=== PATIENT | female | born 1950 | race Caucasian/White ===

== ENCOUNTER 2020-06-25 08:59 | Outpatient (CLI) | payer MEDICARE, SELFPAY ==
--- NOTE | ~2020-06-25 | XR_ITS ---
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 COMPARISON: MRI, 11/17/2018 FINDINGS: There are 2 mm of stable retrolisthesis of C3 on C4. There are changes of interval anterior fusion procedure at C5-6. There is moderate loss of intervertebral disc space height at C3-4. The ve rtebral body heights are maintained. There is no fracture. No laxity is present with flexion or exten ronal. The prevertebral soft tissues are normal. There is severe facet osteoarthritis in the lower cer vical spine and severe uncovertebral joint osteoarthritis at C5-6. IMPRESSION: 1. Changes of interval anterior C5-C6 fusion procedure without acute findings. Severe spondylosis. Reviewed, dictated and finalized at location A.
== END 2020-06-25 09:00 | disposition home or self-care (01) ==
PROVIDERS: PCP Physician Assistant; Visit Provider Nurse Practitioner Gerontology
DX: M50.020 Cervical disc disorder with myelopathy, mid-cervical region, unspecified level (principal)
CPT/HCPCS: 72050

== ENCOUNTER 2022-08-29 08:29 | Inpatient (IN) | payer MEDICARE, SELFPAY ==
--- NOTE | ~2022-08-29 | CT_ITS ---
EXAMINATION: CT abdomen pelvis w con DATE: 08/29/2022 10:21 INDICATION: Pelvic mass. Abdominal pain. Constipation. TECHNIQUE: Computed tomography (CT) of the abdomen and pelvis was performed with 100 mL Omnipaque-350 intravenous contrast. Automated exposure control and iterative reconstruction technique were employe d. The dose-length product was 450.22 mGy-cm. COMPARISON: None FINDINGS: Mild atelectasis at the bilateral lung bases most prominent along the bilateral fat-containing Bochda lek hernias. Heart size is normal. Atherosclerotic coronary artery calcification. No pericardial or p leural effusion. Small sliding-type hiatal hernia. Small region of focal hepatic steatosis along the ligamentum teres. Gallbladder, spleen, pancreas and bilateral adrenal glands are normal. Bilateral arroyo bcentimeter low-attenuation renal cysts. Large amount of stool scattered throughout the colon. There is prominent edematous-appearing wall thickening at the sigmoid colon and rectum with prominent perir ectal inflammatory stranding and small amount of fluid in the presacral space consistent with colitis which could be infectious, inflammatory, stercoral or ischemic colitis. There is also mild scattered diverticulosis without focal adjacent inflammatory stranding to suggest diverticulitis. Small bowel and appendix are normal. Partially visualized right total hip arthroplasty which results in some stre ak artifact which partially obscures the deep pelvis including the otherwise normal-appearing bladder and uterus. No free intraperitoneal gas or fluid. No pathologically enlarged abdominal or pelvic lym phadenopathy. Severe lower lumbar facet osteoarthritis. Moderate osteoarthritis at the left hip. IMPRESSION: 1. Large amount of colonic stool with distal colitis at the sigmoid colon and rectum which represent infectious, inflammatory, stercoral or ischemic colitis. 2. Small sliding-type hiatal hernia. Reviewed, dictated and finalized at location A. IMPRESSION: 1. Large amount of colonic stool with distal colitis at the sigmoid colon and r ectum which represent infectious, inflammatory, stercoral or ischemic colitis. 2. Small sliding-type hiatal hernia.
--- NOTE | ~2022-08-29 | CT_ITS ---
EXAMINATION: CT abdomen pelvis w con DATE: 08/31/2022 10:40 INDICATION: Abdominal pain and bloating. Constipation. TECHNIQUE: Computed tomography (CT) of the abdomen and pelvis was performed with 100 mL Omnipaque 350 intravenous contrast. Automated exposure control and iterative reconstruction technique were employe d. The dose-length product was 650.70 mGy-cm. COMPARISON: CT abdomen and pelvis 08/29/2022 FINDINGS: The visualized portions of the lung bases demonstrate mild atelectasis. There is a diffuse smooth septal thickening, consistent with mild pulmonary edema. There is a small right pleural effusi on. There is a right posterior diaphragmatic hernia containing fat. The heart size is normal. There a re coronary artery calcifications. No pericardial effusion. There is a moderate-sized sliding hiatal hernia. The liver is normal. There is contrast in the gallbladder. The gallbladder is distended, like ly secondary to fasting. The spleen, pancreas, and adrenal glands are normal. There are cysts in the kidneys measuring up to 10 mm on the left. There is mild bilateral hydronephrosis. There is widesprea d wall thickening of small and large bowel. There is perforation of the sigmoid colon with extralumin al stool. There are scattered areas of free gas in the peritoneum. There is a moderate volume of asci rosi. There is widespread thickening and enhancement of the peritoneum, consistent with peritonitis. T here is mild aortocaval and left paracolic lymphadenopathy, likely reactive. There is a total right h ip arthroplasty. There is severe thoracic spondylosis and mild lumbar spondylosis. IMPRESSION: 1. Perforated sigmoid colon with extraluminal stool, moderate volume of ascites, and diffuse peritoni tis. 2. Moderate-sized sliding hiatal hernia. 3. Small right pleural effusion. 4. Mild pulmonary edema. 5. Mild bilateral hydronephrosis. 6. Mild retroperitoneal lymphadenopathy, likely reactive. Reviewed, dictated and finalized at location A. IMPRESSION: 1. Perforated sigmoid colon with extraluminal stool, moderate volume of ascites , and diffuse peritonitis. 2. Moderate-sized sliding hiatal hernia. 3. Small right pleural effusion. 4. Mild pulmonary edema. 5. Mild bilateral hydronephrosis. 6. Mild retroperitoneal lymphadenopathy, likely reactive.
[2022-08-29 08:30] VITALS: BP 124/76; PULSE 94; RESP 20; TEMP 36.6; O2SAT 98
--- NOTE | 2022-08-29 09:11 | ED.GENADULT ---
HPI - General Adult General Chief complaint: Abdominal Pain Stated complaint: bowel issue Time Seen by Provider: 08/29/22 09:08 Source: patient Mode of arrival: ambulatory Limitations: no limitations History of Present Illness HPI narrative: patient 72-year-old white female complains of constipation abdominal pain for the last 2 days. She has a feeling like she has to evacuate her bowels but very little stool brown stool comes out. Last had a normal bowel movement 2 days ago. She states she had a fever 2 days ago. Is voiding fine no history of cancer or intestinal problems. She has been eating and drinking fine. No cough or difficulty breathing or other pains. She has not had this problem before. Abdominal pains in her lower abdomen she took a Fleet's enema yesterday afternoon and has taken for laxatives yesterday and 2 this morning. Past medical history: Anxiety hyperlipidemia and arthritis past surgical history: right total hip neck surgery MD complaint: constipation abdominal pain Related Data Home Medications Medication Instructions Recorded Confirmed Adults Multivitamin 1 caplet PO DAILY 08/29/22 08/29/22 acetaminophen 650 mg 650 mg PO DAILY 08/29/22 08/29/22 tablet,extended release (Tylenol 8 Hour) aspirin 81 mg capsule 81 mg PO DAILY 08/29/22 08/29/22 calcium carb-magnesium carb 1 tablet PO DAILY 08/29/22 08/29/22 meloxicam 7.5 mg tablet 7.5 mg PO DAILY 08/29/22 08/29/22 sertraline 100 mg tablet 10 mg PO DAILY 08/29/22 08/29/22 simvastatin 20 mg tablet 20 mg PO DAILY 08/29/22 08/29/22 Allergies Allergy/AdvReac Type Severity Reaction Status Date / Time Penicillins Allergy Unknown Verified 08/29/22 09:29 Review of Systems Review of Systems: All systems reviewed & are unremarkable except as noted in HPI and below Constitutional: Constitutional: Denies anorexia, Denies fatigue, Reports fever(s), Denies headache(s), Denies night sweats, Denies poor appetite, Denies stops breathing during sleep, Denies weakness, Denies weight gain and Denies weight loss Eyes: Eyes: Reports no additional eye complaints ENT: Reports system reviewed and no additional complaints, except as documented Cardiovascular: Cardiovascular: Reports no additional cardiovascular complaints Respiratory: Respiratory: Reports no additional respiratory complaints Gastrointestinal: Gastrointestinal: Reports as per HPI, Reports abdominal pain, Reports belching ( Says she belches all the time), Denies melena, Reports bloating, Denies hematochezia, Reports change in bowel habits, Reports tenesmus, Reports change in stool character, Denies coffee ground emesis, Reports constipation, Reports GI cramping, Denies dysphagia, Reports excessive flatus, Denies dyspepsia, Denies heartburn, Denies fecal incontinence, Denies diarrhea and Denies nausea Genitourinary: Genitourinary: Reports no additional female genitourinary complaints Musculoskeletal: Musculoskeletal: Reports no additional musculoskeletal complaints Integumentary/Breasts: Skin/Breast: Reports system reviewed and no additional complaints, except as docu Neurologic: Reports system reviewed and no additional complaints, except as documented Psychiatric: Psychiatric: Reports no additional psychiatric complaints Endocrine: Endocrine: Reports no additional endocrine complaints Hematologic/Lymphatic: Hematologic/Lymphatic: Reports no additional hematologic/lymphatic complaints Exam Narrative: patient is elderly white female, in mild distress. Is normocephalic eyes conjunctiva pink sclera nonicteric oropharynx clear with moist mucous membranes neck is supple no lymphadenopathy lungs are clear to auscultation. Heart is regular rate and rhythm with 3/6 systolic murmur heard best at the left upper sternal border. Back is nontender abdomen positive bowel sounds soft mild tenderness to the lower abdomen without rebound no hepatosplenomegaly or masses no CVA tenderness. Rectal exam: Production Controller
[2022-08-29 09:34] LABS: Hematocrit 35.8 % (35.0-42.0); Hemoglobin 12.1 g/dL (11.7-13.8); Mean Corpuscular HGB Conc 33.8 g/dL (32.0-36.0); Mean Corpuscular Hemoglobin 31.3 pg (27.0-31.0); Mean Corpuscular Volume 92.7 fL (78.0-102.0); Mean Platelet Volume 9.7 fl (9.2-11.8); Platelet Count Result 390 K/mm3 (150-420); Red Blood Count 3.86 M/mm3 (4.20-5.40); Red Cell Distribution Width 12.8 % (11.6-14.4); White Blood Count 19.4 K/mm3 (4.8-10.8)
[2022-08-29 09:38] LABS: Occult Blood Negative (Negative)
[2022-08-29] MEDS: fentaNYL CITRATE INJ (*CRX) 100 MCG/2 ML VIAL (09:39)
[2022-08-29 09:48] LABS: Alanine Aminotransferase 7 U/L (14-59); Albumin Level 3.2 g/dL (3.4-5.0); Alkaline Phosphatase 68 U/L (46-116); Anion Gap 11 mmol/L (8-16); Aspartate Amino Transferase 13 U/L (15-37); Bilirubin,Total 0.5 mg/dL (0.00-1.00); Blood Urea Nitrogen 10 mg/dL (7-18); Calcium 8.1 mg/dL (8.5-10.1); Carbon Dioxide 25 mmol/L (21-32); Chloride 96 mmol/L (98-108); Estimated CRCL calculation 68 ml/min; Estimated Glomerular Filt Rate > 60; Glucose 133 mg/dL (70-99); Osmolality Calculated 275 mOsm/kg (285-295); Potassium 3.5 mmol/L (3.5-5.1); Sodium 132 mmol/L (136-145); Total Protein 7.3 g/dL (6.4-8.2)
--- NOTE | 2022-08-29 10:27 | PC.NURSE ---
pt continues with frequent trips to bathroom. unable to have bowel movement and has not urinated.
[2022-08-29 11:52] VITALS: BP 155/67; PULSE 74; RESP 18; TEMP 36.8; O2SAT 94
--- NOTE | 2022-08-29 12:20 | ADMGEN ---
This patient, Mariama Powers, was admitted to 2nd Floor Room 210-1. Patient/family oriented to hospital policies and general routines including ID bracelet, bed and alarms, visiting hours, pain management, procedures, bathroom and other care routines, personal items, smoking policy, room service/diet, and visiting hours. Information on how to activate the Rapid Response Team has been discussed. Patient/Family are encouraged to report perceived risks to care and to ask questions if they do not understand what they are told or what they should do.
[2022-08-29 12:32] VITALS: BP 166/70; PULSE 76; RESP 17; TEMP 36.2; O2SAT 95
[2022-08-29] MEDS: CIPROFLOXACIN 400 MG/D5W 200ML 200 ML 200 MG IVPB ×2 (12:41→21:09)
[2022-08-29] MEDS: metroNIDAZOLE 500 MG/ISO 100ML 500 MG/100 ML BAG 100 MG IVPB ×2 (12:41→18:02)
[2022-08-29] MEDS: HYDROcodone/acetaminophen (*CRX) 5-325 MG TABLET 1 TAB PO ×3 (12:41→21:07)
[2022-08-29] MEDS: SACCHAROMYCES BOULARDII 250 MG CAPSULE PO ×2 (12:42→17:03)
--- NOTE | 2022-08-29 14:06 | PC.NURSE ---
Phone call made to Pharmacist Yashira about Mag citrate order . Yashira states there is a recall on mag citrate. Tanmay RESAW TA[employer]ER notified. New orders received. Mag Citrate discontinued.
[2022-08-29 16:00] VITALS: BP 152/67; PULSE 82; RESP 17; TEMP 36.6; O2SAT 92
[2022-08-29] MEDS: LACTULOSE 20 GM/30 ML UDC PO (16:04)
[2022-08-29] MEDS: BISACODYL 10 MG SUPPOSITORY RECTAL (16:04)
--- NOTE | 2022-08-29 18:44 | PC.NURSE ---
Charting by Sissy Lizarraga, student nurse reviewed and agreed with by this nurse.
[2022-08-29 20:30] VITALS: BMI 25.7
[2022-08-29] MEDS: SENNA/DOCUSATE SODIUM TABLET 1 TAB PO (21:07)
--- NOTE | 2022-08-29 21:10 | PC.NURSE ---
Patient complaining of severe cramping to lower abdomen. Abdomen firm with hypoactive bowel sounds. Pain medicine given as ordered. Patient passed a minute amount of soft brown stool. Call light in reach.
[2022-08-29] MEDS: ONDANSETRON INJ 4 MG/2 ML VIAL IV PUSH (22:02)
--- NOTE | 2022-08-29 22:05 | PC.NURSE ---
Patient had emesis x2 unwitnessed. Zofran given. Patient continues to complain of abdominal pain but says it's getting better and now comes and goes. Patient still has had no further stool. Call light in reach.
[2022-08-29 22:07] LABS: Appearance Urine Clear (Clear); Bilirubin Urine 1+ (Negative); Blood Urine Negative (Negative); Glucose Urine UA Trace (Negative); Ketones Urine 2+ (Negative); Leukocyte Esterase Ur Negative (Negative); Protein Urine 2+ (Negative); Specific Grav Ur >= 1.030 (1.010-1.020)
[2022-08-29 22:13] LABS: Add Urine Microscopic? YES; Color Urine Dark Orange (Yellow); RBC Urine 0-2 /hpf (0-2); Squamous Epithelial Cell Urine Occasional /hpf (Few)
[2022-08-29 22:14] LABS: Bacteria Urine Trace /hpf; Mucus Urine Heavy /lpf
[2022-08-29 22:16] LABS: Nitrate Urine Positive (Negative)
--- NOTE | 2022-08-29 22:29 | PC.NURSE ---
Manuela Figueroa, Hospitalist, notified of UA results.
[2022-08-30] VITALS: BP 156/71; PULSE 80; RESP 18; TEMP 37; O2SAT 98
[2022-08-30] MEDS: metroNIDAZOLE 500 MG/ISO 100ML 500 MG/100 ML BAG 100 MG IVPB ×4 (00:27→17:53)
[2022-08-30] MEDS: HYDROcodone/acetaminophen (*CRX) 5-325 MG TABLET 1 TAB PO ×3 (01:07→21:39)
[2022-08-30 05:29] LABS: Hematocrit 34.3 % (35.0-42.0); Hemoglobin 11.5 g/dL (11.7-13.8); Mean Corpuscular HGB Conc 33.5 g/dL (32.0-36.0); Mean Corpuscular Hemoglobin 31.1 pg (27.0-31.0); Mean Corpuscular Volume 92.7 fL (78.0-102.0); Platelet Count Result 395 K/mm3 (150-420); Red Cell Distribution Width 12.7 % (11.6-14.4)
[2022-08-30 05:36] LABS: White Blood Count 26.9 K/mm3 (4.8-10.8)
--- NOTE | 2022-08-30 05:36 | PC.NURSE ---
Lab called to report a critical WBC of 26.9.
--- NOTE | 2022-08-30 06:02 | PC.NURSE ---
Manuela Figueroa NP, notified of critical WBC of 26.9; No new orders at this time.
[2022-08-30 06:05] LABS: Alanine Aminotransferase 18 U/L (14-59); Albumin Level 2.9 g/dL (3.4-5.0); Alkaline Phosphatase 72 U/L (46-116); Anion Gap 8 mmol/L (8-16); Aspartate Amino Transferase 17 U/L (15-37); Bilirubin,Total 0.6 mg/dL (0.00-1.00); Blood Urea Nitrogen 11 mg/dL (7-18); Carbon Dioxide 26 mmol/L (21-32); Chloride 93 mmol/L (98-108); Estimated CRCL calculation 59 ml/min; Estimated Glomerular Filt Rate > 60; Glucose 154 mg/dL (70-99); Osmolality Calculated 266 mOsm/kg (285-295); Potassium 3.8 mmol/L (3.5-5.1); Sodium 127 mmol/L (136-145); Total Protein 7.1 g/dL (6.4-8.2)
[2022-08-30 08:00] VITALS: BP 127/61; PULSE 74; RESP 16; TEMP 36.5; O2SAT 93
[2022-08-30] MEDS: ASPIRIN 81 MG ENTERIC TABLET PO (08:13)
[2022-08-30] MEDS: SACCHAROMYCES BOULARDII 250 MG CAPSULE PO ×3 (08:13→16:08)
[2022-08-30] MEDS: SIMVASTATIN 10 MG TABLET 20 MG PO (08:13)
[2022-08-30] MEDS: MAGNESIUM OXIDE 400 MG TABLET PO (08:13)
[2022-08-30] MEDS: DOCUSATE SODIUM 100 MG CAPSULE PO (08:14)
[2022-08-30] MEDS: SERTRALINE HCL 50 MG TABLET 100 MG PO (08:14)
[2022-08-30] MEDS: MELOXICAM 7.5 MG TABLET PO (08:16)
[2022-08-30] MEDS: PANTOPRAZOLE SODIUM IV 40 MG VIAL IV PUSH (08:18)
[2022-08-30] MEDS: ENOXAPARIN 40 MG/0.4 ML SYRINGE SUB-Q (08:18)
[2022-08-30] MEDS: CALCIUM CARBONATE (OSCAL) 250 MG TABLET PO (08:18)
[2022-08-30] MEDS: CIPROFLOXACIN 400 MG/D5W 200ML 200 ML 200 MG IVPB ×2 (08:19→20:35)
[2022-08-30] MEDS: ONDANSETRON INJ 4 MG/2 ML VIAL IV PUSH ×2 (08:31→16:08)
[2022-08-30] MEDS: NITROFURANTOIN MONOHYD MACROCR 100 MG CAP PO ×2 (12:22→20:35)
[2022-08-30] MEDS: LACTULOSE 20 GM/30 ML UDC PO ×3 (12:22→16:08)
[2022-08-30] MEDS: polyethylene glycoL 3350 17 GM POWD.PACK PO (12:22)
--- NOTE | 2022-08-30 13:17 | PM.IMHP ---
H&P: HPI History of Present Illness Date/Time: 08/30/22 13:17 Chief Complaint: Abdominal pain and constipation Narrative: This is a 72-year-old female that presents to the emergency department with complaints of abdominal pain. Patient has a past medical history of high cholesterol, anxiety and osteoarthritis. WBCs 19.4, hemoglobin 12.1, hematocrit 35.8, platelets 390, sodium 132, potassium 3.5, BUN 10, creatinine 0.59, glucose 133, calcium 8.1, magnesium 2.0, total bilirubin 0.5, AST 18, ALT 7, UA positive for glucose ketones nitrate bacteria occult blood negative CT of the abdomen indicate colitis. According to patient she cannot recall the last time she had a bowel movement. She did note approximately 2 days ago is when she started to feel abdominal pain. Patient will be admitted for colitis and treated for her constipation. She does complain of abdominal pain to the upper quadrants. The patient denies SOB, CP, palpitation, extremity numbness, lightheadedness, dizziness, , diarrhea, chills, or fever. Review of Systems Review of Systems: A 14 organ system Review of Systems was performed and pertinent positives included in the HPI, otherwise remaining ROS is negative. [facility] Past Medical History Medical History (Updated 08/30/22 @ 13:29 by MALIKA Mccartney) Anxiety HLD (hyperlipidemia) Osteoarthritis Social History Social History Smoking packs per day: 1 Smoking cigarettes per day: 20.0 Smoking status: Current every day smoker Alcohol intake: current Drinks per week: 2 Substance use: never Substance use type: does not use Spiritual care concerns: No Has the Lack of Transportation Kept You From Medical Appointments or From Getting Medications?: No Within the Past 12 Months, Were You Worried Whether Your Food Would Run Out Before You Got Money to Buy More?: Never True What is Your Housing Situation Today?: I Have Housing Are You Worried That in the Next 2 Months, You May Not Have Your Own Housing to Live In?: No Do You Have Trouble Paying Your Heating Or Electricity Bill?: No Do You Have Trouble Paying For Medicines?: No Are You Currently Unemployed and Looking for Work?: No Highest Level of Education Completed: Decline to Answer Do You Have Trouble With Childcare or the Care of a Family Member?: No Meds Home Medications and Allergies Home Medications Medication Instructions Recorded Confirmed Type Adults Multivitamin 1 caplet PO DAILY 08/29/22 08/29/22 History acetaminophen 650 mg 650 mg PO DAILY 08/29/22 08/29/22 History tablet,extended release (Tylenol 8 Hour) aspirin 81 mg capsule 81 mg PO DAILY 08/29/22 08/29/22 History calcium carb-magnesium carb 1 tablet PO DAILY 08/29/22 08/29/22 History meloxicam 7.5 mg tablet 7.5 mg PO DAILY 08/29/22 08/29/22 History sertraline 100 mg tablet 10 mg PO DAILY 08/29/22 08/29/22 History simvastatin 20 mg tablet 20 mg PO DAILY 08/29/22 08/29/22 History Allergies Allergy/AdvReac Type Severity Reaction Status Date / Time Penicillins Allergy Unknown Verified 08/29/22 09:29 Vital Signs Vital Signs - 24 hr 08/29/22 16:00 08/30/22 00:00 08/30/22 08:00 Temperature 98 F 98.6 F 97.7 F Pulse Rate 82 80 74 Respiratory Rate 17 18 16 Blood Pressure 152/67 H 156/71 H 127/61 Pulse Oximetry 92 98 93 Oxygen Delivery Room Air Room Air Room Air Exam Narrative: GENERAL: This is a well-nourished, well-developed patient, in no apparent distress. HEAD: normocephalic, atraumatic. EYES: PERRL. Sclera clear/white. Vision is grossly intact. EARS: External ears normal, auditory canals clear and without drainage, TMs normal without perforation. Hearing grossly intact. NOSE: External nose normal with no obvious nasal discharge, nares without redness, no rhinorrhea. THROAT: Mucous membranes moist, posterior pharynx clear. NECK: Neck supple, non-tender without lymphadenopathy, masses o
[2022-08-30] MEDS: BISACODYL 10 MG SUPPOSITORY RECTAL (14:36)
[2022-08-30] MEDS: SENNOSIDES 8.6 MG TABLET 17.2 MG PO (14:47)
[2022-08-30] MEDS: SODIUM CHLORIDE 0.9% IV 1,000 ML 100 ML IV CONT (14:47)
[2022-08-30 15:52] VITALS: BP 147/60; PULSE 81; RESP 20; TEMP 36.5; O2SAT 91
--- NOTE | 2022-08-30 17:16 | PC.NURSE ---
fresh dressing place on iv site, flushed, ns reconnected, pt refuses dinner at this time
[2022-08-30] MEDS: traZODone HCL 50 MG TABLET PO (19:46)
[2022-08-30] MEDS: MORPHINE SULFATE (*CRX) 2 MG/ML INJ IV PUSH (19:46)
--- NOTE | 2022-08-30 20:42 | PC.NURSE ---
Patient refuses senna S at this time, states it will make her bloating worse.
[2022-08-31] VITALS: BP 144/67; PULSE 75; RESP 16; TEMP 36.3; O2SAT 92
[2022-08-31] MEDS: metroNIDAZOLE 500 MG/ISO 100ML 500 MG/100 ML BAG 100 MG IVPB ×2 (00:30→05:22)
[2022-08-31] MEDS: SODIUM CHLORIDE 0.9% IV 1,000 ML 100 ML IV CONT (03:27)
[2022-08-31 05:40] LABS: Hematocrit 41.6 % (35.0-42.0); Hemoglobin 14.1 g/dL (11.7-13.8); Immature Platelet Fraction Pct 2.4 % (1.0-7.0); Mean Corpuscular HGB Conc 33.9 g/dL (32.0-36.0); Mean Corpuscular Hemoglobin 31.2 pg (27.0-31.0); Mean Platelet Volume 9.6 fl (9.2-11.8); Platelet Count Result 520 K/mm3 (150-420); Red Blood Count 4.52 M/mm3 (4.20-5.40); Red Cell Distribution Width 12.7 % (11.6-14.4); White Blood Count 4.5 K/mm3 (4.8-10.8)
[2022-08-31 05:48] LABS: Hemoglobin A1C 5.6 % (<5.7)
[2022-08-31 05:53] LABS: Alanine Aminotransferase 22 U/L (14-59); Albumin Level 2.5 g/dL (3.4-5.0); Alkaline Phosphatase 57 U/L (46-116); Anion Gap 10 mmol/L (8-16); Aspartate Amino Transferase 29 U/L (15-37); Bilirubin,Total 0.6 mg/dL (0.00-1.00); Blood Urea Nitrogen 19 mg/dL (7-18); Calcium 8.1 mg/dL (8.5-10.1); Carbon Dioxide 23 mmol/L (21-32); Chloride 91 mmol/L (98-108); Estimated CRCL calculation 45 ml/min; Estimated Glomerular Filt Rate 59; Glucose 154 mg/dL (70-99); Osmolality Calculated 263 mOsm/kg (285-295); Potassium 3.9 mmol/L (3.5-5.1); Sodium 124 mmol/L (136-145); Total Protein 6.5 g/dL (6.4-8.2)
[2022-08-31 08:00] VITALS: BP 130/64; PULSE 74; RESP 17; TEMP 36.6; O2SAT 93
[2022-08-31] MEDS: CIPROFLOXACIN 400 MG/D5W 200ML 200 ML 200 MG IVPB (08:59)
[2022-08-31] MEDS: ENOXAPARIN 40 MG/0.4 ML SYRINGE SUB-Q (09:00)
[2022-08-31] MEDS: PANTOPRAZOLE SODIUM IV 40 MG VIAL IV PUSH (09:01)
[2022-08-31] MEDS: SERTRALINE HCL 50 MG TABLET 100 MG PO (09:03)
[2022-08-31] MEDS: SACCHAROMYCES BOULARDII 250 MG CAPSULE PO (09:04)
[2022-08-31] MEDS: MAGNESIUM OXIDE 400 MG TABLET PO (09:04)
[2022-08-31] MEDS: DOCUSATE SODIUM 100 MG CAPSULE PO (09:04)
[2022-08-31] MEDS: NITROFURANTOIN MONOHYD MACROCR 100 MG CAP PO (09:04)
[2022-08-31] MEDS: SIMVASTATIN 10 MG TABLET 20 MG PO (09:04)
[2022-08-31 10:07] LABS: Hemoglobin 13.7 g/dL (11.7-13.8); Mean Corpuscular HGB Conc 34.3 g/dL (32.0-36.0); Mean Corpuscular Hemoglobin 31.4 pg (27.0-31.0); Mean Corpuscular Volume 91.7 fL (78.0-102.0); Mean Platelet Volume 9.7 fl (9.2-11.8); Platelet Count Result 506 K/mm3 (150-420); Red Blood Count 4.36 M/mm3 (4.20-5.40); Red Cell Distribution Width 12.7 % (11.6-14.4); White Blood Count 7.2 K/mm3 (4.8-10.8)
--- NOTE | 2022-08-31 11:22 | PM.TDS ---
Transfer Discharge Sum: Prov Provider Date of admission: 08/30/22 11:10 Primary care physician: Kell Everett, PA-C Admitting clinician: Jareth Gaffney MD Attending physician on admission: Giuliano Mtz Attending physician on discharge: Con Gaffney Discharging clinician: Tanmay Figueroa Anticipated date of transfer: 08/31/22 Receiving physician/facility: [facility]/ Dr mtz DS: Admitting Diagnosis Discharge Date 08/31/2022 Admitting Diagnosis colitis and constipation DS: Discharge Diagnosis Discharge Diagnosis (1) Acute colitis: Code(s): K52.9 - Noninfective gastroenteritis and colitis, unspecified Status: Acute (2) UTI (urinary tract infection): Code(s): N39.0 - Urinary tract infection, site not specified Status: Acute (3) Constipation: Code(s): K59.00 - Constipation, unspecified Status: Acute (4) HLD (hyperlipidemia): Code(s): E78.5 - Hyperlipidemia, unspecified Status: Acute (5) Anxiety: Code(s): F41.9 - Anxiety disorder, unspecified Status: Acute (6) Osteoarthritis: Code(s): M19.90 - Unspecified osteoarthritis, unspecified site Status: Acute (7) Electrolyte imbalance: Code(s): E87.8 - Other disorders of electrolyte and fluid balance, not elsewhere classified Status: Acute (8) Perforated sigmoid colon: Code(s): K63.1 - Perforation of intestine (nontraumatic) Status: Acute Plan perforated sigmoid colon Transfer Discharge Sum: Med Medications Active and Home Medications: Home Medications Adults Multivitamin 1 caplet PO DAILY 08/29/22 [History Confirmed 08/29/22] acetaminophen 650 mg tablet,extended release (Tylenol 8 Hour) 650 mg PO DAILY 08/29/22 [History Confirmed 08/29/22] aspirin 81 mg capsule 81 mg PO DAILY 08/29/22 [History Confirmed 08/29/22] calcium carb-magnesium carb 1 tablet PO DAILY 08/29/22 [History Confirmed 08/29/22] meloxicam 7.5 mg tablet 7.5 mg PO DAILY 08/29/22 [History Confirmed 08/29/22] sertraline 100 mg tablet 10 mg PO DAILY 08/29/22 [History Confirmed 08/29/22] simvastatin 20 mg tablet 20 mg PO DAILY 08/29/22 [History Confirmed 08/29/22] Active Medications Acetaminophen (Acetaminophen 325 Mg Tablet) 650 mg PO Q4H PRN PRN Reason: Mild Pain (1-3) or Fever Hydrocodone Bitart/Acetaminophen (Hydrocodone/Acetaminophen (*Crx) 5-325 Mg Tablet) 1 tab PO Q4H PRN PRN Reason: Moderate Pain (4-6) Last Admin: 08/30/22 21:39 Dose: 1 tab Aspirin (Aspirin 81 Mg Enteric Tablet) 81 mg PO QAM [facility] Last Admin: 08/31/22 09:12 Dose: Not Given Bisacodyl (Bisacodyl 10 Mg Suppository) 10 mg RECTAL DAILY PRN PRN Reason: Constipation Docusate Sodium (Docusate Sodium 100 Mg Capsule) 100 mg PO DAILY [facility] Last Admin: 08/31/22 09:04 Dose: 100 mg Enoxaparin Sodium (Enoxaparin 40 Mg/0.4 Ml Syringe) 40 mg SUB-Q DAILY [facility] Last Admin: 08/31/22 09:00 Dose: 40 mg Ciprofloxacin/Dextrose (Cipro 400 Mg/D5w 200 Ml) 200 mls @ 200 mls/hr IVPB Q12HR [facility] Last Admin: 08/31/22 08:59 Dose: 200 mls/hr Metronidazole (Flagyl 500 Mg/Iso Soln 100 Ml) 500 mg in 100 mls @ 100 mls/hr IVPB Q6HR [facility] Last Admin: 08/31/22 05:22 Dose: 100 mls/hr Sodium Chloride (Normal Saline Iv) 1,000 mls @ 100 mls/hr IV CONT .Q10H [facility] Last Admin: 08/31/22 03:27 Dose: 100 mls/hr Lorazepam (Lorazepam Inj (*Crx) 2 Mg/Ml Vial) 0.5 mg IV PUSH Q6H PRN PRN Reason: Anxiety Magnesium Oxide (Magnesium Oxide 400 Mg Tablet) 400 mg PO DAILY [facility] Last Admin: 08/31/22 09:04 Dose: 400 mg Meloxicam (Meloxicam 7.5 Mg Tablet) 7.5 mg PO DAILY [facility] Last Admin: 08/31/22 09:01 Dose: Not Given Morphine Sulfate (Morphine Sulfate (*Crx) 2 Mg/Ml Inj) 2 mg IV PUSH Q4H PRN PRN Reason: Pain Rated 7-10 Last Admin: 08/30/22 19:46 Dose: 2 mg Nitrofurantoin Macrocrystals (Nitrofurantoin Monohyd Macrocr 100 Mg Cap) 100 mg PO Q12HR [facility] Last Admin: 08/31/22 09:04 Dose: 100 mg Ondansetron HCl (Ond
--- NOTE | 2022-08-31 11:35 | PC.NURSE ---
Sudhakar [facility] service contacted for transfer to [place]
--- NOTE | 2022-08-31 11:47 | PC.NURSE ---
Called report to Dyana at [facility]. Also gave report to Courtney in pre-op at surgery center.
--- NOTE | 2022-08-31 12:05 | PC.NURSE ---
Report given to AAS. All questions answered. Pt transferred self to stretcher. Belongings sent with pt's .
== END 2022-08-31 12:05 | disposition short-term general hospital (02) | DRG 391 ==
LOC: CHSED 11:55 → CHS2ND 12:06
PROVIDERS: Nurse Practitioner; Admitting Provider Internal Medicine; Emergency Provider Emergency Medicine; PCP Physician Assistant; Visit Provider Internal Medicine
DX: K52.9 Noninfective gastroenteritis and colitis, unspecified (principal); K63.1 Perforation of intestine (nontraumatic); K65.9 Peritonitis, unspecified; N39.0 Urinary tract infection, site not specified; K59.00 Constipation, unspecified; E78.5 Hyperlipidemia, unspecified; E87.8 Other disorders of electrolyte and fluid balance, not elsewhere classified; M19.90 Unspecified osteoarthritis, unspecified site; F41.9 Anxiety disorder, unspecified; Z96.641 Presence of right artificial hip joint
CPT/HCPCS: 36415; 74177; 80053; 81001; 83036; 83735; 85027; 85055; 87086; 96365; 96366; 96372; 96374; 96375; 96376; 99285; A9270; C9113; G0378; J0153; J0282; J0744; J1650; J2270; J2405; J3010; J7030; J7120; Q9967

== ENCOUNTER 2022-08-31 12:13 | Inpatient (IN) | payer MEDICARE, SELFPAY ==
[2022-08-31] VITALS (19 sets, daily range): BP systolic 88–149; BP diastolic 50–78; PULSE 100–127; RESP 18–20; TEMP 35.8–36.8; O2SAT 93–100; BMI 27.3
--- NOTE | ~2022-08-31 | XR_ITS ---
EXAMINATION: XR abdomen/kub 1V DATE: 09/13/2022 06:01 INDICATION: Small bowel obstruction. TECHNIQUE: A supine view of the abdomen was obtained. COMPARISON: Abdomen radiographs 09/12/2022 FINDINGS: There are mildly dilated loops of small bowel. The colon is decompressed. Skin gallito are noted. There is a total right hip arthroplasty. IMPRESSION: 1. Mildly dilated small bowel, likely adynamic ileus. Reviewed, dictated and finalized at location A. LIFT OPERATOR
--- NOTE | ~2022-08-31 | XR_ITS ---
XR chest PICC line DATE: 08/31/2022 20:15 INDICATION: PICC line insertion TECHNIQUE: Portable AP chest on 08/31/2022 2010 hours COMPARISON: 08/31/2022 portable AP chest FINDINGS: Left upper extremity PIC catheter tip overlies superior vena cava. ET tube 4.7 cm above ana in satisfactory position. NG tube in stomach. Normal heart size. There is bilateral lower lung infiltrate and/or atelectasis, left greater than right. Small pleural e ffusions may be present. No pneumothorax. Osteopenia. IMPRESSION: Left upper extremity PIC catheter in superior vena cava ET and NG tubes in satisfactory position Bilateral predominantly lower lung infiltrate and/atelectasis, left greater the right Reviewed, dictated and finalized at Location A. Reviewed, dictated and finalized at location A.
--- NOTE | ~2022-08-31 | CT_ITS ---
EXAMINATION: CT abdomen pelvis wo con DATE: 09/02/2022 11:17 INDICATION: Abdominal distention post sigmoidectomy. TECHNIQUE: Computed tomography (CT) of the abdomen and pelvis was performed without intravenous contr ast. Automated exposure control and iterative reconstruction technique were employed. The dose-length product was 1314.80 mGy-cm. COMPARISON: 08/31/2022 FINDINGS: Again seen are bilateral fat-containing Bochdalek hernias. Small bilateral pleural effusions with ass ociated basilar compressive atelectasis. Heart size is normal. Atherosclerotic coronary artery calcif ications along with aortic valve and mitral annular calcific lesions. No pericardial effusion. [place]oga stric tube tip in the distal body of the stomach. Small amount of perihepatic ascites. Mild focal hep atic steatosis at the ligamentum teres. Vicariously excreted contrast within the gallbladder which is dilated to 5.7 x 5.0 cm. No gallbladder wall thickening or pericholecystic inflammatory changes sugg est acute cholecystitis. Spleen, pancreas and bilateral adrenal glands are normal. Again seen are veronika ateral subcentimeter low-attenuation renal cysts. No hydronephrosis. 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 Postoperative change of interval sigmoidectomy with left lower quadr ant and colostomy and Wen's pouch formation. Streak artifact from a right total hip arthroplasty partially obscures portions of the deep central pelvis. Not obscured portions of the partially decomp ressed bladder and uterus are unremarkable. Small amount of scattered ascites in the pelvis and along the mesentery in the abdomen which appears decreased since the prior study. No loculated abscess or free intraperitoneal gas. Atherosclerotic ossicle is scattered along the normal caliber abdominal aor ta. No pathologically enlarged abdominal or pelvic lymphadenopathy. Moderate left hip osteoarthritis. Severe spondylosis at T8-T9. IMPRESSION: 1. Postoperative change of recent sigmoidectomy with left lower quadrant and colostomy and Wen's pouch formation. 2. Decreased small amount of ascites scattered throughout the abdomen and pelvis. No abscess or free intraperitoneal gas. 3. Small bilateral pleural effusions with dependent atelectasis in the bilateral lower lobes. Reviewed, dictated and finalized at location A. IMPRESSION: 1. Postoperative change of recent sigmoidectomy with left lower quadrant and co lostomy and Wen's pouch formation. 2. Decreased small amount of ascites scattered throughout the abdomen and pelvi s. No abscess or free intraperitoneal gas. 3. Small bilateral pleural effusions with dependent atelectasis in the bilatera l lower lobes.
--- NOTE | ~2022-08-31 | XR_ITS ---
EXAMINATION: XR chest 1V portable DATE: 09/03/2022 05:56 INDICATION: Endotracheal tube TECHNIQUE: frontal view of the chest was obtained. COMPARISON: Chest radiograph dated 09/02/2022 FINDINGS: Endotracheal tube tip 3.5 cm above the ana. Nasogastric tube extends below the left hemidiaphragm with distal tip collimated off the study. Left upper extremity peripherally inserted central venous catheter (PICC) tip at the caudal superior vena cava. Persistent gradient of basilar predominant hazy airspace opacities in bilateral mid and lower lung zo adan with blunting at the left costophrenic angle consistent with posterior layering small bilateral p leural effusions and associated basilar atelectasis. No pneumothorax. The cardiomediastinal silhouett e is normal. IMPRESSION: 1. Small bilateral pleural effusions with associated bibasilar atelectasis and/or pneumonia. Reviewed, dictated and finalized at location A. IMPRESSION: 1. Small bilateral pleural effusions with associated bibasilar atelectasis and/ or pneumonia.
--- NOTE | ~2022-08-31 | XR_ITS ---
XR abdomen/kub 1V DATE: 09/12/2022 06:50 INDICATION: Small bowel obstruction TECHNIQUE: Portable supine AP views on 09/12/2022 at 0602 hours COMPARISON: 09/11/2022 KUB FINDINGS: The NG tube is been removed since 09/11/2022. There is prominent left lower lobe atelectasis/consolidation with air bronchograms and lesser infiltr ate or atelectasis in the right lower lung. There are gallito left of midline in the lower abdomen. There is nonspecific bowel gas pattern withou t apparent obstruction. Status post right total hip arthroplasty. IMPRESSION: Bilateral lower lobe infiltrate and/atelectasis, particularly prominent in the left lower lobe, with air bronchograms Nonspecific postoperative bowel gas pattern Reviewed, dictated and finalized at Location A. Reviewed, dictated and finalized at location A. CUTTER IMPRESSION: Bilateral lower lobe infiltrate and/atelectasis, particularly promi nent in the left lower lobe, with air bronchograms Nonspecific postoperative bowel gas pattern
--- NOTE | ~2022-08-31 | XR_ITS ---
XR chest 1V portable 09/05/2022 05:47 Indication: Respiratory distress. Procedure: AP portable chest Comparison: Comparison to multiple prior studies sequentially, with oldest reviewed study dated 08/08. Findings: Endotracheal tube tip 2.9 cm above the ana. PICC line tip in the SVC. NG tube in the sto mach. There is mild interstitial edema. Small pleural effusions. No pneumothorax. Impression: 1: Mild interstitial edema with small pleural effusions. Reviewed, dictated and finalized at location A. Impression: 1: Mild interstitial edema with small pleural effusions.
--- NOTE | ~2022-08-31 | XR_ITS ---
EXAMINATION: XR chest 1V portable DATE: 09/02/2022 05:35 INDICATION: Endotracheal tube TECHNIQUE: frontal view of the chest was obtained. COMPARISON: Chest radiograph dated 09/01/2022 FINDINGS: Endotracheal tube tip 4.2 cm above the ana. Nasogastric tube tip in proximal side port in the body of the stomach. Left upper extremity peripherally inserted central venous catheter (PICC) tip at th e caudal superior vena cava. Opacities in the bilateral lower lung zones with some subtle air bronchograms at the bilateral infrah ilar regions. Persistent small bilateral pleural effusions. No pneumothorax. The cardiomediastinal si lhouette is normal. IMPRESSION: 1. Small bilateral pleural effusions with associated bibasilar atelectasis and/or pneumonia. Reviewed, dictated and finalized at location A. IMPRESSION: 1. Small bilateral pleural effusions with associated bibasilar atelectasis and/ or pneumonia.
--- NOTE | ~2022-08-31 | XR_ITS ---
XR abdomen/kub 1V INDICATION: Evaluate NG tube position. TECHNIQUE: Limited KUB perform for evaluating NG tube . COMPARISON: 09/07/2022 FINDINGS: NG tube tip in the stomach. There has been decompression of small bowel since prior examina tion.Moderate gas throughout the colon. There is a laparotomy staple line. IMPRESSION: 1: NG tube tip in the stomach. Reviewed, dictated and finalized at location A.
--- NOTE | ~2022-08-31 | XR_ITS ---
EXAMINATION: XR abdomen NG/feed tube insert DATE: 08/31/2022 17:31 INDICATION: Nasogastric tube placement. TECHNIQUE: A supine view of the abdomen was obtained. COMPARISON: None. FINDINGS: The lower abdomen is excluded. The transverse colon is mildly distended. Skin gallito are n oted. The nasogastric tube tip is in the stomach. IMPRESSION: 1. Nasogastric tube tip in the stomach. 2. Mildly distended transverse colon, likely adynamic ileus. Reviewed, dictated and finalized at location A.
--- NOTE | ~2022-08-31 | CT_ITS ---
EXAMINATION: CT abdomen pelvis w con DATE: 09/07/2022 15:31 INDICATION: Leukocytosis. Postoperative abdominal pain and distention. TECHNIQUE: Computed tomography (CT) of the abdomen and pelvis was performed with 100 mL Omnipaque-350 intravenous contrast. Automated exposure control and iterative reconstruction technique were employe d. The dose-length product was 742.14 mGy-cm. COMPARISON: 09/02/2022 . FINDINGS: Small to moderate-sized bilateral pleural effusions with collapse of the visualized portions of the b ilateral lower lobes additional dependent atelectasis in the right middle lobe. Bilateral fat-contain ing Bochdalek hernias. Heart size is normal. Atherosclerotic coronary artery calcifications. No peric ardial effusion. Nasogastric tube in the stomach. Vicariously excreted contrast in the gallbladder. Common bile duct is dilated to 9 mm. No intrahepati c third ductal dilation. Liver, spleen, pancreas, bilateral adrenal glands are normal. Bilateral subc entimeter renal cysts. Postoperative change of recent sigmoidectomy with left lower quadrant and colo stomy and Ewn's pouch formation. There is gas and fluid throughout multiple loops of small bowel with short segment mildly dilated to 3.8 cm which transitions to normal caliber without a discrete tr ansition point and would favor an ileus over obstruction. Moderate amount stool in the proximal colon . Small amount of ascites scattered throughout the abdomen and pelvis. No organized-appearing abscess . Visualization of the deep pelvis is somewhat limited by metallic streak artifact from a right total h ip arthroplasty. Thickened fluid attenuation endometrial complex which measures up to 15 mm in thickn ess. Partially decompressed bladder is unremarkable. Extensive body wall edema. Midline surgical skin gallito. Moderate left hip osteoarthritis and severe lower lumbar facet osteoarthritis. IMPRESSION: 1. Status post sigmoidectomy with left lower quadrant and colostomy and Wen's pouch formation. 2. Multiple gas and fluid-filled loops of small bowel one of which is borderline dilated but without evident transition point to suggest obstruction and this most likely represents a postoperative ileus . 3. Small amount of nonorganized appearing ascites in the abdomen and pelvis. 3. Common bile duct mildly dilated to 9 mm which has remain stable since 08/29/2022 and is without ev ident intrahepatic biliary ductal dilation. Correlate with liver function tests. 4. Increasing small to moderate bilateral pleural effusions with collapse of the visualized basilar s egments of the bilateral lower lobes. Reviewed, dictated and finalized at location B. IMPRESSION: 1. Status post sigmoidectomy with left lower quadrant and colostomy and Wen 's pouch formation. 2. Multiple gas and fluid-filled loops of small bowel one of which is borderlin e dilated but without evident transition point to suggest obstruction and this most likely represents a postoperative ileus. 3. Small amount of nonorganized appearing ascites in the abdomen and pelvis. 3. Common bile duct mildly dilated to 9 mm which has remain stable since 2021 and is without evident intrahepatic biliary ductal dilation. Correlate wit h liver function tests. 4. Increasing small to moderate bilateral pleural effusions with collapse of th e visualized basilar segments of the bilateral lower lobes.
--- NOTE | ~2022-08-31 | XR_ITS ---
EXAMINATION: XR abdomen/kub 1V DATE: 09/07/2022 14:11 INDICATION: Abdominal distention. TECHNIQUE: A supine view of the abdomen on 2 radiographs was obtained. COMPARISON: CT dated 09/02/2022 FINDINGS: Nasogastric tube tip in proximal side port in the body of the stomach. There are multiple gas-filled but not frankly dilated loops of large and small bowel in the abdomen and pelvis and would favor a re sidual postoperative ileus over obstruction. Midline skin gallito. Partially visualized right total h ip arthroplasty. Moderate left hip osteoarthritis and severe lower lumbar facet osteoarthritis. IMPRESSION: 1. Multiple gas-filled but not frankly dilated loops of large and small bowel and would favor a posto perative ileus over obstruction. Reviewed, dictated and finalized at location B. IMPRESSION: 1. Multiple gas-filled but not frankly dilated loops of large and small bowel a nd would favor a postoperative ileus over obstruction.
--- NOTE | ~2022-08-31 | XR_ITS ---
XR abdomen/kub 1V DATE: 09/11/2022 06:04 INDICATION: Small bowel obstruction TECHNIQUE: Portable supine AP view on 09/11/2022 at 0548 hours COMPARISON: 09/2022 portable supine AP abdomen at 0536 hours FINDINGS: NG tube is noted in the lower body of the stomach. There are gallito overlying the lower abdomen and pelvis left of midline. Nonspecific bowel gas pattern without abnormal small or large bowel dilatation. Status post right total hip arthroplasty. Prominent left hip osteoarthritis. IMPRESSION: NG tube in lower body of stomach Nonspecific bowel gas pattern Reviewed, dictated and finalized at Location A. Reviewed, dictated and finalized at location A.
--- NOTE | ~2022-08-31 | XR_ITS ---
EXAMINATION: XR chest 1V portable DATE: 09/01/2022 05:07 INDICATION: Endotracheal tube TECHNIQUE: frontal view of the chest was obtained. COMPARISON: Chest radiograph dated 08/31/2022 FINDINGS: Endotracheal tube tip 4.2 cm above the ana. Nasogastric tube extends below the left hemidiaphragm with distal tip collimated off the study. Small lung volumes. Mild opacities at the bilateral lung bases including small bilateral pleural effu sions. No pneumothorax. The cardiomediastinal silhouette is normal. IMPRESSION: 1. Small bilateral pleural effusions with associated mild bibasilar atelectasis and/or pneumonia. Reviewed, dictated and finalized at location A.
--- NOTE | ~2022-08-31 | XR_ITS ---
XR chest 1V portable 09/04/2022 05:46 Indication: Respiratory distress. Endotracheal tube placement. Procedure: AP portable chest Comparison: Comparison to multiple prior studies sequentially, with oldest reviewed study dated 08/08. Findings: Endotracheal tube tip 3.7 cm above the ana. NG tube in the stomach. Diffuse bilateral ai rspace disease is unchanged. Small pleural effusions. No pneumothorax. Impression: 1: Stable diffuse bilateral airspace disease, most likely edema versus pneumonia. Reviewed, dictated and finalized at location A. Impression: 1: Stable diffuse bilateral airspace disease, most likely edema versus pneumoni a.
--- NOTE | ~2022-08-31 | XR_ITS ---
EXAMINATION: XR abdomen/kub 1V DATE: 09/10/2022 05:55 INDICATION: Adynamic ileus. TECHNIQUE: A supine view of the abdomen on 2 radiographs was obtained. COMPARISON: CT abdomen and pelvis 09/07/2022 FINDINGS: There are dilated loops of small bowel. The colon is normal in caliber. The nasogastric tub e tip is in the stomach. Skin gallito are noted. There is a total right hip arthroplasty. There are s mall pleural effusions. IMPRESSION: 1. Dilated small bowel, likely adynamic ileus. 2. Small pleural effusions. Reviewed, dictated and finalized at location A.
--- NOTE | ~2022-08-31 | XR_ITS ---
EXAMINATION: XR chest ET placement DATE: 08/31/2022 17:31 INDICATION: Intubation. TECHNIQUE: A single frontal view of the chest was obtained. COMPARISON: Chest 2 views 10/15/2013, CT abdomen and pelvis 08/31/2022 FINDINGS: There is a diffuse interstitial pattern in the lungs, consistent with mild pulmonary edema. There is mild atelectasis at the lung bases. No pleural effusion or pneumothorax. The heart size is normal. There are changes of anterior fusion procedure in cervical spine. The endotracheal tube tip i s 3.9 cm above the ana. The nasogastric tube tip is beyond the inferior margin of the radiograph, but at least to the stomach. IMPRESSION: 1. Mild pulmonary edema. Reviewed, dictated and finalized at location A. IMPRESSION: 1. Mild pulmonary edema.
--- NOTE | 2022-08-31 12:28 | ECG_ITS ---
Measurements Intervals [place] Rate: 125 P: -8 MA: 122 QRS: 60 QRSD: 122 T: 8 QT: 300 QTc: 433 Interpretive Statements SINUS TACHYCARDIA RIGHT BUNDLE BRANCH BLOCK [120+ ms QRS DURATION, UPRIGHT V1, 40+ ms S IN I/aVL/V4/V5/V6] NO PREVIOUS ECG AVAILABLE FOR COMPARISON Electronically Signed On 08-31-2022 16:22:33 CDT by Dylan Aguila M.D.
--- NOTE | 2022-08-31 12:41 | PM.IMHP ---
H&P: HPI History of Present Illness Date/Time: 08/31/22 12:41 Chief Complaint: abdominal pain Narrative: patient is a 72-year-old woman who presented to the emergency room in [place] with severe abdominal pain and constipation 2 days ago, 08/29/2022. Her last bowel movement had been 2 days ago. She had taken a fleets enema and some laxatives but no results. Her white blood cell count was 19,000. CT scan showed a tremendous amount of retained fecal content and evidence of colitis in the distal sigmoid area. She was admitted and started on antibiotics and multiple laxatives. Today,her abdomen became very distended and her pain was worse. Her CT scan was repeated. This showed evidence of sigmoid perforation, fecal peritonitis. She transferred here urgently from [facility] in [place]. Plans are to proceed to the operating room for fecal peritonitis from stercoral colonic perforation. Patient is a smoker and had a previous right total hip replacement. She is otherwise healthy. Review of Systems Review of Systems: All systems reviewed & are unremarkable except as noted in HPI and below ( HPI and those items noted below) Constitutional: Constitutional: Denies chills and Denies fever(s) Cardiovascular: Cardiovascular: Denies chest pain, Denies diaphoresis, Denies dyspnea and Denies paroxysmal nocturnal dyspnea Respiratory: Respiratory: Denies chest congestion, Denies cough and Denies dyspnea Integumentary/Breasts: Skin/Breast: Denies lesions and Denies rash PMFSH Past Medical History Medical History Anxiety HLD (hyperlipidemia) Osteoarthritis Social History Social History Smoking packs per day: 1 Smoking cigarettes per day: 20.0 Smoking status: Current every day smoker Alcohol intake: current Drinks per week: 2 Substance use: never Substance use type: does not use Spiritual care concerns: No Has the Lack of Transportation Kept You From Medical Appointments or From Getting Medications?: No Within the Past 12 Months, Were You Worried Whether Your Food Would Run Out Before You Got Money to Buy More?: Never True What is Your Housing Situation Today?: I Have Housing Are You Worried That in the Next 2 Months, You May Not Have Your Own Housing to Live In?: No Do You Have Trouble Paying Your Heating Or Electricity Bill?: No Do You Have Trouble Paying For Medicines?: No Are You Currently Unemployed and Looking for Work?: No Highest Level of Education Completed: Decline to Answer Do You Have Trouble With Childcare or the Care of a Family Member?: No Meds Home Medications and Allergies Home Medications Medication Instructions Recorded Confirmed Type Adults Multivitamin 1 caplet PO DAILY 08/29/22 08/29/22 History acetaminophen 650 mg 650 mg PO DAILY 08/29/22 08/29/22 History tablet,extended release (Tylenol 8 Hour) aspirin 81 mg capsule 81 mg PO DAILY 08/29/22 08/29/22 History calcium carb-magnesium carb 1 tablet PO DAILY 08/29/22 08/29/22 History meloxicam 7.5 mg tablet 7.5 mg PO DAILY 08/29/22 08/29/22 History sertraline 100 mg tablet 10 mg PO DAILY 08/29/22 08/29/22 History simvastatin 20 mg tablet 20 mg PO DAILY 08/29/22 08/29/22 History Allergies Allergy/AdvReac Type Severity Reaction Status Date / Time Penicillins Allergy Unknown Verified 08/29/22 09:29 Exam Const: General: cooperative, no acute distress, alert, awake, uncomfortable and thin Nutritional Appearance: thin Orientation/consciousness: patient oriented x3 and No confusion HENMT: Head: normocephalic and atraumatic Mouth: Yes Normal oral and palatal mucosa present Eyes: Conjunctivae: conjunctivae normal Pupils: Equal, round and reactive pupils present EOM: EOMs intact bilaterally Neck: Neck: normal visual inspection, no lymphadenopathy and nontender Resp: Effort & Inspection: nor
--- NOTE | 2022-08-31 12:53 | WPDHPUPDATE1 ---
History and Physical Update Update Date/Time: 08/31/22 12:53 History and Physical has been reviewed, including an updated exam of the patient. There are NO changes in the patient's condition. Risks, benefits, and alternatives have been discussed and questions answered. Patient agrees to proceed with procedure.
--- NOTE | 2022-08-31 13:08 | P.PNAN_ITS ---
Anes - Initial Pre Proc Eval Procedure: Operation Date: 08/31/22 16:00 Proposed Procedures p Exploratory Laparotomy - Giuliano Krueger MD Date/Time: 08/31/22 13:08 Surgeon: Giuliano Krueger MD Pre Op Diagnosis: Perforated Sigmoid Colon Patient Data Age: 72 Gender: F Height: Weight: Allergies Allergy/AdvReac Type Severity Reaction Status Date / Time Penicillins Allergy Unknown Verified 08/29/22 09:29 Home Medications Medication Instructions Recorded Confirmed Type Adults Multivitamin 1 caplet PO DAILY 08/29/22 08/29/22 History acetaminophen 650 mg 650 mg PO DAILY 08/29/22 08/29/22 History tablet,extended release (Tylenol 8 Hour) aspirin 81 mg capsule 81 mg PO DAILY 08/29/22 08/29/22 History calcium carb-magnesium carb 1 tablet PO DAILY 08/29/22 08/29/22 History meloxicam 7.5 mg tablet 7.5 mg PO DAILY 08/29/22 08/29/22 History sertraline 100 mg tablet 10 mg PO DAILY 08/29/22 08/29/22 History simvastatin 20 mg tablet 20 mg PO DAILY 08/29/22 08/29/22 History Patient hx anesthesia problems: none Family hx anesthesia problems: none Results Review: All pre-operative results and documents have been reviewed as part of the pre- operative evaluation. [facility] Past Medical History Medical History Anxiety HLD (hyperlipidemia) Osteoarthritis Social History Social History Smoking packs per day: 1 Smoking cigarettes per day: 20.0 Smoking status: Current every day smoker Alcohol intake: current Drinks per week: 2 Substance use: never Substance use type: does not use Spiritual care concerns: No Has the Lack of Transportation Kept You From Medical Appointments or From Getting Medications?: No Within the Past 12 Months, Were You Worried Whether Your Food Would Run Out Before You Got Money to Buy More?: Never True What is Your Housing Situation Today?: I Have Housing Are You Worried That in the Next 2 Months, You May Not Have Your Own Housing to Live In?: No Do You Have Trouble Paying Your Heating Or Electricity Bill?: No Do You Have Trouble Paying For Medicines?: No Are You Currently Unemployed and Looking for Work?: No Highest Level of Education Completed: Decline to Answer Do You Have Trouble With Childcare or the Care of a Family Member?: No Anes - Eval Final PreProcedure Day of Procedure 08/31/22 13:08 Patient weight: obese Heart: regular rate and rhythm Lungs: clear to auscultation and normal air movement Airway: Mallampati scale class II Neurological: alert and oriented Last oral intake: >/= 8 hours ASA classification: III Emergent: yes Anesthetic plan: proceed Anesthesia type and monitoring: general ETT Results Review: All pre-operative results and documents have been reviewed as part of the pre- operative evaluation. Informed Consent: The patient's anesthetic plan and its attendant risks and benefits were discussed with the patient/family/POA. Questions were solicited and answers provided to the satisfaction of the patient/family/POA.
[2022-08-31] MEDS: ceFAZolin 2 GM/D5W 50 ML 2 GM/50 ML BAG IVPB (13:47)
--- NOTE | 2022-08-31 13:52 | SUR.PREOP ---
[id number] DR WILLAMS STATES TO DO HAIR REMOVAL IN OR
[2022-08-31] MEDS: HYDROGEN PEROXIDE 3% SOLN(*SP) 473 ML BOTTLE 10 ML IRRIGATION (15:49)
--- NOTE | 2022-08-31 17:11 | W.PM.PROC2 ---
Procedure Note - Detailed Date of Procedure 08/31/22 Pre-op Diagnosis Stercoral perforation sigmoid colon, fecal peritonitis Post-op Diagnosis Other (Stercoral perforation sigmoid colon, fecal peritonitis, septic shock) Procedure Performed Sigmoidectomy with Rossi procedure Surgeon Giuliano Krueger MD Breast Surgeon Nia MARTINEZ, Dyana Cee [employer] Anesthesia General Indications Patient was admitted to [facility] 2 days ago with constipation and abdominal pain. CT scan showed large amount of retained fecal matter and evidence of stercoral colitis. Patient today developed distention and increased abdominal pain. CT scan showed perforation and fecal peritonitis. She was transferred here emergently and is taken to surgery emergently for bowel perforation and fecal peritonitis. Findings Patient's blood pressure was normal prior to surgery but during the operation she became hypotensive and required vasopressor of agents to maintain her blood pressure. She had extensive amounts of liquid stool throughout the abdomen. There was a hole in the sigmoid colon which was continuing to leak liquid fecal matter. The entire colon was quite dilated making the surgery more difficult. The sigmoid colon had areas of gangrenous change and was adherent in the lower abdomen making resection more difficult. End descending colostomy or Rossi's procedure was performed. Patient transferred directly to the intensive care unit from the operating room Description of Procedure Patient was taken to surgery and induced into general anesthesia. The entire abdomen was prepped and draped. A midline incision was made and as we entered the abdominal cavity liquid stool was encountered. This was suctioned away. The incision was gradually enlarged as it became more obvious that a very large midline incision would be required to expose the area of the perforation, clean the abdominal cavity adequately, and provide resection with colostomy. Once the incision was enlarged to an adequate extent, a Mehul retractor was placed. The small intestine was gently eviscerated. There was a lot of fibrinous stool stained exudate on the serosal surfaces of the small intestine and its mesentery. This was removed as best possible. Eventually we were able to eviscerate all the small bowel and its mesentery. We suctioned away collections of liquid stool as we found them. Any solid stool was also removed. Most of the serosal surfaces had been contaminated with liquid fecal material. At this point exploration revealed that the sigmoid colon had gangrenous patches and was likely the source of the perforation as suggested by the CT scan. All of the colon was very dilated. Particularly the cecum was dilated and just to access the sigmoid colon I had to mobilize the cecum and distal small bowel so that it would not occupy so much of the pelvis. From there I was then able to free the sigmoid colon from some inflammatory pelvic adhesions. At this point, trying to mobilize the sigmoid and resulted in additional stool being expressed into the abdominal cavity. I tried to cover this opening as best possible with laparotomy sponge and then continued to mobilize the sigmoid colon. Eventually it was mobilized. I divided some of the mesentery to the sigmoid colon and upper rectum with LigaSure. I then used the contour stapler and divided the sigmoid colon from the upper rectum. From there I mobilized and exposed the vasculature to the sigmoid colon. I used the LigaSure to divide this as well. Finally I mobilized and divided the mesentery to the distal descending colon and dissected around the distal descending colon. Using the TLC 75 stapler I divided the distal descending colon. This allowed us to remove the sigmoid colon and passed it off as a specimen. Now that the source of contamination had been removed, we set about irrigating the entire abdominal cavity with warm saline. After do
[2022-08-31] MEDS: FENTANYL 2,500MCG/NS250ML(*CRX 2,500 MCG/250 ML BAG IV CONT (17:40)
[2022-08-31] MEDS: MIDAZOLAM 100MG/NS 100ML(*CRX) 100 MG/100 ML BAG IV CONT (17:40)
[2022-08-31 17:45] LABS: Alveolar/Arterial O2 Gradient 355.2 mmHg; Fractional Inspired Oxygen 100 %; HCO3 ABG 18.7 mEq/l (22.0-26.0); Methemoglobin ABG 0.4 %THb (0-1.5); Oxygen Content ABG 20.3 %vol (16.0-22.0); Oxygen Saturation ABG 99.6 % (95.0-100.0); Oxyhemoglobin 98.6 % THb (90.0-100.0); PCO2 ABG 47.2 mmHg (35.0-45.0); PO2 ABG 310.6 mmHg (80.0-100.0); PO2 FiO2 Ratio Arterial Blood 3.11 %; Total Hemoglobin 14.1 g/dL (12.0-18.0)
[2022-08-31 17:47] LABS: Device VENTILATOR; Site Drawn ARTLINE; pH ABG 7.216 (7.350-7.450)
[2022-08-31 17:48] LABS: Arterial Blood Gas PEEP 5 cmH2O; Arterial Blood Gas Tidal Volume 350 ml; Arterial Blood Gas Vent Mode CMV; Arterial Blood Gas Ventilator rate 20 /MIN
[2022-08-31 18:09] LABS: Hematocrit 39.6 % (37.0-47.0); Hemoglobin 13.3 g/dL (12.0-15.0); Mean Corpuscular HGB Conc 33.6 g/dl (32-36); Mean Corpuscular Hemoglobin 30.9 pg (26-34); Mean Corpuscular Volume 92.1 fl (80-100); Mean Platelet Volume 9.7 fl (7.4-10.4); Platelet Count Result 532 k/mm3 (150-375); Red Cell Distribution Width 13.2 % (11.5-14.5); White Blood Count 7.1 K/mm3 (4.5-10.0)
[2022-08-31 18:14] LABS: Lactic Acid Reflex 2.2 mmol/L (0.7-2.0)
[2022-08-31 18:16] LABS: Alanine Aminotransferase 23 U/L (6-35); Albumin Level 2.2 g/dL (3.5-5.1); Alkaline Phosphatase 38 U/L (38-126); Anion Gap 11 mmol/L (8-16); Aspartate Amino Transferase 48 U/L (14-36); Bilirubin,Total 0.5 mg/dL (0.2-1.3); Blood Urea Nitrogen 20 mg/dL (7-17); Calcium 7.6 mg/dL (8.4-10.2); Carbon Dioxide 19 mmol/L (22-30); Chloride 99 mmol/L (98-107); Estimated CRCL calculation 42 ml/min; Estimated Glomerular Filt Rate 55; Glucose 126 mg/dL (65-110); Phosphorus 4.3 mg/dL (2.5-4.5); Sodium 129 mmol/L (137-145)
[2022-08-31] MEDS: KCL 20MEQ/0.9% SOD CHL 1,000 ML 125 ML IV CONT (18:19)
[2022-08-31] MEDS: MICAFUNGIN SODIUM 100 MG in SODIUM CHLORIDE 0.9% IV 100 ML IVPB (18:20)
[2022-08-31] MEDS: metroNIDAZOLE 500 MG/ISO 100ML 500 MG/100 ML BAG 100 MG IVPB (18:32)
[2022-08-31 19:18] LABS: Band Neutrophils Percent 15 % (0-6); Lymphocytes Absolute Manual 1.06 K/mm3 (1.1-4.5); Metamyelocytes Percent 3 %; Monocytes Absolute Manual 0.63 K/mm3 (0.1-0.90); Monocytes Percent Manual 9 % (3-9); Myelocytes Percent 2 %; Neutrophils Absolute Manual 5.04 K/mm3 (1.7-7.2); Neutrophils Percent Manual 56 % (46-73); Platelet Estimate Increased (Adequate); Total Cells Counted 100
[2022-08-31 19:19] LABS: Schistocytes None Seen (NORMAL)
--- NOTE | 2022-08-31 19:30 | WPDCN ---
Assessment and Plan Assessment and plan (1) Sepsis: Code(s): A41.9 - Sepsis, unspecified organism Status: Acute Assessment and Plan: Sepsis secondary to peritonitis related to perforated sigmoid colon from stercoral colitis. She presented with tachycardia, leukocytosis with bandemia, lactic acidosis, and hypotension which has thus far been responsive to IV fluid rehydration. Blood cultures were not drawn prior to starting antibiotics though we will draw those this evening. At this time she is maintaining her blood pressures though a PICC line has been placed as she may very well end up requiring vasopressors as she did periodically throughout her surgery. (2) Perforated sigmoid colon: Code(s): K63.1 - Perforation of intestine (nontraumatic) Status: Acute Assessment and Plan: Status post sigmoidectomy, Rossi procedure per Dr. Krueger. (3) Peritonitis: Code(s): K65.9 - Peritonitis, unspecified Status: Acute Assessment and Plan: Currently on broad-spectrum antibiotics and antifungals with levofloxacin, metronidazole, and micafungin. (4) Stercoral colitis: Code(s): K52.89 - Other specified noninfective gastroenteritis and colitis Status: Acute Assessment and Plan: Status post perforation as detailed above. (5) Electrolyte imbalance: Code(s): E87.8 - Other disorders of electrolyte and fluid balance, not elsewhere classified Status: Acute Assessment and Plan: Sodium and chloride were low on presentation to the outside facility but have improved with IV fluid rehydration. Monitor closely.. (6) Smoker: Code(s): F17.200 - Nicotine dependence, unspecified, uncomplicated Status: Chronic Assessment and Plan: Smoking cessation is encouraged. This may delay her healing time. Plan GI prophylaxis: Protonix. DVT prophylaxis: Enoxaparin. Diet: Start tube feeds when bowel function returns. Thank you for allowing us to participate in this patient's care. Please do not hesitate to contact us with any questions. Supervising physician for this medical consultation is Dr. Dick Engel. [facility] Data of Consult Date/Time: 08/31/22 17:30 Requesting Physician: Giuliano Krueger MD Consult Narrative Reason for consult: Sepsis, perforated sigmoid colon Narrative: This is a 72-year-old female smoker with hyperlipidemia and anxiety whom the hospitalist service has been consulted for help managing her medical conditions status post sigmoidectomy with Rossi procedure. She is sedated and intubated unable to provide any history and as such all of the following is obtained via a review of her electronic medical records as well as discussions with her Josue who is at bedside. Last Tuesday the patient began experiencing discomfort in her abdomen which she attributed to constipation as she had not had a good bowel movement for several days. Tuesday evening she developed increasing pain, discomfort, and bloating and took a an oral laxative and did a Fleet's enema with no success. She presented to the emergency department the [facility] [place] at which time a CT of the abdomen and pelvis showed a large amount of colonic stool with distal colitis at the sigmoid colon and rectum which represents infectious, inflammatory, stercoral, or ischemic colitis. She was admitted to their medical floor that afternoon and was started on antibiotics. The following afternoon she was seen by the hospitalist who started her on MiraLax lactulose, senna, and suppositories without success. Over the next 24 hours she had increasing pain and restlessness and a repeat CT of the abdomen showed a perforated sigmoid colon with extraluminal stool and diffuse peritonitis. She was transferred to [place] for further care. I am seeing the patient in the ICU where she is sedated and on mechanical ventilation. She is currently receivin
--- NOTE | 2022-08-31 19:45 | ADMGEN ---
This patient, Mariama Powers, was admitted to Intensive Care Unit-7 at 16:45 from the OR. Patient/family oriented to hospital policies and general routines including ID bracelet, bed and alarms, visiting hours, pain management, procedures, bathroom and other care routines, personal items, smoking policy, room service/diet, and visiting hours. Information on how to activate the Rapid Response Team has been discussed. Patient/Family are encouraged to report perceived risks to care and to ask questions if they do not understand what they are told or what they should do.
[2022-08-31] MEDS: NOREPINEPHRINE 8 MG/D5W 250 ML 8 MG/250 ML BAG 9.38 MG IV CONT (20:26)
[2022-08-31] MEDS: SODIUM BICARBONATE 8.4% 50 MEQ/50 ML SYRINGE IV PUSH (20:35)
[2022-08-31] MEDS: FAMOTIDINE 20 MG/2 ML VIAL IV PUSH (20:38)
[2022-08-31 20:53] LABS: Reflex Lactic Acid Yes or No Add Lactic
[2022-08-31] MEDS: LACTATED RINGERS 1,000 ML 125 ML IV CONT (20:57)
[2022-08-31] MEDS: MINERAL OIL/WHITE PETROLATUM OINTMENT 1 APPLIC EACH EYE (20:57)
[2022-08-31] MEDS: CENTRAL LINE FLUSH 10 ML IV PUSH (22:10)
[2022-08-31 22:58] LABS: Lactic Acid 2.1 mmol/L (0.7-2.0)
[2022-09-01] VITALS (58 sets, daily range): BP systolic 68–127; BP diastolic 49–70; PULSE 98–172; RESP 20–31; TEMP 36.6–37.7; O2SAT 94–96; BMI 29.2
--- NOTE | 2022-09-01 01:30 | PC.NURSE ---
Upon changing patient linens, patient able to wake up enough to follow simple commands such as squeezing hands
[2022-09-01] MEDS: metroNIDAZOLE 500 MG/ISO 100ML 500 MG/100 ML BAG 100 MG IVPB (02:10)
[2022-09-01 05:14] LABS: Alveolar/Arterial O2 Gradient 201.2 mmHg; Base Excess ABG -4.7 mEq/l (+/-2.0); Carboxyhemoglobin 0.3 % THb (0-2.0); Fractional Inspired Oxygen 45 %; HCO3 ABG 19.7 mEq/l (22.0-26.0); Methemoglobin ABG 0.4 %THb (0-1.5); Oxygen Content ABG 20.9 %vol (16.0-22.0); Oxygen Saturation ABG 95.6 % (95.0-100.0); PO2 ABG 79.8 mmHg (80.0-100.0); PO2 FiO2 Ratio Arterial Blood 1.77 %; Reduced Hemoglobin 4.3 %THb (0-5.0); Total Hemoglobin 15.6 g/dL (12.0-18.0); pH ABG 7.369 (7.350-7.450)
[2022-09-01 05:15] LABS: Device VENTILATOR; Site Drawn ARTLINE
[2022-09-01 05:16] LABS: Arterial Blood Gas PEEP 5 cmH2O; Arterial Blood Gas Tidal Volume 450 ml; Arterial Blood Gas Vent Mode CMV; Arterial Blood Gas Ventilator rate 20 /MIN
[2022-09-01 05:17] LABS: Hematocrit 38.5 % (37.0-47.0); Hemoglobin 13.3 g/dL (12.0-15.0); Mean Corpuscular HGB Conc 34.5 g/dl (32-36); Mean Corpuscular Hemoglobin 30.9 pg (26-34); Mean Corpuscular Volume 89.3 fl (80-100); Mean Platelet Volume 9.7 fl (7.4-10.4); Platelet Count Result 595 k/mm3 (150-375); Red Blood Count 4.31 M/mm3 (4.2-5.4); Red Cell Distribution Width 13.2 % (11.5-14.5); White Blood Count 12.9 K/mm3 (4.5-10.0)
[2022-09-01 05:26] LABS: Anion Gap 13 mmol/L (8-16); Blood Urea Nitrogen 26 mg/dL (7-17); Calcium 7.2 mg/dL (8.4-10.2); Carbon Dioxide 18 mmol/L (22-30); Chloride 97 mmol/L (98-107); Estimated CRCL calculation 42 ml/min; Estimated Glomerular Filt Rate 55; Glucose 120 mg/dL (65-110); Magnesium 2.1 mg/dL (1.6-2.3); Phosphorus 3.9 mg/dL (2.5-4.5); Potassium 4.6 mmol/L (3.4-5.0); Sodium 128 mmol/L (137-145)
[2022-09-01 05:54] LABS: Band Neutrophils Percent 16 % (0-6); Lymphocytes Absolute Manual 1.03 K/mm3 (1.1-4.5); Metamyelocytes Percent 1 %; Monocytes Percent Manual 14 % (3-9); Neutrophils Absolute Manual 9.67 K/mm3 (1.7-7.2); Neutrophils Percent Manual 59 % (46-73); Promyelocytes Percent 2 %; Total Cells Counted 100
[2022-09-01 05:55] LABS: Acanthocytes 3+ (NORMAL); Anisocytosis 1+ (NORMAL); Platelet Estimate Increased (Adequate)
[2022-09-01 05:58] LABS: Schistocytes None Seen (NORMAL)
[2022-09-01] MEDS: LACTATED RINGERS 1,000 ML 125 ML IV CONT (06:00)
[2022-09-01] MEDS: CENTRAL LINE FLUSH 10 ML IV PUSH ×3 (06:01→21:38)
--- NOTE | 2022-09-01 07:54 | WPDANESPN ---
Anes - Prog Note Post-Op Date/Time: 09/01/22 07:54 Cardiovascular status: other (patient on levophed intubated with ngt and sedated) Vital Signs: Last Vital Signs Temp 36.9 C 09/01/22 04:00 Pulse 120 H 09/01/22 06:09 Resp 20 09/01/22 06:09 BP 102/58 L 09/01/22 06:08 Pulse Ox 95 09/01/22 06:00 O2 Del Method Mechanical Ventilation 09/01/22 05:00 FiO2 45 09/01/22 05:00 Pain Score (VAS): 0 I/O: Intake & Output 08/31/22 08/31/22 09/01/22 15:59 23:59 07:59 Intake Total 50 250 1100 Output Total 550 Balance 50 250 550 Laboratory Tests 09/01/22 05:08 09/01/22 05:08 08/31/22 08/31/22 08/31/22 13:30 17:31 17:42 WBC 7.1 RBC 4.30 Hgb 13.3 Hct 39.6 MCV 92.1 MCH 30.9 MCHC 33.6 RDW 13.2 Plt Count 532 H MPV 9.7 Immature Gran % (Auto) Not Reportable Neut % (Auto) Not Reportable Lymph % (Auto) Not Reportable Osborne % (Auto) Not Reportable Eos % (Auto) Not Reportable Baso % (Auto) Not Reportable Lymph # (Auto) Not Reportable Osborne # (Auto) Not Reportable Eos # (Auto) Not Reportable Baso # (Auto) Not Reportable Abs Immat Gran (auto) Not Reportable Absolute Neuts (auto) Not Reportable Absolute Nucleated RBC Not Reportable Total Counted 100 Neutrophils % (Manual) 56 Band Neutrophils % 15 H Lymphocytes % (Manual) 15.0 L Monocytes % (Manual) 9 Metamyelocytes % 3 Myelocytes % 2 Promyelocytes % (Man) Nucleated RBC % Not Reportable Abs Neuts (Manual) 5.04 Abs Lymphs (Manual) 1.06 L Abs Monocytes (Manual) 0.63 Platelet Estimate Increased Anisocytosis Acanthocytes (Spur) Schistocytes None seen Puncture Site Artline ABG pH 7.216 L* ABG pCO2 47.2 H ABG pO2 310.6 H ABG PO2/FiO2 Ratio 3.11 ABG HCO3 18.7 L ABG O2 Saturation 99.6 ABG O2 Content 20.3 ABG Base Excess -9.0 A-a Gradient 355.2 Oxyhemoglobin 98.6 Carboxyhemoglobin 0.0 Methemoglobin 0.4 Reduced Hemoglobin 1.0 Total Hemoglobin 14.1 O2 Delivery Device Ventilator O2 Liters/Min Not Reportable Minute Volume Not Reportable Vent Rate 20 Vent Mode Cmv FiO2 100 Tidal Volume 350 PEEP 5 Peak Inspir Pressure Not Reportable Pressure Support Not Reportable Sodium Potassium Chloride Carbon Dioxide Anion Gap BUN Creatinine Estim Creat Clear Calc Estimated GFR Glucose Lactic Acid Calcium Phosphorus Magnesium Total Bilirubin AST ALT Alkaline Phosphatase Total Protein Albumin Blood Type A Positive Antibody Screen Negative 08/31/22 08/31/22 08/31/22 17:42 17:42 22:25 WBC RBC Hgb Hct MCV MCH MCHC RDW Plt Count MPV Immature Gran % (Auto) Neut % (Auto) Lymph % (Auto) Osborne % (Auto) Eos % (Auto) Baso % (Auto) Lymph # (Auto) Osborne # (Auto) Eos # (Auto) Baso # (Auto) Abs Immat Gran (auto) Absolute Neuts (auto) Absolute Nucleated RBC Total Counted Neutrophils % (Manual) Band Neutrophils % Lymphocytes % (Manual) Monocytes % (Manual) Metamyelocytes % Myelocytes % Promyelocytes % (Man) Nucleated RBC % Abs Neuts (Manual) Abs Lymphs (Manual) Abs Monocytes (Manual) Platelet Estimate Anisocytosis Acanthocytes (Spur) Schistocytes Puncture Site ABG pH ABG pCO2 ABG pO2 ABG PO2/FiO2 Ratio ABG HCO3 ABG O2 Saturation ABG O2 Content ABG Base Excess A-a Gradient Oxyhemoglobin Carboxyhemoglobin Methemoglobin Reduced Hemoglobin Total Hemoglobin O2 Delivery Device O2 Liters/Min Minute Volume Vent Rate Vent Mode FiO2 Tidal Volume PEEP Peak Inspir Pressure Pressure Support Sodium 129 L Potassium 4.0 Chloride 99 Carbon Dioxide 19 L Anion Gap 11 BUN 20 H
[2022-09-01] MEDS: FAMOTIDINE 20 MG/2 ML VIAL IV PUSH (08:22)
[2022-09-01] MEDS: MINERAL OIL/WHITE PETROLATUM OINTMENT 1 APPLIC EACH EYE ×2 (08:22→21:38)
[2022-09-01] MEDS: PANTOPRAZOLE SODIUM IV 40 MG VIAL IV PUSH (08:22)
[2022-09-01] MEDS: ENOXAPARIN 40 MG/0.4 ML SYRINGE SUB-Q (08:22)
[2022-09-01] MEDS: hetaSTARCH 6%/NACL 500 ML 250 ML IV CONT (08:23)
[2022-09-01] MEDS: CALCIUM GLUC 2,000 MG/NS 100ML 2,000 MG/100 ML BAG 100 MG IVPB ×2 (09:16→15:05)
--- NOTE | 2022-09-01 11:07 | PM.PNGS ---
Progress Note: A&P Assessment and Plan (1) Perforated sigmoid colon: Code(s): K63.1 - Perforation of intestine (nontraumatic) Status: Acute Assessment and Plan: She was found to have sigmoid perforation with fecal peritonitis with extensive amounts of liquid stool throughout the abdomen. S/p sigmoidectomy with Rossi procedure yesterday. Her abdomen is still very distended today. Continue NG tube decompression, bowel rest, and await return of bowel function. Wound care nurses consulted for ostomy care. Continue IV antibiotics and IV Micafungin. Discussed the case with the [employer], who will plan to keep her intubated at least another 1-2 days and is switching her sedation to Precedex. (2) Sepsis: Code(s): A41.9 - Sepsis, unspecified organism Status: Acute Assessment and Plan: Secondary to the colon perforation with fecal peritonitis. She was switched to IV Primaxin. Continue IV abx and Micafungin. Blood cx pending, which were drawn after starting abx. She is currently on one vasopressor, which is being weaned down this morning. Continue ICU management and monitoring labs. (3) Peritonitis: Code(s): K65.9 - Peritonitis, unspecified Status: Acute (4) Stercoral colitis: Code(s): K52.89 - Other specified noninfective gastroenteritis and colitis Status: Acute (5) Smoker: Code(s): F17.200 - Nicotine dependence, unspecified, uncomplicated Status: Chronic Plan I have discussed the patient's case and plan of care with Dr. Krueger. Subjective Subjective Date/Time Seen: 09/01/22 09:07 Post Op day: 1 (Sigmoidectomy with Rossi procedure) Patient reports: afebrile Interval history: Patient seen and examined in the ICU with her family and nursing at the bedside. She is intubated but currently has her sedation shut off for a weaning trial. She opens her eyes and tracks when speaking to her. Nursing has been titrating down on her Levophed drip this morning and she is now only on a small amount (2mcg/min). No ostomy output. Urine output was 500 cc overnight. Review of Systems Review of Systems: ROS unobtainable: Yes unobtainable due to endotracheal tube Exam Const: General: ill appearing Orientation/consciousness: Other orientation findings (intubated, SELAM assess) Other: Opens eyes to name Resp: Effort & Inspection: abnormal respiratory pattern (mechanical ventilator) Auscultation: clear to auscultation bilaterally Cardio: Rate: tachycardic Rhythm: regular rhythm GI: Inspection: distended, incision (dressing dry and intact) and other (ostomy with no output, stoma appears viable) GI Palp: Yes Firmness to palpation present (GI) Auscultation: absent bowel sounds Urinary Catheter: Urinary Catheter: patent and draining and urine dark Extrem: General: no edema Psych: Insight: Limited insight present (Psych) Judgement: Limited judgement present (Psych) Objective Data Vital Signs Vital Signs: Vital Signs - 24 hr 08/31/22 13:50 08/31/22 16:45 08/31/22 17:40 Temperature 96.4 F L Pulse Rate 127 H 100 112 H Respiratory Rate 18 20 Blood Pressure 111/72 Pulse Oximetry 93 100 Oxygen Delivery Room Air Mechanical Ventilation Fraction of Inspired Oxygen 100 08/31/22 17:40 08/31/22 17:15 08/31/22 16:45 Temperature 97.8 F Pulse Rate 110 H 100 Respiratory Rate 20 18 Blood Pressure 135/78 Pulse Oximetry 100 Oxygen Delivery Mechanical Ventilation Fraction of Inspired Oxygen 100 08/31/22 17:00 08/31/22 18:00 08/31/22 19:00 Temperature Pulse Rate 102 H 109 H 110 H Respiratory Rate 18 20 20 Blood Pressure 149/66 H 111/54 L 97/50 L Pulse Oximetry 100 100 99 Oxygen Delivery Fraction of Inspired Oxygen 08/31/22 20:26 08/31/22 21:23 08/31/22 21:52 Temperature Pulse Rate 110 H 113 H 113 H Respiratory Rate 20 Blood Pressure 88/54 L 130/65 Pulse Oximetry 97 Oxygen Delivery Mechanical Ventilation
--- NOTE | 2022-09-01 11:47 | PM.IMPN ---
Progress Note: A&P Assessment and Plan (1) Sepsis: Code(s): A41.9 - Sepsis, unspecified organism Status: Acute Assessment and Plan: Sepsis secondary to peritonitis related to perforated sigmoid colon from stercoral colitis Appreciate critical care management, continue imipenem, was on Flagyl and Levaquin yesterday, also started on micafungin Continue to wean off Levophed, needed overnight (2) Perforated sigmoid colon: Code(s): K63.1 - Perforation of intestine (nontraumatic) Status: Acute Assessment and Plan: Status post sigmoidectomy, Rossi procedure per Dr. Krueger 08/31/2022 (3) Peritonitis: Code(s): K65.9 - Peritonitis, unspecified Status: Acute Assessment and Plan: Currently on broad-spectrum antibiotics and antifungals with imipenem and micafungin. (4) Stercoral colitis: Code(s): K52.89 - Other specified noninfective gastroenteritis and colitis Status: Acute Assessment and Plan: Status post perforation as detailed above. (5) Electrolyte imbalance: Code(s): E87.8 - Other disorders of electrolyte and fluid balance, not elsewhere classified Status: Acute Assessment and Plan: Sodium and chloride were low on presentation to the outside facility but have improved with IV fluid rehydration. Monitor closely. (6) Smoker: Code(s): F17.200 - Nicotine dependence, unspecified, uncomplicated Status: Chronic Assessment and Plan: Smoking cessation is encouraged. This may delay her healing time. Plan DVT prophylaxis with Lovenox GI prophylaxis with PPI Code status full code resume tube feeds when able Subjective Date/time seen: 09/01/22 11:47 Interval history: intubated, sedated, required Levophed overnight Review of Systems Review of Systems: ROS unobtainable: Yes unobtainable due to endotracheal tube Exam Narrative: General: intubated, sedated HEENT: Atraumatic, normocephalic, mucous membranes moist CV: Regular rate and rhythm, S1, S2 Lungs: unlabored breathing noted Abdomen: distended, hypoactive bowel sounds Extremities: Normal to inspection Skin: No rashes noted, no lesions or wounds seen Objective Data Vital Signs Vital Signs: Vital Signs - 24 hr 08/31/22 13:50 08/31/22 16:45 08/31/22 17:40 Temperature 96.4 F L Pulse Rate 127 H 100 112 H Respiratory Rate 18 20 Blood Pressure 111/72 Pulse Oximetry 93 100 Oxygen Delivery Room Air Mechanical Ventilation Fraction of Inspired Oxygen 100 08/31/22 17:40 08/31/22 17:15 08/31/22 16:45 Temperature 97.8 F Pulse Rate 110 H 100 Respiratory Rate 20 18 Blood Pressure 135/78 Pulse Oximetry 100 Oxygen Delivery Mechanical Ventilation Fraction of Inspired Oxygen 100 08/31/22 17:00 08/31/22 18:00 08/31/22 19:00 Temperature Pulse Rate 102 H 109 H 110 H Respiratory Rate 18 20 20 Blood Pressure 149/66 H 111/54 L 97/50 L Pulse Oximetry 100 100 99 Oxygen Delivery Fraction of Inspired Oxygen 08/31/22 20:26 08/31/22 21:23 08/31/22 21:52 Temperature Pulse Rate 110 H 113 H 113 H Respiratory Rate 20 Blood Pressure 88/54 L 130/65 Pulse Oximetry 97 Oxygen Delivery Mechanical Ventilation Fraction of Inspired Oxygen 60 08/31/22 22:10 08/31/22 20:00 08/31/22 22:00 Temperature 98.3 F Pulse Rate 112 H 110 H 113 H Respiratory Rate 20 20 Blood Pressure 88/50 L 104/63 99/58 L Pulse Oximetry 96 97 Oxygen Delivery Fraction of Inspired Oxygen 08/31/22 21:00 08/31/22 20:00 08/31/22 22:00 Temperature Pulse Rate 108 H 110 H 112 H Respiratory Rate 20 Blood Pressure 122/62 Pulse Oximetry 97 Oxygen Delivery Fraction of Inspired Oxygen 08/31/22 23:32 08/31/22 23:00 08/31/22 23:35 Temperature Pulse Rate 114 H 114 H 114 H Respiratory Rate 20 20 20 Blood Pressure 101/59 L Pulse Oximetry 96 96 Oxygen Delivery Mechanical Ventilati
--- NOTE | 2022-09-01 11:56 | WPDCNINT ---
Assessment and Plan Assessment and plan (1) Septic shock: Code(s): A41.9 - Sepsis, unspecified organism; R65.21 - Severe sepsis with septic shock Status: Acute Assessment and Plan: Septic shock likely related to fecal peritonitis secondary to sigmoid perforation -patient was on Levophed overnight, give additional IV fluid bolus, Levophed is being weaned to off -lactic acid trending down -patient on metronidazole and Levaquin, will switch to imipenem (09/01) -patient was also started on micafungin on 08/31, will continue, secondary to fecal spill into the peritoneum -08/31 blood cultures, pending -additional IV fluids given this morning -will decrease maintenance IV fluids to 75 mL/hour (2) Acute respiratory failure: Code(s): J96.00 - Acute respiratory failure, unspecified whether with hypoxia or hypercapnia Status: Acute Assessment and Plan: Acute respiratory failure likely related to sedation from anesthesia, fecal peritonitis -chest x-ray and ABGs reviewed -sedated with fentanyl and propofol, -currently on sedation vacation, family states that it takes a long time for for her to, off the sedation medications -discussed with surgery who wants to continue mechanical ventilation for another day also has a abdomen is still distended -if she requires any sedation will start Precedex infusion (3) Peritonitis: Code(s): K65.9 - Peritonitis, unspecified Status: Acute Assessment and Plan: Secondary to sigmoid perforation -continue antibiotics and antifungal as above -surgery following the patient closely (4) Perforated sigmoid colon: Code(s): K63.1 - Perforation of intestine (nontraumatic) Status: Acute Assessment and Plan: Status post sigmoidectomy with Rossi procedure on 08/31/2022 -surgery to continue Plan DVT prophylaxis: Lovenox Stress ulcer prophylaxis: Famotidine Nutrition: NPO for now Code Status: Full code Critical Care Time Spent: 44 minutes Due to a high probability of clinically significant, life threatening deterioration, the patient required my highest level of preparedness to intervene emergently and I personally spent this critical care time directly and personally managing the patient. This critical care time included obtaining a history; examining the patient; pulse oximetry; ordering and review of studies; arranging urgent treatment with development of a management plan; evaluation of patient's response to treatment; frequent reassessment; and discussions with other providers. It was exclusive of separately billable procedures and treating other patients and teaching time. Please see Assessment and Plan section and the rest of the note for further information on patient assessment and treatment [employer] Consult Note Consult date: 09/01/22 Reason for consult: Peritonitis with sigmoid perforation status post sigmoidectomy with Rossi procedure on 08/31/2022. Acute respiratory failure post surgery/anesthesia HPI: Mariama Powers is a 72 year old female with past medical history of anxiety, hyperlipidemia osteoarthritis presented the ED at [facility] on 08/29/2022 with severe abdominal pain and constipation for 2 days. She had taken Fleet anemia and some laxative but no results. WBC count was 19,000, initial CT scan at the outside hospital showed tremendous amount of retained fecal content and evidence of colitis in the distal sigmoid area. Patient was started on antibiotics and multiple laxatives. On 08/31 her abdomen became distended and the abdominal pain had worsened, repeat CT scan showed evidence of sigmoid perforation with fecal peritonitis. He was transferred to the [facility] and taken to the OR and and underwent a sigmoidectomy with Rossi procedure on 08/31. Patient remain intubated so was transferred to the ICU for further management. Patient was started on micafungin, Levaquin and metronidazole. Patient did receiv
[2022-09-01] MEDS: dexmedeTOMIDine 400 MCG/100 ML 400 MCG/100 ML BAG IV CONT (12:38)
[2022-09-01] MEDS: ADENOSINE IV SOLN 6 MG/2 ML VIAL IV PUSH (13:15)
[2022-09-01] MEDS: ADENOSINE IV SOLN 6 MG/2 ML VIAL 12 MG IV PUSH (13:20)
--- NOTE | 2022-09-01 13:20 | ECG_ITS ---
Measurements Intervals [place] Rate: 111 P: 13 SC: 109 QRS: 55 QRSD: 132 T: -7 QT: 306 QTc: 417 Interpretive Statements SINUS TACHYCARDIA WITH SHORT SC INTERVAL RIGHT BUNDLE BRANCH BLOCK [120+ ms QRS DURATION, UPRIGHT V1, 40+ ms S IN I/aVL/V4/V5/V6] COMPARED TO ECG 08/31/2022 12:58:41 NO SIGNIFICANT CHANGES Electronically Signed On 09-02-2022 15:59:42 CDT by Dylan Aguila M.D.
[2022-09-01 13:30] LABS: Basophils Percent Auto 0.1 % (0.2-1.2); Hematocrit 31.3 % (37.0-47.0); Hemoglobin 10.5 g/dL (12.0-15.0); Immature Granulocyte Absolute 0.33 K/mm3 (0.00-0.031); Immature Granulocyte Percent A 2.7 % (0-0.5); Lymphocytes Absolute Auto 0.57 K/mm3 (0.9-3.2); Lymphocytes Percent Auto 4.6 % (18.3-44.2); Mean Corpuscular HGB Conc 33.5 g/dl (32-36); Mean Corpuscular Hemoglobin 31.3 pg (26-34); Mean Corpuscular Volume 93.2 fl (80-100); Mean Platelet Volume 9.7 fl (7.4-10.4); Monocytes Absolute Auto 0.9 K/mm3 (0.1-0.6); Monocytes Percent Auto 6.8 % (2.6-8.5); Neutrophils Absolute Auto 10.7 K/mm3 (1.3-6.7); Neutrophils Percent Auto 85.8 % (45.5-73.1); Nucleated Red Blood Cells Perc 0.2 % (0.0-0.2); Platelet Count Result 444 k/mm3 (150-375); Red Blood Count 3.36 M/mm3 (4.2-5.4); Red Cell Distribution Width 13.4 % (11.5-14.5); White Blood Count 12.5 K/mm3 (4.5-10.0)
[2022-09-01] MEDS: MIDAZOLAM HCL (*CRX) 2 MG/2 ML VIAL 3 MG IV PUSH (13:30)
--- NOTE | 2022-09-01 13:30 | PC.NURSE ---
Patient noted to be in SVT at 1312. Dr. Bolton, Lasting Floorworker, and nursing staff at bedside with crash cart. After adenosine failed to control the HR, an amiodarone bolus was administered. The patient remained in SVT until cardioverted with 200 joules. The cardioversion resulted in sinus tachycardia with a rate of 115-120. An amiodarone drip was then initiated at 1 mg/min.
[2022-09-01 13:41] LABS: Anion Gap 10 mmol/L (8-16); Blood Urea Nitrogen 27 mg/dL (7-17); Carbon Dioxide 19 mmol/L (22-30); Chloride 99 mmol/L (98-107); Estimated CRCL calculation 54 ml/min; Estimated Glomerular Filt Rate > 60; Glucose 103 mg/dL (65-110); Lactic Acid Reflex 1.8 mmol/L (0.7-2.0); Potassium 4.9 mmol/L (3.4-5.0); Sodium 128 mmol/L (137-145)
[2022-09-01 13:46] LABS: Alveolar/Arterial O2 Gradient 202.8 mmHg; Base Excess ABG -2.4 mEq/l (+/-2.0); Fractional Inspired Oxygen 45 %; HCO3 ABG 20.9 mEq/l (22.0-26.0); Oxygen Content ABG 15.7 %vol (16.0-22.0); Oxygen Saturation ABG 96.6 % (95.0-100.0); Oxyhemoglobin 95.6 % THb (90.0-100.0); PCO2 ABG 31.2 mmHg (35.0-45.0); PO2 ABG 82.6 mmHg (80.0-100.0); PO2 FiO2 Ratio Arterial Blood 1.84 %; Total Hemoglobin 11.6 g/dL (12.0-18.0); pH ABG 7.443 (7.350-7.450)
[2022-09-01 13:48] LABS: Site Drawn ARTLINE
[2022-09-01 13:49] LABS: Arterial Blood Gas Vent Mode CMV; Arterial Blood Gas Ventilator rate 20 /MIN; Device VENTILATOR
[2022-09-01 13:50] LABS: Arterial Blood Gas PEEP 5 cmH2O; Arterial Blood Gas Tidal Volume 450 ml
[2022-09-01 14:02] LABS: Platelet Estimate Adequate (Adequate)
[2022-09-01 14:04] LABS: Anisocytosis 1+ (NORMAL); Crenated RBC 1+ (NORMAL); Ovalocytes 1+ (NORMAL)
[2022-09-01 14:07] LABS: Schistocytes None Seen (NORMAL)
[2022-09-01] MEDS: AMIODARONE 360 MG/D5W 200 ML 360 MG/200 ML BAG 33.33 MG IV CONT ×2 (14:38→19:48)
[2022-09-01] MEDS: LACTATED RINGERS 1,000 ML 75 ML IV CONT (15:07)
[2022-09-01] MEDS: MICAFUNGIN SODIUM 100 MG in SODIUM CHLORIDE 0.9% IV 100 ML IVPB (17:47)
[2022-09-01] MEDS: AMIODARONE 360 MG/D5W 200 ML 360 MG/200 ML BAG 16.67 MG IV CONT (19:15)
[2022-09-01] MEDS: AMIODARONE 150 MG/D5W 100 ML 150 MG/100 ML BAG 600 MG IV CONT (19:37)
--- NOTE | 2022-09-01 19:57 | ECG_ITS ---
Measurements Intervals [place] Rate: 148 P: CA: 0 QRS: 49 QRSD: 141 T: -27 QT: 313 QTc: 492 Interpretive Statements ATRIAL FIBRILLATION WITH RAPID VENTRICULAR RESPONSE RIGHT BUNDLE BRANCH BLOCK [120+ ms QRS DURATION, UPRIGHT V1, 40+ ms S IN I/aVL/V4/V5/V6] COMPARED TO ECG 08/31/2022 12:58:41 ATRIAL FIBRILLATION WITH RVR NOW PRESENT Electronically Signed On 09-02-2022 14:00:29 CDT by Dylan Aguila M.D.
[2022-09-01] MEDS: NOREPINEPHRINE 8 MG/D5W 250 ML 8 MG/250 ML BAG 5.63 MG IV CONT (23:36)
[2022-09-02] VITALS (43 sets, daily range): BP systolic 77–136; BP diastolic 46–67; PULSE 68–144; RESP 16–20; TEMP 36.6–37.8; O2SAT 94–99; BMI 29.3
--- NOTE | 2022-09-02 | ECHO_ITS ---
Patient Info Name: Mariama Powers Age: 72 years : 1950 Gender: Female Ht: 66 in Wt: 181 lbs BSA: 1.98 m2 HR: 70 bpm BP: 101 / 59 mmHg Heart Rhythm: Sinus Rhythm Technical Quality: Good Exam Date: 09/02/2022 1:24 PM Exam Location: [facility] Pulmonary Patient Status: Inpatient Admit Date: 08/31/2022 Staff Ordering Physician: Dylan Aguila MD ([email or web address]) [employer] Cutter: Patrica Lisa RDCS Attending Provider: Giuliano Krueger MD Referring Physician: Mingo LANDRUM; Exam Type: CA echo doppler color flow Study Info Indications I48.1 - Persistent atrial fibrillation Complete two-dimensional, color flow and Doppler transthoracic echocardiogram is performed. Summary 1. Complete two-dimensional, color flow and Doppler transthoracic echocardiogram is performed. 2. Left ventricular systolic function is normal, estimated at 55-60%. 3. There is mildly increased left ventricular wall thickness. 4. The left ventricular diastolic function is grade I diastolic dysfunction. 5. Right ventricular systolic function is normal. 6. There is mild tricuspid valve regurgitation. Left Ventricle Left ventricular chamber dimension is normal. Left ventricular systolic function is normal, estimated at 55-60%. There is mildly increased left ventricular wall thickness. The left ventricular diastolic function is grade I diastolic dysfunction. Right Ventricle Right ventricular chamber dimension is normal. Right ventricular systolic function is normal. Left Atria Left atrial chamber dimension is normal. Right Atria Right atrial chamber dimension is normal. Atrial Septum Intact interatrial septum visualized by color flow imaging. Aortic Valve The aortic valve is probable trileaflet. There is no aortic valve stenosis. There is no aortic valve regurgitation. There is mild aortic valve calcification. Pulmonic Valve The pulmonic valve is not well visualized. Mitral Valve The mitral valve has normal leaflets. There is no mitral valve stenosis. There is no mitral valve regurgitation. The mitral valve annulus is mildly calcified. Tricuspid Valve The tricuspid valve leaflets are normal. There is no significant tricuspid valve stenosis. There is mild tricuspid valve regurgitation. Pericardium/Pleural There is no pericardial effusion. Inferior Vena Cava Normal inferior vena cava with <50% collapse upon inspiration consistent with elevated right atrial pressure, 8 mmHg. Aorta The aortic root size at the sinus of Valsalva is normal. Left Ventricular Outflow Tract Name Value Normal LVOT 2D LVOT Diameter 1.9 cm LVOT Doppler LVOT Peak Gradient 6 mmHg LVOT Mean Gradient 3 mmHg LVOT VTI 23 cm LVOT VTI/AV VTI Ratio 0.7 LVOT Stroke Volume 66 ml LVOT CO 4.5 l/min LVOT CI 2.3 l/min/m2 Pulmonic Valve Name
[2022-09-02] MEDS: AMIODARONE 360 MG/D5W 200 ML 360 MG/200 ML BAG 33.33 MG IV CONT ×2 (00:37→06:09)
[2022-09-02] MEDS: LACTATED RINGERS 1,000 ML 75 ML IV CONT ×2 (03:41→17:40)
[2022-09-02] MEDS: MIDAZOLAM 100MG/NS 100ML(*CRX) 100 MG/100 ML BAG IV CONT (03:41)
[2022-09-02 04:33] LABS: Hematocrit 27.8 % (37.0-47.0); Hemoglobin 9.5 g/dL (12.0-15.0); Mean Corpuscular HGB Conc 34.2 g/dl (32-36); Mean Corpuscular Hemoglobin 30.5 pg (26-34); Mean Corpuscular Volume 89.4 fl (80-100); Mean Platelet Volume 9.3 fl (7.4-10.4); Platelet Count Result 424 k/mm3 (150-375); Red Blood Count 3.11 M/mm3 (4.2-5.4); Red Cell Distribution Width 13.7 % (11.5-14.5); White Blood Count 15.5 K/mm3 (4.5-10.0)
[2022-09-02 04:45] LABS: Anion Gap 5 mmol/L (8-16); Blood Urea Nitrogen 22 mg/dL (7-17); Calcium 7.2 mg/dL (8.4-10.2); Carbon Dioxide 23 mmol/L (22-30); Chloride 101 mmol/L (98-107); Estimated CRCL calculation 60 ml/min; Estimated Glomerular Filt Rate > 60; Glucose 121 mg/dL (65-110); Magnesium 2.2 mg/dL (1.6-2.3); Phosphorus 2.2 mg/dL (2.5-4.5); Potassium 3.9 mmol/L (3.4-5.0); Sodium 129 mmol/L (137-145)
[2022-09-02 04:46] LABS: Alveolar/Arterial O2 Gradient 182.8 mmHg; Base Excess ABG 1.1 mEq/l (+/-2.0); Carboxyhemoglobin 0.2 % THb (0-2.0); Device VENTILATOR; Fractional Inspired Oxygen 45 %; HCO3 ABG 24.6 mEq/l (22.0-26.0); Methemoglobin ABG 0.3 %THb (0-1.5); Oxygen Content ABG 13.3 %vol (16.0-22.0); Oxygen Saturation ABG 97.9 % (95.0-100.0); Oxyhemoglobin 96.4 % THb (90.0-100.0); PCO2 ABG 34.6 mmHg (35.0-45.0); PO2 ABG 98.7 mmHg (80.0-100.0); PO2 FiO2 Ratio Arterial Blood 2.19 %; Reduced Hemoglobin 3.1 %THb (0-5.0); Site Drawn ARTLINE; Total Hemoglobin 9.7 g/dL (12.0-18.0)
[2022-09-02 04:47] LABS: Arterial Blood Gas PEEP 5 cmH2O; Arterial Blood Gas Tidal Volume 450 ml; Arterial Blood Gas Vent Mode CMV; Arterial Blood Gas Ventilator rate 20 /MIN
[2022-09-02] MEDS: FENTANYL 2,500MCG/NS250ML(*CRX 2,500 MCG/250 ML BAG 7.5 MCG IV CONT (06:06)
[2022-09-02] MEDS: CENTRAL LINE FLUSH 10 ML IV PUSH ×2 (06:09→20:40)
[2022-09-02] MEDS: PROPOFOL IV EMULSION 100 ML 2.47 MG IV CONT (08:49)
[2022-09-02] MEDS: ALBUMIN HUMAN 25% 25 GM/100 ML 100 ML IVPB ×3 (08:53→20:39)
[2022-09-02] MEDS: CALCIUM GLUC 2,000 MG/NS 100ML 2,000 MG/100 ML BAG 100 MG IVPB (08:55)
[2022-09-02] MEDS: METOPROLOL TARTRATE INJ 5 MG/5 ML VIAL IV PUSH (09:07)
[2022-09-02] MEDS: ENOXAPARIN 40 MG/0.4 ML SYRINGE SUB-Q (09:11)
[2022-09-02] MEDS: MINERAL OIL/WHITE PETROLATUM OINTMENT 1 APPLIC EACH EYE ×2 (09:11→20:40)
[2022-09-02] MEDS: PANTOPRAZOLE SODIUM IV 40 MG VIAL IV PUSH (09:11)
--- NOTE | 2022-09-02 10:06 | PM.IMPN ---
Progress Note: A&P Assessment and Plan (1) Sepsis: Code(s): A41.9 - Sepsis, unspecified organism Status: Acute Assessment and Plan: Sepsis secondary to peritonitis related to perforated sigmoid colon from stercoral colitis s/p sigmoidectomy 08/31 [facility] critical care and general surgery management Imipenem started 09/01-today 09/02 Flagyl 08/31 Levaquin 08/31 Micafungin 08/31-today 09/02 Continue to wean off Levophed, still needed overnight (2) Perforated sigmoid colon: Code(s): K63.1 - Perforation of intestine (nontraumatic) Status: Acute Assessment and Plan: Status post sigmoidectomy, Rossi procedure per Dr. Krueger 08/31/2022 (3) Peritonitis: Code(s): K65.9 - Peritonitis, unspecified Status: Acute Assessment and Plan: Currently on broad-spectrum antibiotics and antifungals with imipenem and micafungin (4) Stercoral colitis: Code(s): K52.89 - Other specified noninfective gastroenteritis and colitis Status: Acute Assessment and Plan: Status post perforation as detailed above (5) Electrolyte imbalance: Code(s): E87.8 - Other disorders of electrolyte and fluid balance, not elsewhere classified Status: Acute Assessment and Plan: Resolving, cont to monitor (6) Smoker: Code(s): F17.200 - Nicotine dependence, unspecified, uncomplicated Status: Chronic Assessment and Plan: Smoking cessation is encouraged. This may delay her healing time. Plan DVT prophylaxis with Lovenox GI prophylaxis with PPI Code status full code resume tube feeds when able Subjective Date/time seen: 09/02/22 10:06 Interval history: int/sed, no overnight events, still requiring levophed intermittently Review of Systems Review of Systems: ROS unobtainable: Yes unobtainable due to endotracheal tube Exam Narrative: General: intubated, sedated HEENT: Atraumatic, normocephalic, mucous membranes moist CV: Regular rate and rhythm, S1, S2 Lungs: unlabored breathing noted Abdomen: distended, hypoactive bowel sounds Extremities: Normal to inspection Skin: No rashes noted, no lesions or wounds seen Objective Data Vital Signs Vital Signs: Vital Signs - 24 hr 09/01/22 10:58 09/01/22 12:00 09/01/22 12:00 Temperature 99.6 F Pulse Rate 115 H 118 H 118 H Respiratory Rate 21 H Blood Pressure 104/55 L Pulse Oximetry 95 94 Oxygen Delivery Mechanical Ventilation Fraction of Inspired Oxygen 45 09/01/22 12:38 09/01/22 12:39 09/01/22 13:09 Temperature 99.8 F H 98.9 F Pulse Rate 124 H Respiratory Rate 23 H Blood Pressure Pulse Oximetry Oxygen Delivery Fraction of Inspired Oxygen 09/01/22 14:38 09/01/22 14:30 09/01/22 13:35 Temperature Pulse Rate 119 H 114 H 120 H Respiratory Rate 24 H Blood Pressure 121/55 L Pulse Oximetry 95 Oxygen Delivery Mechanical Ventilation Fraction of Inspired Oxygen 45 09/01/22 13:38 09/01/22 13:12 09/01/22 16:30 Temperature Pulse Rate 120 H 172 H 108 H Respiratory Rate 23 H Blood Pressure 68/49 L 114/54 L Pulse Oximetry Oxygen Delivery Fraction of Inspired Oxygen 09/01/22 16:31 09/01/22 12:00 09/01/22 16:00 Temperature Pulse Rate 110 H Respiratory Rate Blood Pressure Pulse Oximetry 95 Oxygen Delivery Mechanical Ventilation Fraction of Inspired Oxygen 45 45 45 09/01/22 14:00 09/01/22 14:00 09/01/22 16:00 Temperature Pulse Rate 117 H 117 H 100 Respiratory Rate 22 H Blood Pressure 105/52 L Pulse Oximetry 94 Oxygen Delivery Fraction of Inspired Oxygen 09/01/22 16:00 09/01/22 12:00 09/01/22 16:00 Temperature 98 F Pulse Rate 100 118 H 100 Respiratory Rate 21 H 21 H 21 H Blood Pressure 118/53 L Pulse Oximetry 95 94 95 Oxygen Delivery Mechanical Ventilation Mechanical Ventilation Fraction of Inspired Oxygen 45 45 09/01/22 17:47
[2022-09-02] MEDS: SODIUM PHOSPHATE 20 MM in DEXTROSE 5% IN WATER 250 ML 50 MM IVPB (10:53)
--- NOTE | 2022-09-02 11:14 | PM.PNGS ---
Progress Note: A&P Assessment and Plan (1) Fecal peritonitis: Code(s): K65.8 - Other peritonitis Status: Acute Assessment and Plan: Remains critically ill although slightly improving with weaning of pressors. Discussed with Dr. Bolton. He wishes to get a repeat CT abd/pelvis today as patient remains very distended. This was her condition at surgery and with no ostomy output, do not feel it has changed appreciably. Agree with repeat CT though as may find some other source or collection. Fecal peritonitis and colonic ileus could readily explain present condition if CT negative. (2) Septic shock: Code(s): A41.9 - Sepsis, unspecified organism; R65.21 - Severe sepsis with septic shock Status: Acute Assessment and Plan: Remains on lower dose levophed, slowly being reduced. Cont broad spectrum antibiotics. (3) Acute respiratory failure: Code(s): J96.00 - Acute respiratory failure, unspecified whether with hypoxia or hypercapnia Status: Acute Assessment and Plan: I am reluctant to extubate at this point as abdominal distension likely to make ventilation difficult, high risk for re-intubation as yet. (4) Perforated sigmoid colon: Code(s): K63.1 - Perforation of intestine (nontraumatic) Status: Acute Assessment and Plan: Stercoral perforation, s/p sigmoidectomy (5) Atrial fibrillation with rapid ventricular response: Code(s): I48.91 - Unspecified atrial fibrillation Status: Acute Assessment and Plan: Recurred with reducing sedation. On Amiodarone and cardiology consulted. Subjective Subjective Date/Time Seen: 09/02/22 11:14 Post Op day: 2 Patient reports: other (intubated, sedated) Interval history: Developed rapid Afib yesterday and this a.m. when sedation reduced. Treated with Amiodarone and Cardiology consulted. Continues to have distended abdomen. Vasopressors have continued to be weaned but are not off. Review of Systems Review of Systems: ROS unobtainable: Yes unobtainable due to endotracheal tube Exam Narrative: sedated on vent, NG tube, ICU GI: Inspection: distended and incision (dressing dry and intact) GI Palp: Yes Firmness to palpation present (GI), No Palpable mass present and Yes Other GI palpation findings present (colostomy dusky but viable) Auscultation: absent bowel sounds Objective Data Vital Signs Vital Signs: Vital Signs - 24 hr 09/01/22 12:00 09/01/22 12:00 09/01/22 12:38 Temperature 37.6 C Pulse Rate 118 H 118 H 124 H Respiratory Rate 21 H 23 H Blood Pressure 104/55 L Pulse Oximetry 94 Oxygen Delivery Fraction of Inspired Oxygen 09/01/22 12:39 09/01/22 13:09 09/01/22 14:38 Temperature 37.7 C H 37.2 C Pulse Rate 119 H Respiratory Rate Blood Pressure 121/55 L Pulse Oximetry Oxygen Delivery Fraction of Inspired Oxygen 09/01/22 14:30 09/01/22 13:35 09/01/22 13:38 Temperature Pulse Rate 114 H 120 H 120 H Respiratory Rate 24 H 23 H Blood Pressure Pulse Oximetry 95 Oxygen Delivery Mechanical Ventilation Fraction of Inspired Oxygen 45 09/01/22 13:12 09/01/22 16:30 09/01/22 16:31 Temperature Pulse Rate 172 H 108 H 110 H Respiratory Rate Blood Pressure 68/49 L 114/54 L Pulse Oximetry 95 Oxygen Delivery Mechanical Ventilation Fraction of Inspired Oxygen 45 09/01/22 12:00 09/01/22 16:00 09/01/22 14:00 Temperature Pulse Rate 117 H Respiratory Rate Blood Pressure Pulse Oximetry Oxygen Delivery Fraction of Inspired Oxygen 45 45 09/01/22 14:00 09/01/22 16:00 09/01/22 16:00 Temperature 36.6 C Pulse Rate 117 H 100 100 Respiratory Rate 22 H 21 H Blood Pressure 105/52 L 118/53 L Pulse Oximetry 94 95 Oxygen Delivery Fraction of Inspired Oxygen 09/01/22 12:00 09/01/22 16:00 09/01/22 17:47 Temperature Pulse Rate 118 H 100 108 H Respiratory Rate 21 H 21 H Blood Pressure 115/53 L
--- NOTE | 2022-09-02 11:53 | PM.CNCAR ---
Assessment and Plan Assessment and plan (1) Atrial fibrillation with rapid ventricular response: Code(s): I48.91 - Unspecified atrial fibrillation Status: Acute Assessment and Plan: Currently in sinus rhythm on Amiodarone drip at 1. Once the bag finishes, recommend decreasing dose to 0.5mg. Given pressor requirement, would continue with Amiodarone for now. Given her recent surgery, would avoid therapeutic anticoagulation for now given high bleeding risk. Anticoagulation can be considered once stable from a surgical standpoint and has acceptable bleeding risks. Will obtain transthoracic echocardiogram. (2) Fecal peritonitis: Code(s): K65.8 - Other peritonitis Status: Acute Assessment and Plan: As per surgery / ICU (3) Septic shock: Code(s): A41.9 - Sepsis, unspecified organism; R65.21 - Severe sepsis with septic shock Status: Acute Assessment and Plan: On pressors. As per ICU team. (4) Acute respiratory failure: Code(s): J96.00 - Acute respiratory failure, unspecified whether with hypoxia or hypercapnia Status: Acute Assessment and Plan: On mechanical ventilation. As per ICU team. History of Present Illness History of Present Illness Consult date/time: 09/02/22 11:53 Requesting physician: Shana Bolton MD Consult reason: atrial fibrillation Reason For Visit: Bowel Perforation Narrative: We are being consulted for atrial fibrillation with RVR. Patient is a 72-year-old female with a history of anxiety, hyperlipidemia who presented to the ED at [facility] on 08/29/2022 with severe abdominal pain and constipation for [address] scan showing large amount of retained fecal content and distal sigmoid colitis. Patient worsened and repeat CT scan showing sigmoid perforation with fecal peritonitis. Patient was then transferred to [facility] and underwent sigmoidectomy with Rossi procedure on 08/31. Patient intubated, on pressors for septic shock. Yesterday afternoon, patient noted to be in SVT. Was given Adenosine with no improvement. Patient then became hypotensive, and underwent cardioversion with 1 shock with lutheran of sinus rhythm. Since then, patient has had intermittent episodes of atrial fibrillation with RVR. Has been on Amiodarone drip. Review of Systems Review of Systems: ROS unobtainable: Yes unobtainable due to endotracheal tube PMFSH Past Medical History Medical History Anxiety Hyperlipidemia Osteoarthritis Surgical History Surgical History History of cervical spinal surgery History of partial thyroidectomy History of total right hip arthroplasty Status post Rossi procedure (08/31/22) Family History Family History Other Family history unknown Social History Social History Social History: Surrogate medical decision maker: Andrew Powers, spouse. Code status: Full code. Smoking packs per day: 1 Smoking cigarettes per day: 20.0 Smoking status: Current some day smoker Alcohol intake: never Drinks per week: 2 Substance use: never Substance use type: does not use Has the Lack of Transportation Kept You From Medical Appointments or From Getting Medications?: No Within the Past 12 Months, Were You Worried Whether Your Food Would Run Out Before You Got Money to Buy More?: Never True What is Your Housing Situation Today?: I Have Housing Are You Worried That in the Next 2 Months, You May Not Have Your Own Housing to Live In?: No Do You Have Trouble Paying Your Heating Or Electricity Bill?: No Do You Have Trouble Paying For Medicines?: No Are You Currently Unemployed and Looking for Work?: No Highest Level of Education Completed: Decline to Answer Do You Have Troub
[2022-09-02] MEDS: AMIODARONE 360 MG/D5W 200 ML 360 MG/200 ML BAG 16.67 MG IV CONT (12:25)
--- NOTE | 2022-09-02 13:21 | WPDINTPN ---
Progress Note: A&P Assessment and Plan (1) Septic shock: Code(s): A41.9 - Sepsis, unspecified organism; R65.21 - Severe sepsis with septic shock Status: Acute Assessment and Plan: Septic shock likely related to fecal peritonitis secondary to sigmoid perforation -patient was on Levophed overnight, give additional IV fluid bolus, Levophed is being weaned to off -lactic acid trending down -patient was initially on metronidazole and Levaquin, these were switched to imipenem on (09/01) -patient was also started on micafungin on 08/31, will continue, secondary to fecal spill into the peritoneum -08/31 blood cultures, preliminary report negative x2 -continue maintenance IV fluids to 75 mL/hour (2) Acute respiratory failure: Code(s): J96.00 - Acute respiratory failure, unspecified whether with hypoxia or hypercapnia Status: Acute Assessment and Plan: Acute respiratory failure likely related to sedation from anesthesia, fecal peritonitis -chest x-ray and ABGs reviewed -sedated with fentanyl and propofol, -currently on CMV mode of ventilation, peep of 5, 45% FiO2 with adequate O2 sats -abdomen remains distended, will continue mechanical ventilation for now -patient did not tolerate sedation vacation and went into AFib RVR, had to be restarted on fentanyl, Versed -according the family patient does not tolerate sedation well, as she takes time to come off the sedation medication -will discontinue Versed, and started on propofol (3) Peritonitis: Code(s): K65.9 - Peritonitis, unspecified Status: Acute Assessment and Plan: Secondary to sigmoid perforation -continue antibiotics and antifungal as above -surgery following the patient closely (4) Perforated sigmoid colon: Code(s): K63.1 - Perforation of intestine (nontraumatic) Status: Acute Assessment and Plan: Status post sigmoidectomy with Rossi procedure on 08/31/2022 -surgery to continue -abdominal remains distended, colostomy stoma dusky but looks viable -09/02: CT abdomen pelvis without contrast did not show any abscess or free intraperitoneal gas, postoperative changes were seen, decrease small amount of ascites scattered throughout the abdomen and pelvis Plan DVT prophylaxis: Lovenox Stress ulcer prophylaxis: Famotidine Nutrition: NPO for now Discussed with , daughter and son had them with patient's condition and plan of explained to them that the patient is on sedation since she is on mechanical ventilation, will switch his sedation to propofol and so Versed as she does not tolerate sedation very well. Patient is also on vasopressors, they are aware that the patient will be getting a CT scan of the abdomen and pelvis. I answered all questions Code Status: Full code Critical Care Time Spent: 34 minutes Due to a high probability of clinically significant, life threatening deterioration, the patient required my highest level of preparedness to intervene emergently and I personally spent this critical care time directly and personally managing the patient. This critical care time included obtaining a history; examining the patient; pulse oximetry; ordering and review of studies; arranging urgent treatment with development of a management plan; evaluation of patient's response to treatment; frequent reassessment; and discussions with other providers. It was exclusive of separately billable procedures and treating other patients and teaching time. Please see Assessment and Plan section and the rest of the note for further information on patient assessment and treatment Subjective Date/time seen: 09/02/22 13:21 Interval history: Reason for consult: Peritonitis with sigmoid perforation status post sigmoidectomy with Rossi procedure on 08/31/2022.? Acute respiratory failure post surgery/anesthesia 09/02/2022: Patient seen and examined the ICU, remains intubated on CMV mode of ventilation, peep of 5, FiO2 45
[2022-09-02] MEDS: MICAFUNGIN SODIUM 100 MG in SODIUM CHLORIDE 0.9% IV 100 ML IVPB (17:40)
[2022-09-03] VITALS (30 sets, daily range): BP systolic 108–139; BP diastolic 57–67; PULSE 72–117; RESP 16–24; TEMP 36.8–37.4; O2SAT 91–97
[2022-09-03] MEDS: AMIODARONE 360 MG/D5W 200 ML 360 MG/200 ML BAG 16.67 MG IV CONT ×2 (00:21→13:02)
[2022-09-03] MEDS: ALBUMIN HUMAN 25% 25 GM/100 ML 100 ML IVPB (02:49)
[2022-09-03 04:35] LABS: Hematocrit 22.9 % (37.0-47.0); Hemoglobin 7.8 g/dL (12.0-15.0); Mean Corpuscular HGB Conc 34.1 g/dl (32-36); Mean Corpuscular Hemoglobin 31.2 pg (26-34); Mean Corpuscular Volume 91.6 fl (80-100); Mean Platelet Volume 9.4 fl (7.4-10.4); Platelet Count Result 338 k/mm3 (150-375); Red Cell Distribution Width 14.4 % (11.5-14.5); White Blood Count 16.3 K/mm3 (4.5-10.0)
[2022-09-03 05:04] LABS: Base Excess ABG 1.6 mEq/l (+/-2.0); Carboxyhemoglobin 0.2 % THb (0-2.0); Fractional Inspired Oxygen 30 %; HCO3 ABG 23.9 mEq/l (22.0-26.0); Methemoglobin ABG 0.2 %THb (0-1.5); Oxygen Content ABG 12.8 %vol (16.0-22.0); Oxygen Saturation ABG 95.4 % (95.0-100.0); Oxyhemoglobin 93.4 % THb (90.0-100.0); PCO2 ABG 29.5 mmHg (35.0-45.0); PO2 ABG 67.2 mmHg (80.0-100.0); PO2 FiO2 Ratio Arterial Blood 2.24 %; Reduced Hemoglobin 6.2 %THb (0-5.0); Total Hemoglobin 9.7 g/dL (12.0-18.0)
[2022-09-03 05:05] LABS: Device VENTILATOR; Modified Allen's Test Unable to perform; Site Drawn ARTLINE; pH ABG 7.527 (7.350-7.450)
[2022-09-03 05:06] LABS: Anion Gap 8 mmol/L (8-16); Blood Urea Nitrogen 17 mg/dL (7-17); Calcium 7.7 mg/dL (8.4-10.2); Carbon Dioxide 23 mmol/L (22-30); Chloride 99 mmol/L (98-107); Estimated CRCL calculation 93 ml/min; Estimated Glomerular Filt Rate > 60; Glucose 89 mg/dL (65-110); Lactic Acid Reflex 0.9 mmol/L (0.7-2.0); Magnesium 1.9 mg/dL (1.6-2.3); Phosphorus 2.7 mg/dL (2.5-4.5); Potassium 3.3 mmol/L (3.4-5.0); Sodium 130 mmol/L (137-145)
[2022-09-03 05:06] LABS: Arterial Blood Gas PEEP 5 cmH2O; Arterial Blood Gas Tidal Volume 450 ml; Arterial Blood Gas Vent Mode CMV; Arterial Blood Gas Ventilator rate 18 /MIN
[2022-09-03] MEDS: CENTRAL LINE FLUSH 10 ML IV PUSH ×3 (05:26→22:00)
[2022-09-03] MEDS: PROPOFOL IV EMULSION 100 ML 4.94 MG IV CONT (05:27)
[2022-09-03] MEDS: KCL 40 MEQ/WATER 100 ML 100 ML 25 ML IVPB (08:43)
[2022-09-03] MEDS: ENOXAPARIN 40 MG/0.4 ML SYRINGE SUB-Q (08:46)
[2022-09-03] MEDS: PANTOPRAZOLE SODIUM IV 40 MG VIAL IV PUSH (08:47)
[2022-09-03] MEDS: MINERAL OIL/WHITE PETROLATUM OINTMENT 1 APPLIC EACH EYE ×2 (08:47→19:52)
--- NOTE | 2022-09-03 09:21 | PCRCNOTE ---
pt placed on 03/11 SBT at 9:20 AM
[2022-09-03] MEDS: POTASSIUM CHLORIDE INJ 20 MEQ in LACTATED RINGERS 1,000 ML 75 MEQ IV CONT (10:17)
[2022-09-03 10:37] LABS: HCO3 ABG 25.5 mEq/l (22.0-26.0); PCO2 ABG 38.3 mmHg (35.0-45.0); PO2 ABG 63.1 mmHg (80.0-100.0); pH ABG 7.441 (7.350-7.450)
[2022-09-03 10:38] LABS: Base Excess ABG 1.3 mEq/l (+/-2.0); Total Hemoglobin 9.3 g/dL (12.0-18.0)
[2022-09-03 10:39] LABS: Device VENTILATOR; Fractional Inspired Oxygen 30 %; Modified Allen's Test Pass; Oxyhemoglobin 91.6 % THb (90.0-100.0); Site Drawn RIGHT RADIAL
[2022-09-03 10:40] LABS: Arterial Blood Gas PEEP 5 cmH2O; Arterial Blood Gas Pressure Support 5 cmH2O; Arterial Blood Gas Vent Mode SPONTANEOUS
--- NOTE | 2022-09-03 11:00 | WPDINTPN ---
Progress Note: A&P Assessment and Plan (1) Septic shock: Code(s): A41.9 - Sepsis, unspecified organism; R65.21 - Severe sepsis with septic shock Status: Acute Assessment and Plan: Septic shock likely related to fecal peritonitis secondary to sigmoid perforation -patient was on Levophed earlier but now off -patient was initially on metronidazole and Levaquin, these were switched to imipenem on (09/01) -patient was also started on micafungin on 08/31, will continue, secondary to fecal spill into the peritoneum -08/31 blood cultures, preliminary report negative x2 -continue maintenance IV fluids (2) Acute respiratory failure: Code(s): J96.00 - Acute respiratory failure, unspecified whether with hypoxia or hypercapnia Status: Acute Assessment and Plan: Acute respiratory failure likely related to sedation from anesthesia, fecal peritonitis -chest x-ray and ABGs reviewed -sedated with fentanyl and propofol, -I placed patient on PSV of 5/5. Her RSBI is borderline, ABG adequate but patient is not awake enough to be extubated at this time. Will continue as tolerated. She is currently on sedation holiday which will be continued as tolerated (3) Peritonitis: Code(s): K65.9 - Peritonitis, unspecified Status: Acute Assessment and Plan: Secondary to sigmoid perforation -continue antibiotics and antifungal as above -surgery following the patient closely (4) Perforated sigmoid colon: Code(s): K63.1 - Perforation of intestine (nontraumatic) Status: Acute Assessment and Plan: Status post sigmoidectomy with Rossi procedure on 08/31/2022 -surgery following -abdominal remains distended, colostomy stoma dusky but looks viable -discussed with Dr. Krueger from General surgery. He is satisfied with stoma. He feels the distention is secondary to air in the colon. -patient does appear to have postoperative ileus. Will start trickle tube feeds and monitor -may need TPN -09/02: CT abdomen pelvis without contrast did not show any abscess or free intraperitoneal gas, postoperative changes were seen, decrease small amount of ascites scattered throughout the abdomen and pelvis Plan DVT prophylaxis: Lovenox Stress ulcer prophylaxis: Famotidine Nutrition: NPO for now start trickle tube feeds today Discussed with and daughter at bedside. I updated them with patient's condition and treatment plan. I answered all questions Code Status: Full code Critical Care Time Spent: 35 minutes Due to a high probability of clinically significant, life threatening deterioration, the patient required my highest level of preparedness to intervene emergently and I personally spent this critical care time directly and personally managing the patient. This critical care time included obtaining a history; examining the patient; pulse oximetry; ordering and review of studies; arranging urgent treatment with development of a management plan; evaluation of patient's response to treatment; frequent reassessment; and discussions with other providers. It was exclusive of separately billable procedures and treating other patients and teaching time. Please see Assessment and Plan section and the rest of the note for further information on patient assessment and treatment Subjective Date/time seen: 09/03/22 11:00 Overnight events reviewed. Afebrile Continues to be on mechanical ventilation 30% FiO2 and 5 of PEEP Off vasopressors Continues to be sedated with propofol and fentanyl Vitals acceptable Urine output marginal Minimal output from ostomy Continues to be on IV fluids and amiodarone infusion Had 1 episode of AFib with RVR which spontaneously converted to sinus rhythm. Currently in sinus rhythm Abdomen remains distended Interval history: Reason for consult: Peritonitis with sigmoid perforation status post sigmoidectomy with Rossi procedure on 08/31/2022.? Acute respiratory failure post surger
--- NOTE | 2022-09-03 11:36 | PCNFU ---
Nutrition Follow-Up Complete: Altered GI function as related to sigmoidectomy as evidenced by NPO. Goal: Meet estimated nutritional needs Patient is progressing towards goal. We will continue current goal. Pt current nutrition is Vital AF 1.2 at 20 ml/hr. Last recorded weight is 84.6 kg, up from 82.1 kg on admit. Bowel Motility:colostomy Labs Reviewed: Cr 0.5,Na 130, K 3.3,Hgb 7.8, Hct 22.9 Meds Noted:Lovenox, Versed, Fentanyl, Protonix, LR at 75 ml/hr Skin: WNL Additional Notes: Patient remains on mechanical vent .Tube feedings of Vital AF 1.2 with trickle feedings started today at 20 ml/hr. Recommend goal rate at 60 ml/hr, which will provide 1584 kcals/99 gms protein/1071 ml water. Free water flush 30 ml q 4 hours. Breathing Trial today. Agree with diet orders. Will monitor in ICU rounds and reassessing every Tuesday and Tuesday.
--- NOTE | 2022-09-03 11:38 | PM.PNGS ---
Progress Note: A&P Assessment and Plan (1) Septic shock: Code(s): A41.9 - Sepsis, unspecified organism; R65.21 - Severe sepsis with septic shock Status: Acute Assessment and Plan: Off pressors but still critically ill. Continue broad-spectrum antibiotics and critical care management (2) Fecal peritonitis: Code(s): K65.8 - Other peritonitis Status: Acute Assessment and Plan: Abdomen remains very distended. CT scan yesterday negative for any acute intra-abdominal process since surgery. Talked with Dr. Powell, assistant credit manager. Okay to start trickle feeds. If not tolerated, recommend TPN. (3) Atrial fibrillation with rapid ventricular response: Code(s): I48.91 - Unspecified atrial fibrillation Status: Acute Assessment and Plan: Heart rate better today, (4) Acute respiratory failure: Code(s): J96.00 - Acute respiratory failure, unspecified whether with hypoxia or hypercapnia Status: Acute Assessment and Plan: Remains on vent, off sedation but minimal responsiveness (5) Perforated sigmoid colon: Code(s): K63.1 - Perforation of intestine (nontraumatic) Status: Acute Assessment and Plan: Due to retained stool and subsequent perforation fecal peritonitis. Patient now 3 days status post sigmoidectomy with Rossi procedure. Still very distended and no colostomy output. Requiring continued critical care management. Okay for trickle feeds. Subjective Subjective Date/Time Seen: 09/03/22 11:38 Post Op day: 3 Patient reports: no flatus, no bowel movement, fever (Low-grade fever yesterday, none so far today) and other (Off sedation but still intubated, eyes open but minimal responsiveness) Review of Systems Review of Systems: ROS unobtainable: Yes unobtainable due to endotracheal tube Exam Const: General: other (Eyes open but minimal response) Nutritional Appearance: average body habitus GI: Inspection: Abdominal wall edema, distended and incision (Incision dry and healing) GI Palp: Yes Firmness to palpation present (GI), No Palpable mass present, No Ascites present and Yes Other GI palpation findings present (Stoma dusky but clearly viable. No output) Auscultation: absent bowel sounds Objective Data Vital Signs Vital Signs: Vital Signs - 24 hr 09/02/22 11:45 09/02/22 12:00 09/02/22 14:15 Temperature 37.2 C Pulse Rate 72 69 Respiratory Rate 18 Blood Pressure 90/48 L 99/57 L Pulse Oximetry 97 97 Oxygen Delivery Mechanical Ventilation Fraction of Inspired Oxygen 40 09/02/22 14:00 09/02/22 12:45 09/02/22 14:52 Temperature 36.6 C Pulse Rate 70 Respiratory Rate 18 Blood Pressure 101/59 L 114/61 101/54 L Pulse Oximetry 97 Oxygen Delivery Fraction of Inspired Oxygen 09/02/22 12:00 09/02/22 14:00 09/02/22 16:00 Temperature Pulse Rate 72 70 68 Respiratory Rate Blood Pressure Pulse Oximetry Oxygen Delivery Fraction of Inspired Oxygen 09/02/22 16:00 09/02/22 17:46 09/02/22 17:54 Temperature 36.7 C Pulse Rate 70 68 70 Respiratory Rate 18 16 Blood Pressure 101/60 Pulse Oximetry 99 99 Oxygen Delivery Mechanical Ventilation Fraction of Inspired Oxygen 40 09/02/22 18:00 09/02/22 18:00 09/02/22 12:00 Temperature Pulse Rate 70 70 Respiratory Rate 18 Blood Pressure 111/63 Pulse Oximetry 99 Oxygen Delivery Mechanical Ventilation Fraction of Inspired Oxygen 40 09/02/22 12:00 09/02/22 16:00 09/02/22 16:00 Temperature Pulse Rate Respiratory Rate Blood Pressure Pulse Oximetry Oxygen Delivery Mechanical Ventilation Fraction of Inspired Oxygen 40 40 40 09/02/22 20:55 09/02/22 20:00 09/02/22 20:00 Temperature 37.3 C Pulse Rate 77 75 76 Respiratory Rate 18 Blood Pressure 121/60 Pulse Oximetry 98 99 Oxygen Delivery Mechanical Ventilation Fraction of Inspired Oxygen 40 09/02/22 20:00 09/02/22 20:
--- NOTE | 2022-09-03 12:47 | PM.PNCARD ---
Progress Note: A&P Assessment and Plan (1) Atrial fibrillation with rapid ventricular response: Code(s): I48.91 - Unspecified atrial fibrillation Status: Acute Assessment and Plan: New onset, postoperative atrial fibrillation Had a recurrence of AF with RVR last night, back in sinus rhythm now. Continue IV amiodarone at 0.5 mg/min Given her recent surgery, would avoid therapeutic anticoagulation for now given high bleeding risk. Anticoagulation can be considered once stable from a surgical standpoint and has acceptable bleeding risks. TTE showed normal LVSF, Grade I diastolic dysfunction, mild TR. (2) Fecal peritonitis: Code(s): K65.8 - Other peritonitis Status: Acute Assessment and Plan: As per surgery / ICU (3) Septic shock: Code(s): A41.9 - Sepsis, unspecified organism; R65.21 - Severe sepsis with septic shock Status: Acute Assessment and Plan: Per critical care team (4) Acute respiratory failure: Code(s): J96.00 - Acute respiratory failure, unspecified whether with hypoxia or hypercapnia Status: Acute Assessment and Plan: On mechanical ventilation. As per ICU team. Subjective Date/time seen: 09/03/22 12:47 Cardiology follow up for atrial fibrillation Interval history: Had recurrence of AF RVR overnight. Back in NSR now. Off pressor support. Remains intubated and sedated. Review of Systems Review of Systems: ROS unobtainable: Yes unobtainable due to endotracheal tube Exam Const: General: no acute distress and ill appearing acutely HENMT: Other: OETT in place Neck: Neck: supple and no JVD Resp: Auscultation: clear to auscultation bilaterally Other: On mechanical ventilation Cardio: Rate: regular rate Rhythm: regular rhythm Heart sounds: no murmurs GI: GI Palp: Yes Firmness to palpation present (GI) Other: Distended Urinary Catheter: Urinary Catheter: patent and draining and urine dark Skin: General skin exam: normal color Neuro: Other: Patient is sedated Extrem: General: no edema Psych: Other: Unable to assess due to sedation Objective Data Vital Signs Vital Signs: Vital Signs - 24 hr 09/02/22 14:15 09/02/22 14:00 09/02/22 14:52 Temperature 36.6 C Pulse Rate 69 70 Respiratory Rate 18 Blood Pressure 101/59 L 101/54 L Pulse Oximetry 97 97 Oxygen Delivery Mechanical Ventilation Fraction of Inspired Oxygen 40 09/02/22 14:00 09/02/22 16:00 09/02/22 16:00 Temperature 36.7 C Pulse Rate 70 68 70 Respiratory Rate 18 Blood Pressure 101/60 Pulse Oximetry 99 Oxygen Delivery Fraction of Inspired Oxygen 09/02/22 17:46 09/02/22 17:54 09/02/22 18:00 Temperature Pulse Rate 68 70 70 Respiratory Rate 16 Blood Pressure Pulse Oximetry 99 Oxygen Delivery Mechanical Ventilation Fraction of Inspired Oxygen 40 09/02/22 18:00 09/02/22 16:00 09/02/22 16:00 Temperature Pulse Rate 70 Respiratory Rate 18 Blood Pressure 111/63 Pulse Oximetry 99 Oxygen Delivery Mechanical Ventilation Fraction of Inspired Oxygen 40 40 09/02/22 20:55 09/02/22 20:00 09/02/22 20:00 Temperature 37.3 C Pulse Rate 77 75 76 Respiratory Rate 18 Blood Pressure 121/60 Pulse Oximetry 98 99 Oxygen Delivery Mechanical Ventilation Fraction of Inspired Oxygen 40 09/02/22 20:00 09/02/22 20:00 09/02/22 21:44 Temperature Pulse Rate 76 Respiratory Rate 18 Blood Pressure Pulse Oximetry 99 Oxygen Delivery Mechanical Ventilation Fraction of Inspired Oxygen 40 40 09/02/22 21:44 09/02/22 22:00 09/02/22 22:00 Temperature Pulse Rate 76 77 77 Respiratory Rate 18 18 Blood Pressure 136/64 Pulse Oximetry 97 Oxygen Delivery Fraction of Inspired Oxygen 09/03/22 00:21 09/03/22 00:00 09/03/22 00:00 Temperature 37.4 C Pulse Rate 75 75 75 Respiratory Rate 18 Blood Pressure 139/65 Pulse Oximetry 97 Oxyge
[2022-09-03 13:17] LABS: Hematocrit 24.4 % (37.0-47.0); Hemoglobin 8.1 g/dL (12.0-15.0); Mean Corpuscular HGB Conc 33.2 g/dl (32-36); Mean Corpuscular Hemoglobin 30.7 pg (26-34); Mean Corpuscular Volume 92.4 fl (80-100); Mean Platelet Volume 9.3 fl (7.4-10.4); Platelet Count Result 342 k/mm3 (150-375); Red Blood Count 2.64 M/mm3 (4.2-5.4); Red Cell Distribution Width 14.6 % (11.5-14.5); White Blood Count 19.1 K/mm3 (4.5-10.0)
[2022-09-03] MEDS: MICAFUNGIN SODIUM 100 MG in SODIUM CHLORIDE 0.9% IV 100 ML IVPB (17:19)
[2022-09-03] MEDS: FENTANYL 2,500MCG/NS250ML(*CRX 2,500 MCG/250 ML BAG IV CONT (18:44)
[2022-09-04] VITALS (33 sets, daily range): BP systolic 88–130; BP diastolic 50–66; PULSE 57–97; RESP 12–28; TEMP 36.9–37.3; O2SAT 93–100
[2022-09-04] MEDS: POTASSIUM CHLORIDE INJ 20 MEQ in LACTATED RINGERS 1,000 ML 75 MEQ IV CONT (00:52)
[2022-09-04] MEDS: AMIODARONE 360 MG/D5W 200 ML 360 MG/200 ML BAG 16.67 MG IV CONT ×2 (00:58→14:42)
[2022-09-04] MEDS: CENTRAL LINE FLUSH 10 ML IV PUSH ×3 (05:19→22:05)
[2022-09-04 05:40] LABS: Alveolar/Arterial O2 Gradient 109.2 mmHg; Base Excess ABG 1.5 mEq/l (+/-2.0); Carboxyhemoglobin 0.2 % THb (0-2.0); Fractional Inspired Oxygen 30 %; HCO3 ABG 24.9 mEq/l (22.0-26.0); Methemoglobin ABG 0.1 %THb (0-1.5); Oxygen Content ABG 12.4 %vol (16.0-22.0); Oxyhemoglobin 92.2 % THb (90.0-100.0); PCO2 ABG 34.5 mmHg (35.0-45.0); PO2 ABG 64.2 mmHg (80.0-100.0); PO2 FiO2 Ratio Arterial Blood 2.14 %; Reduced Hemoglobin 7.5 %THb (0-5.0); Total Hemoglobin 9.5 g/dL (12.0-18.0); pH ABG 7.477 (7.350-7.450)
[2022-09-04 05:41] LABS: Device VENTILATOR; Modified Allen's Test Pass; Site Drawn RIGHT RADIAL
[2022-09-04 05:42] LABS: Arterial Blood Gas PEEP 5 cmH2O; Arterial Blood Gas Tidal Volume 400 ml; Arterial Blood Gas Vent Mode CMV; Arterial Blood Gas Ventilator rate 16 /MIN
[2022-09-04] MEDS: FUROSEMIDE INJ 40 MG/4 ML VIAL IV PUSH (08:03)
[2022-09-04] MEDS: PANTOPRAZOLE SODIUM IV 40 MG VIAL IV PUSH (08:05)
[2022-09-04] MEDS: ENOXAPARIN 40 MG/0.4 ML SYRINGE SUB-Q (08:09)
[2022-09-04] MEDS: MINERAL OIL/WHITE PETROLATUM OINTMENT 1 APPLIC EACH EYE ×2 (08:10→22:05)
[2022-09-04 08:15] LABS: Hematocrit 25.2 % (37.0-47.0); Hemoglobin 8.2 g/dL (12.0-15.0); Mean Corpuscular HGB Conc 32.5 g/dl (32-36); Mean Corpuscular Hemoglobin 30.5 pg (26-34); Mean Corpuscular Volume 93.7 fl (80-100); Mean Platelet Volume 9.4 fl (7.4-10.4); Platelet Count Result 352 k/mm3 (150-375); Red Blood Count 2.69 M/mm3 (4.2-5.4); White Blood Count 19.2 K/mm3 (4.5-10.0)
[2022-09-04 08:22] LABS: Alanine Aminotransferase 17 U/L (6-35); Albumin Level 2.6 g/dL (3.5-5.1); Alkaline Phosphatase 71 U/L (38-126); Anion Gap 7 mmol/L (8-16); Aspartate Amino Transferase 34 U/L (14-36); Bilirubin,Total 0.5 mg/dL (0.2-1.3); Blood Urea Nitrogen 14 mg/dL (7-17); Calcium 7.3 mg/dL (8.4-10.2); Carbon Dioxide 24 mmol/L (22-30); Chloride 102 mmol/L (98-107); Estimated CRCL calculation 115 ml/min; Estimated Glomerular Filt Rate > 60; Glucose 112 mg/dL (65-110); Magnesium 1.8 mg/dL (1.6-2.3); Phosphorus 2.6 mg/dL (2.5-4.5); Potassium 3.6 mmol/L (3.4-5.0); Sodium 133 mmol/L (137-145)
--- NOTE | 2022-09-04 08:41 | WPDINTPN ---
Progress Note: A&P Assessment and Plan (1) Septic shock: Code(s): A41.9 - Sepsis, unspecified organism; R65.21 - Severe sepsis with septic shock Status: Acute Assessment and Plan: Septic shock likely related to fecal peritonitis secondary to sigmoid perforation -patient was on Levophed earlier but now off -patient was initially on metronidazole and Levaquin, these were switched to imipenem on (09/01) -patient was also started on micafungin on 08/31, will continue, secondary to fecal spill into the peritoneum -08/31 blood cultures, preliminary report negative x2 -continue maintenance IV fluids (2) Acute respiratory failure: Code(s): J96.00 - Acute respiratory failure, unspecified whether with hypoxia or hypercapnia Status: Acute Assessment and Plan: Acute respiratory failure likely related to sedation from anesthesia, fecal peritonitis -chest x-ray and and shows pulmonary congestion. Lasix IV x1 today - ABG reviewed. Decrease tidal volume 380 and rate to 14 -sedated with fentanyl and propofol, -I placed patient on PSV of 5/5. Her RSBI were was high with respiratory rate in high 30s. Patient currently placed on pressure support of 20/ 5. Will continue as tolerated Will start Precedex infusion to rule out anxiety as reason for failure. Will also give Lasix IV today for pulmonary congestion (3) Peritonitis: Code(s): K65.9 - Peritonitis, unspecified Status: Acute Assessment and Plan: Secondary to sigmoid perforation -continue antibiotics and antifungal as above -surgery following the patient closely (4) Perforated sigmoid colon: Code(s): K63.1 - Perforation of intestine (nontraumatic) Status: Acute Assessment and Plan: Status post sigmoidectomy with Rossi procedure on 08/31/2022 -surgery following -abdominal remains distended, colostomy stoma dusky but looks viable -discussed with Dr. Krueger from General surgery. He is satisfied with stoma. He feels the distention is secondary to air in the colon. -patient does appear to have postoperative ileus. 09/03 patient was started on trickle tube feeds at 20 mL/hour -tolerating tube feeds and bowel sounds are present although decreased today. Advance tube feeds to 30 mL/hour -ostomy output remains low. Will discuss with General surgery -09/02: CT abdomen pelvis without contrast did not show any abscess or free intraperitoneal gas, postoperative changes were seen, decrease small amount of ascites scattered throughout the abdomen and pelvis (5) Atrial fibrillation with rapid ventricular response: Code(s): I48.91 - Unspecified atrial fibrillation Status: Acute Assessment and Plan: Currently on amiodarone infusion and in sinus rhythm Not on anticoagulation due to recent major surgery Cardiology following (6) Electrolyte abnormality: Code(s): E87.8 - Other disorders of electrolyte and fluid balance, not elsewhere classified Status: Acute Assessment and Plan: Replace low potassium Plan DVT prophylaxis: Lovenox Stress ulcer prophylaxis: Famotidine Nutrition: Tube feeds Discussed with and daughter at bedside. I updated them with patient's condition including failure on weaning trial and treatment plan. I answered all questions Code Status: Full code Critical Care Time Spent: 32 minutes Due to a high probability of clinically significant, life threatening deterioration, the patient required my highest level of preparedness to intervene emergently and I personally spent this critical care time directly and personally managing the patient. This critical care time included obtaining a history; examining the patient; pulse oximetry; ordering and review of studies; arranging urgent treatment with development of a management plan; evaluation of patient's response to treatment; frequent reassessment; and discussions with other providers. It was exclusive of separately billable p
[2022-09-04] MEDS: dexmedeTOMIDine 400 MCG/100 ML 400 MCG/100 ML BAG IV CONT (09:06)
[2022-09-04] MEDS: POTASSIUM CHLORIDE 20 MEQ PACKET (FOR LIQUID) 40 MEQ FEED TUBE (09:06)
[2022-09-04 09:37] LABS: Alveolar/Arterial O2 Gradient 178.9 mmHg; Arterial Blood Gas Vent Mode SPONTANEOUS; Base Excess ABG 1.9 mEq/l (+/-2.0); Device VENTILATOR; Fractional Inspired Oxygen 40 %; HCO3 ABG 25.2 mEq/l (22.0-26.0); Modified Allen's Test Pass; Oxygen Content ABG 12.9 %vol (16.0-22.0); Oxygen Saturation ABG 94.6 % (95.0-100.0); Oxyhemoglobin 92.9 % THb (90.0-100.0); PCO2 ABG 34.5 mmHg (35.0-45.0); PO2 ABG 66.6 mmHg (80.0-100.0); PO2 FiO2 Ratio Arterial Blood 1.66 %; Site Drawn LEFT RADIAL; Total Hemoglobin 9.8 g/dL (12.0-18.0); pH ABG 7.482 (7.350-7.450)
[2022-09-04 09:38] LABS: Arterial Blood Gas PEEP 5 cmH2O; Arterial Blood Gas Pressure Support 5 cmH2O
--- NOTE | 2022-09-04 17:04 | PM.PNGS ---
Progress Note: A&P Assessment and Plan (1) Septic shock: Code(s): A41.9 - Sepsis, unspecified organism; R65.21 - Severe sepsis with septic shock Status: Acute Assessment and Plan: Continue broad-spectrum antibiotics and critical care management (2) Fecal peritonitis: Code(s): K65.8 - Other peritonitis Status: Acute Assessment and Plan: Abdomen still distended, starting to see some gas in ostomy bag. Continue advancing tube feeds as tolerated. (3) Atrial fibrillation with rapid ventricular response: Code(s): I48.91 - Unspecified atrial fibrillation Status: Acute Assessment and Plan: Heart rate better today, (4) Acute respiratory failure: Code(s): J96.00 - Acute respiratory failure, unspecified whether with hypoxia or hypercapnia Status: Acute Assessment and Plan: Remains on vent, off sedation but minimal responsiveness (5) Perforated sigmoid colon: Code(s): K63.1 - Perforation of intestine (nontraumatic) Status: Acute Assessment and Plan: Due to retained stool and subsequent perforation fecal peritonitis. Subjective Subjective Date/Time Seen: 09/04/22 17:04 Interval history: No significant events overnight. Patient awake on ventilator. Pain controlled. Having some gas in ostomy bag, but no significant output yet. Exam GI: Inspection: distended Other: Ostomy has some blood tinge at the surface, but appears healthy and viable. Gas within ostomy bag, but no significant stool output yet. Objective Data Vital Signs Vital Signs: Vital Signs - 24 hr 09/03/22 17:22 09/03/22 17:17 09/03/22 18:44 Temperature Pulse Rate 77 80 80 Respiratory Rate 16 16 Blood Pressure Pulse Oximetry 92 Oxygen Delivery Mechanical Ventilation Fraction of Inspired Oxygen 30 09/03/22 18:44 09/03/22 18:00 09/03/22 18:00 Temperature 36.8 C Pulse Rate 80 75 75 Respiratory Rate 16 19 Blood Pressure 115/57 L Pulse Oximetry 94 Oxygen Delivery Fraction of Inspired Oxygen 09/03/22 20:00 09/03/22 20:00 09/03/22 20:00 Temperature 37.2 C Pulse Rate 75 Respiratory Rate 19 Blood Pressure 113/58 L Pulse Oximetry 94 94 Oxygen Delivery Mechanical Ventilation Fraction of Inspired Oxygen 30 30 09/03/22 20:34 09/03/22 20:00 09/03/22 22:00 Temperature Pulse Rate 76 74 76 Respiratory Rate Blood Pressure Pulse Oximetry 94 Oxygen Delivery Mechanical Ventilation Fraction of Inspired Oxygen 30 09/03/22 22:00 09/04/22 00:00 09/04/22 00:00 Temperature Pulse Rate 76 Respiratory Rate 21 H Blood Pressure 120/63 Pulse Oximetry 95 94 Oxygen Delivery Mechanical Ventilation Fraction of Inspired Oxygen 30 30 09/04/22 00:00 09/04/22 02:00 09/04/22 00:00 Temperature Pulse Rate 76 77 77 Respiratory Rate 23 H Blood Pressure 127/59 L Pulse Oximetry 94 Oxygen Delivery Fraction of Inspired Oxygen 09/04/22 02:00 09/03/22 23:37 09/04/22 02:52 Temperature Pulse Rate 77 77 78 Respiratory Rate 21 H Blood Pressure 127/65 Pulse Oximetry 94 94 93 Oxygen Delivery Mechanical Ventilation Mechanical Ventilation Fraction of Inspired Oxygen 30 30 09/04/22 04:00 09/04/22 04:00 09/04/22 04:00 Temperature 36.9 C Pulse Rate 74 Respiratory Rate 19 Blood Pressure 126/60 Pulse Oximetry 94 94 Oxygen Delivery Mechanical Ventilation Fraction of Inspired Oxygen 30 30 09/04/22 04:00 09/04/22 05:55 09/04/22 05:59 Temperature Pulse Rate 74 75 76 Respiratory Rate Blood Pressure Pulse Oximetry 93 Oxygen Delivery Mechanical Ventilation Fraction of Inspired Oxygen 30 09/04/22 06:00 09/04/22 07:53 09/04/22 08:23 Temperature Pulse Rate 75 78 79 Respiratory Rate 26 H 16 Blood Pressure 130/62 Pulse Oximetry 93 96 Oxygen Delivery Mechanical Ventilation Fraction of Inspired Oxygen 40
[2022-09-04] MEDS: MICAFUNGIN SODIUM 100 MG in SODIUM CHLORIDE 0.9% IV 100 ML IVPB (18:42)
[2022-09-04] MEDS: SODIUM CHLORIDE 0.9% IV 500 ML 999 ML IV CONT (19:02)
[2022-09-04] MEDS: dexmedeTOMIDine 400 MCG/100 ML 400 MCG/100 ML BAG 8.78 MCG IV CONT (21:37)
[2022-09-05] VITALS (28 sets, daily range): BP systolic 91–161; BP diastolic 52–87; PULSE 56–97; RESP 2–30; TEMP 36.6–37.2; O2SAT 92–100
[2022-09-05 05:30] LABS: Alveolar/Arterial O2 Gradient 110.2 mmHg; Base Excess ABG 3.7 mEq/l (+/-2.0); Carboxyhemoglobin 0.3 % THb (0-2.0); Fractional Inspired Oxygen 30 %; HCO3 ABG 27.3 mEq/l (22.0-26.0); Methemoglobin ABG 0.1 %THb (0-1.5); Oxygen Content ABG 12.9 %vol (16.0-22.0); Oxygen Saturation ABG 92.9 % (95.0-100.0); Oxyhemoglobin 91.3 % THb (90.0-100.0); PCO2 ABG 37.1 mmHg (35.0-45.0); PO2 ABG 60.1 mmHg (80.0-100.0); Reduced Hemoglobin 8.3 %THb (0-5.0); pH ABG 7.484 (7.350-7.450)
[2022-09-05 05:32] LABS: Arterial Blood Gas PEEP 5 cmH2O; Arterial Blood Gas Vent Mode CMV; Arterial Blood Gas Ventilator rate 14 /MIN; Device VENTILATOR; Modified Allen's Test Pass; Site Drawn RIGHT RADIAL
[2022-09-05 05:33] LABS: Arterial Blood Gas Tidal Volume 380 ml
[2022-09-05] MEDS: CENTRAL LINE FLUSH 10 ML IV PUSH ×3 (05:34→19:29)
[2022-09-05 05:54] LABS: Hematocrit 25.3 % (37.0-47.0); Hemoglobin 8.4 g/dL (12.0-15.0); Mean Corpuscular HGB Conc 33.2 g/dl (32-36); Mean Corpuscular Hemoglobin 30.8 pg (26-34); Mean Corpuscular Volume 92.7 fl (80-100); Mean Platelet Volume 9.6 fl (7.4-10.4); Platelet Count Result 370 k/mm3 (150-375); Red Blood Count 2.73 M/mm3 (4.2-5.4); Red Cell Distribution Width 14.9 % (11.5-14.5); White Blood Count 19.9 K/mm3 (4.5-10.0)
[2022-09-05 06:09] LABS: Alanine Aminotransferase 17 U/L (6-35); Albumin Level 2.5 g/dL (3.5-5.1); Alkaline Phosphatase 76 U/L (38-126); Anion Gap 10 mmol/L (8-16); Aspartate Amino Transferase 31 U/L (14-36); Bilirubin,Total 0.4 mg/dL (0.2-1.3); Blood Urea Nitrogen 16 mg/dL (7-17); Calcium 7.3 mg/dL (8.4-10.2); Carbon Dioxide 26 mmol/L (22-30); Chloride 100 mmol/L (98-107); Estimated CRCL calculation 147 ml/min; Estimated Glomerular Filt Rate > 60; Glucose 125 mg/dL (65-110); Magnesium 1.8 mg/dL (1.6-2.3); Phosphorus 3.1 mg/dL (2.5-4.5); Potassium 3.5 mmol/L (3.4-5.0); Sodium 136 mmol/L (137-145)
[2022-09-05] MEDS: dexmedeTOMIDine 400 MCG/100 ML 400 MCG/100 ML BAG 8.78 MCG IV CONT (07:47)
[2022-09-05] MEDS: MINERAL OIL/WHITE PETROLATUM OINTMENT 1 APPLIC EACH EYE (08:00)
[2022-09-05] MEDS: ENOXAPARIN 40 MG/0.4 ML SYRINGE SUB-Q (08:00)
[2022-09-05] MEDS: PANTOPRAZOLE SODIUM IV 40 MG VIAL IV PUSH (08:00)
--- NOTE | 2022-09-05 08:07 | WPDINTPN ---
Progress Note: A&P Assessment and Plan (1) Septic shock: Code(s): A41.9 - Sepsis, unspecified organism; R65.21 - Severe sepsis with septic shock Status: Acute Assessment and Plan: Septic shock likely related to fecal peritonitis secondary to sigmoid perforation -patient was on Levophed earlier but now off -patient was initially on metronidazole and Levaquin,?these were switched to imipenem on (09/01) -patient was also started on micafungin on 08/31, will continue, secondary to fecal spill into the peritoneum -08/31 blood cultures, preliminary report negative x2 -continue? maintenance IV fluids (2) Acute respiratory failure: Code(s): J96.00 - Acute respiratory failure, unspecified whether with hypoxia or hypercapnia Status: Acute Assessment and Plan: Acute respiratory failure likely related to sedation from anesthesia, fecal peritonitis -chest x-ray reviewed - ABG reviewed.? Decrease tidal volume to 350 Fentanyl discontinued patient placed on 03/11 PSV trial. If successful try to extubate patient Continue Precedex infusion for anxiolysis (3) Perforated sigmoid colon: Code(s): K63.1 - Perforation of intestine (nontraumatic) Status: Acute Assessment and Plan: Status post sigmoidectomy with Rossi procedure on 08/31/2022 -surgery following -abdominal remains distended although improved, colostomy stoma dusky but? looks viable -patient developed postoperative ileus -output minimum over patient now passing gas. Bowel sounds present. Tolerating tube feeds -09/02: CT abdomen pelvis without contrast did not show any abscess or free intraperitoneal gas, postoperative changes were seen, decrease small amount of ascites scattered throughout the abdomen and pelvis (4) Peritonitis: Code(s): K65.9 - Peritonitis, unspecified Status: Acute Assessment and Plan: See above (5) Atrial fibrillation with rapid ventricular response: Code(s): I48.91 - Unspecified atrial fibrillation Status: Acute Assessment and Plan: Now in sinus Leodan Off amiodarone infusion On p.o. amiodarone Not on therapeutic dose anticoagulation due to recent major surgery Cardiology following (6) Electrolyte abnormality: Code(s): E87.8 - Other disorders of electrolyte and fluid balance, not elsewhere classified Status: Acute Assessment and Plan: Replace low potassium Plan DVT prophylaxis:? Lovenox Stress ulcer prophylaxis:? Famotidine Nutrition:? Tube feeds Code Status:? Full code Critical Care Time Spent: 30 minutes ?Due to a high probability of clinically significant, life threatening deterioration, the patient required my highest level of preparedness to intervene emergently and I personally spent this critical care time directly and personally managing the patient. This critical care time included obtaining a history; examining the patient; pulse oximetry; ordering and review of studies; arranging urgent treatment with development of a management plan; evaluation of patient's response to treatment; frequent reassessment; and discussions with other providers. It was exclusive of separately billable procedures and treating other patients and teaching time. Please see Assessment and Plan section and the rest of the note for further information on patient assessment and treatment Subjective Date/time seen: 09/05/22 Overnight events reviewed. Afebrile Continues to be on mechanical ventilation on minimal settings She is much more awake today and following commands with all 4 extremities. Nodes affirmative to abdominal pain. Ostomy output remains minimal although she is passing gas Tolerating tube feeds at 30 mL/hour Continues to be sedated with low-dose Precedex at 0.4 and fentanyl 25 mics Vitals acceptable Urine output is good Amiodarone has been discontinued Interval history: Review of Systems Review of Systems: ROS unobtainable: Yes unobtainabl
[2022-09-05 08:39] LABS: Alveolar/Arterial O2 Gradient 107.8 mmHg; Base Excess ABG 3.8 mEq/l (+/-2.0); Fractional Inspired Oxygen 30 %; HCO3 ABG 27.3 mEq/l (22.0-26.0); Oxygen Content ABG 12.5 %vol (16.0-22.0); Oxygen Saturation ABG 93.6 % (95.0-100.0); Oxyhemoglobin 91.4 % THb (90.0-100.0); PCO2 ABG 37.1 mmHg (35.0-45.0); PO2 ABG 62.5 mmHg (80.0-100.0); PO2 FiO2 Ratio Arterial Blood 2.08 %; Total Hemoglobin 9.7 g/dL (12.0-18.0); pH ABG 7.485 (7.350-7.450)
[2022-09-05 08:41] LABS: Device VENTILATOR; Modified Allen's Test Pass; Site Drawn RIGHT RADIAL
[2022-09-05 08:42] LABS: Arterial Blood Gas PEEP 5 cmH2O; Arterial Blood Gas Pressure Support 5 cmH2O; Arterial Blood Gas Vent Mode SPONTANEOUS
--- NOTE | 2022-09-05 09:04 | P.PNCROSS_ITS ---
Event Note Event Note Event Note: 5/5 PSV SBT done for more than 0.5 hour. ABG and Vitals acceptable. RSBI is elisha rderline. Pt is awake and following commands. I have discussed with patient's and daughter at bedside about findings and results of for a weaning trial. Since patient has been improving, is awake alert and following commands and has strong cough I will Will extubate and monitor. I have explained the family that patient may fail extubation and may need BiPAP or re-intubation. NPO for now. May need BiPAP
--- NOTE | 2022-09-05 10:37 | PM.PNCARD ---
Progress Note: A&P Assessment and Plan (1) Atrial fibrillation with rapid ventricular response: Code(s): I48.91 - Unspecified atrial fibrillation Status: Acute Assessment and Plan: New onset, postoperative atrial fibrillation Has remained in sinus now. Off Amio drip and transitioned to oral Amio 200mg BID yesterday. Would keep 200mg BID x 1 week followed by 200mg QD x 1 week, and then stop medication. Would like to avoid long-term use of Amio if possible. Given her recent surgery, would avoid therapeutic anticoagulation for now given high bleeding risk. May consider anticoagulation once patient recovers from surgery. TTE showed normal LVSF, Grade I diastolic dysfunction, mild TR. Patient will need outpatient Cardiology Clinic follow-up. Cardiology will sign off today, please call us back if anything needed. (2) Fecal peritonitis: Code(s): K65.8 - Other peritonitis Status: Acute Assessment and Plan: As per surgery / ICU (3) Septic shock: Code(s): A41.9 - Sepsis, unspecified organism; R65.21 - Severe sepsis with septic shock Status: Acute Assessment and Plan: Per critical care team (4) Acute respiratory failure: Code(s): J96.00 - Acute respiratory failure, unspecified whether with hypoxia or hypercapnia Status: Acute Assessment and Plan: Now extubated. Time Spent With Patient Time with patient: 15 - 25 minutes Subjective Date/time seen: 09/05/22 10:37 Interval history: Reason for visit: Atrial fibrillation with RVR Patient has remained in sinus. Patient extubate this AM. Has been switched over from Amio drip to PO Amiodarone. Review of Systems Review of Systems: ROS unobtainable: Yes unobtainable due to medical condition Exam Const: General: no acute distress HENMT: Other: On nasal cannula Eyes: General: appearance normal, both eyes and all related structures Neck: Neck: supple and no JVD Resp: Auscultation: clear to auscultation bilaterally Other: On mechanical ventilation Cardio: Rate: regular rate Rhythm: regular rhythm Heart sounds: no murmurs GI: GI Palp: Yes Firmness to palpation present (GI) Other: Distended Skin: General skin exam: normal color Neuro: Other: Patient is sedated Extrem: General: no edema Objective Data Vital Signs Vital Signs: Vital Signs - 24 hr 09/04/22 11:45 10/29/22 12:00 09/04/22 12:00 Temperature 37.2 C Pulse Rate 76 73 Respiratory Rate 12 Blood Pressure 109/58 L Pulse Oximetry 96 95 95 Oxygen Delivery Mechanical Ventilation Mechanical Ventilation Fraction of Inspired Oxygen 40 40 09/04/22 12:00 09/04/22 11:00 09/04/22 12:00 Temperature Pulse Rate 73 70 66 Respiratory Rate 22 H 24 H Blood Pressure Pulse Oximetry Oxygen Delivery Fraction of Inspired Oxygen 09/04/22 13:00 09/04/22 11:00 09/04/22 12:00 Temperature Pulse Rate 70 70 66 Respiratory Rate 22 H 22 H 24 H Blood Pressure Pulse Oximetry Oxygen Delivery Fraction of Inspired Oxygen 09/04/22 13:00 09/04/22 14:19 09/04/22 12:58 Temperature Pulse Rate 70 73 77 Respiratory Rate 22 H Blood Pressure 119/58 L Pulse Oximetry 94 Oxygen Delivery Mechanical Ventilation Fraction of Inspired Oxygen 30 09/04/22 14:42 09/04/22 14:00 09/04/22 14:00 Temperature Pulse Rate 77 72 72 Respiratory Rate 18 Blood Pressure 119/58 L 111/60 Pulse Oximetry 96 Oxygen Delivery Fraction of Inspired Oxygen 09/04/22 16:00 09/04/22 16:00 09/04/22 16:50 Temperature Pulse Rate 66 Respiratory Rate Blood Pressure Pulse Oximetry 95 96 Oxygen Delivery Mechanical Ventilation Mechanical Ventilation Fraction of Inspired Oxygen 40 30 30 09/04/22 16:00 09/04/22 16:00 09/04/22 14:00 Temperature 37.1 C Pulse Rate 71 71 74 Respiratory Rate 14 22 H Blood Pressure 106/57 L Pulse Oximetry 95 Oxygen Delivery Fraction of
[2022-09-05] MEDS: POTASSIUM CHLORIDE 20 MEQ PACKET (FOR LIQUID) 40 MEQ FEED TUBE (10:47)
[2022-09-05] MEDS: AMIODARONE HCL 200 MG TABLET PO ×2 (10:47→17:33)
[2022-09-05] MEDS: MORPHINE SULFATE (*CRX) 2 MG/ML INJ IV PUSH (11:22)
[2022-09-05] MEDS: MORPHINE SULFATE (*CRX) 4 MG/ML INJ IV PUSH ×3 (14:41→19:28)
--- NOTE | 2022-09-05 14:44 | PM.PNGS ---
Progress Note: A&P Assessment and Plan (1) Septic shock: Code(s): A41.9 - Sepsis, unspecified organism; R65.21 - Severe sepsis with septic shock Status: Acute Assessment and Plan: Continue broad-spectrum antibiotics and critical care management (2) Fecal peritonitis: Code(s): K65.8 - Other peritonitis Status: Acute Assessment and Plan: ostomy beginning to function. Agree with holding tube feeds today while she was recently extubated. Swallow study to be done tomorrow. Could consider resuming tube feeds or removing NG tube if patient passes swallow study. (3) Atrial fibrillation with rapid ventricular response: Code(s): I48.91 - Unspecified atrial fibrillation Status: Acute (4) Acute respiratory failure: Code(s): J96.00 - Acute respiratory failure, unspecified whether with hypoxia or hypercapnia Status: Acute Assessment and Plan: Extubated today. Continue to monitor respiratory status. (5) Perforated sigmoid colon: Code(s): K63.1 - Perforation of intestine (nontraumatic) Status: Acute Assessment and Plan: Due to retained stool and subsequent perforation fecal peritonitis. Subjective Subjective Date/Time Seen: 09/05/22 14:44 Interval history: Patient extubated today. He states that she is sore all over and uncomfortable. No nausea or vomiting. Tube feedings have been held since she was extubated just in case she has airway issues. Exam GI: Inspection: distended and incision ( Scant serous drainage from incision) Other: Ostomy has some blood tinge at the surface, but appears healthy and viable. Gas within ostomy bag, And small amount of stool. Objective Data Vital Signs Vital Signs: Vital Signs - 24 hr 09/04/22 16:00 09/04/22 16:00 09/04/22 16:50 Temperature Pulse Rate 66 Respiratory Rate Blood Pressure Pulse Oximetry 95 96 Oxygen Delivery Mechanical Ventilation Mechanical Ventilation Oxygen Flow Rate Fraction of Inspired Oxygen 40 30 30 09/04/22 16:00 09/04/22 16:00 09/04/22 15:00 Temperature 37.1 C Pulse Rate 71 71 68 Respiratory Rate 14 14 Blood Pressure 106/57 L Pulse Oximetry 95 Oxygen Delivery Oxygen Flow Rate Fraction of Inspired Oxygen 09/04/22 16:00 09/04/22 17:00 09/04/22 15:00 Temperature Pulse Rate 63 70 68 Respiratory Rate 14 14 14 Blood Pressure Pulse Oximetry Oxygen Delivery Oxygen Flow Rate Fraction of Inspired Oxygen 09/04/22 16:00 09/04/22 17:00 09/04/22 18:00 Temperature Pulse Rate 63 70 58 L Respiratory Rate 14 14 24 H Blood Pressure 88/50 L Pulse Oximetry 98 Oxygen Delivery Oxygen Flow Rate Fraction of Inspired Oxygen 09/04/22 18:21 09/04/22 18:00 09/04/22 18:00 Temperature Pulse Rate 60 58 L 65 Respiratory Rate 24 H 16 Blood Pressure 95/61 L Pulse Oximetry 96 Oxygen Delivery Oxygen Flow Rate Fraction of Inspired Oxygen 09/04/22 18:00 09/04/22 21:37 09/04/22 21:37 Temperature Pulse Rate 57 L 66 66 Respiratory Rate 16 22 H 22 H Blood Pressure Pulse Oximetry Oxygen Delivery Oxygen Flow Rate Fraction of Inspired Oxygen 09/04/22 20:00 09/04/22 20:00 09/04/22 20:00 Temperature Pulse Rate 63 Respiratory Rate Blood Pressure Pulse Oximetry 93 Oxygen Delivery Mechanical Ventilation Oxygen Flow Rate Fraction of Inspired Oxygen 30 30 09/04/22 22:00 09/04/22 20:00 09/04/22 22:00 Temperature 37.0 C Pulse Rate 67 65 65 Respiratory Rate 18 21 H Blood Pressure 96/53 L 105/66 Pulse Oximetry 97 94 Oxygen Delivery Oxygen Flow Rate Fraction of Inspired Oxygen 09/05/22 00:00 09/05/22 00:00 09/05/22 00:00 Temperature Pulse Rate 58 L Respiratory Rate Blood Pressure Pulse Oximetry 93 Oxygen Delivery Mechanical Ventilation Oxygen Flow Rate Fraction of Inspired Oxygen 30 30
[2022-09-05] MEDS: dexmedeTOMIDine 400 MCG/100 ML 400 MCG/100 ML BAG 13.17 MCG IV CONT (15:55)
[2022-09-05] MEDS: MICAFUNGIN SODIUM 100 MG in SODIUM CHLORIDE 0.9% IV 100 ML IVPB (17:27)
[2022-09-05] MEDS: dexmedeTOMIDine 400 MCG/100 ML 400 MCG/100 ML BAG 19.76 MCG IV CONT (22:34)
[2022-09-05] MEDS: LORazepam INJ (*CRX) 2 MG/ML VIAL 0.5 MG IV PUSH (22:36)
[2022-09-06] VITALS (26 sets, daily range): BP systolic 96–167; BP diastolic 51–65; PULSE 50–92; RESP 19–39; TEMP 36.1–37.6; O2SAT 91–98
[2022-09-06] MEDS: dexmedeTOMIDine 400 MCG/100 ML 400 MCG/100 ML BAG 19.76 MCG IV CONT (03:49)
[2022-09-06 05:23] LABS: Alveolar/Arterial O2 Gradient 107.8 mmHg; Base Excess ABG 2.9 mEq/l (+/-2.0); Carboxyhemoglobin 0.3 % THb (0-2.0); Device NASAL CANNULA; Fractional Inspired Oxygen 36 %; HCO3 ABG 29.5 mEq/l (22.0-26.0); Methemoglobin ABG 0.2 %THb (0-1.5); Modified Allen's Test Pass; Oxygen Content ABG 13.7 %vol (16.0-22.0); Oxygen Saturation ABG 95.6 % (95.0-100.0); Oxyhemoglobin 94.5 % THb (90.0-100.0); PCO2 ABG 55.7 mmHg (35.0-45.0); PO2 ABG 84.3 mmHg (80.0-100.0); PO2 FiO2 Ratio Arterial Blood 2.34 %; Site Drawn LEFT RADIAL; Total Hemoglobin 10.2 g/dL (12.0-18.0); pH ABG 7.342 (7.350-7.450)
[2022-09-06] MEDS: CENTRAL LINE FLUSH 10 ML IV PUSH ×3 (05:36→22:05)
[2022-09-06 05:57] LABS: Hematocrit 27.6 % (37.0-47.0); Hemoglobin 8.9 g/dL (12.0-15.0); Mean Corpuscular HGB Conc 32.2 g/dl (32-36); Mean Corpuscular Hemoglobin 30.9 pg (26-34); Mean Corpuscular Volume 95.8 fl (80-100); Mean Platelet Volume 9.7 fl (7.4-10.4); Platelet Count Result 413 k/mm3 (150-375); Red Blood Count 2.88 M/mm3 (4.2-5.4); Red Cell Distribution Width 15.2 % (11.5-14.5); White Blood Count 23.2 K/mm3 (4.5-10.0)
[2022-09-06 06:12] LABS: Alanine Aminotransferase 17 U/L (6-35); Albumin Level 2.5 g/dL (3.5-5.1); Alkaline Phosphatase 67 U/L (38-126); Anion Gap 9 mmol/L (8-16); Aspartate Amino Transferase 29 U/L (14-36); Bilirubin,Total 0.3 mg/dL (0.2-1.3); Blood Urea Nitrogen 15 mg/dL (7-17); Calcium 7.4 mg/dL (8.4-10.2); Carbon Dioxide 28 mmol/L (22-30); Chloride 100 mmol/L (98-107); Estimated CRCL calculation 146 ml/min; Estimated Glomerular Filt Rate > 60; Glucose 105 mg/dL (65-110); Magnesium 1.9 mg/dL (1.6-2.3); Phosphorus 4.7 mg/dL (2.5-4.5); Potassium 4.2 mmol/L (3.4-5.0); Sodium 137 mmol/L (137-145)
[2022-09-06] MEDS: AMIODARONE HCL 200 MG TABLET PO ×2 (07:59→16:30)
[2022-09-06] MEDS: PANTOPRAZOLE SODIUM IV 40 MG VIAL IV PUSH (08:00)
[2022-09-06] MEDS: ENOXAPARIN 40 MG/0.4 ML SYRINGE SUB-Q (08:00)
[2022-09-06] MEDS: FUROSEMIDE INJ 40 MG/4 ML VIAL 20 MG IV PUSH (08:03)
[2022-09-06] MEDS: methylPREDNISolone SOD SUCC 125 MG VIAL 60 MG IV PUSH (08:07)
--- NOTE | 2022-09-06 09:13 | WPDINTPN ---
Progress Note: A&P Assessment and Plan (1) Septic shock: Code(s): A41.9 - Sepsis, unspecified organism; R65.21 - Severe sepsis with septic shock Status: Acute Assessment and Plan: Septic shock likely related to fecal peritonitis secondary to sigmoid perforation -patient was on Levophed earlier but now off -patient was initially on metronidazole and Levaquin,?these were switched to imipenem on (09/01) -patient was also started on micafungin on 08/31, will continue, secondary to fecal spill into the peritoneum -08/31 blood cultures, preliminary report negative x2 -off IV fluids (2) Acute respiratory failure: Code(s): J96.00 - Acute respiratory failure, unspecified whether with hypoxia or hypercapnia Status: Acute Assessment and Plan: Acute respiratory failure likely related to sedation from anesthesia, fecal peritonitis 09/05 patient was extubated after weaning trial. Her RSBI was borderline but other markers acceptable She has wheezing on exam today and has had heavy history of smoking. I suspect patient has undiagnosed COPD She is on nasal cannula but her ABG morning shows hypercarbia and respiratory acidosis. Patient was also on Precedex would be contributing Wean off Precedex. Repeat ABG later today. If still hypercarbic, will use BiPAP Incentive spirometry I will start her on a 5 day course of Solu-Medrol DuoNebs Lasix IV x1 today (3) Perforated sigmoid colon: Code(s): K63.1 - Perforation of intestine (nontraumatic) Status: Acute Assessment and Plan: Status post sigmoidectomy with Rossi procedure on 08/31/2022 -surgery following -abdominal remains distended although improved, colostomy stoma dusky but? looks viable -patient developed postoperative ileus but now has bowel sounds -output minimum over patient now passing gas. Bowel sounds present. Resume tube feeds -09/02: CT abdomen pelvis without contrast did not show any abscess or free intraperitoneal gas, postoperative changes were seen, decrease small amount of ascites scattered throughout the abdomen and pelvis (4) Peritonitis: Code(s): K65.9 - Peritonitis, unspecified Status: Acute Assessment and Plan: See above (5) Atrial fibrillation with rapid ventricular response: Code(s): I48.91 - Unspecified atrial fibrillation Status: Acute Assessment and Plan: Now in sinus Leodan Off amiodarone infusion On p.o. amiodarone Not on therapeutic dose anticoagulation due to recent major surgery. Since patient's AFib was precipitated by surgery and was brief cardiology does not recommend anticoagulation unless AFib recurs. I will add aspirin Cardiology following (6) Electrolyte abnormality: Code(s): E87.8 - Other disorders of electrolyte and fluid balance, not elsewhere classified Status: Acute Assessment and Plan: Replace low potassium (7) Dysphagia: Code(s): R13.10 - Dysphagia, unspecified Status: Acute Assessment and Plan: Patient had abnormal swallow testing this morning and modified barium swallow testing was recommended by speech therapy. She had a major surgery, also on pressor, was extubated yesterday and still weak I will start tube feeds at a low rate today, wean off Precedex and requested speech therapy to reassess her in 24 hours Leave the NG in for now (8) Delirium: Code(s): R41.0 - Disorientation, unspecified Status: Acute Assessment and Plan: Wean off Precedex Start Seroquel Plan DVT prophylaxis:? Lovenox Stress ulcer prophylaxis:? Famotidine Nutrition:? Tube feeds Incentive spirometry Code Status:? Full code Critical Care Time Spent: 32 minutes ?Due to a high probability of clinically significant, life threatening deterioration, the patient required my highest level of preparedness to intervene emergently and I personally spent this critical care time directly and personally managing the patient. This cri
--- NOTE | 2022-09-06 09:25 | PCSTNOTE ---
Please refer to the Bedside Swallow Evaluation in the EMR. Please note, silent aspiration cannot be ruled out at bedside.
[2022-09-06] MEDS: IPRATROPIUM BR 0.02% INH SOLN 0.5 MG/2.5 ML VIAL INHALATION ×3 (09:43→20:32)
[2022-09-06] MEDS: ALBUTEROL SULFATE NEB 2.5 MG/3 ML INH INHALATION ×3 (09:44→20:32)
--- NOTE | 2022-09-06 12:13 | PCFNICU ---
ICU Rounding Note: Pt current nutrition is Vital 1.2 @ 20 ml/h. Nutrition recommendation: Advance to PO intake as medically able. Agree with current diet order Last recorded weight is 86.2 kg. Bowel Motility: Having small amount of output per colostomy Labs Reviewed:Hgb 8.9, Hct 27.6, Alb 2.5, Creat 0.3, PO4 4.7 Meds Noted: Solumedrol, protonix. No precedex today Skin: Mepilex to coccyx Additional Notes: Extubated 09/05/22. Failed bedside swallow due to weakness this morning so Tf restarted at low rate. Further swallow eval tomorrow. Following daily in ICU rounds. Will monitor in ICU rounds and reassesing every 3 days. .
[2022-09-06 12:14] LABS: Alveolar/Arterial O2 Gradient 173.1 mmHg; Base Excess ABG 2.3 mEq/l (+/-2.0); Fractional Inspired Oxygen 40 %; HCO3 ABG 26.6 mEq/l (22.0-26.0); Oxygen Content ABG 14.4 %vol (16.0-22.0); Oxygen Saturation ABG 93.8 % (95.0-100.0); Oxyhemoglobin 92.6 % THb (90.0-100.0); PCO2 ABG 39.9 mmHg (35.0-45.0); PO2 ABG 66.2 mmHg (80.0-100.0); PO2 FiO2 Ratio Arterial Blood 1.65 %; pH ABG 7.441 (7.350-7.450)
[2022-09-06 12:15] LABS: Device BIPAP; Expiratory Pressure 6 cmH2O; Inspiratory Pressure 12 cmH2O; Modified Allen's Test Pass; Site Drawn RIGHT RADIAL
[2022-09-06] MEDS: MORPHINE SULFATE (*CRX) 4 MG/ML INJ IV PUSH ×2 (12:57→19:54)
--- NOTE | 2022-09-06 16:07 | PM.PNGS ---
Progress Note: A&P Assessment and Plan (1) Septic shock: Code(s): A41.9 - Sepsis, unspecified organism; R65.21 - Severe sepsis with septic shock Status: Acute Assessment and Plan: Continue broad-spectrum antibiotics and medical management. She was downgraded to IMU status today. (2) Fecal peritonitis: Code(s): K65.8 - Other peritonitis Status: Acute Assessment and Plan: Ostomy beginning to function. Restart trickle tube feedings today, she failed her swallow study. WBC noted up to 23k today, afebrile, repeat labs tomorrow, continue to monitor Continue IV antibiotics (3) Atrial fibrillation with rapid ventricular response: Code(s): I48.91 - Unspecified atrial fibrillation Status: Acute (4) Acute respiratory failure: Code(s): J96.00 - Acute respiratory failure, unspecified whether with hypoxia or hypercapnia Status: Acute Assessment and Plan: Extubated on 09/05, currently on Bipap. Continue to monitor respiratory status. (5) Perforated sigmoid colon: Code(s): K63.1 - Perforation of intestine (nontraumatic) Status: Acute Assessment and Plan: Due to retained stool and subsequent perforation fecal peritonitis. Plan I have discussed the patient's case and plan of care with Dr. Hartley. Subjective Subjective Date/Time Seen: 09/06/22 16:07 Post Op day: 6 (Sigmoidectomy with Rossi procedure) Interval history: Patient seen in the ICU. She was extubated yesterday. She is now on BiPAP. She is no longer on the Precedex drip. She is alert and oriented and able to answer questions. She is complaining of abdominal pain, which she has received pain medication for. Her pain is primarily near the incision. She has some gas in the ostomy bag, but very minimal output with 20 cc overnight. Her nurse just recently restarted the tube feeding at 20 cc an hour. She failed her swallow test today. Review of Systems Review of Systems: All systems reviewed & are unremarkable except as noted in HPI and below Exam Const: General: alert and ill appearing Orientation/consciousness: patient oriented x3 GI: Inspection: Abdominal wall edema, distended and incision ( Serous drainage from incision, no erythema, gallito intact) GI Palp: Yes Soft to palpation, Yes Tenderness to palpation present (GI) (incisional) and No Guarding due to palpation present (GI) Auscultation: Hypoactive bowel sounds present Other: Ostomy has some blood tinge at the surface, but appears healthy and viable. Gas within ostomy bag, and scant amount of stool. Urinary Catheter: Urinary Catheter: patent and draining and urine clear Neuro: General: patient oriented x3 and no focal motor deficits Extrem: General: edema bilateral (upper and lower extremities) Psych: Insight: Fair insight present (Psych) Judgement: Fair judgement present (Psych) Objective Data Vital Signs Vital Signs: Vital Signs - 24 hr 09/05/22 17:33 09/05/22 18:00 09/05/22 17:00 Temperature Pulse Rate 80 60 Respiratory Rate 28 H Blood Pressure 92/55 L 108/65 Pulse Oximetry 96 Oxygen Delivery Oxygen Flow Rate Fraction of Inspired Oxygen 09/05/22 18:00 09/05/22 18:13 09/05/22 20:00 Temperature Pulse Rate 60 63 68 Respiratory Rate 28 H Blood Pressure Pulse Oximetry Oxygen Delivery Oxygen Flow Rate Fraction of Inspired Oxygen 09/05/22 20:00 09/05/22 20:00 09/05/22 20:00 Temperature 98.1 F Pulse Rate 68 68 68 Respiratory Rate 28 H 28 H 2 L Blood Pressure 102/58 L Pulse Oximetry 96 96 Oxygen Delivery Nasal Cannula Oxygen Flow Rate 3 Fraction of Inspired Oxygen 30 09/05/22 22:34 09/05/22 22:34 09/05/22 22:00 Temperature Pulse Rate 60 60 60 Respiratory Rate 26 H 26 H Blood Pressure Pulse Oximetry Oxygen Delivery Oxygen Flow Rate Fraction of Inspired Oxygen 09/05/22 22:00 09/05/22 23:51 09/05/22
[2022-09-06] MEDS: ALPRAZolam (*CRX) 0.5 MG TABLET PO (16:29)
[2022-09-06] MEDS: MICAFUNGIN SODIUM 100 MG in SODIUM CHLORIDE 0.9% IV 100 ML IVPB (18:10)
--- NOTE | 2022-09-06 20:31 | PC.NURSE ---
Patient transferred to room 203. All patient belongings and medications brought with patient. Steff BERGER receiving nurse.
[2022-09-06] MEDS: QUEtiapine FUMARATE 25 MG TABLET PO (22:05)
[2022-09-07] VITALS (23 sets, daily range): BP systolic 144–161; BP diastolic 49–64; PULSE 75–94; RESP 12–42; TEMP 36.2–36.8; O2SAT 92–98
[2022-09-07] MEDS: IPRATROPIUM BR 0.02% INH SOLN 0.5 MG/2.5 ML VIAL INHALATION ×4 (03:05→20:36)
[2022-09-07] MEDS: ALBUTEROL SULFATE NEB 2.5 MG/3 ML INH INHALATION ×4 (03:05→20:36)
[2022-09-07] MEDS: MORPHINE SULFATE (*CRX) 4 MG/ML INJ IV PUSH ×3 (05:40→21:13)
[2022-09-07] MEDS: CENTRAL LINE FLUSH 10 ML IV PUSH ×3 (05:40→21:13)
[2022-09-07 06:10] LABS: Hematocrit 27.7 % (37.0-47.0); Hemoglobin 9.1 g/dL (12.0-15.0); Mean Corpuscular HGB Conc 32.9 g/dl (32-36); Mean Corpuscular Hemoglobin 30.2 pg (26-34); Mean Platelet Volume 9.5 fl (7.4-10.4); Platelet Count Result 598 k/mm3 (150-375); Red Blood Count 3.01 M/mm3 (4.2-5.4); Red Cell Distribution Width 14.9 % (11.5-14.5); White Blood Count 28.8 K/mm3 (4.5-10.0)
[2022-09-07 06:31] LABS: Alanine Aminotransferase 17 U/L (6-35); Albumin Level 2.7 g/dL (3.5-5.1); Alkaline Phosphatase 69 U/L (38-126); Anion Gap 10 mmol/L (8-16); Aspartate Amino Transferase 28 U/L (14-36); Bilirubin,Total 0.3 mg/dL (0.2-1.3); Blood Urea Nitrogen 14 mg/dL (7-17); Calcium 7.5 mg/dL (8.4-10.2); Carbon Dioxide 28 mmol/L (22-30); Chloride 102 mmol/L (98-107); Estimated CRCL calculation 114 ml/min; Estimated Glomerular Filt Rate > 60; Glucose 121 mg/dL (65-110); Magnesium 1.9 mg/dL (1.6-2.3); Phosphorus 3.6 mg/dL (2.5-4.5); Potassium 3.5 mmol/L (3.4-5.0); Sodium 140 mmol/L (137-145)
[2022-09-07] MEDS: PANTOPRAZOLE SODIUM IV 40 MG VIAL IV PUSH (08:43)
[2022-09-07] MEDS: ENOXAPARIN 40 MG/0.4 ML SYRINGE SUB-Q (08:43)
[2022-09-07] MEDS: ASPIRIN 325 MG TABLET PO (08:44)
[2022-09-07] MEDS: methylPREDNISolone SOD SUCC 125 MG VIAL 60 MG IV PUSH (08:47)
[2022-09-07] MEDS: MORPHINE SULFATE (*CRX) 2 MG/ML INJ IV PUSH ×3 (09:30→16:56)
[2022-09-07] MEDS: AMIODARONE HCL 200 MG TABLET PO ×2 (09:30→16:53)
--- NOTE | 2022-09-07 13:23 | PCNFU ---
Nutrition Follow-Up Complete: Altered GI function as related to sigmoidectomy as evidenced by NPO. Meet estimated nutritional needs Goal: Vital 1.2 goal rate: 60ml/hr, provides 1584kcal, 99g protein, 1070ml fluid (555ml free water). start 20ml/hr Pt current nutrition is tube feeding Vital 1.2. Nutrition recommendation: 60ml/hr goal rate. Keep pt to 20ml/hr due to increase gastric residual per MD Last recorded weight is 86.2 kg. Bowel Motility: ostomy output-09/06: 50ml, 09/07:10ml Labs Reviewed: Hgb: 9.1, Hct: 27.7, Alb: 2.7, Cr: 0.4, Glu: 121 Meds Noted:pacerone, aspirin, lovenox, primaxin, atrovent, solu medrol, micafungin sodium, morphine, protonix, seroquel Skin: no pressure wounds, mepilex to coccyx Additional Notes: Per MD pt feeding rate to keep to 20ml/hr per facility policy of increase gastric residual Will monitor in ICU rounds and reassesing every 3 days.
--- NOTE | 2022-09-07 13:40 | PCSTNOTE ---
Physician requested patient have ST to continue to address strengthening exercises until patient is able to tolerate MBS; patient currently is NPO. ST will continue 3-5x weekly to address swallowing strengthening exercises.
--- NOTE | 2022-09-07 13:59 | PM.PNGS ---
Progress Note: A&P Assessment and Plan (1) Fecal peritonitis: Code(s): K65.8 - Other peritonitis Status: Acute Assessment and Plan: Ostomy still not having much output. WBC continues to trend up over the past few days and is 28k today. She is afebrile. There is some purulent drainage coming from the bottom of the incision, I removed a few gallito to help facilitate the drainage. This could contribute to her leukocytosis. Continue antibiotics and monitor. Will get a KUB now. Depending on the KUB results, could consider starting some Miralax to stimulate her bowels. May also consider repeating a CT scan depending on the KUB and repeat labs. Continue IV antibiotics and Micafungin (2) Septic shock: Code(s): A41.9 - Sepsis, unspecified organism; R65.21 - Severe sepsis with septic shock Status: Acute Assessment and Plan: Continue broad-spectrum antibiotics and monitoring. Blood cx negative. Moved out of ICU and now IMU status. (3) Atrial fibrillation with rapid ventricular response: Code(s): I48.91 - Unspecified atrial fibrillation Status: Acute Assessment and Plan: Sinus rhythm on the monitor. (4) Acute respiratory failure: Code(s): J96.00 - Acute respiratory failure, unspecified whether with hypoxia or hypercapnia Status: Acute Assessment and Plan: Extubated on 09/05, now off BiPAP and on 3L NC. Continue to monitor respiratory status. (5) Perforated sigmoid colon: Code(s): K63.1 - Perforation of intestine (nontraumatic) Status: Acute Assessment and Plan: Due to retained stool and subsequent perforation fecal peritonitis. Plan I have discussed the patient's case and plan of care with Dr. Hartley. Subjective Subjective Date/Time Seen: 09/07/22 11:59 Patient reports: no new complaints, still having pain and afebrile Interval history: Patient seen and examined. She overall feels miserable and her main complaint is the abdominal bloating. She is still having abdominal pain and points to her midline incision but feels that most of her discomfort is from the bloating. Only 10 cc out from the ostomy overnight. Not much out today either. Denies any nausea. Per nursing, her tube feeding residual was 120 CC this morning and her tube feeding is still running at 20 cc/hr. She feels her edema in her hands, arms, and legs has improved. Review of Systems Review of Systems: All systems reviewed & are unremarkable except as noted in HPI and below Exam Const: General: no acute distress, awake and ill appearing Orientation/consciousness: patient oriented x3 GI: Inspection: Abdominal wall edema and distended GI Palp: Yes Soft to palpation, Yes Tenderness to palpation present (GI) (incisional), No Guarding due to palpation present (GI) and No Rebound tenderness present Auscultation: Hypoactive bowel sounds present (better today, more bowel sounds) Other: Ostomy with scant amount of stool, but mostly gas and small amount of bloody/brown liquid. Stoma viable. Urinary Catheter: Urinary Catheter: patent and draining and urine clear Neuro: General: moves all extremities and no focal motor deficits Extrem: General: no calf tenderness bilaterally and edema bilateral (upper extemities, improved) Psych: Thought process: Normal thought process present Insight: Good insight present (Psych) Objective Data Vital Signs Vital Signs: Vital Signs - 24 hr 09/06/22 15:04 09/06/22 16:30 09/06/22 16:00 Temperature 97.7 F Pulse Rate 80 89 91 Respiratory Rate 39 H Blood Pressure 155/58 H Pulse Oximetry 93 92 Oxygen Delivery Nasal Cannula Oxygen Flow Rate 3 Fraction of Inspired Oxygen 40 09/06/22 14:00 09/06/22 16:00 09/06/22 16:00 Temperature 97.6 F Pulse Rate 67 91 91 Respiratory Rate 39 H Blood Pressure 152/55 H Pulse Oximetry 92 Oxygen Delivery Oxygen Flow Rate Fraction of Inspired Oxygen 09/06
--- NOTE | 2022-09-07 14:14 | PCNSR ---
On 09/07/22, the student, Bharathi Gutierrez, provided care and completed [facility] documentation on this patient. I have reviewed the student's documentation and agree with the findings.
[2022-09-07] MEDS: polyethylene glycoL 3350 17 GM POWD.PACK PO (14:58)
--- NOTE | 2022-09-07 15:39 | PM.IMPN ---
Progress Note: A&P Assessment and Plan (1) Septic shock: Code(s): A41.9 - Sepsis, unspecified organism; R65.21 - Severe sepsis with septic shock Status: Acute Assessment and Plan: Septic shock likely related to fecal peritonitis secondary to sigmoid perforation - pt was in icu now on medical floor -patient was initially on metronidazole and Levaquin,?now on imipenem on (09/01) -patient was also started on micafungin on 08/31 -08/31 blood cultures, preliminary report negative x2 (2) Acute respiratory failure: Code(s): J96.00 - Acute respiratory failure, unspecified whether with hypoxia or hypercapnia Status: Acute Assessment and Plan: Acute respiratory failure likely related to sedation from anesthesia Pt is recovering now on the medical floor much better off oxygen (3) Perforated sigmoid colon: Code(s): K63.1 - Perforation of intestine (nontraumatic) Status: Acute Assessment and Plan: Status post sigmoidectomy with Rossi procedure on 08/31/2022 -surgery following pt to have rpt CT abdomen today -Resume tube feeds -09/02: CT abdomen pelvis without contrast did not show any abscess or free intraperitoneal gas, postoperative changes were seen, decrease small amount of ascites scattered throughout the abdomen and pelvis pt is on IV primaxin and iv solumedrol (4) Peritonitis: Code(s): K65.9 - Peritonitis, unspecified Status: Acute Assessment and Plan: See above (5) Atrial fibrillation with rapid ventricular response: Code(s): I48.91 - Unspecified atrial fibrillation Status: Acute Assessment and Plan: Now in sinus Leodan Was on amiodarone drip On p.o. amiodarone on ASA Cardiology following (6) Electrolyte abnormality: Code(s): E87.8 - Other disorders of electrolyte and fluid balance, not elsewhere classified Status: Acute Assessment and Plan: Potassium is better today (7) Dysphagia: Code(s): R13.10 - Dysphagia, unspecified Status: Acute Assessment and Plan: Pt is on tube feeds presently (8) Delirium: Code(s): R41.0 - Disorientation, unspecified Status: Acute Assessment and Plan: Much better alert awake holding conversation Subjective Date/time seen: 09/07/22 15:39 Interval history 72-year-old woman who presented to the emergency room in [place] with severe abdominal pain and constipation 2 days ago, 08/29/2022.? Her last bowel movement had been 2 days ago.? She had taken a fleets enema and some laxatives but no results.? Her white blood cell count was 19,000. CT scan showed a tremendous amount of retained fecal content and evidence of colitis in the distal sigmoid area.? She was admitted and started on antibiotics and multiple laxatives.? Today,her abdomen became very distended and her pain was worse. Her CT scan was repeated. This showed evidence of sigmoid perforation, fecal peritonitis.? She transferred here urgently from [facility] in [place]. Plans are to proceed to the operating room for fecal peritonitis from stercoral colonic perforation.?? Pt is sp Sigmoidectomy with Rossi procedure on 08/31 pt is out of icu on medical floor now Slowly recovering Pt going for repeat ct scan Pt to have horvath removed today Surgery rounding Continue to monitor on the medical floor now. Objective Data Vital Signs Vital Signs: Vital Signs - 24 hr 09/06/22 16:30 09/06/22 16:00 09/06/22 16:00 Temperature Pulse Rate 89 91 91 Respiratory Rate 39 H Blood Pressure Pulse Oximetry 92 Oxygen Delivery Nasal Cannula Oxygen Flow Rate 3 Fraction of Inspired Oxygen 40 09/06/22 16:00 09/06/22 18:00 09/06/22 18:00 Temperature 36.4 C Pulse Rate 91 88 88 Respiratory Rate 39 H 33 H Blood Pressure 152/55 H 144/61 H Pulse Oximetry 92 96 Oxygen Delivery Oxygen Flow Rate Fraction of Inspired Oxygen 09/06/22 20:32
[2022-09-07] MEDS: BUMETANIDE INJ 1 MG/4 ML VIAL 2 MG IV PUSH (16:52)
[2022-09-07] MEDS: MICAFUNGIN SODIUM 100 MG in SODIUM CHLORIDE 0.9% IV 100 ML IVPB (17:12)
[2022-09-07 20:25] LABS: Glucose Point of Care 154 mg/dl (65-105)
[2022-09-07] MEDS: QUEtiapine FUMARATE 25 MG TABLET PO (21:13)
[2022-09-08] VITALS (23 sets, daily range): BP systolic 144–180; BP diastolic 58–68; PULSE 66–83; RESP 16–28; TEMP 36.3–36.8; O2SAT 92–100
[2022-09-08] MEDS: IPRATROPIUM BR 0.02% INH SOLN 0.5 MG/2.5 ML VIAL INHALATION ×4 (01:30→21:58)
[2022-09-08] MEDS: ALBUTEROL SULFATE NEB 2.5 MG/3 ML INH INHALATION ×4 (01:30→21:58)
[2022-09-08] MEDS: MORPHINE SULFATE (*CRX) 2 MG/ML INJ IV PUSH ×5 (02:17→18:56)
[2022-09-08] MEDS: CENTRAL LINE FLUSH 10 ML IV PUSH ×3 (05:10→21:56)
[2022-09-08 05:22] LABS: Hematocrit 27.2 % (37.0-47.0); Mean Corpuscular HGB Conc 33.1 g/dl (32-36); Mean Corpuscular Hemoglobin 31.4 pg (26-34); Mean Corpuscular Volume 94.8 fl (80-100); Mean Platelet Volume 9.3 fl (7.4-10.4); Platelet Count Result 648 k/mm3 (150-375); Red Blood Count 2.87 M/mm3 (4.2-5.4); Red Cell Distribution Width 15.1 % (11.5-14.5); White Blood Count 20.9 K/mm3 (4.5-10.0)
[2022-09-08 05:28] LABS: Alanine Aminotransferase 18 U/L (6-35); Albumin Level 2.8 g/dL (3.5-5.1); Alkaline Phosphatase 67 U/L (38-126); Anion Gap 9 mmol/L (8-16); Aspartate Amino Transferase 26 U/L (14-36); Bilirubin,Total 0.2 mg/dL (0.2-1.3); Blood Urea Nitrogen 17 mg/dL (7-17); Calcium 7.8 mg/dL (8.4-10.2); Carbon Dioxide 34 mmol/L (22-30); Chloride 98 mmol/L (98-107); Estimated CRCL calculation 94 ml/min; Estimated Glomerular Filt Rate > 60; Glucose 115 mg/dL (65-110); Potassium 3.5 mmol/L (3.4-5.0); Sodium 141 mmol/L (137-145)
[2022-09-08] MEDS: methylPREDNISolone SOD SUCC 125 MG VIAL 60 MG IV PUSH (08:25)
[2022-09-08] MEDS: ENOXAPARIN 40 MG/0.4 ML SYRINGE SUB-Q (08:25)
[2022-09-08] MEDS: PANTOPRAZOLE SODIUM IV 40 MG VIAL IV PUSH (08:25)
[2022-09-08] MEDS: AMIODARONE HCL 200 MG TABLET PO ×2 (08:25→17:44)
[2022-09-08] MEDS: ASPIRIN 325 MG TABLET PO (08:25)
--- NOTE | 2022-09-08 10:22 | PM.PNGS ---
Progress Note: A&P Assessment and Plan (1) Perforated sigmoid colon: Code(s): K63.1 - Perforation of intestine (nontraumatic) Status: Acute Assessment and Plan: Greatly improved overall, looks to have ileus or relative obstruction of colon due to retained fecal matter and relatively small colostomy aperture. This is main cause of ileus and abdominal distension. As patient has ileus and relative colonic obstruction as noted above, will stop tube feeds and use NG tube for suction. I will evaluate her colostomy more thoroughly with the wound nurses and consider colostomy irrigation later today. She will be NPO except for ice chips. She also appears to have a wound infection which is not surprising considering she had extensive liquid fecal matter throughout her abdomen, will explore her wound more thoroughly and may need to remove few more gallito. Overall, she has improved very well however. (2) Fecal peritonitis: Code(s): K65.8 - Other peritonitis Status: Acute Assessment and Plan: Continue antibiotics. Will check with ID pharmacist regarding length of antibiotics and possibly tapering of the spectrum covered. (3) Protein-calorie malnutrition, severe: Code(s): E43 - Unspecified severe protein-calorie malnutrition Status: Acute Assessment and Plan: Although on some tube feedings, I doubt these were being very helpful considering the abdominal distension as noted above. Will make her NPO with NG tube and start on full TPN. Subjective Subjective Date/Time Seen: 09/08/22 10:22 Post Op day: #8 Patient reports: feels better (best night she has had so far), pain is less, no flatus, no bowel movement and afebrile Review of Systems Review of Systems: All systems reviewed & are unremarkable except as noted in HPI and below (HPI and those items noted below) Constitutional: Constitutional: Denies chills and Denies fever(s) Cardiovascular: Cardiovascular: Denies chest pain, Denies diaphoresis, Denies dyspnea and Denies paroxysmal nocturnal dyspnea Respiratory: Respiratory: Denies chest congestion, Denies cough and Denies dyspnea Integumentary/Breasts: Skin/Breast: Denies lesions and Denies rash Exam Const: General: comfortable and no acute distress; No confusion Nutritional Appearance: average body habitus Orientation/consciousness: patient oriented x3 and No confusion GI: Inspection: distended, incision (purulent drainage and redness lower aspect) and other (stoma has black areas, nearly nothing out) GI Palp: Yes Soft to palpation, Yes Tenderness to palpation present (GI), No Guarding due to palpation present (GI), No Hernia present, No Palpable mass present, No Ascites present and No Rebound tenderness present Auscultation: normal bowel sounds Skin: General skin exam: normal color Lesions: no lesions Rashes: no rashes Neuro: General: patient oriented x3, no focal motor deficits and No confusion Extrem: General: no calf tenderness and no edema Psych: Affect: normal affect Insight: Good insight present (Psych) Judgement: Good judgement present (Psych) Objective Data Vital Signs Vital Signs: Vital Signs - 24 hr 09/07/22 12:00 09/07/22 12:00 09/07/22 12:00 Temperature 36.2 C L Pulse Rate 80 78 Respiratory Rate 16 Blood Pressure 161/64 H Pulse Oximetry 98 97 Oxygen Delivery Nasal Cannula Oxygen Flow Rate 3 09/07/22 14:18 09/07/22 14:27 09/07/22 14:00 Temperature Pulse Rate 79 82 84 Respiratory Rate 22 H 26 H Blood Pressure Pulse Oximetry Oxygen Delivery Oxygen Flow Rate 09/07/22 16:53 09/07/22 16:00 09/07/22 16:00 Temperature 36.3 C L Pulse Rate 82 80 82 Respiratory Rate 12 Blood Pressure 155/61 H Pulse Oximetry 96 Oxygen Delivery Oxygen Flow Rate 09/07/22 18:00 09/07/22 16:00 09/07/22 20:00 Temperature Pulse Rate 79 81 Respiratory Rate Blood Pressure Pulse Oximetry 93 Oxygen De
--- NOTE | 2022-09-08 11:36 | PCNFU ---
Nutrition Follow-Up Complete: Altered GI function as related to sigmoidectomy as evidenced by NPO. Goal:Meet estimated nutritional needs - Meet goal through TPN Pt current nutrition is Clinmix /15E @ goal rate 60 ml/h. Nutrition recommendation: Start TPN at 40 ml/h and advance to goal of 60 ml/h as tolerated. Last recorded weight is 86.2 kg. Bowel Motility: Colostomy: 09/06/22: 50 ml. 09/07/22: 17 ml Labs Reviewed: Hgb 9.0, Hct 27.2, Alb 2.8, Creat 0.5 Meds Noted: Lovenox, insulin, solu-medrol, protonix Skin: Ostomy Additional Notes: Vital 1.2 was stopped. MD felt the tube feeding was causing abdominal distension and ileus. NG will be used to suction. TPN with lipids is ordered. Goal rate is 60 ml/h which provides 1522 kcals, 72 g protein, 1960 ml total volume. Adequate for needs. Agree with TPN order. Monitor labs, weights, tolerance, plan of care. Following up Tuesdays and Fridays per policy.
[2022-09-08 12:33] LABS: Basophils Absolute Auto 0.1 K/mm3 (0.0-0.1); Basophils Percent Auto 0.5 % (0.2-1.2); Hematocrit 30.6 % (37.0-47.0); Immature Granulocyte Absolute 1.01 K/mm3 (0.00-0.031); Immature Granulocyte Percent A 4.6 % (0-0.5); Immature Platelet Fraction Pct 4.7 % (0.9-11.2); Lymphocytes Absolute Auto 0.81 K/mm3 (0.9-3.2); Lymphocytes Percent Auto 3.7 % (18.3-44.2); Mean Corpuscular HGB Conc 32.7 g/dl (32-36); Mean Corpuscular Hemoglobin 31.2 pg (26-34); Mean Corpuscular Volume 95.3 fl (80-100); Mean Platelet Volume 9.9 fl (7.4-10.4); Monocytes Absolute Auto 0.6 K/mm3 (0.1-0.6); Monocytes Percent Auto 2.5 % (2.6-8.5); Neutrophils Absolute Auto 19.6 K/mm3 (1.3-6.7); Neutrophils Percent Auto 88.7 % (45.5-73.1); Platelet Count Result 773 k/mm3 (150-375); Red Blood Count 3.21 M/mm3 (4.2-5.4); White Blood Count 22.2 K/mm3 (4.5-10.0)
[2022-09-08 12:42] LABS: Alanine Aminotransferase 18 U/L (6-35); Albumin Level 2.8 g/dL (3.5-5.1); Alkaline Phosphatase 69 U/L (38-126); Anion Gap 5 mmol/L (8-16); Aspartate Amino Transferase 29 U/L (14-36); Bilirubin,Total 0.5 mg/dL (0.2-1.3); Blood Urea Nitrogen 21 mg/dL (7-17); Calcium 7.9 mg/dL (8.4-10.2); Carbon Dioxide 33 mmol/L (22-30); Chloride 100 mmol/L (98-107); Estimated CRCL calculation 114 ml/min; Estimated Glomerular Filt Rate > 60; Glucose 139 mg/dL (65-110); Sodium 138 mmol/L (137-145)
[2022-09-08 12:43] LABS: Partial Thromboplastin Time 24.8 SECONDS (22.3-36.8)
[2022-09-08 12:49] LABS: Transferrin 153 mg/dL (206-381)
[2022-09-08] MEDS: FAT EMULSIONS IV 20% 250 ML 20.83 ML IVPB (14:57)
[2022-09-08] MEDS: AMINO ACIDS 5%/D15W/E-LYTES/CA 2,000 ML with MULTIVITAMINS-12 INJ VIAL 1 2.5 ML, MULTIV... 60 ML IV CONT (14:57)
[2022-09-08] MEDS: HYDROGEN PEROXIDE 3% SOLN(*SP) 473 ML BOTTLE 480 ML IRRIGATION (15:16)
--- NOTE | 2022-09-08 15:25 | PM.IMPN ---
Progress Note: A&P Assessment and Plan (1) Septic shock: Code(s): A41.9 - Sepsis, unspecified organism; R65.21 - Severe sepsis with septic shock Status: Acute Assessment and Plan: Septic shock likely related to fecal peritonitis secondary to sigmoid perforation -patient was initially on metronidazole and Levaquin,?now on imipenem on (09/01) -patient was also started on micafungin on 08/31 -08/31 blood cultures, preliminary report negative x2 (2) Acute respiratory failure: Code(s): J96.00 - Acute respiratory failure, unspecified whether with hypoxia or hypercapnia Status: Acute Assessment and Plan: Acute respiratory failure likely related to sedation from anesthesia Now extubated off oxygen (3) Perforated sigmoid colon: Code(s): K63.1 - Perforation of intestine (nontraumatic) Status: Acute Assessment and Plan: Status post sigmoidectomy with Rossi procedure on 08/31/2022 -surgery following CT abdomen 09/07 with multiple gas and fluid-filled loops of small bowel without evident transition point to suggest obstruction and most likely represents postoperative ileus. On tube feeds pt is on IV primaxin and iv solumedrol (4) Peritonitis: Code(s): K65.9 - Peritonitis, unspecified Status: Acute Assessment and Plan: See above (5) Atrial fibrillation with rapid ventricular response: Code(s): I48.91 - Unspecified atrial fibrillation Status: Acute Assessment and Plan: Now in sinus Leodan Was on amiodarone drip On p.o. amiodarone on ASA Cardiology following (6) Electrolyte abnormality: Code(s): E87.8 - Other disorders of electrolyte and fluid balance, not elsewhere classified Status: Acute Assessment and Plan: Potassium is better. Repeat and monitor replace as needed (7) Dysphagia: Code(s): R13.10 - Dysphagia, unspecified Status: Acute Assessment and Plan: Pt is on tube feeds presently (8) Delirium: Code(s): R41.0 - Disorientation, unspecified Status: Acute Assessment and Plan: Much better alert awake holding conversation Plan Postoperative adynamic ileus started on TPN DVT prophylaxis on Lovenox Leukocytosis also on steroid which likely is the reason Hypercapnic respiratory acidosis: Was given 5 day course of Solu-Medrol with DuoNeb post extubation Solu Medrol concludes tomorrow Code status full code Subjective Date/time seen: 09/08/22 15:25 Interval history: Chart reviewed. In IMU. Discussed with the wound care nurse. Abdomen distention is improved. Vitals are stable remains on 3-4 L oxygen via nasal cannula. Abdomen is sore. No nausea vomiting. NG tube still in place Review of Systems Review of Systems: All systems reviewed & are unremarkable except as noted in HPI and below (HPI) Exam Narrative: General:? Patient is in no acute distress HEENT:? Pupils are equal and reactive, sclera is clear, Neck:? Supple, no lymphadenopathy Respiratory:? Coarse breath sounds bilaterally not in acute respiratory distress Cardiac:? S1-S2 was normal, sinus on tele Abdomen:? Soft, distended,? bowel sounds present, ostomy on the left side abdomen incision site covered with dressing which is clean and dry Extremities:? No edema, palpable pedal pulses Neuro:? she is awake and and alert, follows commands with all 4 extremities Skin:? No skin lesions noted except for the abdominal incision Psych:? Normal mood Objective Data Vital Signs Vital Signs: Vital Signs - 24 hr 09/07/22 16:53 09/07/22 16:00 09/07/22 16:00 Temperature 97.4 F L Pulse Rate 82 80 82 Respiratory Rate 12 Blood Pressure 155/61 H Pulse Oximetry 96 Oxygen Delivery Oxygen Flow Rate 09/07/22 18:00 09/07/22 16:00 09/07/22 20:00 Temperature Pulse Rate 79 81 Respiratory Rate Blood Pressure Pulse Oximetry 93 Oxygen Delivery Nasal Cannula Oxygen Flow Rate 3 1
[2022-09-08 18:22] LABS: Glucose Point of Care 183 mg/dl (65-105)
[2022-09-08] MEDS: MICAFUNGIN SODIUM 100 MG in SODIUM CHLORIDE 0.9% IV 100 ML IVPB (18:56)
[2022-09-08] MEDS: QUEtiapine FUMARATE 25 MG TABLET PO (21:56)
[2022-09-08] MEDS: MORPHINE SULFATE (*CRX) 4 MG/ML INJ IV PUSH (23:12)
[2022-09-08 23:32] LABS: Glucose Point of Care 142 mg/dl (65-105)
[2022-09-09] VITALS (18 sets, daily range): BP systolic 155–196; BP diastolic 60–64; PULSE 66–81; RESP 16–20; TEMP 36.4–36.7; O2SAT 9–99
[2022-09-09] MEDS: IPRATROPIUM BR 0.02% INH SOLN 0.5 MG/2.5 ML VIAL INHALATION ×4 (02:20→20:12)
[2022-09-09] MEDS: ALBUTEROL SULFATE NEB 2.5 MG/3 ML INH INHALATION ×4 (02:20→20:12)
[2022-09-09] MEDS: MORPHINE SULFATE (*CRX) 2 MG/ML INJ IV PUSH ×6 (03:01→21:09)
[2022-09-09] MEDS: FAT EMULSIONS IV 20% 250 ML 20.83 ML IVPB ×2 (03:03→14:53)
[2022-09-09] MEDS: CENTRAL LINE FLUSH 10 ML IV PUSH ×3 (05:27→21:11)
[2022-09-09 06:08] LABS: Basophils Absolute Auto 0.1 K/mm3 (0.0-0.1); Basophils Percent Auto 0.3 % (0.2-1.2); Eosinophils Absolute Auto 0.1 K/mm3 (0-0.3); Eosinophils Percent Auto 0.5 % (0-4.4); Lymphocytes Absolute Auto 1.85 K/mm3 (0.9-3.2); Lymphocytes Percent Auto 9.1 % (18.3-44.2); Mean Corpuscular HGB Conc 32.1 g/dl (32-36); Mean Corpuscular Hemoglobin 30.9 pg (26-34); Mean Corpuscular Volume 96.2 fl (80-100); Mean Platelet Volume 9.4 fl (7.4-10.4); Monocytes Absolute Auto 1.3 K/mm3 (0.1-0.6); Monocytes Percent Auto 6.2 % (2.6-8.5); Neutrophils Absolute Auto 16.2 K/mm3 (1.3-6.7); Neutrophils Percent Auto 79.9 % (45.5-73.1); Platelet Count Result 685 k/mm3 (150-375); Red Blood Count 2.91 M/mm3 (4.2-5.4); White Blood Count 20.2 K/mm3 (4.5-10.0)
[2022-09-09 06:12] LABS: Triglycerides 180 mg/dL (<150)
[2022-09-09 06:14] LABS: Alanine Aminotransferase 18 U/L (6-35); Albumin Level 2.8 g/dL (3.5-5.1); Alkaline Phosphatase 56 U/L (38-126); Anion Gap 8 mmol/L (8-16); Aspartate Amino Transferase 32 U/L (14-36); Bilirubin,Total 0.2 mg/dL (0.2-1.3); Blood Urea Nitrogen 19 mg/dL (7-17); Calcium 7.6 mg/dL (8.4-10.2); Carbon Dioxide 32 mmol/L (22-30); Chloride 98 mmol/L (98-107); Estimated CRCL calculation 97 ml/min; Estimated Glomerular Filt Rate > 60; Glucose 123 mg/dL (65-110); Magnesium 2.1 mg/dL (1.6-2.3); Phosphorus 3.8 mg/dL (2.5-4.5); Potassium 3.4 mmol/L (3.4-5.0); Sodium 138 mmol/L (137-145)
[2022-09-09] MEDS: ENOXAPARIN 40 MG/0.4 ML SYRINGE SUB-Q (08:10)
[2022-09-09] MEDS: ASPIRIN 325 MG TABLET PO (08:10)
[2022-09-09] MEDS: AMIODARONE HCL 200 MG TABLET PO ×2 (08:10→17:41)
[2022-09-09] MEDS: methylPREDNISolone SOD SUCC 125 MG VIAL 60 MG IV PUSH (08:10)
[2022-09-09] MEDS: PANTOPRAZOLE SODIUM IV 40 MG VIAL IV PUSH (08:11)
--- NOTE | 2022-09-09 11:04 | PM.PNGS ---
Progress Note: A&P Assessment and Plan (1) Perforated sigmoid colon: Code(s): K63.1 - Perforation of intestine (nontraumatic) Status: Acute Assessment and Plan: Continues to slowly improve. Ostomy having more gas in the bag today but still no stool. Will have the wound care nurses irrigate the ostomy again today. Continue IV antibiotics and Micafungin. Continue NG tube decompression and TPN for nutrition. Failed bedside swallow study on 09/06, speech therapy following to improve strength. Will start applying silver gel to the open area of the incision and pack with gauze for daily dressing changes. Will also downgrade patient to med/surg and move her out of IMU. (2) Fecal peritonitis: Code(s): K65.8 - Other peritonitis Status: Acute Assessment and Plan: Continue antibiotics. (3) Protein-calorie malnutrition, severe: Code(s): E43 - Unspecified severe protein-calorie malnutrition Status: Acute Assessment and Plan: Continue TPN for nutrition. She is at goal rate. (4) Rash and nonspecific skin eruption: Code(s): R21 - Rash and other nonspecific skin eruption Status: Acute Assessment and Plan: Found to have a diffuse red maculopapular rash diffusely spread but primarily of the anterior and posterior trunk. Unclear etiology. She is already on IV methylprednisolone. Will give a dose of IV diphenhydramine now for her itching and add PRN IV diphenhydramine. Reviewed her med list and there are no new medications in the past 48 hours that you would expect to cause a drug reaction. Discussed with Hospitalist who will also review her chart. Continue to monitor. Plan I have discussed the patient's case and plan of care with Dr. Krueger. Subjective Subjective Date/Time Seen: 09/09/22 10:04 Post Op day: 9 (Sigmoidectomy with Rossi procedure) Patient reports: no new complaints, voiding w/o difficulty, flatus (she reports hearing flatus from the ostomy multiple times overnight) and afebrile Interval history: Patient seen and examined. She reports sleeping well last night and overall feeling well this morning. She is belching a lot. When examining the patient, I did notice she had a new rash along her anterior and posterior trunk. With questioning her about this, she reports that the tech last night did tell her that her back was really red and she noticed really bad itching in her back last night, which was new. No other complaints at this time. Review of Systems Review of Systems: All systems reviewed & are unremarkable except as noted in HPI and below Cardiovascular: Cardiovascular: Reports no additional cardiovascular complaints and Denies chest pain Respiratory: Respiratory: Reports no additional respiratory complaints and Denies dyspnea Exam Const: General: comfortable, no acute distress and awake; No confusion Orientation/consciousness: patient oriented x3 GI: Inspection: distended and other (red/pink maculopapular rash diffusely across anterior and posterior trunk) GI Palp: Yes Soft to palpation, Yes Tenderness to palpation present (GI) (incisional) and No Guarding due to palpation present (GI) Auscultation: normal bowel sounds Other: Midline incision with few gallito still in place and some more were removed yesterday, now a larger open wound at the bottom of the incision with serosanguineous drainage on the dressing today which will be packed by nursing, two other smaller open areas of the skin at the middle and top of incision with purulent drainage noted from the middle opening. Back/Spine/Pelvis: Back: other (red maculopapular rash diffusely spread across her back) Skin: Rashes: rashes noted diffuse abdomen Neuro: General: moves all extremities and no focal motor deficits Extrem: General: no calf tenderness and no edema Psych: Mental Status: mental status grossly normal Insight: Good insight present (Psych) Judgement: Good judgement pr
[2022-09-09 12:12] LABS: Glucose Point of Care 167 mg/dl (65-105)
[2022-09-09] MEDS: SILVERGEL (ELTA) 45 ML 1 APPLIC TOPICAL (12:21)
[2022-09-09] MEDS: diphenhydrAMINE HCl INJ 50 MG/ML VIAL 25 MG IV PUSH (12:33)
--- NOTE | 2022-09-09 13:37 | PM.IMPN ---
Progress Note: A&P Assessment and Plan (1) Septic shock: Code(s): A41.9 - Sepsis, unspecified organism; R65.21 - Severe sepsis with septic shock Status: Acute Assessment and Plan: Septic shock likely related to fecal peritonitis secondary to sigmoid perforation -patient was initially on metronidazole and Levaquin,?now on imipenem on (09/01) -patient was also started on micafungin on 08/31 -08/31 blood cultures, preliminary report negative x2 (2) Acute respiratory failure: Code(s): J96.00 - Acute respiratory failure, unspecified whether with hypoxia or hypercapnia Status: Acute Assessment and Plan: Acute respiratory failure likely related to sedation from anesthesia Now extubated off oxygen (3) Perforated sigmoid colon: Code(s): K63.1 - Perforation of intestine (nontraumatic) Status: Acute Assessment and Plan: Status post sigmoidectomy with Rossi procedure on 08/31/2022 -surgery following CT abdomen 09/07 with multiple gas and fluid-filled loops of small bowel without evident transition point to suggest obstruction and most likely represents postoperative ileus. On tube feeds pt is on IV primaxin and iv solumedrol Will taper of Solu Medrol today (4) Peritonitis: Code(s): K65.9 - Peritonitis, unspecified Status: Acute Assessment and Plan: See above (5) Atrial fibrillation with rapid ventricular response: Code(s): I48.91 - Unspecified atrial fibrillation Status: Acute Assessment and Plan: Now in sinus Leodan Was on amiodarone drip On p.o. amiodarone on ASA Cardiology following\ Needs to consider anticoagulation once okay from surgical standpoint. (6) Electrolyte abnormality: Code(s): E87.8 - Other disorders of electrolyte and fluid balance, not elsewhere classified Status: Acute Assessment and Plan: Potassium is better. Repeat and monitor replace as needed (7) Dysphagia: Code(s): R13.10 - Dysphagia, unspecified Status: Acute Assessment and Plan: Pt is on tube feeds presently (8) Delirium: Code(s): R41.0 - Disorientation, unspecified Status: Acute Assessment and Plan: Much better alert awake holding conversation Plan Postoperative adynamic ileus started on TPN DVT prophylaxis on Lovenox Leukocytosis also on steroid which likely is the reason Hypercapnic respiratory acidosis: Was given 5 day course of Solu-Medrol with DuoNeb post extubation Solu Medrol concludes tomorrow Rash sounds allergic already dissipating by the time I evaluated. Will continue to monitor Graham p.r.n. for Code status full code Subjective Date/time seen: 09/09/22 13:37 Interval history: Chart reviewed. In IMU. Discussed with the wound care nurse. Abdomen distention is improved. Vitals are stable remains on 3-4 L oxygen via nasal cannula. Abdomen is sore. No nausea vomiting. NG tube still in place 09/09/2022: Patient denies any new complaints. Abdomen is less bloated. She passed some gas from her colostomy today. Denies any nausea vomiting. No fever chills. Review of Systems Review of Systems: All systems reviewed & are unremarkable except as noted in HPI and below (HPI) Exam Narrative: General:? Patient is in no acute distress HEENT:? Pupils are equal and reactive, sclera is clear, Neck:? Supple, no lymphadenopathy Respiratory:? Coarse breath sounds bilaterally not in acute respiratory distress Cardiac:? S1-S2 was normal, sinus on tele Abdomen:? Soft, distended,? bowel sounds present, ostomy on the left side abdomen incision site covered with dressing which is clean and dry Extremities:? No edema, palpable pedal pulses Neuro:? she is awake and and alert, follows commands with all 4 extremities Skin:? No skin lesions noted except for the abdominal incision Psych:? Normal mood Objective Data Vital Signs Vital Signs: Vital Signs - 24 hr 09/08/22 15:03 09/08
[2022-09-09] MEDS: AMINO ACIDS 5%/D15W/E-LYTES/CA 2,000 ML with MULTIVITAMINS-12 INJ VIAL 1 2.5 ML, MULTIV... 60 ML IV CONT (14:53)
[2022-09-09 17:58] LABS: Glucose Point of Care 173 mg/dl (65-105)
[2022-09-09] MEDS: MICAFUNGIN SODIUM 100 MG in SODIUM CHLORIDE 0.9% IV 100 ML IVPB (18:14)
--- NOTE | 2022-09-09 20:53 | PC.NURSE ---
2044 Report was called to CELINE Pardo on .
[2022-09-09] MEDS: QUEtiapine FUMARATE 25 MG TABLET PO (21:09)
--- NOTE | 2022-09-09 22:37 | PC.NURSE ---
2200 Patient was transferred by bed to room 242. Made sure to remind CELINE Pardo on patient's need for suction to her NG tube for decompression.
[2022-09-10] VITALS (16 sets, daily range): BP systolic 141–162; BP diastolic 54–65; PULSE 65–81; RESP 16–21; TEMP 36.4–36.7; O2SAT 92–100
[2022-09-10 00:52] LABS: Glucose Point of Care 131 mg/dl (65-105)
[2022-09-10] MEDS: MORPHINE SULFATE (*CRX) 2 MG/ML INJ IV PUSH ×3 (02:50→08:54)
[2022-09-10] MEDS: CENTRAL LINE FLUSH 10 ML IV PUSH ×3 (05:42→21:14)
[2022-09-10 05:49] LABS: Hematocrit 32.1 % (37.0-47.0); Hemoglobin 9.8 g/dL (12.0-15.0); Mean Corpuscular HGB Conc 30.5 g/dl (32-36); Mean Corpuscular Hemoglobin 30.4 pg (26-34); Mean Corpuscular Volume 99.7 fl (80-100); Mean Platelet Volume 10.1 fl (7.4-10.4); Platelet Count Result 591 k/mm3 (150-375); Red Blood Count 3.22 M/mm3 (4.2-5.4); Red Cell Distribution Width 15.2 % (11.5-14.5); White Blood Count 21.1 K/mm3 (4.5-10.0)
[2022-09-10 06:00] LABS: Anion Gap 10 mmol/L (8-16); Blood Urea Nitrogen 17 mg/dL (7-17); Calcium 7.4 mg/dL (8.4-10.2); Carbon Dioxide 28 mmol/L (22-30); Chloride 102 mmol/L (98-107); Estimated CRCL calculation 123 ml/min; Estimated Glomerular Filt Rate > 60; Glucose 109 mg/dL (65-110); Phosphorus 3.7 mg/dL (2.5-4.5); Potassium 3.5 mmol/L (3.4-5.0); Sodium 140 mmol/L (137-145)
[2022-09-10 06:41] LABS: Glucose Point of Care 111 mg/dl (65-105)
[2022-09-10] MEDS: AMIODARONE HCL 200 MG TABLET PO ×2 (08:39→17:42)
[2022-09-10] MEDS: methylPREDNISolone SOD SUCC 125 MG VIAL 60 MG IV PUSH (08:40)
[2022-09-10] MEDS: PANTOPRAZOLE SODIUM IV 40 MG VIAL IV PUSH (08:40)
[2022-09-10] MEDS: ENOXAPARIN 40 MG/0.4 ML SYRINGE SUB-Q (08:40)
[2022-09-10] MEDS: ASPIRIN 325 MG TABLET PO (08:40)
[2022-09-10] MEDS: ALBUTEROL SULFATE NEB 2.5 MG/3 ML INH INHALATION ×3 (09:31→20:28)
[2022-09-10] MEDS: IPRATROPIUM BR 0.02% INH SOLN 0.5 MG/2.5 ML VIAL INHALATION ×3 (09:31→20:28)
--- NOTE | 2022-09-10 10:25 | PM.IMPN ---
Progress Note: A&P Assessment and Plan (1) Septic shock: Code(s): A41.9 - Sepsis, unspecified organism; R65.21 - Severe sepsis with septic shock Status: Acute Assessment and Plan: Septic shock likely related to fecal peritonitis secondary to sigmoid perforation -patient was initially on metronidazole and Levaquin,?now on imipenem on (09/01) -patient was also started on micafungin on 08/31 -08/31 blood cultures, preliminary report negative x2 Will plan 2 weeks of IV antibiotics course continue to follow leukocytosis (2) Acute respiratory failure: Code(s): J96.00 - Acute respiratory failure, unspecified whether with hypoxia or hypercapnia Status: Acute Assessment and Plan: Acute respiratory failure likely related to sedation from anesthesia Now extubated remains on 2-3 L oxygen (3) Perforated sigmoid colon: Code(s): K63.1 - Perforation of intestine (nontraumatic) Status: Acute Assessment and Plan: Status post sigmoidectomy with Rossi procedure on 08/31/2022 -surgery following CT abdomen 09/07 with multiple gas and fluid-filled loops of small bowel without evident transition point to suggest obstruction and most likely represents postoperative ileus. On tube feeds pt is on IV primaxin and iv solumedrol . Solu Medrol today (4) Peritonitis: Code(s): K65.9 - Peritonitis, unspecified Status: Acute Assessment and Plan: See above (5) Atrial fibrillation with rapid ventricular response: Code(s): I48.91 - Unspecified atrial fibrillation Status: Acute Assessment and Plan: Now in sinus Leodan Was on amiodarone drip On p.o. amiodarone on ASA Cardiology following\ Needs to consider anticoagulation once okay from surgical standpoint. Currently on Lovenox DVT prophylaxis (6) Electrolyte abnormality: Code(s): E87.8 - Other disorders of electrolyte and fluid balance, not elsewhere classified Status: Acute Assessment and Plan: Potassium is better. Repeat and monitor replace as needed (7) Dysphagia: Code(s): R13.10 - Dysphagia, unspecified Status: Acute Assessment and Plan: Pt is on tube feeds presently (8) Delirium: Code(s): R41.0 - Disorientation, unspecified Status: Acute Assessment and Plan: Much better alert awake holding conversation Plan Postoperative adynamic ileus started on TPN DVT prophylaxis on Lovenox Leukocytosis also on steroid which likely is the reason Hypercapnic respiratory acidosis: Was given 5 day course of Solu-Medrol with DuoNeb post extubation Solu Medrol concludes today Rash sounds allergic already dissipating by the time I evaluated. Will continue to monitor Benadryl p.r.n. for now. Erythematous rash noted on groin area could be Molly. Will start local antifungal Code status full code Subjective Date/time seen: 09/10/22 10:25 Interval history: Chart reviewed. In IMU. Discussed with the wound care nurse. Abdomen distention is improved. Vitals are stable remains on 3-4 L oxygen via nasal cannula. Abdomen is sore. No nausea vomiting. NG tube still in place 09/09/2022: Patient denies any new complaints. Abdomen is less bloated. She passed some gas from her colostomy today. Denies any nausea vomiting. No fever chills. 09/10/2022: No overnight events. NG output 3 overnight. Had small amount of stool coming out of the colostomy today. Denies any abdominal pain but reports it sore. Up to the chair this a.m. and 7 during the day yesterday. Shortness of breath on exertion but has been stable Review of Systems Review of Systems: All systems reviewed & are unremarkable except as noted in HPI and below (HPI) Exam Narrative: General:? Patient is in no acute distress HEENT:? Pupils are equal and reactive, sclera is clear, Neck:? Supple, no lymphadenopathy Respiratory:? Coarse breath sounds bilaterally not in acute respiratory distr
--- NOTE | 2022-09-10 11:46 | PCNFU ---
Nutrition Follow-Up Complete: Altered GI function as related to sigmoidectomy as evidenced by NPO. goal: Meet estimated nutritional needs Patient is progressing towards goal. We will continue current goal Pt current nutrition is Clinimix 5/15 E at 60 ml/hr. Last recorded weight is 76.2 kg, down from 82.1 kg on admit. Bowel Motility: Colostomy with stool output today. Labs Reviewed:Cr 0.3,Hct 32.1,Hgb 9.8 Meds Noted:Lovenox, insulin, Solu-Medrol, Protonix, Pacerone,Clinimix E 5/15 at 60 ml/hr with 250 ml of 20% Lipid Emulsion. Skin: WNL Additional Notes: Patient has NGT to suction. TPN is currently providing patient with 1522 kcals and 72 gms protein, meeting 94% kcal needs and 72 protein protein needs. Agree with diet orders at this time. Monitoring: will reassessing every Tuesday and Tuesday.
[2022-09-10 12:17] LABS: Glucose Point of Care 162 mg/dl (65-105)
[2022-09-10] MEDS: MORPHINE SULFATE (*CRX) 4 MG/ML INJ IV PUSH ×2 (12:18→20:48)
[2022-09-10] MEDS: SILVERGEL (ELTA) 45 ML 1 APPLIC TOPICAL (12:55)
--- NOTE | 2022-09-10 13:08 | PM.PNGS ---
Progress Note: A&P Assessment and Plan (1) Perforated sigmoid colon: Code(s): K63.1 - Perforation of intestine (nontraumatic) Status: Acute Assessment and Plan: Status post sigmoidectomy 10 days ago. Still waiting for more output from colostomy. I spoke with the enterostomal therapy nurses today. She has had colostomy irrigation yesterday and the day before. More stool is coming out and a lot more gas. Will observe this over the weekend. If still not putting out a lot, will restart some irrigations again next week. Colostomy looks good and I do not feel it will need to be revised. Problem is patient has a lot of very hard stool still in the entire colon causing a relative obstruction and abdominal distension. Taking a long time for this to resolve. (2) Fecal peritonitis: Code(s): K65.8 - Other peritonitis Status: Acute Assessment and Plan: Continues on antifungal and antibacterial medication. (3) Protein-calorie malnutrition, severe: Code(s): E43 - Unspecified severe protein-calorie malnutrition Status: Acute Assessment and Plan: Continue TPN (4) Rash and nonspecific skin eruption: Code(s): R21 - Rash and other nonspecific skin eruption Status: Acute Assessment and Plan: Improving, no complaints today Subjective Subjective Date/Time Seen: 09/10/22 13:08 Post Op day: #10 Patient reports: feels better, pain is less, flatus (A lot of gas coming through into stoma bag), bowel movement (Small amounts of solid stool per stoma now) and afebrile Exam Const: General: comfortable and no acute distress; No confusion Orientation/consciousness: patient oriented x3 and No confusion GI: Inspection: distended, incision (Continues to have drainage but no new areas of infection or drainage) and no visible herniation GI Palp: Yes Firmness to palpation present (GI) (Slightly less firm and distended), Yes Tenderness to palpation present (GI), No Guarding due to palpation present (GI), No Hernia present and No Rebound tenderness present Auscultation: Hypoactive bowel sounds present Neuro: General: patient oriented x3, no focal motor deficits and No confusion Extrem: General: no calf tenderness and no edema Psych: Affect: normal affect Insight: Good insight present (Psych) Judgement: Good judgement present (Psych) Objective Data Vital Signs Vital Signs: Vital Signs - 24 hr 09/09/22 14:34 09/09/22 14:47 09/09/22 16:56 Temperature 36.4 C L Pulse Rate 73 75 71 Respiratory Rate 18 18 20 Blood Pressure 163/64 H Pulse Oximetry 95 Oxygen Delivery Oxygen Flow Rate 09/09/22 17:41 09/09/22 20:00 09/09/22 20:16 Temperature Pulse Rate 74 74 Respiratory Rate 18 Blood Pressure Pulse Oximetry 9 L 95 Oxygen Delivery Nasal Cannula Nasal Cannula Oxygen Flow Rate 3 3 09/09/22 20:16 09/09/22 20:00 09/10/22 00:35 Temperature 36.5 C 36.6 C Pulse Rate 74 81 81 Respiratory Rate 18 20 16 Blood Pressure 196/62 H 141/54 H Pulse Oximetry 99 94 Oxygen Delivery Oxygen Flow Rate 09/10/22 05:17 09/10/22 08:39 09/10/22 10:42 Temperature 36.7 C 36.4 C Pulse Rate 73 72 65 Respiratory Rate 16 18 Blood Pressure 153/60 H 144/64 H Pulse Oximetry 96 94 Oxygen Delivery Oxygen Flow Rate 09/10/22 10:00 Temperature Pulse Rate Respiratory Rate Blood Pressure Pulse Oximetry 95 Oxygen Delivery Nasal Cannula Oxygen Flow Rate 2 Intake/Output Intake/Output: Intake & Output 09/07/22 09/08/22 09/09/22 09/10/22 23:59 23:59 23:59 23:59 Intake Total 1487 226 1721 550 Output Total 3467 1600 3450 1000 Balance -2201 -616 -545 -450 1000 cc out NG tube yesterday Meds/Results Medications: Active Medications Generic Name Dose Route Start Last Admin Trade Name aMuro PRN Reason Stop Dose Admin Albuterol 2.5 mg 09/06/22 08:00 09/10/22 09:31 Albuterol Sulfate Neb 2.5 Mg/3 Ml Inh INHALATION 2.5 mg Q
--- NOTE | 2022-09-10 14:09 | PC.NURSE ---
On 09/10/22, the student, [Noemi Ortiz], provided care and completed [facility] documentation on this patient. I have reviewed the student's documentation and agree with the findings.
[2022-09-10 18:20] LABS: Glucose Point of Care 131 mg/dl (65-105)
[2022-09-10] MEDS: MICAFUNGIN SODIUM 100 MG in SODIUM CHLORIDE 0.9% IV 100 ML IVPB (19:23)
[2022-09-10] MEDS: QUEtiapine FUMARATE 25 MG TABLET PO (20:06)
[2022-09-10] MEDS: TOLNAFTATE 1% POWDER 45 GM BTL 1 APPLIC TOPICAL (20:06)
[2022-09-10 22:17] LABS: Glucose Point of Care 120 mg/dl (65-105)
[2022-09-11] VITALS (11 sets, daily range): BP systolic 142–154; BP diastolic 56–73; PULSE 70–100; RESP 18–20; TEMP 36.2–36.8; O2SAT 93–98
[2022-09-11] MEDS: FAT EMULSIONS IV 20% 250 ML 20.83 ML IVPB (02:06)
--- NOTE | 2022-09-11 02:40 | PC.NURSE ---
called respiratory therapy r/t pt c/o sob. 96% sitting up on side of bed.
[2022-09-11] MEDS: MORPHINE SULFATE (*CRX) 4 MG/ML INJ IV PUSH ×4 (02:44→18:44)
[2022-09-11] MEDS: IPRATROPIUM BR 0.02% INH SOLN 0.5 MG/2.5 ML VIAL INHALATION ×4 (03:05→22:05)
[2022-09-11] MEDS: ALBUTEROL SULFATE NEB 2.5 MG/3 ML INH INHALATION ×4 (03:05→22:05)
[2022-09-11] MEDS: CENTRAL LINE FLUSH 10 ML IV PUSH ×3 (05:00→20:25)
--- NOTE | 2022-09-11 05:14 | PC.NURSE ---
dairy farm worker to draw, both lumens sluggish with little blood return, ordered cathflo per MD Friedman.
--- NOTE | 2022-09-11 05:27 | PC.NURSE ---
cathflo started with recheck at 725am
--- NOTE | 2022-09-11 05:32 | PC.NURSE ---
500 ml out NG this shift continued on med continuos suction.
[2022-09-11 05:33] LABS: Hematocrit 29.7 % (37.0-47.0); Hemoglobin 9.5 g/dL (12.0-15.0); Mean Corpuscular Hemoglobin 31.1 pg (26-34); Mean Corpuscular Volume 97.4 fl (80-100); Mean Platelet Volume 9.6 fl (7.4-10.4); Platelet Count Result 750 k/mm3 (150-375); Red Blood Count 3.05 M/mm3 (4.2-5.4); White Blood Count 17.9 K/mm3 (4.5-10.0)
[2022-09-11 05:55] LABS: Triglycerides 250 mg/dL (<150)
[2022-09-11 05:59] LABS: Glucose Point of Care 110 mg/dl (65-105)
[2022-09-11 06:08] LABS: Anion Gap 8 mmol/L (8-16); Blood Urea Nitrogen 19 mg/dL (7-17); Calcium 7.7 mg/dL (8.4-10.2); Carbon Dioxide 30 mmol/L (22-30); Chloride 102 mmol/L (98-107); Estimated CRCL calculation 97 ml/min; Estimated Glomerular Filt Rate > 60; Glucose 99 mg/dL (65-110); Phosphorus 3.7 mg/dL (2.5-4.5); Potassium 3.8 mmol/L (3.4-5.0); Sodium 140 mmol/L (137-145)
[2022-09-11] MEDS: AMIODARONE HCL 200 MG TABLET PO ×2 (09:17→17:30)
[2022-09-11] MEDS: ASPIRIN 325 MG TABLET PO (09:17)
[2022-09-11] MEDS: PANTOPRAZOLE SODIUM IV 40 MG VIAL IV PUSH (09:17)
[2022-09-11] MEDS: TOLNAFTATE 1% POWDER 45 GM BTL 1 APPLIC TOPICAL (09:18)
[2022-09-11] MEDS: SILVERGEL (ELTA) 45 ML 1 APPLIC TOPICAL (09:18)
[2022-09-11] MEDS: ENOXAPARIN 40 MG/0.4 ML SYRINGE SUB-Q (09:19)
--- NOTE | 2022-09-11 11:00 | PM.IMPN ---
Progress Note: A&P Assessment and Plan (1) Septic shock: Code(s): A41.9 - Sepsis, unspecified organism; R65.21 - Severe sepsis with septic shock Status: Acute Assessment and Plan: Septic shock likely related to fecal peritonitis secondary to sigmoid perforation -patient was initially on metronidazole and Levaquin,?now on imipenem on (09/01) -patient was also started on micafungin on 08/31 -08/31 blood cultures, preliminary report negative x2 Will plan 2 weeks of IV antibiotics course continue to follow leukocytosis. Leukocytosis improved (2) Acute respiratory failure: Code(s): J96.00 - Acute respiratory failure, unspecified whether with hypoxia or hypercapnia Status: Acute Assessment and Plan: Acute respiratory failure likely related to sedation from anesthesia Now extubated remains on 2-3 L oxygen (3) Perforated sigmoid colon: Code(s): K63.1 - Perforation of intestine (nontraumatic) Status: Acute Assessment and Plan: Status post sigmoidectomy with Rossi procedure on 08/31/2022 -surgery following CT abdomen 09/07 with multiple gas and fluid-filled loops of small bowel without evident transition point to suggest obstruction and most likely represents postoperative ileus. On tube feeds pt is on IV primaxin and iv solumedrol. Solu Medrol stopped 09/10/2022 (4) Peritonitis: Code(s): K65.9 - Peritonitis, unspecified Status: Acute Assessment and Plan: See above (5) Atrial fibrillation with rapid ventricular response: Code(s): I48.91 - Unspecified atrial fibrillation Status: Acute Assessment and Plan: Now in sinus Leodan Was on amiodarone drip On p.o. amiodarone on ASA Cardiology following\ Needs to consider anticoagulation once okay from surgical standpoint. Currently on Lovenox DVT prophylaxis (6) Electrolyte abnormality: Code(s): E87.8 - Other disorders of electrolyte and fluid balance, not elsewhere classified Status: Acute Assessment and Plan: Potassium is better. Repeat and monitor replace as needed (7) Dysphagia: Code(s): R13.10 - Dysphagia, unspecified Status: Acute Assessment and Plan: Pt is on tube feeds presently (8) Delirium: Code(s): R41.0 - Disorientation, unspecified Status: Acute Assessment and Plan: Much better alert awake holding conversation Plan Postoperative adynamic ileus started on TPN DVT prophylaxis on Lovenox Leukocytosis also on steroid which likely is the reason continues to improve as she is off steroid now Hypercapnic respiratory acidosis: Was given 5 day course of Solu-Medrol with DuoNeb post extubation Solu Medrol concludes today Rash sounds allergic already dissipating by the time I evaluated. Will continue to monitor Benadryl p.r.n. for now. Erythematous rash noted on groin area could be Molly. Will start local antifungal Code status full code Subjective Date/time seen: 09/11/22 11:00 Interval history: Chart reviewed. In IMU. Discussed with the wound care nurse. Abdomen distention is improved. Vitals are stable remains on 3-4 L oxygen via nasal cannula. Abdomen is sore. No nausea vomiting. NG tube still in place 09/09/2022: Patient denies any new complaints. Abdomen is less bloated. She passed some gas from her colostomy today. Denies any nausea vomiting. No fever chills. 09/10/2022: No overnight events. NG output 3 overnight. Had small amount of stool coming out of the colostomy today. Denies any abdominal pain but reports it sore. Up to the chair this a.m. and 7 during the day yesterday. Shortness of breath on exertion but has been stable 09/11/2022: No overnight events. Stool in her bag. Getting lot of cramping in her abdomen. Have increased her activity. Rashes stable. No itching reported. No nausea Review of Systems Review of Systems: All systems reviewed & are unremarkable except as noted in
[2022-09-11 12:26] LABS: Glucose Point of Care 127 mg/dl (65-105)
--- NOTE | 2022-09-11 12:26 | PM.PNGS ---
Progress Note: A&P Assessment and Plan (1) Perforated sigmoid colon: Code(s): K63.1 - Perforation of intestine (nontraumatic) Status: Acute Assessment and Plan: Making good progress. Now moving air in stool per colostomy fairly well. Continue antibiotics. Up today. Okay to shampoo hair. Continue dressing changes to abdominal wound. Clamp NG and start clear liquids. (2) Fecal peritonitis: Code(s): K65.8 - Other peritonitis Status: Acute Assessment and Plan: Improving. Continue antibiotics (3) Protein-calorie malnutrition, severe: Code(s): E43 - Unspecified severe protein-calorie malnutrition Status: Acute Assessment and Plan: Continue present TPN. Subjective Subjective Date/Time Seen: 09/11/22 12:26 Post Op day: #11 Patient reports: feels better, pain is less, flatus, bowel movement and afebrile Interval history: Feels much better. Wants to take a shower or leash improve her hair today. Very hungry. Review of Systems Review of Systems: All systems reviewed & are unremarkable except as noted in HPI and below (HPI and those below) Constitutional: Constitutional: Denies chills and Denies fever(s) Cardiovascular: Cardiovascular: Denies chest pain, Denies diaphoresis, Denies dyspnea and Denies paroxysmal nocturnal dyspnea Respiratory: Respiratory: Denies chest congestion, Denies cough and Denies dyspnea Integumentary/Breasts: Skin/Breast: Denies lesions and Denies rash Exam Const: General: comfortable and no acute distress; No confusion Orientation/consciousness: patient oriented x3 and No confusion GI: Inspection: distended, incision (Looks good, no new areas suspicious for infection) and other (Colostomy looks healthy, stool in the bag and flatus) GI Palp: Yes Soft to palpation, Yes Tenderness to palpation present (GI) (Mild tenderness), No Guarding due to palpation present (GI), No Hernia present, No Ascites present and No Rebound tenderness present Auscultation: normal bowel sounds Neuro: General: patient oriented x3, no focal motor deficits and No confusion Extrem: General: no calf tenderness and no edema Psych: Affect: normal affect Insight: Good insight present (Psych) Judgement: Good judgement present (Psych) Objective Data Vital Signs Vital Signs: Vital Signs - 24 hr 09/10/22 14:35 09/10/22 14:25 09/10/22 14:36 Temperature Pulse Rate 77 77 76 Respiratory Rate 18 18 18 Blood Pressure Pulse Oximetry 96 Oxygen Delivery Nasal Cannula Oxygen Flow Rate 2 09/10/22 14:26 09/10/22 17:42 09/10/22 18:24 Temperature 36.6 C 36.6 C Pulse Rate 70 70 73 Respiratory Rate 18 18 Blood Pressure 155/65 H 162/64 H Pulse Oximetry 93 95 Oxygen Delivery Oxygen Flow Rate 09/10/22 20:24 09/10/22 20:25 09/10/22 22:54 Temperature 36.6 C Pulse Rate 69 68 Respiratory Rate 18 21 H Blood Pressure 160/59 H Pulse Oximetry 92 100 Oxygen Delivery Nasal Cannula Oxygen Flow Rate 2 09/11/22 03:07 09/10/22 20:38 09/11/22 06:00 Temperature 36.2 C L Pulse Rate 73 71 71 Respiratory Rate 18 18 20 Blood Pressure 147/56 H Pulse Oximetry 98 Oxygen Delivery Oxygen Flow Rate 09/11/22 07:52 09/11/22 07:52 09/11/22 08:00 Temperature Pulse Rate 79 79 70 Respiratory Rate 18 18 Blood Pressure Pulse Oximetry 94 Oxygen Delivery Nasal Cannula Oxygen Flow Rate 2 09/11/22 09:17 Temperature Pulse Rate 70 Respiratory Rate Blood Pressure Pulse Oximetry Oxygen Delivery Oxygen Flow Rate Intake/Output Intake/Output: Intake & Output 09/08/22 09/09/22 09/10/22 09/11/22 23:59 23:59 23:59 23:59 Intake Total 984 2905 770 2205 Output Total 1600 3450 3050 1150 [facility] -545 -2280 1055 Meds/Results Medications: Active Medications Generic Name Dose Route Start Last Admin Trade Name Freq PRN Reason Stop Dose Admin Albuterol 2.5 mg 09/06/22 08:00 09/11/22 07:56 A
[2022-09-11] MEDS: AMINO ACIDS 5%/D15W/E-LYTES/CA 2,000 ML with MULTIVITAMINS-12 INJ VIAL 1 2.5 ML, MULTIV... 60 ML IV CONT (17:29)
[2022-09-11 18:04] LABS: Glucose Point of Care 104 mg/dl (65-105)
[2022-09-11] MEDS: MICAFUNGIN SODIUM 100 MG in SODIUM CHLORIDE 0.9% IV 100 ML IVPB (19:10)
[2022-09-11] MEDS: QUEtiapine FUMARATE 25 MG TABLET PO (20:23)
[2022-09-11] MEDS: MORPHINE SULFATE (*CRX) 2 MG/ML INJ IV PUSH (20:28)
[2022-09-11 22:06] LABS: Glucose Point of Care 111 mg/dl (65-105)
[2022-09-12] VITALS (14 sets, daily range): BP systolic 140–146; BP diastolic 55–85; PULSE 77–88; RESP 18–21; TEMP 36.3–36.9; O2SAT 94–100
[2022-09-12] MEDS: TOLNAFTATE 1% POWDER 45 GM BTL 1 APPLIC TOPICAL ×3 (01:10→20:21)
[2022-09-12 01:53] LABS: Glucose Point of Care 120 mg/dl (65-105)
[2022-09-12] MEDS: ALBUTEROL SULFATE NEB 2.5 MG/3 ML INH INHALATION ×4 (02:35→20:46)
[2022-09-12] MEDS: IPRATROPIUM BR 0.02% INH SOLN 0.5 MG/2.5 ML VIAL INHALATION ×4 (02:35→20:46)
[2022-09-12] MEDS: MORPHINE SULFATE (*CRX) 2 MG/ML INJ IV PUSH (02:44)
[2022-09-12] MEDS: FAT EMULSIONS IV 20% 250 ML 20.83 ML IVPB (02:48)
[2022-09-12] MEDS: CENTRAL LINE FLUSH 10 ML IV PUSH ×3 (05:27→20:21)
[2022-09-12] MEDS: MORPHINE SULFATE (*CRX) 4 MG/ML INJ IV PUSH ×2 (05:44→08:15)
[2022-09-12 06:36] LABS: Hematocrit 30.4 % (37.0-47.0); Hemoglobin 9.5 g/dL (12.0-15.0); Mean Corpuscular HGB Conc 31.3 g/dl (32-36); Mean Corpuscular Hemoglobin 29.8 pg (26-34); Mean Corpuscular Volume 95.3 fl (80-100); Mean Platelet Volume 9.8 fl (7.4-10.4); Platelet Count Result 809 k/mm3 (150-375); Red Blood Count 3.19 M/mm3 (4.2-5.4); Red Cell Distribution Width 14.9 % (11.5-14.5); White Blood Count 17.2 K/mm3 (4.5-10.0)
[2022-09-12 06:38] LABS: Glucose Point of Care 129 mg/dl (65-105)
[2022-09-12 06:46] LABS: Anion Gap 9 mmol/L (8-16); Blood Urea Nitrogen 17 mg/dL (7-17); Calcium 7.2 mg/dL (8.4-10.2); Carbon Dioxide 29 mmol/L (22-30); Chloride 101 mmol/L (98-107); Estimated CRCL calculation 79 ml/min; Estimated Glomerular Filt Rate > 60; Glucose 111 mg/dL (65-110); Phosphorus 3.6 mg/dL (2.5-4.5); Potassium 3.2 mmol/L (3.4-5.0); Sodium 139 mmol/L (137-145)
[2022-09-12] MEDS: ASPIRIN 325 MG TABLET PO (08:19)
[2022-09-12] MEDS: POTASSIUM CHLORIDE INJ 40 MEQ in SODIUM CHLORIDE 0.9% IV 500 ML 130 MEQ IVPB (08:19)
[2022-09-12] MEDS: AMIODARONE HCL 200 MG TABLET PO ×2 (08:19→17:24)
[2022-09-12] MEDS: PANTOPRAZOLE SODIUM IV 40 MG VIAL IV PUSH (08:20)
[2022-09-12] MEDS: ENOXAPARIN 40 MG/0.4 ML SYRINGE SUB-Q (08:20)
[2022-09-12] MEDS: SILVERGEL (ELTA) 45 ML 1 APPLIC TOPICAL (08:20)
--- NOTE | 2022-09-12 10:37 | PM.IMPN ---
Progress Note: A&P Assessment and Plan (1) Septic shock: Code(s): A41.9 - Sepsis, unspecified organism; R65.21 - Severe sepsis with septic shock Status: Acute Assessment and Plan: Septic shock likely related to fecal peritonitis secondary to sigmoid perforation -patient was initially on metronidazole and Levaquin,?now on imipenem on (09/01) -patient was also started on micafungin on 08/31 -08/31 blood cultures, preliminary report negative x2 Will plan 2 weeks of IV antibiotics course continue to follow leukocytosis. Leukocytosis improved (2) Acute respiratory failure: Code(s): J96.00 - Acute respiratory failure, unspecified whether with hypoxia or hypercapnia Status: Acute Assessment and Plan: Acute respiratory failure likely related to sedation from anesthesia Now extubated remains on 2-3 L oxygen (3) Perforated sigmoid colon: Code(s): K63.1 - Perforation of intestine (nontraumatic) Status: Acute Assessment and Plan: Status post sigmoidectomy with Rossi procedure on 08/31/2022 -surgery following CT abdomen 09/07 with multiple gas and fluid-filled loops of small bowel without evident transition point to suggest obstruction and most likely represents postoperative ileus. On tube feeds pt is on IV primaxin and iv solumedrol. Solu Medrol stopped 09/10/2022 (4) Peritonitis: Code(s): K65.9 - Peritonitis, unspecified Status: Acute Assessment and Plan: See above (5) Atrial fibrillation with rapid ventricular response: Code(s): I48.91 - Unspecified atrial fibrillation Status: Acute Assessment and Plan: Now in sinus Leodan Was on amiodarone drip On p.o. amiodarone on ASA Cardiology following\ Needs to consider anticoagulation once okay from surgical standpoint. Currently on Lovenox DVT prophylaxis (6) Electrolyte abnormality: Code(s): E87.8 - Other disorders of electrolyte and fluid balance, not elsewhere classified Status: Acute Assessment and Plan: Potassium is better. Repeat and monitor replace as needed (7) Dysphagia: Code(s): R13.10 - Dysphagia, unspecified Status: Acute Assessment and Plan: Pt is on tube feeds presently (8) Delirium: Code(s): R41.0 - Disorientation, unspecified Status: Acute Assessment and Plan: Much better alert awake holding conversation Plan Postoperative adynamic ileus started on TPN improving NG has been removed. And started on oral diet DVT prophylaxis on Lovenox Leukocytosis also on steroid which likely is the reason continues to improve as she is off steroid now Hypercapnic respiratory acidosis: Was given 5 day course of Solu-Medrol with DuoNeb post extubation Solu Medrol Completed course Rash sounds allergic already dissipating by the time I evaluated. Will continue to monitor Benadryl p.r.n. for now. Erythematous rash noted on groin area could be Molly. started on local antifungal Code status full code Subjective Date/time seen: 09/12/22 10:37 Interval history: Chart reviewed. In IMU. Discussed with the wound care nurse. Abdomen distention is improved. Vitals are stable remains on 3-4 L oxygen via nasal cannula. Abdomen is sore. No nausea vomiting. NG tube still in place 09/09/2022: Patient denies any new complaints. Abdomen is less bloated. She passed some gas from her colostomy today. Denies any nausea vomiting. No fever chills. 09/10/2022: No overnight events. NG output 3 overnight. Had small amount of stool coming out of the colostomy today. Denies any abdominal pain but reports it sore. Up to the chair this a.m. and 7 during the day yesterday. Shortness of breath on exertion but has been stable 09/11/2022: No overnight events. Stool in her bag. Getting lot of cramping in her abdomen. Have increased her activity. Rashes stable. No itching reported. No nausea 09/12/2022: Having stool. Working wi
--- NOTE | 2022-09-12 11:39 | PM.PNGS ---
Progress Note: A&P Assessment and Plan (1) Perforated sigmoid colon: Code(s): K63.1 - Perforation of intestine (nontraumatic) Status: Acute Assessment and Plan: continues to improve. Good colostomy output today, large amount. Abdomen is still somewhat distended but seems to be passing stool quite well. Tolerated liquids well yesterday. Will advance to low-fiber diet. Increase ambulation. Continue TPN 1 more day but discontinue tomorrow. Wound is improving and no new signs of infection. Overall making very good progress. (2) Fecal peritonitis: Code(s): K65.8 - Other peritonitis Status: Acute Assessment and Plan: Continue antifungal and antibiotic medications (3) Protein-calorie malnutrition, severe: Code(s): E43 - Unspecified severe protein-calorie malnutrition Status: Acute Assessment and Plan: continue TPN today but plan to discontinue tomorrow if continues to take oral intake well. (4) Hypokalemia due to excessive gastrointestinal loss of potassium: Code(s): E87.6 - Hypokalemia Status: Acute Assessment and Plan: Will supplement. Subjective Subjective Date/Time Seen: 09/12/22 11:39 Post Op day: #12 Patient reports: feels better, tolerating liquids well, bowel movement and afebrile Review of Systems Review of Systems: All systems reviewed & are unremarkable except as noted in HPI and below ( HPI and those items noted below) Constitutional: Constitutional: Denies chills and Denies fever(s) Cardiovascular: Cardiovascular: Denies chest pain, Denies diaphoresis, Denies dyspnea and Denies paroxysmal nocturnal dyspnea Respiratory: Respiratory: Denies chest congestion, Denies cough and Denies dyspnea Integumentary/Breasts: Skin/Breast: Denies lesions and Denies rash Exam Const: General: comfortable and no acute distress; No confusion Orientation/consciousness: patient oriented x3 and No confusion GI: Inspection: distended, incision ( no new areas suspicious for infection. Healing well.) and no visible herniation GI Palp: Yes Soft to palpation, Yes Tenderness to palpation present (GI) ( Mild tenderness, no guarding), No Guarding due to palpation present (GI) and No Rebound tenderness present Auscultation: normal bowel sounds and normoactive bowel sounds Neuro: General: patient oriented x3, no focal motor deficits and No confusion Extrem: General: no calf tenderness and no edema Psych: Affect: normal affect Insight: Good insight present (Psych) Judgement: Good judgement present (Psych) Objective Data Vital Signs Vital Signs: Vital Signs - 24 hr 09/11/22 14:00 09/11/22 14:05 09/11/22 17:30 Temperature 36.8 C Pulse Rate 100 72 94 Respiratory Rate 18 18 Blood Pressure 142/67 H Pulse Oximetry 93 Oxygen Delivery Oxygen Flow Rate 09/11/22 22:06 09/11/22 22:06 09/11/22 22:00 Temperature 36.7 C Pulse Rate 82 82 75 Respiratory Rate 20 20 18 Blood Pressure 154/73 H Pulse Oximetry 93 96 Oxygen Delivery Nasal Cannula Oxygen Flow Rate 2 09/12/22 02:35 09/11/22 22:17 09/12/22 02:46 Temperature Pulse Rate 87 83 85 Respiratory Rate 18 18 20 Blood Pressure Pulse Oximetry Oxygen Delivery Oxygen Flow Rate 09/12/22 06:00 09/12/22 08:19 09/12/22 08:00 Temperature 36.6 C Pulse Rate 77 77 82 Respiratory Rate 21 H 18 Blood Pressure 144/55 H Pulse Oximetry 100 Oxygen Delivery Oxygen Flow Rate 09/12/22 08:10 Temperature Pulse Rate 85 Respiratory Rate 20 Blood Pressure Pulse Oximetry Oxygen Delivery Oxygen Flow Rate Intake/Output Intake/Output: Intake & Output 09/09/22 09/10/22 09/11/22 09/12/22 23:59 23:59 23:59 22:59 Intake Total 2905 770 3845 400 Output Total 3450 3050 2275 1200 [facility] -203 -9540 1570 -800 Meds/Results Medications: Active Medications Generic Name Dose Route Start Last Admin Trade Name Freq PRN Reason Stop
[2022-09-12 11:58] LABS: Glucose Point of Care 147 mg/dl (65-105)
[2022-09-12] MEDS: MORPHINE SULFATE (*CRX) 4 MG/ML INJ 2 MG IV PUSH ×2 (13:02→17:42)
[2022-09-12] MEDS: POTASSIUM CHLORIDE 20 MEQ TABLET 40 MEQ PO (13:05)
[2022-09-12] MEDS: AMINO ACIDS 5%/D15W/E-LYTES/CA 2,000 ML with MULTIVITAMINS-12 INJ VIAL 1 2.5 ML, MULTIV... 60 ML IV CONT (17:20)
[2022-09-12] MEDS: MICAFUNGIN SODIUM 100 MG in SODIUM CHLORIDE 0.9% IV 100 ML IVPB (17:22)
[2022-09-12] MEDS: POTASSIUM CHLORIDE 20 MEQ TABLET.ER 40 MEQ PO (17:24)
[2022-09-12] MEDS: ALPRAZolam (*CRX) 0.25 MG TABLET PO (17:42)
[2022-09-12 18:21] LABS: Glucose Point of Care 153 mg/dl (65-105)
[2022-09-12] MEDS: QUEtiapine FUMARATE 25 MG TABLET PO (20:19)
[2022-09-12] MEDS: MORPHINE SULFATE (*CRX) 2 MG/ML INJ 1 MG IV PUSH (20:20)
[2022-09-13] VITALS (16 sets, daily range): BP systolic 130–141; BP diastolic 52–65; PULSE 74–84; RESP 18–20; TEMP 36.3–36.6; O2SAT 84–97
[2022-09-13 00:48] LABS: Glucose Point of Care 123 mg/dl (65-105)
[2022-09-13] MEDS: IPRATROPIUM BR 0.02% INH SOLN 0.5 MG/2.5 ML VIAL INHALATION ×4 (01:41→20:05)
[2022-09-13] MEDS: ALBUTEROL SULFATE NEB 2.5 MG/3 ML INH INHALATION ×4 (01:41→20:05)
[2022-09-13] MEDS: MORPHINE SULFATE (*CRX) 4 MG/ML INJ 2 MG IV PUSH ×5 (01:59→19:59)
[2022-09-13] MEDS: FAT EMULSIONS IV 20% 250 ML 20.83 ML IVPB (03:09)
[2022-09-13] MEDS: CENTRAL LINE FLUSH 10 ML IV PUSH ×3 (04:42→20:04)
[2022-09-13 05:30] LABS: Basophils Absolute Auto 0.1 K/mm3 (0.0-0.1); Basophils Percent Auto 0.3 % (0.2-1.2); Eosinophils Absolute Auto 0.3 K/mm3 (0-0.3); Eosinophils Percent Auto 2.2 % (0-4.4); Hematocrit 30.1 % (37.0-47.0); Hemoglobin 9.4 g/dL (12.0-15.0); Immature Granulocyte Absolute 0.14 K/mm3 (0.00-0.031); Lymphocytes Absolute Auto 1.67 K/mm3 (0.9-3.2); Lymphocytes Percent Auto 11.5 % (18.3-44.2); Mean Corpuscular HGB Conc 31.2 g/dl (32-36); Mean Corpuscular Hemoglobin 30.3 pg (26-34); Mean Corpuscular Volume 97.1 fl (80-100); Mean Platelet Volume 9.9 fl (7.4-10.4); Monocytes Absolute Auto 1.2 K/mm3 (0.1-0.6); Monocytes Percent Auto 8.4 % (2.6-8.5); Neutrophils Absolute Auto 11.1 K/mm3 (1.3-6.7); Neutrophils Percent Auto 76.6 % (45.5-73.1); Platelet Count Result 792 k/mm3 (150-375); White Blood Count 14.5 K/mm3 (4.5-10.0)
[2022-09-13 05:34] LABS: INR 1.2; Prothrombin Time 14.4 Seconds (11.1-14.7)
[2022-09-13 05:35] LABS: Partial Thromboplastin Time 28.1 SECONDS (22.3-36.8)
[2022-09-13 05:43] LABS: Alanine Aminotransferase 19 U/L (6-35); Alkaline Phosphatase 73 U/L (38-126); Anion Gap 6 mmol/L (8-16); Aspartate Amino Transferase 29 U/L (14-36); Bilirubin,Total 0.6 mg/dL (0.2-1.3); Blood Urea Nitrogen 16 mg/dL (7-17); Calcium 7.6 mg/dL (8.4-10.2); Carbon Dioxide 28 mmol/L (22-30); Chloride 103 mmol/L (98-107); Estimated CRCL calculation 97 ml/min; Estimated Glomerular Filt Rate > 60; Glucose 109 mg/dL (65-110); Magnesium 2.2 mg/dL (1.6-2.3); Phosphorus 3.4 mg/dL (2.5-4.5); Potassium 4.5 mmol/L (3.4-5.0); Sodium 137 mmol/L (137-145); Transferrin 180 mg/dL (206-381); Triglycerides 184 mg/dL (<150)
[2022-09-13] MEDS: MELOXICAM 7.5 MG TABLET PO (08:20)
[2022-09-13] MEDS: PANTOPRAZOLE 40 MG TABLET PO (08:20)
[2022-09-13] MEDS: ASPIRIN 325 MG TABLET PO (08:20)
[2022-09-13] MEDS: ASPIRIN 81 MG CHEWABLE TABLET PO (08:20)
[2022-09-13] MEDS: AMIODARONE HCL 200 MG TABLET PO ×2 (08:20→17:15)
[2022-09-13] MEDS: POTASSIUM CHLORIDE 20 MEQ TABLET.ER 40 MEQ PO (08:21)
[2022-09-13] MEDS: ENOXAPARIN 40 MG/0.4 ML SYRINGE SUB-Q (08:21)
--- NOTE | 2022-09-13 09:30 | PM.IMPN ---
Progress Note: A&P Assessment and Plan (1) Septic shock: Code(s): A41.9 - Sepsis, unspecified organism; R65.21 - Severe sepsis with septic shock Status: Acute Assessment and Plan: Septic shock likely related to fecal peritonitis secondary to sigmoid perforation -patient was initially on metronidazole and Levaquin,?now on imipenem on (09/01) -patient was also started on micafungin on 08/31 -08/31 blood cultures, preliminary report negative x2 Will plan 2 weeks of IV antibiotics course continue to follow leukocytosis. Leukocytosis improved. today's day planned. Subsequent to that will change to oral Levaquin/Flagyl as she has penicillin allergy Micafungin day 10/20 as well I do not think she will need antifungal coverage beyond 2 weeks (2) Acute respiratory failure: Code(s): J96.00 - Acute respiratory failure, unspecified whether with hypoxia or hypercapnia Status: Acute Assessment and Plan: Acute respiratory failure likely related to sedation from anesthesia Now extubated remains on 2-3 L oxygen (3) Perforated sigmoid colon: Code(s): K63.1 - Perforation of intestine (nontraumatic) Status: Acute Assessment and Plan: Status post sigmoidectomy with Rossi procedure on 08/31/2022 -surgery following CT abdomen 09/07 with multiple gas and fluid-filled loops of small bowel without evident transition point to suggest obstruction and most likely represents postoperative ileus. On tube feeds pt is on IV primaxin and iv solumedrol. Solu Medrol stopped 09/10/2022 (4) Peritonitis: Code(s): K65.9 - Peritonitis, unspecified Status: Acute Assessment and Plan: See above (5) Atrial fibrillation with rapid ventricular response: Code(s): I48.91 - Unspecified atrial fibrillation Status: Acute Assessment and Plan: Now in sinus Leodan Was on amiodarone drip On p.o. amiodarone on ASA Cardiology following\ Needs to consider anticoagulation once okay from surgical standpoint. Currently on Lovenox DVT prophylaxis (6) Electrolyte abnormality: Code(s): E87.8 - Other disorders of electrolyte and fluid balance, not elsewhere classified Status: Acute Assessment and Plan: Potassium is better. Repeat and monitor replace as needed (7) Dysphagia: Code(s): R13.10 - Dysphagia, unspecified Status: Acute Assessment and Plan: Pt is on tube feeds presently (8) Delirium: Code(s): R41.0 - Disorientation, unspecified Status: Acute Assessment and Plan: Much better alert awake holding conversation Plan Postoperative adynamic ileus started on TPN improving NG has been removed. And started on oral diet DVT prophylaxis on Lovenox Leukocytosis also on steroid which likely is the reason continues to improve as she is off steroid now Hypercapnic respiratory acidosis: Was given 5 day course of Solu-Medrol with DuoNeb post extubation Solu Medrol Completed course Rash sounds allergic; Resolved now. Will continue to monitor Benadryl p.r.n. for now. Erythematous rash noted on groin area could be Molly. started on local antifungal Code status full code Subjective Date/time seen: 09/13/22 09:30 Interval history: Chart reviewed. In IMU. Discussed with the wound care nurse. Abdomen distention is improved. Vitals are stable remains on 3-4 L oxygen via nasal cannula. Abdomen is sore. No nausea vomiting. NG tube still in place 09/09/2022: Patient denies any new complaints. Abdomen is less bloated. She passed some gas from her colostomy today. Denies any nausea vomiting. No fever chills. 09/10/2022: No overnight events. NG output 3 overnight. Had small amount of stool coming out of the colostomy today. Denies any abdominal pain but reports it sore. Up to the chair this a.m. and 7 during the day yesterday. Shortness of breath on exertion but has been stable 09/11/2022: No overnight e
[2022-09-13] MEDS: SERTRALINE HCL 50 MG TABLET 100 MG PO (09:48)
[2022-09-13] MEDS: SILVERGEL (ELTA) 45 ML 1 APPLIC TOPICAL (11:56)
[2022-09-13] MEDS: TOLNAFTATE 1% POWDER 45 GM BTL 1 APPLIC TOPICAL (11:56)
[2022-09-13 12:17] LABS: Glucose Point of Care 89 mg/dl (65-105)
--- NOTE | 2022-09-13 12:25 | PM.PNGS ---
Progress Note: A&P Assessment and Plan (1) Perforated sigmoid colon: Code(s): K63.1 - Perforation of intestine (nontraumatic) Status: Acute Assessment and Plan: Gradually improving. Colostomy began functioning more over the weekend, still having good output. Advance to a regular diet. Stop TPN today. Incision is healing well, continue silver gel with packing dressing changes. Continue increasing activity as tolerated, PT/OT following. Plan is for patient to go to [facility] eventually after discharge. Hopefully, if the patient keeps improving, she may be stable for discharge by Tuesday or . (2) Fecal peritonitis: Code(s): K65.8 - Other peritonitis Status: Acute Assessment and Plan: Continue antifungal and antibiotic medications. May stop tomorrow, discussed with Hospitalist who has also spoke with ID pharmacist. (3) Protein-calorie malnutrition, severe: Code(s): E43 - Unspecified severe protein-calorie malnutrition Status: Acute Assessment and Plan: Intake improving and she is now tolerating a solid diet. Stop TPN today. (4) Hypokalemia due to excessive gastrointestinal loss of potassium: Code(s): E87.6 - Hypokalemia Status: Acute Assessment and Plan: Potassium 4.5 today, continue to monitor and replace as needed Plan I have discussed the patient's case and plan of care with Dr. Krueger. Subjective Subjective Date/Time Seen: 09/13/22 12:26 Patient reports: no new complaints, tolerating a regular diet, voiding w/o difficulty and afebrile Interval history: Patient seen and examined. Chart reviewed since last seen. She continues to improve daily. She reports her bloating and abdominal pain has improved over the weekend as her ostomy has started functioning more. Tolerating her diet without any nausea or vomiting. There is no output documented from the ostomy overnight, but the patient reports them emptying her bag at least twice. Review of Systems Review of Systems: All systems reviewed & are unremarkable except as noted in HPI and below Cardiovascular: Cardiovascular: Reports no additional cardiovascular complaints and Denies chest pain Respiratory: Respiratory: Reports no additional respiratory complaints and Denies dyspnea Exam Const: General: comfortable, no acute distress and awake Orientation/consciousness: patient oriented x3 GI: Inspection: distended GI Palp: Yes Soft to palpation, Yes Tenderness to palpation present (GI) (incisional) and No Guarding due to palpation present (GI) Auscultation: normal bowel sounds Other: Incision healing well with open wound at the bottom healing in with granulation tissue, no purulent drainage or erythema Ostomy functioning well with stool and gas in bag, stoma appears viable with some swenson slough noted at the edges and areas of pink Neuro: General: moves all extremities and no focal motor deficits Extrem: General: no calf tenderness and no edema Psych: Mental Status: mental status grossly normal Insight: Good insight present (Psych) Objective Data Vital Signs Vital Signs: Vital Signs - 24 hr 09/12/22 14:00 09/12/22 17:24 09/12/22 19:29 Temperature 97.4 F L 98.4 F Pulse Rate 80 80 88 Respiratory Rate 18 18 Blood Pressure 140/59 L 146/85 H Pulse Oximetry 95 97 Oxygen Delivery Oxygen Flow Rate Fraction of Inspired Oxygen 09/12/22 20:47 09/12/22 20:48 09/12/22 20:57 Temperature Pulse Rate 84 88 Respiratory Rate 20 20 Blood Pressure Pulse Oximetry 94 Oxygen Delivery Nasal Cannula Oxygen Flow Rate 2 Fraction of Inspired Oxygen 09/12/22 20:00 09/13/22 01:41 09/13/22 01:49 Temperature Pulse Rate 88 84 78 Respiratory Rate 20 20 20 Blood Pressure Pulse Oximetry 94 Oxygen Delivery Nasal Cannula Oxygen Flow Rate 2 Fraction of Inspired Oxygen 40 09/13/22 04:36 09/13/22 08:20 09/13/22 09:55 Temperature 98 F Pulse
--- NOTE | 2022-09-13 12:43 | PM.PNGS ---
Progress Note: A&P Assessment and Plan (1) Perforated sigmoid colon: Code(s): K63.1 - Perforation of intestine (nontraumatic) Status: Acute Assessment and Plan: continues to slowly improve. White blood cell count down to 14,500. Tolerated low-fiber diet well. Good urine output. Colostomy functioning normally. Will advance to regular diet. Continue dressing changes. Tomorrow will be 14 days status post surgery, discussed with hospitalist regarding discontinuing antibiotics tomorrow. [facility] [place] on Tuesday or . (2) Fecal peritonitis: Code(s): K65.8 - Other peritonitis Status: Acute Assessment and Plan: Possibly discontinue antimicrobials tomorrow (3) Protein-calorie malnutrition, severe: Code(s): E43 - Unspecified severe protein-calorie malnutrition Status: Acute Assessment and Plan: eating well now. Will discontinue TPN and TPN labs (4) Hypokalemia due to excessive gastrointestinal loss of potassium: Code(s): E87.6 - Hypokalemia Status: Acute Assessment and Plan: potassium up to 4.5 today. Will decrease supplement and continue to monitor. Subjective Subjective Date/Time Seen: 09/13/22 12:43 Post Op day: #13 Patient reports: no new complaints, feels better, tolerating a regular diet (Low-fiber diet), bowel movement, shortness of breath ( still wearing oxygen) and afebrile Review of Systems Review of Systems: All systems reviewed & are unremarkable except as noted in HPI and below ( HPI and those items noted below) Constitutional: Constitutional: Denies chills and Denies fever(s) Cardiovascular: Cardiovascular: Denies chest pain, Denies diaphoresis, Denies dyspnea and Denies paroxysmal nocturnal dyspnea Respiratory: Respiratory: Denies chest congestion, Denies cough and Denies dyspnea Integumentary/Breasts: Skin/Breast: Denies lesions and Denies rash Exam Const: General: comfortable and no acute distress; No confusion Orientation/consciousness: patient oriented x3 and No confusion GI: Inspection: distended, incision ( open areas healing, no new signs of infection) and other ( continues to have good colostomy function) GI Palp: Yes Soft to palpation, Yes Tenderness to palpation present (GI) ( mild tenderness), No Guarding due to palpation present (GI) and No Rebound tenderness present Auscultation: normal bowel sounds Neuro: General: patient oriented x3, no focal motor deficits and No confusion Extrem: General: no calf tenderness and no edema Psych: Affect: normal affect Insight: Good insight present (Psych) Judgement: Good judgement present (Psych) Objective Data Vital Signs Vital Signs: Vital Signs - 24 hr 09/12/22 14:00 09/12/22 17:24 09/12/22 19:29 Temperature 36.3 C L 36.9 C Pulse Rate 80 80 88 Respiratory Rate 18 18 Blood Pressure 140/59 L 146/85 H Pulse Oximetry 95 97 Oxygen Delivery Oxygen Flow Rate Fraction of Inspired Oxygen 09/12/22 20:47 09/12/22 20:48 09/12/22 20:57 Temperature Pulse Rate 84 88 Respiratory Rate 20 20 Blood Pressure Pulse Oximetry 94 Oxygen Delivery Nasal Cannula Oxygen Flow Rate 2 Fraction of Inspired Oxygen 09/12/22 20:00 09/13/22 01:41 09/13/22 01:49 Temperature Pulse Rate 88 84 78 Respiratory Rate 20 20 20 Blood Pressure Pulse Oximetry 94 Oxygen Delivery Nasal Cannula Oxygen Flow Rate 2 Fraction of Inspired Oxygen 40 09/13/22 04:36 09/13/22 08:20 09/13/22 09:55 Temperature 36.6 C Pulse Rate 76 76 84 Respiratory Rate 18 20 Blood Pressure 138/52 L Pulse Oximetry 97 Oxygen Delivery Oxygen Flow Rate Fraction of Inspired Oxygen 09/13/22 09:55 09/13/22 09:55 09/13/22 10:11 Temperature Pulse Rate 76 Respiratory Rate 20 Blood Pressure Pulse Oximetry 84 L 90 Oxygen Delivery Room Air Nasal Cannula Oxygen Flow Rate 2 Fraction of Inspired Oxyg
--- NOTE | 2022-09-13 12:53 | PCNFU ---
Nutrition Follow-Up Complete: Altered GI function as related to sigmoidectomy as evidenced by NPO. goal: Meet estimated nutritional needs Patient is progressing towards goal. We will continue current goal. Pt current nutrition is Low Fiber. Last recorded weight is 72 kg, down from 82 kg on admit. Bowel Motility:colostomy Labs Reviewed:TG 184, Cr 0.4, Alb 3.0,Hct 30.1,Hgb 9.4 Meds Noted:Zoloft, Protonix, Lovenox,Imipenem. Skin: Mepilex to coccyx Additional Notes:Nutrition follow up. Spoke with patient and family today. Patient tolerated lunch meal today. TPN has been discontinued. New orders for nutritional ice cream BID, providing an additional 300 kcals and 9 gms protein. Agree with diet orders. Will monitor in ICU rounds and reassessing every 5 days.
[2022-09-13] MEDS: CALCIUM CARBONATE (TUMS) 500 MG (200 MG ELEMENTAL) 400 MG PO (15:18)
[2022-09-13] MEDS: POTASSIUM CHLORIDE 20 MEQ TABLET.ER PO (17:19)
[2022-09-13] MEDS: MICAFUNGIN SODIUM 100 MG in SODIUM CHLORIDE 0.9% IV 100 ML IVPB (17:43)
[2022-09-13 18:08] LABS: Glucose Point of Care 129 mg/dl (65-105)
[2022-09-13] MEDS: MINERAL OIL 30 ML UDC 15 ML PO (18:36)
[2022-09-13] MEDS: QUEtiapine FUMARATE 25 MG TABLET PO (19:59)
[2022-09-14] VITALS (7 sets, daily range): BP systolic 123–162; BP diastolic 50–68; PULSE 68–74; RESP 18–20; TEMP 36.3–36.7; O2SAT 92–96
[2022-09-14] MEDS: MORPHINE SULFATE (*CRX) 4 MG/ML INJ 2 MG IV PUSH (02:18)
[2022-09-14] MEDS: CALCIUM CARBONATE (TUMS) 500 MG (200 MG ELEMENTAL) 400 MG PO (02:39)
[2022-09-14] MEDS: CENTRAL LINE FLUSH 10 ML IV PUSH ×3 (04:59→20:19)
[2022-09-14 05:26] LABS: Basophils Absolute Auto 0.1 K/mm3 (0.0-0.1); Basophils Percent Auto 0.4 % (0.2-1.2); Eosinophils Absolute Auto 0.3 K/mm3 (0-0.3); Eosinophils Percent Auto 2.3 % (0-4.4); Hematocrit 28.1 % (37.0-47.0); Hemoglobin 8.8 g/dL (12.0-15.0); Immature Granulocyte Absolute 0.13 K/mm3 (0.00-0.031); Immature Granulocyte Percent A 1.2 % (0-0.5); Lymphocytes Absolute Auto 1.48 K/mm3 (0.9-3.2); Lymphocytes Percent Auto 13.2 % (18.3-44.2); Mean Corpuscular HGB Conc 31.3 g/dl (32-36); Mean Corpuscular Volume 98.9 fl (80-100); Mean Platelet Volume 9.9 fl (7.4-10.4); Monocytes Absolute Auto 1.1 K/mm3 (0.1-0.6); Neutrophils Absolute Auto 8.2 K/mm3 (1.3-6.7); Neutrophils Percent Auto 72.9 % (45.5-73.1); Platelet Count Result 704 k/mm3 (150-375); Red Blood Count 2.84 M/mm3 (4.2-5.4); Red Cell Distribution Width 14.8 % (11.5-14.5); White Blood Count 11.3 K/mm3 (4.5-10.0)
[2022-09-14 07:03] LABS: Alanine Aminotransferase 19 U/L (6-35); Albumin Level 2.8 g/dL (3.5-5.1); Alkaline Phosphatase 86 U/L (38-126); Anion Gap 10 mmol/L (8-16); Aspartate Amino Transferase 29 U/L (14-36); Bilirubin,Total 0.4 mg/dL (0.2-1.3); Blood Urea Nitrogen 12 mg/dL (7-17); Calcium 7.8 mg/dL (8.4-10.2); Carbon Dioxide 30 mmol/L (22-30); Chloride 98 mmol/L (98-107); Estimated CRCL calculation 97 ml/min; Estimated Glomerular Filt Rate > 60; Glucose 97 mg/dL (65-110); Potassium 4.2 mmol/L (3.4-5.0); Sodium 138 mmol/L (137-145)
[2022-09-14] MEDS: ASPIRIN 325 MG TABLET PO (08:08)
[2022-09-14] MEDS: SERTRALINE HCL 50 MG TABLET 100 MG PO (08:09)
[2022-09-14] MEDS: AMIODARONE HCL 200 MG TABLET PO ×2 (08:09→16:28)
[2022-09-14] MEDS: PANTOPRAZOLE 40 MG TABLET PO (08:09)
[2022-09-14] MEDS: MELOXICAM 7.5 MG TABLET PO (08:09)
[2022-09-14] MEDS: ENOXAPARIN 40 MG/0.4 ML SYRINGE SUB-Q (08:10)
[2022-09-14] MEDS: PSYLLIUM POWDER PACKET 1 PACKET PO ×2 (08:56→20:19)
[2022-09-14] MEDS: POTASSIUM CHLORIDE 20 MEQ TABLET.ER PO ×2 (08:56→16:28)
[2022-09-14] MEDS: MINERAL OIL 30 ML UDC 15 ML PO ×2 (09:09→17:47)
--- NOTE | 2022-09-14 09:34 | PCSTNOTE ---
Patient has returned to low fiber and then regular diet so is being discharged with goals achieved.
--- NOTE | 2022-09-14 09:35 | PCPTNOTE ---
Attempted to see patient for PT at this time, however patient declined. Patient reported she is too tired at this time. Patient would like PT to check back later.
[2022-09-14] MEDS: BUMETANIDE INJ 2.5 MG/10 ML VIAL 2 MG IV PUSH (09:45)
[2022-09-14] MEDS: oxyCODONE/ACETAMINOPHEN (*CRX) 5-325 MG TABLET 2 TABLET PO ×2 (10:54→20:19)
--- NOTE | 2022-09-14 11:40 | PCPTNOTE ---
Attempted to see patient for PT, however patient was sound asleep with family in room. Patient's family reported patient has had a rough morning. Patient not seen for this reason.
--- NOTE | 2022-09-14 13:11 | PM.IMPN ---
Progress Note: A&P Assessment and Plan (1) Septic shock: Code(s): A41.9 - Sepsis, unspecified organism; R65.21 - Severe sepsis with septic shock Status: Acute Assessment and Plan: Septic shock likely related to fecal peritonitis secondary to sigmoid perforation -patient was initially on metronidazole and Levaquin,?now on imipenem on (09/01) -patient was also started on micafungin on 08/31 -08/31 blood cultures, preliminary report negative x2 Will plan 2 weeks of IV antibiotics course continue to follow leukocytosis. Leukocytosis improved. today's day planned. imipenem stopped. Subsequent to that will change to oral Levaquin/Flagyl as she has penicillin allergy if required per gen surg Micafungin day as well I do not think she will need antifungal coverage beyond 2 weeks: micafungin stopped (2) Acute respiratory failure: Code(s): J96.00 - Acute respiratory failure, unspecified whether with hypoxia or hypercapnia Status: Acute Assessment and Plan: Acute respiratory failure likely related to sedation from anesthesia Now extubated remains on 2-3 L oxygen now off oxygen. (3) Perforated sigmoid colon: Code(s): K63.1 - Perforation of intestine (nontraumatic) Status: Acute Assessment and Plan: Status post sigmoidectomy with Rossi procedure on 08/31/2022 -surgery following CT abdomen 09/07 with multiple gas and fluid-filled loops of small bowel without evident transition point to suggest obstruction and most likely represents postoperative ileus. On tube feeds pt is on IV primaxin and iv solumedrol. Solu Medrol stopped 09/10/2022 (4) Peritonitis: Code(s): K65.9 - Peritonitis, unspecified Status: Acute Assessment and Plan: See above (5) Atrial fibrillation with rapid ventricular response: Code(s): I48.91 - Unspecified atrial fibrillation Status: Acute Assessment and Plan: Now in sinus Leodan Was on amiodarone drip On p.o. amiodarone on ASA Cardiology following\ Needs to consider anticoagulation once okay from surgical standpoint. however no furhter recurrence of afib. will not recommend anticoagulation. currently on aspirin 325 mg daily. Currently on Lovenox DVT prophylaxis (6) Electrolyte abnormality: Code(s): E87.8 - Other disorders of electrolyte and fluid balance, not elsewhere classified Status: Acute Assessment and Plan: Potassium is better. Repeat and monitor replace as needed (7) Dysphagia: Code(s): R13.10 - Dysphagia, unspecified Status: Acute Assessment and Plan: Pt is on tube feeds presently (8) Delirium: Code(s): R41.0 - Disorientation, unspecified Status: Acute Assessment and Plan: Much better alert awake holding conversation Plan Postoperative adynamic ileus started on TPN improving NG has been removed. And started on oral diet DVT prophylaxis on Lovenox Leukocytosis also on steroid which likely is the reason continues to improve as she is off steroid now Hypercapnic respiratory acidosis: Was given 5 day course of Solu-Medrol with DuoNeb post extubation Solu Medrol Completed course Rash sounds allergic; Resolved now. Will continue to monitor Benadryl p.r.n. for now. Erythematous rash noted on groin area could be Molly. started on local antifungal Code status full code discussed [facility] care coordination. dc planned to [facility] in am if stable. Subjective Date/time seen: 09/14/22 13:11 Interval history: Chart reviewed. In IMU. Discussed with the wound care nurse. Abdomen distention is improved. Vitals are stable remains on 3-4 L oxygen via nasal cannula. Abdomen is sore. No nausea vomiting. NG tube still in place 09/09/2022: Patient denies any new complaints. Abdomen is less bloated. She passed some gas from her colostomy today. Denies any nausea vomiting. No fever chills. 09/10/2022: No overnight events.
--- NOTE | 2022-09-14 13:13 | PM.PNGS ---
Progress Note: A&P Assessment and Plan (1) Perforated sigmoid colon: Code(s): K63.1 - Perforation of intestine (nontraumatic) Status: Acute Assessment and Plan: Continues to improve, WBC still trending down to 11,300 today. Tolerating low fiber diet without any issues. Ostomy is functioning well. Will stop her antimicrobials today. Will also give one dose of IV Bumex. Continue dressing changes. Hopefully she can transfer to [facility] in the next 1-2 days. (2) Fecal peritonitis: Code(s): K65.8 - Other peritonitis Status: Acute Assessment and Plan: Stop all antimicrobials today. (3) Protein-calorie malnutrition, severe: Code(s): E43 - Unspecified severe protein-calorie malnutrition Status: Acute Assessment and Plan: TPN stopped yesterday. Tolerating a low fiber diet. (4) Hypokalemia due to excessive gastrointestinal loss of potassium: Code(s): E87.6 - Hypokalemia Status: Acute Assessment and Plan: Potassium 4.2 today. Continue to monitor. Plan I have discussed the patient's case and plan of care with Dr. Krueger. Subjective Subjective Date/Time Seen: 09/14/22 11:13 Post Op day: 14 (Sigmoidectomy with Rossi procedure) Patient reports: no new complaints, voiding w/o difficulty and afebrile Interval history: Patient seen and examined. She is still feeling bloated. No significant amount of abdominal pain, mostly just the discomfort of the bloating. She denies any nausea or vomiting. Tolerating her diet. Tolerating activity. Currently has her O2 off and states the nurse checked her oxygen and it was stable after having oxygen off. No other complaints at this time. Review of Systems Review of Systems: All systems reviewed & are unremarkable except as noted in HPI and below Constitutional: Constitutional: Reports no additional constitutional complaints, Denies fever(s), Denies headache(s) and Denies poor appetite Cardiovascular: Cardiovascular: Reports no additional cardiovascular complaints and Denies chest pain Respiratory: Respiratory: Reports no additional respiratory complaints, Denies cough and Denies dyspnea Gastrointestinal: Gastrointestinal: Reports as per HPI and Reports no additional gastrointestinal complaints Exam Const: General: comfortable, no acute distress and awake Orientation/consciousness: patient oriented x3 GI: Inspection: distended, incision ( open areas healing, no new signs of infection) and other ( continues to have good colostomy function) GI Palp: Yes Soft to palpation, Yes Tenderness to palpation present (GI) (incisional) and No Guarding due to palpation present (GI) Auscultation: normal bowel sounds Extrem: General: no calf tenderness and edema bilateral (bilateral lower extremities 1+ pitting) Psych: Mental Status: mental status grossly normal Insight: Good insight present (Psych) Objective Data Vital Signs Vital Signs: Vital Signs - 24 hr 09/13/22 14:01 09/13/22 14:26 09/13/22 14:37 Temperature Pulse Rate 81 81 79 Respiratory Rate 20 20 Blood Pressure 130/65 Pulse Oximetry 95 Oxygen Delivery Oxygen Flow Rate 09/13/22 17:15 09/13/22 20:08 09/13/22 20:09 Temperature Pulse Rate 74 78 Respiratory Rate 20 Blood Pressure Pulse Oximetry 92 Oxygen Delivery Nasal Cannula Oxygen Flow Rate 1 09/13/22 20:17 09/13/22 20:32 09/13/22 20:00 Temperature 97.3 F L Pulse Rate 79 74 Respiratory Rate 20 18 Blood Pressure 141/56 H Pulse Oximetry 97 97 Oxygen Delivery Nasal Cannula Oxygen Flow Rate 1 09/14/22 03:23 09/14/22 08:09 09/14/22 08:18 Temperature 97.7 F Pulse Rate 71 74 Respiratory Rate 18 Blood Pressure 123/51 L Pulse Oximetry 96 94 Oxygen Delivery Nasal Cannula Oxygen Flow Rate 1 Intake/Output Intake/Output: Intake & Output 09/12/22 09/12/22 09/13/22 09/14/22 00:59 23:59 23:59 23:59 Intake Total 2839 730 Outpu
[2022-09-14] MEDS: SILVERGEL (ELTA) 45 ML 1 APPLIC TOPICAL (14:27)
[2022-09-14] MEDS: QUEtiapine FUMARATE 25 MG TABLET PO (20:19)
[2022-09-15 04:41] LABS: Hematocrit 27.9 % (37.0-47.0); Hemoglobin 8.8 g/dL (12.0-15.0); Mean Corpuscular HGB Conc 31.5 g/dl (32-36); Mean Corpuscular Hemoglobin 30.6 pg (26-34); Mean Corpuscular Volume 96.9 fl (80-100); Mean Platelet Volume 9.8 fl (7.4-10.4); Platelet Count Result 665 k/mm3 (150-375); Red Blood Count 2.88 M/mm3 (4.2-5.4); Red Cell Distribution Width 14.6 % (11.5-14.5); White Blood Count 8.8 K/mm3 (4.5-10.0)
[2022-09-15 04:47] VITALS: BP 128/51; PULSE 68; RESP 20; TEMP 36; O2SAT 95
[2022-09-15 04:59] LABS: Anion Gap 6 mmol/L (8-16); Blood Urea Nitrogen 14 mg/dL (7-17); Calcium 7.6 mg/dL (8.4-10.2); Carbon Dioxide 30 mmol/L (22-30); Chloride 97 mmol/L (98-107); Estimated CRCL calculation 97 ml/min; Estimated Glomerular Filt Rate > 60; Glucose 98 mg/dL (65-110); Potassium 4.1 mmol/L (3.4-5.0); Sodium 133 mmol/L (137-145)
[2022-09-15] MEDS: CENTRAL LINE FLUSH 10 ML IV PUSH (05:09)
[2022-09-15] MEDS: MINERAL OIL 30 ML UDC 15 ML PO ×2 (05:11→17:50)
[2022-09-15] MEDS: oxyCODONE/ACETAMINOPHEN (*CRX) 5-325 MG TABLET 1 TABLET PO ×3 (05:13→17:04)
--- NOTE | 2022-09-15 08:36 | PM.PNGS ---
Progress Note: A&P Assessment and Plan (1) Perforated sigmoid colon: Code(s): K63.1 - Perforation of intestine (nontraumatic) Status: Acute Assessment and Plan: Continues to have bloating and some abdominal distension. Having good colostomy output. Did take the Metamucil and mineral oil yesterday although particularly the mineral oil is distaste full. Still not eating as well as she likes and frequently uncomfortable. Will hold off on transfer to [facility] bed and possibly go tomorrow. (2) Fecal peritonitis: Code(s): K65.8 - Other peritonitis Status: Acute Assessment and Plan: Antibiotics stopped yesterday. (3) Atrial fibrillation with rapid ventricular response: Code(s): I48.91 - Unspecified atrial fibrillation Status: Acute Assessment and Plan: Sinus rhythm on amiodarone. (4) Protein-calorie malnutrition, severe: Code(s): E43 - Unspecified severe protein-calorie malnutrition Status: Acute Assessment and Plan: TPN has been stopped. Now on regular diet. (5) Hypokalemia due to excessive gastrointestinal loss of potassium: Code(s): E87.6 - Hypokalemia Status: Acute Assessment and Plan: Potassium 4.1. Continue to monitor. Subjective Subjective Date/Time Seen: 09/15/22 08:36 Post Op day: #15 Patient reports: pain is less, voiding w/o difficulty (Multiple voids yesterday, at least 3 unmeasured. Got Bumex), bowel movement, nausea (More bloating and nausea), afebrile and other (No longer requiring oxygen) Review of Systems Review of Systems: All systems reviewed & are unremarkable except as noted in HPI and below (HPI and those items noted below) Constitutional: Constitutional: Denies chills and Denies fever(s) Cardiovascular: Cardiovascular: Denies chest pain, Denies diaphoresis, Denies dyspnea and Denies paroxysmal nocturnal dyspnea Respiratory: Respiratory: Denies chest congestion, Denies cough and Denies dyspnea Gastrointestinal: Gastrointestinal: Reports bloating (Impairs her appetite) Integumentary/Breasts: Skin/Breast: Denies lesions and Denies rash Objective Data Vital Signs Vital Signs: Vital Signs - 24 hr 09/14/22 15:19 09/14/22 16:28 09/14/22 09:00 Temperature 36.7 C Pulse Rate 68 68 Respiratory Rate 20 Blood Pressure 132/50 L Pulse Oximetry 94 92 Oxygen Delivery Room Air 09/14/22 19:49 09/14/22 20:00 09/15/22 04:47 Temperature 36.3 C L 36.0 C L Pulse Rate 71 68 Respiratory Rate 18 20 Blood Pressure 162/68 H 128/51 L Pulse Oximetry 92 95 Oxygen Delivery Room Air Intake/Output Intake/Output: Intake & Output 09/12/22 09/13/22 09/14/22 09/15/22 23:59 23:59 23:59 23:59 Intake Total 2839 1320 290 Output Total 1610 1950 600 Balance 3807 -315 -257 Meds/Results Medications: Active Medications Generic Name Dose Route Start Last Admin Trade Name Freq PRN Reason Stop Dose Admin Alprazolam 0.25 mg 09/12/22 11:35 09/12/22 17:42 Alprazolam (*Crx) 0.25 Mg Tablet PO 0.25 mg BID PRN Administration Anxiety Alteplase, Recombinant 2 mg 09/11/22 05:00 Alteplase 2 Mg Vial (Cathflo) IV PUSH ONCE PRN Line Occlusion Amiodarone HCl 200 mg 09/05/22 09:00 09/14/22 16:28 Amiodarone Hcl 200 Mg Tablet PO 200 mg BID ELIZABETH Administration Aspirin 325 mg 09/07/22 08:00 09/14/22 08:08 Aspirin 325 Mg Tablet PO 325 mg DAILY@0800 ELIZABETH Administration Enoxaparin Sodium 40 mg 09/01/22 09:00 09/14/22 08:10 Enoxaparin 40 Mg/0.4 Ml Syringe SUB-Q 40 mg DAILY ELIZABETH Administration Dextrose 1,000 mls @ 50 mls/hr 09/08/22 15:00 Dextrose 10% IV CONT .Q20H PRN if PN is interrupted Meloxicam 7.5 mg 09/13/22 09:00 09/14/22 08:09 Meloxicam 7.5 Mg Tablet PO 7.5 mg DAILY ELIZABETH Administration Mineral Oil 15 ml 09/13/22 18:00 09/15/22 05:11 Mineral Oil 30 Ml Udc PO 15 ml Q12H ELIZABETH Administration
[2022-09-15] MEDS: ASPIRIN 325 MG TABLET PO (09:40)
[2022-09-15] MEDS: MELOXICAM 7.5 MG TABLET PO (09:40)
[2022-09-15] MEDS: PANTOPRAZOLE 40 MG TABLET PO (09:40)
[2022-09-15] MEDS: SERTRALINE HCL 50 MG TABLET 100 MG PO (09:40)
[2022-09-15 09:41] VITALS: PULSE 70
[2022-09-15] MEDS: AMIODARONE HCL 200 MG TABLET PO ×2 (09:41→17:50)
[2022-09-15] MEDS: POTASSIUM CHLORIDE 20 MEQ TABLET.ER PO (09:41)
[2022-09-15] MEDS: ENOXAPARIN 40 MG/0.4 ML SYRINGE SUB-Q (09:42)
[2022-09-15] MEDS: PSYLLIUM POWDER PACKET 1 PACKET PO (09:43)
[2022-09-15] MEDS: SILVERGEL (ELTA) 45 ML 1 APPLIC TOPICAL (09:52)
--- NOTE | 2022-09-15 11:00 | PCPTNOTE ---
Attempted to see patient for PT at this time, however patient declined due to anticipated discharge.
[2022-09-15 14:05] VITALS: BP 143/52; PULSE 73; RESP 20; TEMP 36.3; O2SAT 92
--- NOTE | 2022-09-15 14:11 | PCWOUND ---
WOCN NOTE Enrolled patient in secure start services with [facility] for ostomy ordering after discharge.
--- NOTE | 2022-09-15 14:44 | PC.NURSE ---
On 09/15/22, the student, [Otis Logan], provided care and completed [facility] documentation on this patient. I have reviewed the student's documentation and agree with the findings.
--- NOTE | 2022-09-15 14:57 | PM.IMPN ---
Progress Note: A&P Assessment and Plan (1) Septic shock: Code(s): A41.9 - Sepsis, unspecified organism; R65.21 - Severe sepsis with septic shock Status: Acute Assessment and Plan: Septic shock likely related to fecal peritonitis secondary to sigmoid perforation -patient was initially on metronidazole and Levaquin,?now on imipenem on (09/01) -patient was also started on micafungin on 08/31 -08/31 blood cultures, preliminary report negative x2 Will plan 2 weeks of IV antibiotics course continue to follow leukocytosis. Leukocytosis improved. today's day 13 planned. imipenem And Micafungin stopped completed the course of treat Leukocytosis has resolved (2) Acute respiratory failure: Code(s): J96.00 - Acute respiratory failure, unspecified whether with hypoxia or hypercapnia Status: Acute Assessment and Plan: Acute respiratory failure likely related to sedation from anesthesia Now extubated remains on 2-3 L oxygen now off oxygen. (3) Perforated sigmoid colon: Code(s): K63.1 - Perforation of intestine (nontraumatic) Status: Acute Assessment and Plan: Status post sigmoidectomy with Rossi procedure on 08/31/2022 -surgery following CT abdomen 09/07 with multiple gas and fluid-filled loops of small bowel without evident transition point to suggest obstruction and most likely represents postoperative ileus. On tube feeds pt is on IV primaxin and iv solumedrol. Solu Medrol stopped 09/10/2022 (4) Peritonitis: Code(s): K65.9 - Peritonitis, unspecified Status: Acute Assessment and Plan: See above (5) Atrial fibrillation with rapid ventricular response: Code(s): I48.91 - Unspecified atrial fibrillation Status: Acute Assessment and Plan: Now in sinus Leodan Was on amiodarone drip On p.o. amiodarone on ASA Cardiology following\ Needs to consider anticoagulation once okay from surgical standpoint. however no furhter recurrence of afib. will not recommend anticoagulation has she has remained sinus rhythm since then. currently on aspirin 325 mg daily. Currently on Lovenox DVT prophylaxis (6) Electrolyte abnormality: Code(s): E87.8 - Other disorders of electrolyte and fluid balance, not elsewhere classified Status: Acute Assessment and Plan: Potassium is better. Repeat and monitor replace as needed (7) Dysphagia: Code(s): R13.10 - Dysphagia, unspecified Status: Acute Assessment and Plan: Pt is on tube feeds presently (8) Delirium: Code(s): R41.0 - Disorientation, unspecified Status: Acute Assessment and Plan: Much better alert awake holding conversation Plan Postoperative adynamic ileus started on TPN improving NG has been removed. And started on oral diet DVT prophylaxis on Lovenox Leukocytosis also on steroid which likely is the reason continues to improve as she is off steroid now Hypercapnic respiratory acidosis: Was given 5 day course of Solu-Medrol with DuoNeb post extubation Solu Medrol Completed course Rash sounds allergic; Resolved now. Will continue to monitor Benadryl p.r.n. for now. Erythematous rash noted on groin area could be Molly. started on local antifungal which is now stopped with resolution Code status full code discussed [facility] care coordination. dc planned to [facility] bed planned. Stable from medical standpoint for discharge Subjective Date/time seen: 09/15/22 14:57 Interval history: Chart reviewed. In IMU. Discussed with the wound care nurse. Abdomen distention is improved. Vitals are stable remains on 3-4 L oxygen via nasal cannula. Abdomen is sore. No nausea vomiting. NG tube still in place 09/09/2022: Patient denies any new complaints. Abdomen is less bloated. She passed some gas from her colostomy today. Denies any nausea vomiting. No fever chills. 09/10/2022: No overnight events. NG output 3 overnight. Had sma
[2022-09-15 17:50] VITALS: PULSE 75
[2022-09-15] MEDS: NEOMYCIN/POLYMYXIN/BACITRACIN OINTMENT PACKET 1 PACKET (17:50)
[2022-09-15] MEDS: QUEtiapine FUMARATE 25 MG TABLET PO (19:55)
[2022-09-15 21:38] VITALS: BP 141/56; PULSE 74; RESP 20; TEMP 36.4; O2SAT 93
[2022-09-15 23:17] VITALS: O2SAT 94
[2022-09-16] MEDS: oxyCODONE/ACETAMINOPHEN (*CRX) 5-325 MG TABLET 1 TABLET PO ×2 (02:55→09:35)
[2022-09-16] MEDS: MINERAL OIL 30 ML UDC 15 ML PO (04:33)
[2022-09-16 06:00] VITALS: BP 140/58; PULSE 72; RESP 18; TEMP 36.4; O2SAT 99
--- NOTE | 2022-09-16 07:42 | PM.DS ---
DS: Admitting Diagnosis Discharge Date 09/16/2022 Admitting Diagnosis sigmoid colon perforation Fecal peritonitis stercoral colitis with perforation smoker DS: Discharge Diagnosis Discharge Diagnosis (1) Perforated sigmoid colon: Code(s): K63.1 - Perforation of intestine (nontraumatic) Status: Acute Assessment and Plan: sigmoidectomy with Rossi procedure performed 08/31/[address] Krueger (2) Stercoral colitis: Code(s): K52.89 - Other specified noninfective gastroenteritis and colitis Status: Acute Assessment and Plan: fecal impaction with stercoral colitis and stercoral perforation as the source. (3) Fecal peritonitis: Code(s): K65.8 - Other peritonitis Status: Acute Assessment and Plan: Liquid stool contamination of nearly the entire abdomen (4) Septic shock: Code(s): A41.9 - Sepsis, unspecified organism; R65.21 - Severe sepsis with septic shock Status: Acute Assessment and Plan: patient on pressors mechanical ventilator requiring intensive care unit treatment for nearly a week after surgery. (5) Acute respiratory failure: Code(s): J96.00 - Acute respiratory failure, unspecified whether with hypoxia or hypercapnia Status: Acute Assessment and Plan: Eventually extubated and no longer on oxygen. (6) Atrial fibrillation with rapid ventricular response: Code(s): I48.91 - Unspecified atrial fibrillation Status: Acute Assessment and Plan: Resulted postoperatively while in the intensive care unit. Patient now in normal sinus rhythm but taking amiodarone will need cardiology follow-up and possibly anticoagulation. (7) Protein-calorie malnutrition, severe: Code(s): E43 - Unspecified severe protein-calorie malnutrition Status: Acute Assessment and Plan: Due to septic shock fecal peritonitis as above. Patient was on TPN for over a week but now is eating well and nutritional status much improved. DS: Summary Hospital Course Hospital Course: Patient presented to the emergency room at [facility] in [place] with abdominal pain and evidence on CT scan of constipation with stercoral colitis. She was being treated with antibiotics and laxatives. On 08/31/2022 she became quite distended and her pain worsened. Repeat CT scan showed sigmoid colon perforation with evidence of fecal peritonitis. She was transferred to [facility] and admitted by Dr. Krueger. She was taken to surgery urgently and a sigmoidectomy with Rossi procedure was performed. She had extensive fecal peritonitis with liquid stool contaminating most of the abdominal cavity. Patient was treated with antifungal and anti biotic therapy postoperatively. She was extremely ill with septic shock due to fecal peritonitis. She was in the intensive care unit for approximately a week. Eventually she was able to be extubated but still had problems with return of bowel function due to the severe constipation and relative obstruction at the colostomy site due to hard stool. She was on TPN and Nasogastric suction. her colostomy was irrigated on 2 successive days by the enterostomal therapy nurses. This was successful in softening some of the colonic stool and initiating some bowel function from the colostomy. This was not performed however until she had been here for 9 days. She continued to improve. Her anti fungal an antibiotic therapy was discontinued after 2 weeks of therapy. Her TPN was discontinued about 4 days ago. She is now eating regular food and participating in therapy. Her colostomy is functioning well. She did have some wound infection at the very bottom of the incision which is responding well to daily dressing changes of silver gel and gauze. She is discharged to [facility] bed for continued therapy and care today. Time spent discussing smoking cessation with patient: 3 to 10 minutes Status at Discharge Gali
[2022-09-16 08:46] LABS: EDCOVIDSCREEN Negative (Negative)
[2022-09-16 08:51] VITALS: PULSE 72
[2022-09-16] MEDS: ASPIRIN 325 MG TABLET PO (08:51)
[2022-09-16] MEDS: AMIODARONE HCL 200 MG TABLET PO (08:51)
[2022-09-16] MEDS: POTASSIUM CHLORIDE 20 MEQ TABLET.ER PO (08:51)
[2022-09-16] MEDS: ENOXAPARIN 40 MG/0.4 ML SYRINGE SUB-Q (08:51)
[2022-09-16] MEDS: PANTOPRAZOLE 40 MG TABLET PO (08:52)
[2022-09-16] MEDS: SILVERGEL (ELTA) 45 ML 1 APPLIC TOPICAL (08:52)
[2022-09-16] MEDS: PSYLLIUM POWDER PACKET 1 PACKET PO (08:52)
[2022-09-16] MEDS: MELOXICAM 7.5 MG TABLET PO (08:52)
[2022-09-16] MEDS: SERTRALINE HCL 50 MG TABLET 100 MG PO (08:52)
== END 2022-09-16 10:15 | disposition swing bed (61) | DRG 853 ==
LOC: ANH2MED 12:42 → ANHICU 16:54 → ANHIMU 09-06 20:21 → ANH2MED 09-09 22:52
PROVIDERS: Internal Medicine; Nurse Practitioner Family; Admitting Provider Surgery; PCP Physician Assistant; Visit Provider Surgery
PROC: 0DTN0ZZ Resection of Sigmoid Colon, Open Approach (ICD-10-PCS; CPT 49000; principal; 2022-08-31 16:00)
DX: A41.9 Sepsis, unspecified organism (principal); E43 Unspecified severe protein-calorie malnutrition; K63.1 Perforation of intestine (nontraumatic); K55.049 Acute infarction of large intestine, extent unspecified; K65.9 Peritonitis, unspecified; R65.21 Severe sepsis with septic shock; J95.821 Acute postprocedural respiratory failure; I97.191 Other postprocedural cardiac functional disturbances following other surgery; K56.0 Paralytic ileus; K52.89 Other specified noninfective gastroenteritis and colitis; F17.210 Nicotine dependence, cigarettes, uncomplicated; F41.9 Anxiety disorder, unspecified; E78.5 Hyperlipidemia, unspecified; M19.90 Unspecified osteoarthritis, unspecified site; E87.8 Other disorders of electrolyte and fluid balance, not elsewhere classified; I48.91 Unspecified atrial fibrillation; R13.10 Dysphagia, unspecified; R41.0 Disorientation, unspecified; Z68.24 Body mass index [BMI] 24.0-24.9, adult; R21 Rash and other nonspecific skin eruption; E87.6 Hypokalemia; Z23 Encounter for immunization; Z88.0 Allergy status to penicillin; Z79.82 Long term (current) use of aspirin; Z79.899 Other long term (current) drug therapy; Z20.822 Contact with and (suspected) exposure to COVID-19; T41.0X5A Adverse effect of inhaled anesthetics, initial encounter; Y92.230 Patient room in hospital as the place of occurrence of the external cause
CPT/HCPCS: 36415; 36569; 36600; 71045; 74018; 74176; 74177; 80048; 80053; 82375; 82805; 82948; 83050; 83605; 83735; 84100; 84466; 84478; 85025; 85027; 85055; 85610; 85730; 86850; 86900; 86901; 87040; 87426; 88307; 90471; 90694; 92526; 92610; 93005; 93306; 94002; 94003; 94640; 97110; 97116; 97162; 97166; 97530; 97535; A9270; C1751; C9113; C9803; G0008; J0131; J0153; J0282; J0330; J0610; J0690; J0743; J1100; J1170; J1200; J1650; J1940; J1956; J2060; J2248; J2250; J2270; J2370; J2405; J2704; J2930; J3010; J3480; J7040; J7060; J7120; P9047; Q9967

== ENCOUNTER 2022-09-16 10:45 | Inpatient (IN) | payer MEDICARE, SELFPAY ==
--- NOTE | ~2022-09-16 | CT_ITS ---
EXAMINATION: CT abdomen pelvis wo con DATE: 09/23/2022 13:16 INDICATION: Abdominal pain. Bloating. TECHNIQUE: Computed tomography (CT) of the abdomen and pelvis was performed without intravenous contr ast. Automated exposure control and iterative reconstruction technique were employed. The dose-length product was 443.82 mGy-cm. COMPARISON: CT abdomen and pelvis 09/07/2022 FINDINGS: There are small pleural effusions. There is dependent atelectasis bilaterally. The heart si ze is normal. There are coronary artery calcifications. No pericardial effusion. The liver is normal. There is contrast in the gallbladder, which is normal in size. The spleen, pancreas, adrenal glands, and left kidney are normal. There is a 1 mm stone in right kidney. There is an end colostomy in left abdomen. A Rossi pouch is noted. The appendix is not visualized. There is dilated small bowel wit hout focal transition point. There are no pathologically enlarged lymph nodes. There is no free intra peritoneal fluid. Anterior skin gallito are noted. There is a total right hip arthroplasty. There is mild lumbar spondylosis and severe thoracic spondylosis. IMPRESSION: 1. Dilated small bowel without focal transition point, likely adynamic ileus. 2. Small pleural effusions. Reviewed, dictated and finalized at location A. [facility]
[2022-09-16 10:45] VITALS: BP 129/56; PULSE 77; RESP 17; TEMP 36.8; O2SAT 92; BMI 25.2
--- NOTE | 2022-09-16 11:10 | PM.IMHP ---
H&P: HPI History of Present Illness Date/Time: 09/16/22 11:10 Chief Complaint: Weakness, Colostomy postoperative, Perforated sigmoid colon Narrative: This is a 72 year old female that is here for therapy who is originally from this hospital who had to be transferred to a perforated sigmoid colon and had emergency surgery and she now how a colostomy bag with abdominal staple. Mrs Powers was in ICU and on TPN and has come to our services so she is able to learn how to care for herself and get stronger so she can go home. Patient has a past medical history of hyperlipidemia, anxiety, osteoarthritis. Patient is still having some pain and majority of the pain is in her back and not her stomach according to patient due to the mattress. Patient is able to ambulate with walker and is able to eat and drink without difficulties at this time. We will continue to train patient to self care and she will continue with physical therapy. Review of Systems Review of Systems: Pain , weakness, Colostomy , abdominal wound All systems reviewed & are unremarkable except as noted in HPI and below PMFSH Past Medical History Medical History Anxiety Hyperlipidemia Osteoarthritis Surgical History Surgical History History of cervical spinal surgery History of partial thyroidectomy History of total right hip arthroplasty Status post Rossi procedure (08/31/22) Family History Family History Other Family history unknown Social History Social History Social History: Surrogate medical decision maker: Andrew Powers, spouse. Code status: Full code. Smoking packs per day: 1 Smoking cigarettes per day: 20.0 Smoking status: Current every day smoker Tobacco type: cigarettes Alcohol intake: current Drinks per week: 2 Substance use: never Substance use type: does not use Lack of Transportation: No Lack of Food: Never True Current Housing: I Do Not Have Housing Concerned About Future Housing: No Difficulty Paying Gas/Electric Bills: No Difficulty Paying for Meds: No Currently Unemployed: No Education: Decline to Answer Difficulty w/ Childcare or Family Care: No Additional living arrangements comments: The patient lives with her in [place]. 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 Spiritual care concerns: No Comments At time as signature, I have reviewed and agree with nursing past medical, social, surgical and family history. Please see nursing chart for further information. There is no relevant family history pertinent to the presenting complaint. Meds Home Medications and Allergies Home Medications Medication Instructions Recorded Confirmed Type Adults Multivitamin 1 caplet PO DAILY 08/29/22 09/16/22 History calcium carb-magnesium carb 1 tablet PO DAILY 08/29/22 09/16/22 History meloxicam 7.5 mg tablet 7.5 mg PO DAILY 08/29/22 09/16/22 History sertraline 100 mg tablet 100 mg PO DAILY 08/29/22 09/16/22 History simvastatin 20 mg tablet 20 mg PO DAILY 08/29/22 09/16/22 History alprazolam 0.25 mg tablet (Xanax) 0.25 mg PO BID PRN Anxiety 08/31/22 09/16/22 History diphenhydramine HCl 25 mg capsule 25 mg PO TID PRN ALLERGIES 08/31/22 09/16/22 History (Benadryl) magnesium 200 mg tablet 400 mg PO DAILY 08/31/22 09/16/22 History acetaminophen 500 mg capsule 500 mg PO Q6H PRN pain #60 caps 09/16/22 09/16/22 Rx amiodarone 200 mg tablet (Pacerone) 200 mg PO BID #60 tabs 09/16/22 09/16/22 Rx aspirin 81 mg capsule 81 mg PO DAILY #500 caps 09/16/22 09/16/22 Rx enoxaparin 40 mg/0.4 mL 40 mg (0.4 mL) subcut DAILY #30 mL 09/16/22 09/16/22 Rx subcutaneous syringe (Lovenox) mineral oil (Mineral Oil Light 15 ml PO Q12H #1,000 mL 09/16/2209/07
--- NOTE | 2022-09-16 11:18 | ADMGEN ---
This patient, Mariama Powers, was admitted to 2nd Floor Room 205-2. Patient/family oriented to hospital policies and general routines including ID bracelet, bed and alarms, visiting hours, pain management, procedures, bathroom and other care routines, personal items, smoking policy, room service/diet, and visiting hours. Information on how to activate the Rapid Response Team has been discussed. Patient/Family are encouraged to report perceived risks to care and to ask questions if they do not understand what they are told or what they should do.
[2022-09-16] MEDS: oxyCODONE/ACETAMINOPHEN (*CRX) 5-325 MG TABLET 1 TABLET PO ×2 (12:02→18:05)
[2022-09-16 16:00] VITALS: BP 125/58; PULSE 72; RESP 18; TEMP 36.9; O2SAT 92
[2022-09-16 16:44] VITALS: PULSE 72
[2022-09-16] MEDS: AMIODARONE HCL 200 MG TABLET PO (16:44)
[2022-09-16] MEDS: SILVERGEL (ELTA) 45 ML 1 APPLIC TOPICAL (16:44)
[2022-09-16] MEDS: traMADol HCL (*CRX) 50 MG TABLET PO (16:47)
[2022-09-16] MEDS: QUEtiapine FUMARATE 25 MG TABLET PO (20:15)
[2022-09-16] MEDS: PSYLLIUM POWDER PACKET 1 PACKET PO (20:15)
[2022-09-16] MEDS: ALPRAZolam (*CRX) 0.25 MG TABLET PO (20:15)
[2022-09-17] VITALS: BP 143/66; PULSE 71; RESP 16; TEMP 36.7; O2SAT 92
[2022-09-17] MEDS: traMADol HCL (*CRX) 50 MG TABLET PO ×2 (02:25→20:54)
[2022-09-17] MEDS: oxyCODONE/ACETAMINOPHEN (*CRX) 5-325 MG TABLET 1 TABLET PO ×3 (03:14→15:47)
--- NOTE | 2022-09-17 05:10 | PC.NURSE ---
Patient complains of right shoulder pain, feeling like a cramping prerna horse , pt requesting shoulder massage, given x 5min with some relief, patient requesting ice pack for pain in shoulder, given with some relief.
[2022-09-17 08:00] VITALS: BP 114/56; PULSE 76; RESP 17; TEMP 36.7; O2SAT 93
[2022-09-17] MEDS: ENOXAPARIN 40 MG/0.4 ML SYRINGE SUB-Q (09:23)
[2022-09-17] MEDS: MULTIVITAMINS THERAPEUTIC TAB (*BKC) 1 TABLET PO (09:23)
[2022-09-17] MEDS: SILVERGEL (ELTA) 45 ML 1 APPLIC TOPICAL (09:23)
[2022-09-17] MEDS: SERTRALINE HCL 50 MG TABLET 100 MG PO (09:23)
[2022-09-17] MEDS: SIMVASTATIN 10 MG TABLET 20 MG PO (09:23)
[2022-09-17 09:24] VITALS: PULSE 76
[2022-09-17] MEDS: MAGNESIUM OXIDE 400 MG TABLET PO (09:24)
[2022-09-17] MEDS: ASPIRIN 81 MG ENTERIC TABLET PO (09:24)
[2022-09-17] MEDS: POTASSIUM CHLORIDE 20 MEQ TABLET PO (09:24)
[2022-09-17] MEDS: AMIODARONE HCL 200 MG TABLET PO ×2 (09:24→17:25)
[2022-09-17] MEDS: MELOXICAM 7.5 MG TABLET PO (09:27)
[2022-09-17 16:00] VITALS: BP 147/64; PULSE 74; RESP 18; TEMP 36.3; O2SAT 93
[2022-09-17 17:25] VITALS: PULSE 74
[2022-09-17] MEDS: QUEtiapine FUMARATE 25 MG TABLET PO (20:11)
[2022-09-18] VITALS: BP 147/59; PULSE 71; RESP 16; TEMP 36.4; O2SAT 97
[2022-09-18] MEDS: oxyCODONE/ACETAMINOPHEN (*CRX) 5-325 MG TABLET 1 TABLET PO ×3 (01:45→20:08)
[2022-09-18 08:00] VITALS: BP 161/77; PULSE 72; RESP 14; TEMP 36.4; O2SAT 97
[2022-09-18] MEDS: MELOXICAM 7.5 MG TABLET PO (08:30)
[2022-09-18] MEDS: POTASSIUM CHLORIDE 20 MEQ TABLET PO (08:30)
[2022-09-18] MEDS: SIMVASTATIN 10 MG TABLET 20 MG PO (08:30)
[2022-09-18] MEDS: ASPIRIN 81 MG ENTERIC TABLET PO (08:31)
[2022-09-18] MEDS: SERTRALINE HCL 50 MG TABLET 100 MG PO (08:37)
[2022-09-18] MEDS: MULTIVITAMINS THERAPEUTIC TAB (*BKC) 1 TABLET PO (08:38)
[2022-09-18 08:39] VITALS: PULSE 72
[2022-09-18] MEDS: AMIODARONE HCL 200 MG TABLET PO ×2 (08:39→16:29)
[2022-09-18] MEDS: ENOXAPARIN 40 MG/0.4 ML SYRINGE SUB-Q (08:40)
[2022-09-18] MEDS: SILVERGEL (ELTA) 45 ML 1 APPLIC TOPICAL (08:40)
[2022-09-18] MEDS: MAGNESIUM OXIDE 400 MG TABLET PO (08:40)
[2022-09-18] MEDS: traMADol HCL (*CRX) 50 MG TABLET PO ×2 (08:45→23:59)
[2022-09-18 16:00] VITALS: BP 138/71; PULSE 71; RESP 16; TEMP 36.6; O2SAT 92
[2022-09-18 16:29] VITALS: PULSE 72
[2022-09-18 19:34] VITALS: PULSE 72; RESP 16; O2SAT 92
[2022-09-18] MEDS: QUEtiapine FUMARATE 25 MG TABLET PO (20:08)
[2022-09-18] MEDS: ALPRAZolam (*CRX) 0.25 MG TABLET PO (20:08)
[2022-09-19] VITALS (7 sets, daily range): BP systolic 131–140; BP diastolic 57–76; PULSE 67–73; RESP 14–16; TEMP 36.4–37.3; O2SAT 92–95
[2022-09-19] MEDS: oxyCODONE/ACETAMINOPHEN (*CRX) 5-325 MG TABLET 1 TABLET PO ×2 (04:56→20:55)
[2022-09-19] MEDS: ALPRAZolam (*CRX) 0.25 MG TABLET PO ×2 (08:21→20:54)
[2022-09-19] MEDS: POTASSIUM CHLORIDE 20 MEQ TABLET PO (08:21)
[2022-09-19] MEDS: ASPIRIN 81 MG ENTERIC TABLET PO (08:21)
[2022-09-19] MEDS: MULTIVITAMINS THERAPEUTIC TAB (*BKC) 1 TABLET PO (08:22)
[2022-09-19] MEDS: SIMVASTATIN 10 MG TABLET 20 MG PO (08:22)
[2022-09-19] MEDS: SERTRALINE HCL 50 MG TABLET 100 MG PO (08:22)
[2022-09-19] MEDS: traMADol HCL (*CRX) 50 MG TABLET PO ×2 (08:23→19:16)
[2022-09-19] MEDS: MAGNESIUM OXIDE 400 MG TABLET PO (08:23)
[2022-09-19] MEDS: ENOXAPARIN 40 MG/0.4 ML SYRINGE SUB-Q (08:24)
[2022-09-19] MEDS: SILVERGEL (ELTA) 45 ML 1 APPLIC TOPICAL (08:24)
[2022-09-19] MEDS: AMIODARONE HCL 200 MG TABLET PO ×2 (08:24→16:59)
[2022-09-19] MEDS: MELOXICAM 7.5 MG TABLET PO (08:24)
--- NOTE | 2022-09-19 11:02 | PC.NURSE ---
CORRECTIONAL SERGEANT spoke with patient's daughter about need for patient to participate more in ostomy care. Daughter changed patient's ostomy bag today.
[2022-09-19] MEDS: QUEtiapine FUMARATE 25 MG TABLET PO (20:54)
[2022-09-20 05:37] LABS: Hematocrit 29.3 % (35.0-42.0); Hemoglobin 9.1 g/dL (11.7-13.8); Immature Platelet Fraction Pct 1.3 % (1.0-7.0); Mean Corpuscular HGB Conc 31.1 g/dL (32.0-36.0); Mean Corpuscular Hemoglobin 30.4 pg (27.0-31.0); Mean Platelet Volume 9.2 fl (9.2-11.8); Platelet Count Result 649 K/mm3 (150-420); Red Blood Count 2.99 M/mm3 (4.20-5.40); White Blood Count 7.4 K/mm3 (4.8-10.8)
[2022-09-20 05:48] LABS: Anion Gap 4 mmol/L (8-16); Blood Urea Nitrogen 9 mg/dL (7-18); Carbon Dioxide 33 mmol/L (21-32); Chloride 102 mmol/L (98-108); Estimated CRCL calculation 70 ml/min; Estimated Glomerular Filt Rate > 60; Glucose 87 mg/dL (70-99); Osmolality Calculated 285 mOsm/kg (285-295); Potassium 4.3 mmol/L (3.5-5.1); Sodium 139 mmol/L (136-145)
--- NOTE | 2022-09-20 06:56 | PC.NURSE ---
Teaching given on colostomy, patient able to open bag to burp d/t gas accumulation.
[2022-09-20 08:00] VITALS: BP 123/53; PULSE 79; RESP 16; TEMP 36.7; O2SAT 95
[2022-09-20 08:08] VITALS: PULSE 79
[2022-09-20] MEDS: AMIODARONE HCL 200 MG TABLET PO ×2 (08:08→15:55)
[2022-09-20] MEDS: traMADol HCL (*CRX) 50 MG TABLET PO ×2 (08:09→15:08)
[2022-09-20] MEDS: MELOXICAM 7.5 MG TABLET PO (08:09)
[2022-09-20] MEDS: ALPRAZolam (*CRX) 0.25 MG TABLET PO ×2 (08:10→20:31)
[2022-09-20] MEDS: MAGNESIUM OXIDE 400 MG TABLET PO (08:11)
[2022-09-20] MEDS: SERTRALINE HCL 50 MG TABLET 100 MG PO (08:11)
[2022-09-20] MEDS: SIMVASTATIN 10 MG TABLET 20 MG PO (08:11)
[2022-09-20] MEDS: POTASSIUM CHLORIDE 20 MEQ TABLET PO (08:12)
[2022-09-20] MEDS: ASPIRIN 81 MG ENTERIC TABLET PO (08:12)
[2022-09-20] MEDS: MULTIVITAMINS THERAPEUTIC TAB (*BKC) 1 TABLET PO (08:12)
[2022-09-20] MEDS: ENOXAPARIN 40 MG/0.4 ML SYRINGE SUB-Q (08:13)
[2022-09-20] MEDS: SILVERGEL (ELTA) 45 ML 1 APPLIC TOPICAL (08:14)
--- NOTE | 2022-09-20 10:13 | P.PNCROSS_ITS ---
Event Note Event Note Event Note: reviewed patient labs with nothing at this time that needs changed informed radha gonzalez of her lab work.
[2022-09-20 15:55] VITALS: PULSE 77
[2022-09-20 16:00] VITALS: BP 125/52; PULSE 77; RESP 16; TEMP 36.7; O2SAT 95
[2022-09-20 19:42] VITALS: PULSE 77; RESP 16; O2SAT 95
[2022-09-20] MEDS: oxyCODONE/ACETAMINOPHEN (*CRX) 5-325 MG TABLET 1 TABLET PO (20:31)
[2022-09-20] MEDS: polyethylene glycoL 3350 17 GM POWD.PACK PO (20:31)
[2022-09-20] MEDS: QUEtiapine FUMARATE 25 MG TABLET PO (20:32)
[2022-09-21] VITALS: BP 124/56; PULSE 74; RESP 16; TEMP 37; O2SAT 92
--- NOTE | 2022-09-21 00:37 | PC.NURSE ---
Patient resting quietly. Call light and belongings within reach. Able to verbalize needs.
--- NOTE | 2022-09-21 01:22 | PC.NURSE ---
Patient resting quietly. Call light and belongings within reach. No signs of distress observed.
[2022-09-21] MEDS: oxyCODONE/ACETAMINOPHEN (*CRX) 5-325 MG TABLET 1 TABLET PO ×2 (06:51→15:49)
[2022-09-21 08:00] VITALS: BP 124/55; PULSE 73; RESP 14; TEMP 36.8; O2SAT 93
[2022-09-21] MEDS: MULTIVITAMINS THERAPEUTIC TAB (*BKC) 1 TABLET PO (09:55)
[2022-09-21] MEDS: ENOXAPARIN 40 MG/0.4 ML SYRINGE SUB-Q (09:55)
[2022-09-21] MEDS: traMADol HCL (*CRX) 50 MG TABLET PO ×2 (09:55→20:04)
[2022-09-21] MEDS: POTASSIUM CHLORIDE 20 MEQ TABLET PO (09:55)
[2022-09-21 09:56] VITALS: PULSE 73
[2022-09-21] MEDS: SIMVASTATIN 10 MG TABLET 20 MG PO (09:56)
[2022-09-21] MEDS: SERTRALINE HCL 50 MG TABLET 100 MG PO (09:56)
[2022-09-21] MEDS: MELOXICAM 7.5 MG TABLET PO (09:56)
[2022-09-21] MEDS: AMIODARONE HCL 200 MG TABLET PO ×2 (09:56→17:13)
[2022-09-21] MEDS: ASPIRIN 81 MG ENTERIC TABLET PO (09:57)
[2022-09-21] MEDS: MAGNESIUM OXIDE 400 MG TABLET PO (09:57)
[2022-09-21] MEDS: SILVERGEL (ELTA) 45 ML 1 APPLIC TOPICAL (09:58)
--- NOTE | 2022-09-21 10:00 | PC.NURSE ---
Pt states her colostomy needs to have air released and her daughter will be doing it for her. When asked about doing herself, states she is too tired. Discussion had outside of pt's room with daughter about the importance of pt participation in care of ostomy. Discussed signs of depression that could be associated with a new ostomy. Pt's daughter denies any issues with her mother and stated she just can't see to help and has been very tired. Will continue to encourage pt participation in care of ostomy.
[2022-09-21] MEDS: ALPRAZolam (*CRX) 0.25 MG TABLET PO ×2 (10:03→20:01)
[2022-09-21] MEDS: DOCUSATE SODIUM 100 MG CAPSULE PO (10:03)
[2022-09-21 16:00] VITALS: BP 147/62; PULSE 73; RESP 17; TEMP 36.6; O2SAT 91
[2022-09-21 17:13] VITALS: PULSE 73
[2022-09-21] MEDS: QUEtiapine FUMARATE 25 MG TABLET PO (20:01)
[2022-09-22] VITALS: BP 117/57; PULSE 76; RESP 17; TEMP 36.8; O2SAT 94
[2022-09-22] MEDS: traMADol HCL (*CRX) 50 MG TABLET PO ×3 (04:11→20:23)
[2022-09-22 08:00] VITALS: BP 133/67; PULSE 71; RESP 18; TEMP 37.2; O2SAT 93
[2022-09-22] MEDS: SILVERGEL (ELTA) 45 ML 1 APPLIC TOPICAL (09:30)
[2022-09-22] MEDS: MELOXICAM 7.5 MG TABLET PO (09:30)
[2022-09-22] MEDS: SIMVASTATIN 10 MG TABLET 20 MG PO (09:30)
[2022-09-22 09:31] VITALS: PULSE 80
[2022-09-22] MEDS: MULTIVITAMINS THERAPEUTIC TAB (*BKC) 1 TABLET PO (09:31)
[2022-09-22] MEDS: AMIODARONE HCL 200 MG TABLET PO ×2 (09:31→16:52)
[2022-09-22] MEDS: ENOXAPARIN 40 MG/0.4 ML SYRINGE SUB-Q (09:31)
[2022-09-22] MEDS: ASPIRIN 81 MG ENTERIC TABLET PO (09:31)
[2022-09-22] MEDS: MAGNESIUM OXIDE 400 MG TABLET PO (09:31)
[2022-09-22] MEDS: SERTRALINE HCL 50 MG TABLET 100 MG PO (09:31)
[2022-09-22] MEDS: POTASSIUM CHLORIDE 20 MEQ TABLET PO (09:31)
[2022-09-22] MEDS: ALPRAZolam (*CRX) 0.25 MG TABLET PO (11:37)
[2022-09-22] MEDS: ACETAMINOPHEN 500 MG TABLET PO (11:44)
[2022-09-22 16:00] VITALS: BP 130/58; PULSE 67; RESP 18; TEMP 36.4; O2SAT 92
[2022-09-22 16:52] VITALS: PULSE 67
[2022-09-22] MEDS: QUEtiapine FUMARATE 25 MG TABLET PO (20:23)
[2022-09-23] VITALS: BP 138/63; PULSE 71; RESP 16; TEMP 36.5; O2SAT 94
[2022-09-23] MEDS: ACETAMINOPHEN 500 MG TABLET PO ×3 (03:39→20:58)
[2022-09-23 08:00] VITALS: BP 139/63; PULSE 64; RESP 16; TEMP 36.7; O2SAT 93
[2022-09-23] MEDS: SERTRALINE HCL 50 MG TABLET 100 MG PO (08:22)
[2022-09-23] MEDS: MULTIVITAMINS THERAPEUTIC TAB (*BKC) 1 TABLET PO (08:22)
[2022-09-23 08:24] VITALS: PULSE 64
[2022-09-23] MEDS: POTASSIUM CHLORIDE 20 MEQ TABLET PO (08:24)
[2022-09-23] MEDS: AMIODARONE HCL 200 MG TABLET PO ×2 (08:24→16:21)
[2022-09-23] MEDS: ASPIRIN 81 MG ENTERIC TABLET PO (08:24)
[2022-09-23] MEDS: ALPRAZolam (*CRX) 0.25 MG TABLET PO ×2 (08:24→20:57)
[2022-09-23] MEDS: SIMVASTATIN 10 MG TABLET 20 MG PO (08:25)
[2022-09-23] MEDS: MAGNESIUM OXIDE 400 MG TABLET PO (08:25)
[2022-09-23] MEDS: ENOXAPARIN 40 MG/0.4 ML SYRINGE SUB-Q (08:26)
[2022-09-23] MEDS: MELOXICAM 7.5 MG TABLET PO (08:27)
[2022-09-23] MEDS: SILVERGEL (ELTA) 45 ML 1 APPLIC TOPICAL (08:31)
[2022-09-23] MEDS: traMADol HCL (*CRX) 50 MG TABLET PO ×2 (09:29→16:22)
[2022-09-23 16:00] VITALS: BP 136/63; PULSE 69; RESP 16; TEMP 36.8; O2SAT 96
[2022-09-23 16:21] VITALS: PULSE 69
[2022-09-23 20:00] VITALS: PULSE 69; RESP 16; O2SAT 96
[2022-09-23] MEDS: QUEtiapine FUMARATE 25 MG TABLET PO (20:58)
[2022-09-24] VITALS: BP 140/65; PULSE 69; RESP 18; TEMP 37.1; O2SAT 95
[2022-09-24] MEDS: traMADol HCL (*CRX) 50 MG TABLET PO ×2 (01:20→08:27)
[2022-09-24 02:20] VITALS: TEMP 37.1
[2022-09-24] MEDS: ACETAMINOPHEN 500 MG TABLET PO ×2 (03:45→09:52)
[2022-09-24 04:43] VITALS: TEMP 37.1
[2022-09-24 07:46] VITALS: BP 145/69; PULSE 75; RESP 16; TEMP 36.3; O2SAT 93
[2022-09-24] MEDS: ENOXAPARIN 40 MG/0.4 ML SYRINGE SUB-Q (08:25)
[2022-09-24] MEDS: DOCUSATE SODIUM 100 MG CAPSULE PO (08:27)
[2022-09-24] MEDS: SERTRALINE HCL 50 MG TABLET 100 MG PO (08:27)
[2022-09-24] MEDS: MELOXICAM 7.5 MG TABLET PO (08:27)
[2022-09-24 08:28] VITALS: PULSE 67
[2022-09-24] MEDS: AMIODARONE HCL 200 MG TABLET PO (08:28)
[2022-09-24] MEDS: SIMVASTATIN 10 MG TABLET 20 MG PO (08:28)
[2022-09-24] MEDS: MAGNESIUM OXIDE 400 MG TABLET PO (08:28)
[2022-09-24] MEDS: ASPIRIN 81 MG ENTERIC TABLET PO (08:29)
[2022-09-24] MEDS: POTASSIUM CHLORIDE 20 MEQ TABLET PO (08:29)
[2022-09-24] MEDS: MULTIVITAMINS THERAPEUTIC TAB (*BKC) 1 TABLET PO (08:29)
--- NOTE | 2022-09-24 08:30 | PM.DS ---
DS: Admitting Diagnosis Discharge Date 09/24/2022 Admitting Diagnosis rehab DS: Discharge Diagnosis Discharge Diagnosis (1) Hypokalemia due to excessive gastrointestinal loss of potassium: Code(s): E87.6 - Hypokalemia Status: Acute Assessment and Plan: stable monitor and replenish accordingly monitor for s/s of electrolyte imbalance appointment with Krystle Stein (cardiology) on 09/29 at 3pm (2) Protein-calorie malnutrition, severe: Code(s): E43 - Unspecified severe protein-calorie malnutrition Status: Acute Assessment and Plan: Monitor patient intake and what she is eating High caloric intake to help promote healing (3) Hyperlipidemia: Code(s): E78.5 - Hyperlipidemia, unspecified Status: Acute Assessment and Plan: continue with home medication appointment with Krystle Stein (cardiology) on 09/29 at 3pm (4) Anxiety: Code(s): F41.9 - Anxiety disorder, unspecified Status: Acute Assessment and Plan: Prn medication and give accordingly (5) Constipation: Code(s): K59.00 - Constipation, unspecified Status: Acute Assessment and Plan: prn medication if needed stool noted in colostomy resolved (6) Weakness: Code(s): R53.1 - Weakness Status: Acute Assessment and Plan: PT/OT evaluate and treat encourage intake for patient to be able to maintain caloric energy (7) Colostomy care: Code(s): Z43.3 - Encounter for attention to colostomy Status: Acute Assessment and Plan: Patient should be emptying her colostomy and being taught how to do it changing as needed (8) Wound drainage: Code(s): L24.A9 - Irritant contact dermatitis due friction or contact with other specified body fluids Status: Acute Assessment and Plan: Dressing dry and intact with daily dressing changes Apply hydrogel daily Wound clinic appointment with Dr. Krueger on SEP 27 Pt has appointment with Dr. Krueger at [facility] on 09/27 at 1300 with arrival by 1230. DS: Summary Hospital Course Reason for hospitalization: rehab, weakness Hospital Course: This is a 72 year old female that is here for therapy who is originally from this hospital who had to be transferred to a perforated sigmoid colon and had emergency surgery and she now how a colostomy bag with abdominal staple. Mrs Powers was in ICU and on TPN and has come to our services so she is able to learn how to care for herself and get stronger so she can go home. Patient has a past medical history of hyperlipidemia, anxiety, osteoarthritis. patient condition has improved since her admission to our swing bed. patient is able to ambulate 225 ft x 2 with 4 wheel walker and standby assist. The patient denies SOB, CP, palpitation, extremity numbness, lightheadedness, dizziness, constipation, diarrhea, chills, or fever. Discharge instructions reviewed with patient, as well as provided in writing per nursing staff. The instructions also include specific and strict return/GO TO THE ER as well as f/u information. All questions have been answered, and the patient and/or family deny any further questions with discharge and discharge plan. Time Spent with Patient Time attestation: Total time spent providing and/or coordinating discharge services: Exam Narrative: GENERAL:Well-appearing, well-nourished, and in no acute distress. HEAD:Normocephalic, EYES: PERRLA ENT: Nares clear, no rhinorrhea or epistaxis. Mucous membranes moist. CHEST: Clear to auscultation. No respiratory distress. HEART: Regular rate and rhythm.. Normal peripheral pulses. ABDOMEN: Soft, nontender,normal active bowel sounds. incision midline colostomy on left dressing on the right stable are attached and well approximated with a few staple that are gaping and draining in the lower abdomen area, stool noted in colostomy bag EXTREMITIES: Normal range of motion. No edema. SKIN:
[2022-09-24] MEDS: ALPRAZolam (*CRX) 0.25 MG TABLET PO (08:31)
[2022-09-24] MEDS: SILVERGEL (ELTA) 45 ML 1 APPLIC TOPICAL (09:53)
--- NOTE | 2022-09-24 10:02 | PC.NURSE ---
Discharge education given to patient and her daughter and . All voiced understanding. Dressing changed and CDI to surgical incision wound. No s/s infection noted. Patient preparing for discharge at this time.
--- NOTE | 2022-09-24 10:15 | PC.NURSE ---
Patient discharged from unit in w/c accompanied by investment underwriter and patient's family. Personal belongings sent home with patient. Discharge instructions reinforced and availability made for family to ask questions. Patient and family voiced understanding. Patient left hospital grounds in private vehicle.
--- NOTE | 2022-09-28 11:40 | PC.NURSE ---
Pt states she received and understood the discharge instructions. Patient also states they were all excellent .
== END 2022-09-24 10:15 | disposition home health service (06) | DRG 947 ==
PROVIDERS: Nurse Practitioner Family; Admitting Provider Internal Medicine; PCP Physician Assistant; Visit Provider Internal Medicine
DX: R53.1 Weakness (principal); E43 Unspecified severe protein-calorie malnutrition; E87.6 Hypokalemia; Z93.3 Colostomy status; L24.A9 Irritant contact dermatitis due friction or contact with other specified body fluids; E78.5 Hyperlipidemia, unspecified; M19.90 Unspecified osteoarthritis, unspecified site; F41.9 Anxiety disorder, unspecified; F17.210 Nicotine dependence, cigarettes, uncomplicated; Z96.641 Presence of right artificial hip joint
CPT/HCPCS: 36415; 74176; 80048; 85027; 85055; 97110; 97161; 97165; 97530; 97535; A9270; J1650

== ENCOUNTER 2022-10-11 07:41 | Outpatient (RCR) | payer MEDICARE, SELFPAY ==
[2022-09-27 14:07] VITALS: BMI 24.2
== END 2022-12-10 15:54 | disposition home or self-care (01) ==
LOC: ANHWOC 07:41
PROVIDERS: PCP Physician Assistant; Visit Provider Surgery
DX: T81.31XD Disruption of external operation (surgical) wound, not elsewhere classified, subsequent encounter (principal); Z43.3 Encounter for attention to colostomy
CPT/HCPCS: 99213; 99214; A9270; G0463

== ENCOUNTER 2023-03-03 11:51 | Outpatient (CLI) | payer MEDICARE, SELFPAY ==
--- NOTE | ~2023-03-03 | XR_ITS ---
Clinical Indication: Postoperative PA and lateral views of the chest: Comparison: 09/05/2022 Findings: The lungs are clear, without evidence of focal consolidation or pleural effusion. Cardiome diastinal silhouette is within normal limits. Cervical spine fixation hardware noted. Impression: Clear lungs. Reviewed, dictated and finalized at [facility]. Impression: Clear lungs.
--- NOTE | 2023-03-03 12:39 | ECG_ITS ---
Measurements Intervals [place] Rate: 60 P: -4 WY: 147 QRS: 32 QRSD: 134 T: 34 QT: 406 QTc: 408 Interpretive Statements SINUS RHYTHM INTRAVENTRICULAR CONDUCTION DELAY [130+ ms QRS DURATION] ABNORMAL ECG COMPARED TO ECG 09/01/2022 20:04:29 SINUS RHYTHM NOW PRESENT INTRAVENTRICULAR CONDUCTION DELAY NOW PRESENT Electronically Signed On 03-03-2023 14:26:11 CDT by Jose Juan Johnston M.D.
[2023-03-03 15:26] LABS: Basophils Absolute Auto 0.1 K/mm3 (0.0-0.1); Basophils Percent Auto 0.6 % (0.2-1.2); Eosinophils Absolute Auto 0.1 K/mm3 (0-0.3); Eosinophils Percent Auto 0.7 % (0-4.4); Hematocrit 40.9 % (37.0-47.0); Hemoglobin 13.1 g/dL (12.0-15.0); Immature Granulocyte Absolute 0.03 K/mm3 (0.00-0.031); Immature Granulocyte Percent A 0.3 % (0-0.5); Lymphocytes Absolute Auto 2.59 K/mm3 (0.9-3.2); Lymphocytes Percent Auto 28.7 % (18.3-44.2); Mean Corpuscular Hemoglobin 30.3 pg (26-34); Mean Corpuscular Volume 94.7 fl (80-100); Mean Platelet Volume 9.5 fl (7.4-10.4); Monocytes Absolute Auto 0.9 K/mm3 (0.1-0.6); Monocytes Percent Auto 10.4 % (2.6-8.5); Neutrophils Absolute Auto 5.3 K/mm3 (1.3-6.7); Neutrophils Percent Auto 59.3 % (45.5-73.1); Platelet Count Result 429 k/mm3 (150-375); Red Blood Count 4.32 M/mm3 (4.2-5.4); Red Cell Distribution Width 14.2 % (11.5-14.5)
[2023-03-03 15:42] LABS: Anion Gap 5 mmol/L (8-16); Blood Urea Nitrogen 16 mg/dL (7-17); Calcium 9.5 mg/dL (8.4-10.2); Carbon Dioxide 32 mmol/L (22-30); Chloride 102 mmol/L (98-107); Estimated Glomerular Filt Rate > 60; Glucose 80 mg/dL (65-110); Potassium 4.5 mmol/L (3.4-5.0); Sodium 139 mmol/L (137-145)
== END 2023-03-03 11:52 | disposition home or self-care (01) ==
LOC: ANHSURGERY 11:53
PROVIDERS: PCP Physician Assistant; Visit Provider Surgery
DX: Z93.3 Colostomy status (principal); Z48.89 Encounter for other specified surgical aftercare; Z98.890 Other specified postprocedural states; Z90.49 Acquired absence of other specified parts of digestive tract; R94.31 Abnormal electrocardiogram [ECG] [EKG]
CPT/HCPCS: 36415; 71046; 80048; 85025; 86850; 86900; 86901; 86920; 93005

== ENCOUNTER 2023-03-09 15:41 | Inpatient (IN) | payer MEDICARE, SELFPAY ==
--- NOTE | 2023-03-03 11:24 | PC.NURSE ---
PRE-OP INSTRUCTIONS, PLEASE READ CAREFULLY Report to the Outpatient Waiting Room, entrance under the green pavilion located off [facility], at time _0600_ on date _03/09/23_. Planned Procedure Time: _0730_. PACK A SMALL OVERNIGHT BAG AND LEAVE IN THE CAR Time changes happen often and if your time is changed the preop area will call you the afternoon before. - You and your visitor will be asked to self-screen and do not enter if you have any COVID symptoms. - A mask is optional within the hospital at this time. -VISITING HOURS 8AM-8PM Patients may have clear liquids (water, carbonated beverages, clear teas, apple juice) until 3 hours prior to surgery (0430 AM) with a maximum of 20 ounces. - No food from midnight until time of surgery Take the following medications with a SIP of water the morning of surgery: _SERTRALINE, & XANAX IF NEEDED_ DO NOT STOP ANY OF YOUR OTHER PRESCRIPTION MEDICATIONS PRIOR TO SURGERY ?EXCEPT THE FOLLOWING Medications to discontinue - _MELOXICAM PER DR. WILLAMS'S INSTRUCTIONS, Date to take last dose Medications to discontinue per ANESTHESIA - _MULTIVITAMIN, PROBIOTIC 3 DAYS PRIOR TO SURGERY, , Date to take last dose 03/05/23_ Please no make-up, nail saudi arabian, hairspray, perfume, deodorant, or body powder the day of surgery. No jewelry (including any body piercings) or valuables the day of surgery, leave them at home. Please take a shower or bath the night before, or the morning of, surgery with an antibacterial soap. Wear comfortable, loose fitting clothing. - Jewelry must be removed prior to entering the operating room. Rings and piercings that are not removed may be cut off. - The hospital will not accept responsibility for valuables. - Please leave all valuables, including medications, at home the day of surgery. If you are going home after surgery, a licensed skip load driver must drive you home. - NO public transportation without another adult if you receive anesthesia. - We recommend that an adult stay with you for 24 hours following discharge. - We also recommend that you do not drive, make important decision, drink alcoholic beverages, or take any drugs that were not prescribed by your health care provider for at least 24 hours after your discharge time. Follow any additional instructions given to you from DR. WILLAMS. BOWEL PREP, DIET, PRE-OP ANTIBIOTICS, HIBICLENS SHOWER DAY BEFORE & AM OF SURGERY If you or anyone in your household have experienced Covid symptoms in the past week, please notify your surgeon or the nurse liaison at the phone number below for possible testing. Instructions given to _PATIENT_and asked if any additional questions and then verbalized understanding. Patient advised to call surgeon office or pre surgery nurse liaison [phone] if any additional questions.
[2023-03-03 12:19] VITALS: BP 148/62; PULSE 70; RESP 18; TEMP 37.5; O2SAT 96; BMI 25.0
--- NOTE | 2023-03-08 10:42 | PM.IMHP ---
H&P: HPI History of Present Illness Date/Time: 03/08/23 10:42 Chief Complaint: Desires colostomy closure Narrative: Patient is a 72-year-old woman who transferred to [facility] from [facility] in [place] on 08/31/2022. She had suffered a stercoral perforation of the sigmoid colon and was experiencing fecal peritonitis and Gram-negative sepsis with shock. She was taken to the operating room on 08/31/2022. Sigmoidectomy was done and Rossi procedure. End descending colostomy was created. Patient was extremely ill following the surgery requiring intensive care management, cardiology and hospitalist care. She eventually did improve and was able to be discharged on 09/16/2022, being transferred back to a swing bed at [facility]. She eventually was [facility]. She was seen in the office and followed by Dr. Krueger as an outpatient. Her wound is healed and her colostomy is working well. She desires to have colostomy closure. After home bowel preparation and thorough discussion, she is taken back to surgery now for colostomy closure and colorectal anastomosis. Review of Systems Review of Systems: All systems reviewed & are unremarkable except as noted in HPI and below (HPI and those items noted below) Constitutional: Constitutional: Denies chills and Denies fever(s) Cardiovascular: Cardiovascular: Denies chest pain, Denies diaphoresis, Denies dyspnea and Denies paroxysmal nocturnal dyspnea Respiratory: Respiratory: Denies chest congestion, Denies cough and Denies dyspnea Integumentary/Breasts: Skin/Breast: Denies lesions and Denies rash PMFSH Past Medical History Medical History (Updated 03/08/23 @ 10:54 by Giuliano Krueger MD) Anxiety Hyperlipidemia Osteoarthritis Surgical History Surgical History (Updated 03/08/23 @ 10:54 by Giuliano Krueger MD) History of cervical spinal surgery History of open sigmoidectomy 08/31/2022 - Sigmoidectomy with Rossi procedure History of partial thyroidectomy History of total right hip arthroplasty Status post Rossi procedure (08/31/22) 08/31/2022 - Sigmoidectomy with Rossi procedure Family History Family History Other Family history unknown Social History Social History Social History: Surrogate medical decision maker: Andrew Powers, spouse. Code status: Full code. Smoking packs per day: 1 Smoking cigarettes per day: 20.0 Years smoked: 50 Smoking pack-years: 50.00 Smoking status: Current every day smoker Tobacco type: cigarettes Second hand tobacco smoke exposure: Yes Additional smoking assessment comments: STATES 2PK/DAY/50YRS - HAS CUT BACK TO 2 CIGARETTS/DAY SINCE 10/2022 Alcohol intake: current Drinks per week: 2 Substance use: never Substance use type: does not use Lack of Transportation: No Lack of Food: Never True Current Housing: I Do Not Have Housing Concerned About Future Housing: No Difficulty Paying Gas/Electric Bills: No Difficulty Paying for Meds: No Currently Unemployed: No Education: Decline to Answer Difficulty w/ Childcare or Family Care: No Living arrangements: with family Additional living arrangements comments: The patient lives with her in [place]. 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 Spiritual care concerns: No Meds Home Medications and Allergies Home Medications Medication Instructions Recorded Confirmed Type Adults Multivitamin 1 caplet PO DAILY 08/29/22 03/03/23 History sertraline 100 mg tablet 100 mg PO DAILY 08/29/22 03/03/23 History simvastatin 20 mg tablet 20 mg PO DAILY 08/29/22 03/03/23 History alprazolam 0.25 mg tablet (Xanax) 0.25 mg PO BID PRN Anxiety 08/31/22 03/03/23 History diphenhydramine HCl 25 mg capsule 25 mg PO TID PRN DANA
--- NOTE | 2023-03-08 12:46 | WPDANESEPPF ---
Anes - Initial Pre Proc Eval Procedure: Operation Date: 03/09/23 07:30 Proposed Procedures p Takedown Descending Colostomy, Coloproctostomy - Giuliano Krueger MD s Stent Placement for Abdominal Surgery - Feliciano Aguila MD Date/Time: 03/08/23 12:46 Surgeon: Giuliano Krueger MD Pre Op Diagnosis: colostomy status, hx colon perforation Patient Data Age: 72 Gender: F Height: 1.66 m Weight: 69.4 kg Last Vital Signs Temp 99.5 F 03/03/23 12:19 Pulse 70 03/03/23 12:19 Resp 18 03/03/23 12:19 BP 148/62 H 03/03/23 12:19 Pulse Ox 96 03/03/23 12:19 O2 Del Method Room Air 03/03/23 12:19 Allergies Allergy/AdvReac Type Severity Reaction Status Date / Time naproxen [From Naprosyn] Allergy Unknown Hives Verified 03/09/23 06:07 Penicillins Allergy Hives Verified 03/09/23 06:07 Home Medications Medication Instructions Recorded Confirmed Type Adults Multivitamin 1 caplet PO DAILY 08/29/22 03/09/23 History sertraline 100 mg tablet 100 mg PO DAILY 08/29/22 03/09/23 History simvastatin 20 mg tablet 20 mg PO DAILY 08/29/22 03/03/23 History alprazolam 0.25 mg tablet (Xanax) 0.25 mg PO BID PRN Anxiety 08/31/22 03/09/23 History diphenhydramine HCl 25 mg capsule 25 mg PO TID PRN ALLERGIES 08/31/22 03/03/23 History (Benadryl) magnesium 200 mg tablet 400 mg PO DAILY 08/31/22 03/03/23 History aspirin 81 mg capsule 81 mg PO DAILY #500 caps 09/16/22 03/03/23 Rx calcium carb 300 mg-D3 800 1 tablet PO DAILY 01/10/23 03/09/23 History unit-mag ox 25 mg-endoscopy rn 0.5 mg-geneva-Zn tablet (Caltrate + D3 Plus Minerals) diphenhydramine 25 1 tablet PO QHS PRN PAIN/SLEP 01/10/23 03/03/23 History mg-acetaminophen 500 mg tablet (Tylenol PM Extra Strength) meloxicam 7.5 mg tablet 7.5 mg PO DAILY 01/10/23 03/03/23 History psyllium husk 0.4 gram capsule 0.4 g PO DAILY 01/10/23 03/03/23 History (Metamucil) Jagruti Allergy 1 tab-cap DAILY PRN Congestion 03/03/23 03/03/23 History Culturelle 1 cap DAILY 03/03/23 03/09/23 History diphenhydramine 25 2 tablet PO HS 03/03/23 03/03/23 History mg-acetaminophen 500 mg tablet (Tylenol PM Extra Strength) Patient hx anesthesia problems: none Family hx anesthesia problems: none Results Review: All pre-operative results and documents have been reviewed as part of the pre-operative evaluation. PMFSH Past Medical History Medical History (Updated 03/08/23 @ 10:54 by Giuliano Krueger MD) Anxiety Hyperlipidemia Osteoarthritis Surgical History Surgical History (Updated 03/08/23 @ 10:54 by Giuliano Krueger MD) History of cervical spinal surgery History of open sigmoidectomy 08/31/2022 - Sigmoidectomy with Rossi procedure History of partial thyroidectomy History of total right hip arthroplasty Status post Rossi procedure (08/31/22) 08/31/2022 - Sigmoidectomy with Rossi procedure Family History Family History Other Family history unknown Social History Social History Social History: Surrogate medical decision maker: Andrew Powers, spouse. Code status: Full code. Smoking packs per day: 1 Smoking cigarettes per day: 20.0 Years smoked: 50 Smoking pack-years: 50.00 Smoking status: Current every day smoker Tobacco type: cigarettes Second hand tobacco smoke exposure: Yes Additional smoking assessment comments: STATES 2PK/DAY/50YRS - HAS CUT BACK TO 2 CIGARETTS/DAY SINCE 10/2022 Alcohol intake: current Drinks per week: 2 Substance use: never Substance use type: does not use Lack of Transportation: No Lack of Food: Never True Current Housing: I Do Not Have Housing Concerned About Future Housing: No Difficulty Paying Gas/Electric Bills: No Difficulty Paying for Meds: No Currently Unemployed: No Education: Decline to Answer Difficulty w/ Childcare or Family Care: No Living arrangements: with fam
[2023-03-09] VITALS (13 sets, daily range): BP systolic 96–142; BP diastolic 47–73; PULSE 63–88; RESP 16–20; TEMP 35.5–37.2; O2SAT 95–100; BMI 24.5
--- NOTE | ~2023-03-09 | XR_ITS ---
EXAMINATION: XR abdomen obstructive series DATE: 03/16/2023 10:32 INDICATION: Abdominal distention and bloating TECHNIQUE: Frontal supine and upright views of the abdomen were obtained. COMPARISON: Radiograph dated 03/14/[address] dated 09/23/2022. FINDINGS: Midline abdominal and pelvic skin gallito. Anastomotic suture line at the level of the proximal rectu m in the lower pelvis. There are gas-filled loops of large and small bowel without evident dilation t o suggest obstruction. No free intraperitoneal gas. Opacities in the bilateral lower lung zones which could represent atelectasis, pneumonia and/or mild pulmonary edema. Small right pleural effusion. No pneumothorax. Cardiomediastinal silhouette is withi n normal limits for AP technique. Left upper extremity peripherally inserted central venous catheter (PICC) tip at the caudal superior vena cava. Right total hip arthroplasty. Moderate to severe degene rative skeletal changes in the spine and left hip. IMPRESSION: 1. No free intraperitoneal gas or dilated gas-filled loops of bowel to suggest obstruction. 2. Opacities in the bilateral lower lung zones consistent with atelectasis, pneumonia and/or mild pul monary edema. 3. Small right pleural effusion. Reviewed, dictated and finalized at location A. IMPRESSION: 1. No free intraperitoneal gas or dilated gas-filled loops of bowel to suggest obstruction. 2. Opacities in the bilateral lower lung zones consistent with atelectasis, pne umonia and/or mild pulmonary edema. 3. Small right pleural effusion.
--- NOTE | ~2023-03-09 | XR_ITS ---
EXAMINATION: XR abdomen NG/feed tube insert DATE: 03/14/2023 01:01 INDICATION: Nasogastric tube placement. TECHNIQUE: An upright view of the abdomen was obtained. COMPARISON: Abdomen radiograph 03/11/2023 FINDINGS: The lower abdomen is excluded. Skin gallito are noted. The nasogastric tube tip is in the s tomach. There is a small right pleural effusion. There are airspace opacities at the lung bases, like ly atelectasis. IMPRESSION: 1. Nasogastric tube tip in the stomach. 2. Small right pleural effusion. Reviewed, dictated and finalized at location A.
--- NOTE | ~2023-03-09 | XR_ITS ---
EXAM: XR abdomen NG/feed tube insert DATE: 03/10/2023 16:15 HISTORY: NG tube placement . COMPARISON: 09/13/2022. FINDINGS: NG tube, tip and side port project over the stomach Bibasilar atelectasis/consolidation. M idline skin gallito. Normal bowel gas pattern. No organomegaly. No abnormal abdominal calcification. Regional bones and soft tissues normal for age. IMPRESSION: NG tube, in good position. Reviewed, dictated and finalized at location K. IMPRESSION: NG tube, in good position.
--- NOTE | ~2023-03-09 | XR_ITS ---
EXAMINATION: XR abdomen/kub 1V DATE: 03/11/2023 08:20 INDICATION: Adynamic ileus. TECHNIQUE: A supine view of the abdomen was obtained. COMPARISON: CT abdomen and pelvis 09/23/2022 FINDINGS: There are multiple dilated loops of small bowel. The colon is normal in caliber. The nasoga stric tube tip is in the stomach. Skin gallito are noted. There is a total right hip arthroplasty. IMPRESSION: 1. Dilated small bowel, likely adynamic ileus. Reviewed, dictated and finalized at location A.
[2023-03-09] MEDS: LACTATED RINGERS 1,000 ML 30 ML IV CONT ×2 (06:35→13:56)
[2023-03-09] MEDS: ACETAMINOPHEN 500 MG TABLET 1000 MG PO ×2 (06:39→20:23)
[2023-03-09] MEDS: ALVIMOPAN 12 MG CAPSULE PO (07:05)
--- NOTE | 2023-03-09 07:14 | WPDHPUPDATE1 ---
History and Physical Update Update Date/Time: 03/09/23 07:14 History and Physical has been reviewed, including an updated exam of the patient. There are NO changes in the patient's condition. Risks, benefits, and alternatives have been discussed and questions answered. Patient agrees to proceed with procedure.
--- NOTE | 2023-03-09 07:28 | PM.IMHP ---
H&P: HPI History of Present Illness Date/Time: 03/09/23 07:28 Chief Complaint: Ureteral identification [facility] Past Medical History Medical History (Updated 03/08/23 @ 10:54 by Giuliano Krueger MD) Anxiety Hyperlipidemia Osteoarthritis Surgical History Surgical History (Updated 03/08/23 @ 10:54 by Giuliano Krueger MD) History of cervical spinal surgery History of open sigmoidectomy 08/31/2022 - Sigmoidectomy with Rosis procedure History of partial thyroidectomy History of total right hip arthroplasty Status post Rossi procedure (08/31/22) 08/31/2022 - Sigmoidectomy with Rossi procedure Family History Family History Other Family history unknown Social History Social History Social History: Surrogate medical decision maker: Andrew Powers, spouse. Code status: Full code. Smoking packs per day: 1 Smoking cigarettes per day: 20.0 Years smoked: 50 Smoking pack-years: 50.00 Smoking status: Current every day smoker Tobacco type: cigarettes Second hand tobacco smoke exposure: Yes Additional smoking assessment comments: STATES 2PK/DAY/50YRS - HAS CUT BACK TO 2 CIGARETTS/DAY SINCE 10/2022 Alcohol intake: current Drinks per week: 2 Substance use: never Substance use type: does not use Lack of Transportation: No Lack of Food: Never True Current Housing: I Do Not Have Housing Concerned About Future Housing: No Difficulty Paying Gas/Electric Bills: No Difficulty Paying for Meds: No Currently Unemployed: No Education: Decline to Answer Difficulty w/ Childcare or Family Care: No Living arrangements: with family Additional living arrangements comments: The patient lives with her in [place]. 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 Spiritual care concerns: No Meds Home Medications and Allergies Home Medications Medication Instructions Recorded Confirmed Type Adults Multivitamin 1 caplet PO DAILY 08/29/22 03/09/23 History sertraline 100 mg tablet 100 mg PO DAILY 08/29/22 03/09/23 History simvastatin 20 mg tablet 20 mg PO DAILY 08/29/22 03/03/23 History alprazolam 0.25 mg tablet (Xanax) 0.25 mg PO BID PRN Anxiety 08/31/22 03/09/23 History diphenhydramine HCl 25 mg capsule 25 mg PO TID PRN ALLERGIES 08/31/22 03/03/23 History (Benadryl) magnesium 200 mg tablet 400 mg PO DAILY 08/31/22 03/03/23 History aspirin 81 mg capsule 81 mg PO DAILY #500 caps 09/16/22 03/03/23 Rx calcium carb 300 mg-D3 800 1 tablet PO DAILY 01/10/23 03/09/23 History unit-mag ox 25 mg-endoscopic technician 0.5 mg-geneva-Zn tablet (Caltrate + D3 Plus Minerals) diphenhydramine 25 1 tablet PO QHS PRN PAIN/SLEP 01/10/23 03/03/23 History mg-acetaminophen 500 mg tablet (Tylenol PM Extra Strength) meloxicam 7.5 mg tablet 7.5 mg PO DAILY 01/10/23 03/03/23 History psyllium husk 0.4 gram capsule 0.4 g PO DAILY 01/10/23 03/03/23 History (Metamucil) Jagruti Allergy 1 tab-cap DAILY PRN Congestion 03/03/23 03/03/23 History Culturelle 1 cap DAILY 03/03/23 03/09/23 History diphenhydramine 25 2 tablet PO HS 03/03/23 03/03/23 History mg-acetaminophen 500 mg tablet (Tylenol PM Extra Strength) Allergies Allergy/AdvReac Type Severity Reaction Status Date / Time naproxen [From Naprosyn] Allergy Unknown Hives Verified 03/09/23 06:07 Penicillins Allergy Hives Verified 03/09/23 06:07 Vital Signs Vital Signs - 24 hr 03/09/23 06:00 Temperature 37.1 C Pulse Rate 63 Respiratory Rate 16 Blood Pressure 128/73 Pulse Oximetry 95 Oxygen Delivery Room Air Exam Narrative: awake alert, no acute distress. Breathing unlabored. Assessment and Plan Assessment and plan (1) History of open sigmoidectomy: Code(s): Z98.890 - Other specified postprocedural states; Z90.49 - Acquired absence of other specified part
--- NOTE | 2023-03-09 07:30 | WPDHPUPDATE1 ---
History and Physical Update Update Date/Time: 03/09/23 07:30 History and Physical has been reviewed, including an updated exam of the patient. There are NO changes in the patient's condition. Risks, benefits, and alternatives have been discussed and questions answered. Patient agrees to proceed with procedure.
[2023-03-09] MEDS: ceFAZolin 2 GM/D5W 50 ML 2 GM/50 ML BAG IVPB (07:39)
[2023-03-09] MEDS: metroNIDAZOLE 500 MG/ISO 100ML 500 MG/100 ML BAG 100 MG IVPB (07:53)
--- NOTE | 2023-03-09 08:17 | W.PM.PROC2 ---
Procedure Note - Detailed Date of Procedure 03/09/23 Pre-op Diagnosis colostomy status, hx colon perforation Post-op Diagnosis Same Procedure Performed Cystoscopy, bilateral internal/external ureteral stent insertion Surgeon Feliciano Aguila MD Anesthesia General Description of Procedure informed consents obtained. Patient taken the operating. She was given preoperative IV antibiotics. She was dosed anesthesia. A 22 F rigid cystoscope was inserted through the urethra into the bladder. Inspection of bladder revealed no mucosal abnormalities. The patient had bilateral orthotopic ureteral orifices. We cannulated each ureteral orifice with a 5 F open-ended catheter, advancing 25 to 30 cm bilaterally without resistance. The scope was then removed, Frias catheter inserted and ureteral stents were secured to the catheter. The case was then turned over to General surgery Complications No immediate complications Condition Stable Disposition Other ( plan ureteral stent insertion at the completion of general surgery case)
[2023-03-09] MEDS: ceFAZolin SODIUM 1 GM VIAL 2 GM IV PUSH (11:41)
--- NOTE | 2023-03-09 14:26 | W.PM.PROC2 ---
Procedure Note - Detailed Date of Procedure 03/09/23 Pre-op Diagnosis colostomy status, hx colon perforation Post-op Diagnosis Other (Colostomy status, history of colon perforation and peritonitis, extensive abdominal adhesions) Procedure Performed Closure end descending colostomy with stapled #33 EEA low colorectal anastomosis, takedown splenic flexure, extensive adhesiolysis, appendectomy Surgeon Giuliano Krueger MD [employer] Caty Stoddard [facility] Anesthesia General Indications Patient presented with a stercoral perforation of her sigmoid colon last August. She had fecal peritonitis and septic shock. She underwent sigmoidectomy and Rossi procedure with end descending colostomy. Although she was very ill and was in the intensive care unit as well as in the hospital for quite some time, she has recovered well. She desires temple of intestinal continuity. She is taken to surgery now for colostomy takedown with colorectal anastomosis. Dense adhesions and fibrosis are expected. Dr. Aguila placed ureteral stents under anesthesia and will dictate that in a separate dictation. Findings Patient had dense, difficult abdominal adhesions involving small bowel and large intestine throughout the entirety of the abdominal cavity. The surgery itself took 5 hours and 40 minutes. 3-1/2 hours of adhesiolysis was required. This was difficult surgery with slow but continuous oozing of blood from the adhesiolysis. Estimated blood loss was significantly higher than usual, 500 cc. Patient received 2 units of packed cells intraoperatively. The surgery was much longer than usual lasting over 5-1/2 hours as noted. The ureteral stents were extremely helpful as the retroperitoneum was fibrotic and dissection in the retroperitoneum very bloody. Takedown of splenic flexure was required as well as some additional resection of the left colon. Eventual colorectal stapled number 33 EEA anastomosis was performed with good result. The ureteral stents were removed at the conclusion of the procedure. Description of Procedure The patient was taken to surgery and induced into general anesthesia. She was placed in lithotomy. Dr. Gibbons perform cystoscopy and placement of ureteral stents. Please refer to his dictation. Following this, the patient was positioned in lithotomy in [facility]. A Frias catheter was already in place. Rectal irrigation and rectal tube was placed. The abdomen was prepped and draped. We started the surgery turning our attention 1st to the ileostomy. Incision was made at the mucocutaneous junction circumferentially around the stoma. We dissected into the subcutaneous and then dissected up to the bowel wall. Proceeding circumferentially, adhesions to the subcutaneous and fascia were sequentially taken down using blunt dissection as well as some sharp dissection and cautery. Eventually we dissected deep to the abdominal wall fascia and gained access to the peritoneal cavity. There were adhesions to the undersurface of the abdominal wall. These were taken down bluntly and remaining adhesions were then freed up. I sutured closed the into the colostomy with 4-0 silk interrupted suture. The colostomy and associated descending colon were then dropped into the abdominal cavity. I changed gloves and proceeded to the patient's right side. We excised the old scar from previous laparotomy. The scar was discarded. Cautery was used for hemostasis. We then dissected through the subcutaneous and found the midline fascia. No residual suture were noted. We gained access to the peritoneal cavity and then slowly dissected cephalad and caudad extending the fascial opening the length of the wound. The wound went from the hypogastric area down to nearly the pubis. I then began taking down anterior abdominal wall adhesions on the patient's left side. These were taken down primarily with the cautery but also some sharp and blunt dissection. When most of thes
[2023-03-09] MEDS: ONDANSETRON INJ 4 MG/2 ML VIAL IV PUSH (15:00)
[2023-03-09] MEDS: fentaNYL CITRATE INJ (*CRX) 100 MCG/2 ML VIAL 25 MCG IV PUSH ×2 (15:12→15:20)
[2023-03-09] MEDS: ACETAMINOPHEN 500 MG TABLET PO (16:50)
[2023-03-09] MEDS: LACTATED RINGERS 1,000 ML 150 ML IV CONT (16:52)
--- NOTE | 2023-03-09 17:21 | ADMGEN ---
This patient, Mariama Powers, was admitted to [facility] Surg Room 328-01 at 1550. Patient/family oriented to hospital policies and general routines including ID bracelet, bed and alarms, visiting hours, pain management, procedures, bathroom and other care routines, personal items, smoking policy, room service/diet, and visiting hours. Information on how to activate the Rapid Response Team has been discussed. Patient/Family are encouraged to report perceived risks to care and to ask questions if they do not understand what they are told or what they should do.
[2023-03-09] MEDS: FAMOTIDINE 20 MG/2 ML VIAL IV PUSH (20:22)
[2023-03-09] MEDS: diphenhydrAMINE HCl CAP 25 MG CAPSULE 50 MG PO (20:23)
[2023-03-10] VITALS (7 sets, daily range): BP systolic 126–163; BP diastolic 44–66; PULSE 78–88; RESP 14–19; TEMP 36.6–37.3; O2SAT 94–97
[2023-03-10] MEDS: LACTATED RINGERS 1,000 ML 150 ML IV CONT ×4 (00:20→20:35)
[2023-03-10] MEDS: ACETAMINOPHEN 500 MG TABLET PO (00:20)
[2023-03-10] MEDS: MORPHINE SULFATE (*CRX) 4 MG/ML INJ IV PUSH (04:14)
[2023-03-10] MEDS: ONDANSETRON INJ 4 MG/2 ML VIAL IV PUSH (04:15)
[2023-03-10 07:11] LABS: Hematocrit 40.4 % (37.0-47.0); Hemoglobin 13.3 g/dL (12.0-15.0); Mean Corpuscular HGB Conc 32.9 g/dl (32-36); Mean Corpuscular Hemoglobin 30.3 pg (26-34); Mean Platelet Volume 9.4 fl (7.4-10.4); Platelet Count Result 347 k/mm3 (150-375); Red Blood Count 4.39 M/mm3 (4.2-5.4); Red Cell Distribution Width 15.9 % (11.5-14.5); White Blood Count 11.8 K/mm3 (4.5-10.0)
[2023-03-10 07:31] LABS: Anion Gap 2 mmol/L (8-16); Blood Urea Nitrogen 9 mg/dL (7-17); Calcium 7.9 mg/dL (8.4-10.2); Carbon Dioxide 29 mmol/L (22-30); Chloride 106 mmol/L (98-107); Estimated CRCL calculation 75 ml/min; Estimated Glomerular Filt Rate > 60; Glucose 131 mg/dL (65-110); Potassium 3.8 mmol/L (3.4-5.0); Sodium 137 mmol/L (137-145)
[2023-03-10] MEDS: FAMOTIDINE 20 MG/2 ML VIAL IV PUSH ×2 (08:34→20:38)
[2023-03-10] MEDS: ENOXAPARIN 40 MG/0.4 ML SYRINGE SUB-Q (08:34)
--- NOTE | 2023-03-10 11:07 | PM.PNGS ---
Progress Note: A&P Assessment and Plan (1) Colostomy status: Code(s): Z93.3 - Colostomy status Status: Chronic Assessment and Plan: Patient having some nausea this morning with one episode of vomiting. Continue antiemetics and monitor. Will keep her on clear liquids for now. If this continues or she becomes more distended, then we will place an NG tube and make her NPO. Encouraged getting up to the chair today. Repeat labs tomorrow. (2) History of open sigmoidectomy: Code(s): Z98.890 - Other specified postprocedural states; Z90.49 - Acquired absence of other specified parts of digestive tract Status: Chronic Assessment and Plan: Performed 08/31/2022. Patient had stercoral colitis with perforation and fecal peritonitis. (3) Smoker: Code(s): F17.200 - Nicotine dependence, unspecified, uncomplicated Status: Chronic Plan I have discussed the patient's case and plan of care with Dr. Krueger. Subjective Subjective Date/Time Seen: 03/10/23 09:37 Post Op day: 1 (Closure end descending colostomy with stapled #33 EEA low colorectal anastomosis, takedown splenic flexure, extensive adhesiolysis, appendectomy) Patient reports: no flatus, no bowel movement, nausea, vomiting and afebrile Interval history: Patient reports nausea with one episode of vomiting this morning. She is having some abdominal pain at her incision that was aggravated by the vomiting, but is currently controlled. She has not gotten out of bed yet. No other complaints at this time. Review of Systems Review of Systems: All systems reviewed & are unremarkable except as noted in HPI and below Constitutional: Constitutional: Reports as per HPI, Reports no additional constitutional complaints, Denies chills, Denies fever(s) and Denies headache(s) Cardiovascular: Cardiovascular: Reports no additional cardiovascular complaints, Denies chest pain and Denies leg edema Respiratory: Respiratory: Reports no additional respiratory complaints, Denies cough and Denies dyspnea Gastrointestinal: Gastrointestinal: Reports as per HPI and Reports no additional gastrointestinal complaints Neurologic: Reports system reviewed and no additional complaints, except as documented, Denies Abnormal speech present, Denies headache(s) and Denies focal weakness Exam Const: General: comfortable, no acute distress and awake Orientation/consciousness: patient oriented x3 Resp: Effort & Inspection: normal respiratory effort Auscultation: clear to auscultation bilaterally Cardio: Rate: regular rate Rhythm: regular rhythm GI: Inspection: incision (dressing dry and intact) and other (mildly distended) GI Palp: Yes Soft to palpation, Yes Tenderness to palpation present (GI) and No Guarding due to palpation present (GI) Auscultation: Hypoactive bowel sounds present Neuro: General: moves all extremities and no focal motor deficits Extrem: General: no calf tenderness and no edema Psych: Mental Status: mental status grossly normal Insight: Good insight present (Psych) Objective Data Vital Signs Vital Signs: Vital Signs - 24 hr 03/09/23 13:56 03/09/23 14:15 03/09/23 14:30 Temperature 99.0 F Pulse Rate 81 86 85 Respiratory Rate 18 18 20 Blood Pressure 96/47 L 126/53 L 134/55 L Pulse Oximetry 99 98 100 Oxygen Delivery Simple Face Mask Simple Face Mask Simple Face Mask Oxygen Flow Rate 8 8 6 03/09/23 14:45 03/09/23 15:00 03/09/23 15:15 Temperature Pulse Rate 85 83 85 Respiratory Rate 16 18 16 Blood Pressure 134/71 128/63 128/61 Pulse Oximetry 97 95 95 Oxygen Delivery Room Air Room Air Nasal Cannula Oxygen Flow Rate 2 03/09/23 15:30 03/09/23 15:40 03/09/23 15:41 Temperature 96.5 F L Pulse Rate 88 88 84 Respiratory Rate 18 18 18 Blood Pressure 142/70 H 142/68 H 125/57 L Pulse Oximetry 97 95 97 Oxygen Delivery Nasal Cannula Nasal Cannula Oxygen Flow Rate 2 2 03/09/23 15:56 03/09/23 16:26 03/09/23 20:16 Temperatu
--- NOTE | 2023-03-10 12:19 | ADMGEN ---
This patient, Mariama Powers, was admitted to [facility] Surg Room 328-01. Patient/family oriented to hospital policies and general routines including ID bracelet, bed and alarms, visiting hours, pain management, procedures, bathroom and other care routines, personal items, smoking policy, room service/diet, and visiting hours. Information on how to activate the Rapid Response Team has been discussed. Patient/Family are encouraged to report perceived risks to care and to ask questions if they do not understand what they are told or what they should do.
[2023-03-10] MEDS: IBUPROFEN IV 800 MG/200 ML 800 MG/200 ML BAG 400 MG IVPB (16:39)
[2023-03-10] MEDS: LORazepam INJ (*CRX) 2 MG/ML VIAL 1 MG IV PUSH (16:39)
[2023-03-10] MEDS: diphenhydrAMINE HCl CAP 25 MG CAPSULE 50 MG PO (20:38)
[2023-03-10] MEDS: ACETAMINOPHEN 500 MG TABLET 1000 MG PO (20:38)
[2023-03-11] MEDS: IBUPROFEN IV 800 MG/200 ML 800 MG/200 ML BAG 400 MG IVPB ×4 (00:03→17:27)
[2023-03-11] MEDS: LACTATED RINGERS 1,000 ML 150 ML IV CONT (03:10)
[2023-03-11 06:21] LABS: Hematocrit 34.5 % (37.0-47.0); Hemoglobin 11.2 g/dL (12.0-15.0); Mean Corpuscular HGB Conc 32.5 g/dl (32-36); Mean Corpuscular Hemoglobin 30.7 pg (26-34); Mean Corpuscular Volume 94.5 fl (80-100); Mean Platelet Volume 9.5 fl (7.4-10.4); Platelet Count Result 284 k/mm3 (150-375); Red Blood Count 3.65 M/mm3 (4.2-5.4); Red Cell Distribution Width 15.9 % (11.5-14.5)
[2023-03-11 06:33] LABS: Anion Gap 3 mmol/L (8-16); Blood Urea Nitrogen 9 mg/dL (7-17); Calcium 7.6 mg/dL (8.4-10.2); Carbon Dioxide 29 mmol/L (22-30); Chloride 105 mmol/L (98-107); Estimated CRCL calculation 89 ml/min; Estimated Glomerular Filt Rate > 60; Glucose 91 mg/dL (65-110); Potassium 3.3 mmol/L (3.4-5.0); Sodium 137 mmol/L (137-145)
[2023-03-11] MEDS: ENOXAPARIN 40 MG/0.4 ML SYRINGE SUB-Q (08:04)
[2023-03-11] MEDS: FAMOTIDINE 20 MG/2 ML VIAL IV PUSH ×2 (08:04→20:03)
[2023-03-11] MEDS: KCL 40 MEQ/D5/0.9% SOD CHL 1,000 ML 100 ML IV CONT (08:04)
[2023-03-11 09:00] VITALS: BP 137/65; PULSE 73; RESP 19; TEMP 36; O2SAT 93
[2023-03-11] MEDS: MORPHINE SULFATE (*CRX) 4 MG/ML INJ IV PUSH ×2 (11:39→21:47)
--- NOTE | 2023-03-11 12:09 | PM.PNGS ---
Progress Note: A&P Assessment and Plan (1) History of colostomy reversal: Code(s): Z98.890 - Other specified postprocedural states Status: Acute Assessment and Plan: Patient distended and no bowel sounds. Plain films show ileus. I doubt she will be resuming oral intake in the next couple of days. Continue NG suction and NPO except ice chips and some meds. Follow closely with serial exam lab work and x-rays as needed. (2) History of open sigmoidectomy: Code(s): Z98.890 - Other specified postprocedural states; Z90.49 - Acquired absence of other specified parts of digestive tract Status: Chronic (3) Protein-calorie malnutrition, severe: Code(s): E43 - Unspecified severe protein-calorie malnutrition Status: Acute Assessment and Plan: Will have PICC line placed and start Clinimix TPN Subjective Subjective Date/Time Seen: 03/11/23 12:09 Post Op day: 2 Patient reports: no new complaints, pain is less, flatus, no bowel movement and afebrile Exam Const: General: cooperative, comfortable, alert and awake Orientation/consciousness: patient oriented x3 and No confusion GI: Inspection: distended, incision (Serosanguineous drainage, no bleeding.) and other (Colostomy site looks good) GI Palp: Yes Firmness to palpation present (GI) and Yes Tenderness to palpation present (GI) Auscultation: absent bowel sounds Neuro: General: patient oriented x3 and no focal motor deficits Extrem: General: no calf tenderness and no edema Psych: Affect: normal affect Insight: Good insight present (Psych) Judgement: Good judgement present (Psych) Objective Data Vital Signs Vital Signs: Vital Signs - 24 hr 03/10/23 13:00 03/10/23 13:00 03/10/23 13:20 Temperature 37.3 C Pulse Rate 84 Respiratory Rate 14 Blood Pressure 133/57 L Pulse Oximetry 97 97 94 Oxygen Delivery Nasal Cannula Room Air Oxygen Flow Rate 2 03/10/23 15:37 03/11/23 09:00 Temperature 36.6 C 36.0 C L Pulse Rate 78 73 Respiratory Rate 19 19 Blood Pressure 163/66 H 137/65 Pulse Oximetry 95 93 Oxygen Delivery Oxygen Flow Rate Intake/Output Intake/Output: Intake & Output 03/08/23 03/09/23 03/10/2305/23 23:59 23:59 23:59 23:59 Intake Total 2350 3920 1200 Output Total 100 1650 100 Balance 2250 2270 1100 Meds/Results Medications: Active Medications Generic Name Dose Route Start Last Admin Trade Name Freq PRN Reason Stop Dose Admin Acetaminophen 500 mg 03/09/23 15:41 03/10/23 00:20 Acetaminophen 500 Mg Tablet PO 500 mg Q6H PRN Administration Mild Pain (1-3) or Fever Acetaminophen 1,000 mg 03/09/23 21:00 03/10/23 20:38 Acetaminophen 500 Mg Tablet PO 04/08/23 20:59 1,000 mg HS ELIZABETH Administration Acetaminophen 650 mg 03/10/23 16:23 Acetaminophen 650 Mg Suppository RECTAL Q6H PRN Mild Pain (1-3) or Fever Aspirin 81 mg 03/10/23 08:00 03/10/23 12:55 Aspirin 81 Mg Chewable Tablet PO Not Given DAILY@0800 ELIZABETH Diphenhydramine HCl 50 mg 03/09/23 21:00 03/10/23 20:38 Diphenhydramine Hcl Cap 25 Mg Capsule PO 04/08/23 20:59 50 mg HS ELIZABETH Administration Enoxaparin Sodium 40 mg 03/10/23 09:00 03/11/23 08:04 Enoxaparin 40 Mg/0.4 Ml Syringe SUB-Q 40 mg DAILY ELIZABETH Administration Famotidine 20 mg 03/09/23 21:00 03/11/23 08:04 Famotidine 20 Mg/2 Ml Vial IV PUSH 20 mg Q12HR ELIZABETH Administration Ibuprofen 800 mg in 200 mls @ 400 mls/hr 03/09/23 18:00 03/11/23 05:14 Caldolor 800 Mg/200 Ml IVPB 400 mls/hr Q6HR ELIZABETH Administration Potassium Chloride/Dextrose/Sod Cl 1,000 mls @ 100 mls/hr 03/11/23 07:40 03/11/23 08:04 Kcl 40 Meq/D5ns IV CONT 100 mls/hr .Q10H ELIZABETH Administration Lorazepam 1 mg 03/09/23 15:41 03/10/23 16:39 Lorazepam Inj (*Crx) 2 Mg/Ml Vial IV PUSH 1 mg Q6H PRN Administration Anxiety Morphine Sulfate 2 mg 05/03/23 15:41 Morphine Sulfate (*Crx) 2 Mg/Ml Inj IV
[2023-03-11] MEDS: LIDOCAINE HCL 1% PF INJ 5 ML VIAL INFILTRATE (13:30)
[2023-03-11 13:50] VITALS: BMI 27.8
[2023-03-11 14:00] VITALS: BP 147/68; PULSE 83; RESP 16; TEMP 36.6; O2SAT 91
--- NOTE | 2023-03-11 14:03 | PCDIET ---
Consider increasing TPN to 60ml/hr to provide 1522kcals, 72g protein which is closer to estimated needs (85% caloric needs, 100% protein needs)
[2023-03-11 14:42] LABS: Basophils Percent Auto 0.3 % (0.2-1.2); Eosinophils Absolute Auto 0.1 K/mm3 (0-0.3); Eosinophils Percent Auto 0.6 % (0-4.4); Hematocrit 32.8 % (37.0-47.0); Hemoglobin 10.9 g/dL (12.0-15.0); Immature Granulocyte Absolute 0.08 K/mm3 (0.00-0.031); Immature Granulocyte Percent A 0.7 % (0-0.5); Lymphocytes Absolute Auto 1.14 K/mm3 (0.9-3.2); Lymphocytes Percent Auto 9.5 % (18.3-44.2); Mean Corpuscular HGB Conc 33.2 g/dl (32-36); Mean Corpuscular Hemoglobin 31.1 pg (26-34); Mean Corpuscular Volume 93.4 fl (80-100); Mean Platelet Volume 9.2 fl (7.4-10.4); Monocytes Absolute Auto 1.2 K/mm3 (0.1-0.6); Monocytes Percent Auto 10.4 % (2.6-8.5); Neutrophils Absolute Auto 9.4 K/mm3 (1.3-6.7); Neutrophils Percent Auto 78.5 % (45.5-73.1); Platelet Count Result 275 k/mm3 (150-375); Red Blood Count 3.51 M/mm3 (4.2-5.4); Red Cell Distribution Width 15.9 % (11.5-14.5)
[2023-03-11 14:49] LABS: Chloride 106 mmol/L (98-107)
[2023-03-11 14:51] LABS: Partial Thromboplastin Time 28.8 SECONDS (22.3-36.8)
[2023-03-11 14:54] LABS: Alanine Aminotransferase 18 U/L (6-35); Alkaline Phosphatase 48 U/L (38-126); Anion Gap 1 mmol/L (8-16); Aspartate Amino Transferase 26 U/L (14-36); Bilirubin,Total 0.6 mg/dL (0.2-1.3); Blood Urea Nitrogen 9 mg/dL (7-17); Calcium 7.4 mg/dL (8.4-10.2); Carbon Dioxide 31 mmol/L (22-30); Estimated CRCL calculation 75 ml/min; Estimated Glomerular Filt Rate > 60; Glucose 105 mg/dL (65-110); Magnesium 1.9 mg/dL (1.6-2.3); Potassium 3.5 mmol/L (3.4-5.0); Sodium 138 mmol/L (137-145)
[2023-03-11 14:58] LABS: Transferrin 154 mg/dL (206-381)
[2023-03-11] MEDS: AMINO ACIDS 5%/D15W/E-LYTES/CA 2,000 ML with MULTIVITAMINS-12 INJ VIAL 1 2.5 ML, MULTIV... 40 ML IV CONT (15:05)
[2023-03-11] MEDS: FAT EMULSIONS IV 20% 250 ML 20.83 ML IVPB (15:05)
[2023-03-11] MEDS: CENTRAL LINE FLUSH 10 ML IV PUSH ×2 (15:06→20:04)
[2023-03-11] MEDS: LORazepam INJ (*CRX) 2 MG/ML VIAL 1 MG IV PUSH (16:36)
[2023-03-11 18:52] LABS: Glucose Point of Care 127 mg/dl (65-105)
[2023-03-11 20:00] VITALS: PULSE 88; RESP 24; O2SAT 90
[2023-03-11] MEDS: ACETAMINOPHEN 500 MG TABLET 1000 MG PO (20:03)
[2023-03-11] MEDS: diphenhydrAMINE HCl CAP 25 MG CAPSULE 50 MG PO (20:03)
[2023-03-11] MEDS: KCL 40 MEQ/D5/0.9% SOD CHL 1,000 ML 60 ML IV CONT (20:10)
[2023-03-11 20:19] VITALS: BP 154/71; PULSE 88; RESP 26; TEMP 35.9; O2SAT 90
[2023-03-12] MEDS: IBUPROFEN IV 800 MG/200 ML 800 MG/200 ML BAG 400 MG IVPB ×5 (00:12→23:18)
[2023-03-12 01:17] LABS: Glucose Point of Care 129 mg/dl (65-105)
[2023-03-12 05:12] VITALS: BP 160/70; PULSE 70; RESP 21; TEMP 36; O2SAT 94
[2023-03-12] MEDS: CENTRAL LINE FLUSH 10 ML IV PUSH ×4 (05:14→21:23)
[2023-03-12 06:08] LABS: Glucose Point of Care 111 mg/dl (65-105)
[2023-03-12 07:22] LABS: Anion Gap 1 mmol/L (8-16); Blood Urea Nitrogen 12 mg/dL (7-17); Calcium 7.6 mg/dL (8.4-10.2); Carbon Dioxide 32 mmol/L (22-30); Chloride 107 mmol/L (98-107); Estimated CRCL calculation 57 ml/min; Estimated Glomerular Filt Rate > 60; Glucose 103 mg/dL (65-110); Phosphorus 3.1 mg/dL (2.5-4.5); Potassium 3.6 mmol/L (3.4-5.0); Sodium 140 mmol/L (137-145); Triglycerides 181 mg/dL (<150)
[2023-03-12] MEDS: ENOXAPARIN 40 MG/0.4 ML SYRINGE SUB-Q (08:31)
[2023-03-12] MEDS: FAMOTIDINE 20 MG/2 ML VIAL IV PUSH ×2 (08:31→21:23)
[2023-03-12] MEDS: SERTRALINE HCL 50 MG TABLET 100 MG PO (08:31)
[2023-03-12] MEDS: LORazepam INJ (*CRX) 2 MG/ML VIAL 1 MG IV PUSH ×2 (10:22→21:34)
--- NOTE | 2023-03-12 11:31 | PM.PNGS ---
Progress Note: A&P Assessment and Plan (1) History of colostomy reversal: Code(s): Z98.890 - Other specified postprocedural states Status: Acute Assessment and Plan: Some bowel sounds today. Bowel function hopefully returning. Otherwise looks good. DC Frias catheter today. (2) History of open sigmoidectomy: Code(s): Z98.890 - Other specified postprocedural states; Z90.49 - Acquired absence of other specified parts of digestive tract Status: Chronic (3) Protein-calorie malnutrition, severe: Code(s): E43 - Unspecified severe protein-calorie malnutrition Status: Acute Assessment and Plan: Continue TPN. Subjective Subjective Date/Time Seen: 03/12/23 11:31 Post Op day: 3 Patient reports: no new complaints, feels better, pain is less, flatus, no bowel movement and afebrile Exam Const: General: comfortable and no acute distress Orientation/consciousness: patient oriented x3 GI: Inspection: distended and incision (Serosanguineous drainage lower half of incision, healing well otherwise) GI Palp: Yes Soft to palpation, Yes Tenderness to palpation present (GI), No Guarding due to palpation present (GI) and No Rebound tenderness present Auscultation: normal bowel sounds and normoactive bowel sounds Neuro: General: patient oriented x3 and no focal motor deficits Extrem: General: no calf tenderness and no edema Psych: Affect: normal affect Insight: Good insight present (Psych) Judgement: Good judgement present (Psych) Objective Data Vital Signs Vital Signs: Vital Signs - 24 hr 03/11/23 13:24 03/11/23 14:00 03/11/23 20:19 Temperature 36.6 C 35.9 C L Pulse Rate 83 88 Respiratory Rate 16 26 H Blood Pressure 147/68 H 154/71 H Pulse Oximetry 91 90 Oxygen Delivery Room Air 03/11/23 20:00 03/12/23 05:12 03/12/23 08:45 Temperature 36.0 C L Pulse Rate 88 70 Respiratory Rate 24 H 21 H Blood Pressure 160/70 H Pulse Oximetry 90 94 Oxygen Delivery Room Air Room Air Intake/Output Intake/Output: Intake & Output 03/09/23 03/10/23 03/11/23 03/12/23 23:59 23:59 23:59 23:59 Intake Total 2350 3920 2800 500 Output Total 100 1650 250 300 Balance 2250 2270 2550 200 Meds/Results Medications: Active Medications Generic Name Dose Route Start Last Admin Trade Name Freq PRN Reason Stop Dose Admin Acetaminophen 500 mg 03/09/23 15:41 03/10/23 00:20 Acetaminophen 500 Mg Tablet PO 500 mg Q6H PRN Administration Mild Pain (1-3) or Fever Acetaminophen 1,000 mg 03/09/23 21:00 03/11/23 20:03 Acetaminophen 500 Mg Tablet PO 04/08/23 20:59 1,000 mg HS ELIZABETH Administration Acetaminophen 650 mg 03/10/23 16:23 Acetaminophen 650 Mg Suppository RECTAL Q6H PRN Mild Pain (1-3) or Fever Aspirin 81 mg 03/10/23 08:00 03/10/23 12:55 Aspirin 81 Mg Chewable Tablet PO Not Given DAILY@0800 ELIZABETH Dextrose 12.5 gm 03/11/23 12:15 Dextrose 50% 25 Gm/50 Ml Syringe IV PUSH PRN PRN Hypoglycemia Protocol Diphenhydramine HCl 50 mg 03/09/23 21:00 03/11/23 20:03 Diphenhydramine Hcl Cap 25 Mg Capsule PO 04/08/23 20:59 50 mg HS ELIZABETH Administration Enoxaparin Sodium 40 mg 03/10/23 09:00 03/12/23 08:31 Enoxaparin 40 Mg/0.4 Ml Syringe SUB-Q 40 mg DAILY ELIZABETH Administration Famotidine 20 mg 03/09/23 21:00 03/12/23 08:31 Famotidine 20 Mg/2 Ml Vial IV PUSH 20 mg Q12HR ELIZABETH Administration Glucagon 1 mg 03/11/23 12:15 Glucagon For Inj 1 Mg Vial IM PRN PRN Hypoglycemia Protocol Ibuprofen 800 mg in 200 mls @ 400 mls/hr 03/09/23 18:00 03/12/23 05:13 Caldolor 800 Mg/200 Ml IVPB 400 mls/hr Q6HR ELIZABETH Administration Potassium Chloride/Dextrose/Sod Cl 1,000 mls @ 60 mls/hr 03/11/23 07:40 03/11/23 20:10 Kcl 40 Meq/D5ns IV CONT 60 mls/hr .[id number] ELIZABETH Administration Multivitamins 2.5 ml/ 2,005 mls @ 40 mls/hr 03/11/23 14:00 03/11/23 15:05 Multivitamin
[2023-03-12 11:45] LABS: Glucose Point of Care 119 mg/dl (65-105)
[2023-03-12] MEDS: AMINO ACIDS 5%/D15W/E-LYTES/CA 2,000 ML with MULTIVITAMINS-12 INJ VIAL 1 2.5 ML, MULTIV... 40 ML IV CONT (13:53)
[2023-03-12] MEDS: FAT EMULSIONS IV 20% 250 ML 20.83 ML IVPB (13:53)
[2023-03-12 14:00] VITALS: BP 151/56; PULSE 76; RESP 18; TEMP 36.6; O2SAT 95
[2023-03-12] MEDS: KCL 40 MEQ/D5/0.9% SOD CHL 1,000 ML 60 ML IV CONT (17:25)
[2023-03-12 18:36] LABS: Glucose Point of Care 122 mg/dl (65-105)
[2023-03-12 21:19] LABS: Glucose Point of Care 129 mg/dl (65-105)
[2023-03-12] MEDS: ACETAMINOPHEN 500 MG TABLET 1000 MG PO (21:23)
[2023-03-12] MEDS: diphenhydrAMINE HCl CAP 25 MG CAPSULE 50 MG PO (21:23)
[2023-03-12 21:35] VITALS: BP 137/60; PULSE 71; RESP 14; TEMP 36.7; O2SAT 93
[2023-03-13 00:11] LABS: Glucose Point of Care 124 mg/dl (65-105)
[2023-03-13] MEDS: MORPHINE SULFATE (*CRX) 2 MG/ML INJ IV PUSH (01:32)
[2023-03-13] MEDS: IBUPROFEN IV 800 MG/200 ML 800 MG/200 ML BAG 400 MG IVPB ×4 (05:07→23:26)
[2023-03-13] MEDS: CENTRAL LINE FLUSH 10 ML IV PUSH ×4 (05:37→20:35)
[2023-03-13] MEDS: CENTRAL LINE FLUSH 20 ML IV PUSH (05:37)
[2023-03-13 05:44] LABS: Hematocrit 30.7 % (37.0-47.0); Hemoglobin 9.9 g/dL (12.0-15.0); Mean Corpuscular HGB Conc 32.2 g/dl (32-36); Mean Corpuscular Hemoglobin 30.7 pg (26-34); Mean Corpuscular Volume 95.3 fl (80-100); Mean Platelet Volume 9.3 fl (7.4-10.4); Platelet Count Result 295 k/mm3 (150-375); Red Blood Count 3.22 M/mm3 (4.2-5.4); Red Cell Distribution Width 15.5 % (11.5-14.5); White Blood Count 11.4 K/mm3 (4.5-10.0)
[2023-03-13 05:50] LABS: Glucose Point of Care 116 mg/dl (65-105)
[2023-03-13 05:55] VITALS: BP 176/59; PULSE 69; RESP 14; TEMP 36.2; O2SAT 99
[2023-03-13 05:58] LABS: Anion Gap 4 mmol/L (8-16); Blood Urea Nitrogen 12 mg/dL (7-17); Calcium 7.6 mg/dL (8.4-10.2); Carbon Dioxide 27 mmol/L (22-30); Chloride 108 mmol/L (98-107); Estimated CRCL calculation 57 ml/min; Estimated Glomerular Filt Rate > 60; Glucose 116 mg/dL (65-110); Phosphorus 3.4 mg/dL (2.5-4.5); Potassium 3.6 mmol/L (3.4-5.0); Sodium 139 mmol/L (137-145)
[2023-03-13] MEDS: LORazepam INJ (*CRX) 2 MG/ML VIAL 1 MG IV PUSH ×3 (06:12→20:37)
[2023-03-13] MEDS: KCL 40 MEQ/D5/0.9% SOD CHL 1,000 ML 60 ML IV CONT (08:37)
[2023-03-13] MEDS: FAMOTIDINE 20 MG/2 ML VIAL IV PUSH ×2 (08:43→20:35)
[2023-03-13] MEDS: ENOXAPARIN 40 MG/0.4 ML SYRINGE SUB-Q (08:43)
[2023-03-13] MEDS: SERTRALINE HCL 50 MG TABLET 100 MG PO (08:43)
[2023-03-13 12:48] LABS: Glucose Point of Care 121 mg/dl (65-105)
[2023-03-13] MEDS: AMINO ACIDS 5%/D15W/E-LYTES/CA 2,000 ML with MULTIVITAMINS-12 INJ VIAL 1 2.5 ML, MULTIV... 40 ML IV CONT ×2 (13:19→13:20)
[2023-03-13] MEDS: FAT EMULSIONS IV 20% 250 ML 20.83 ML IVPB (13:21)
[2023-03-13 14:00] VITALS: BP 167/85; PULSE 74; RESP 20; TEMP 36.4; O2SAT 99
--- NOTE | 2023-03-13 14:51 | PM.PNGS ---
Progress Note: A&P Assessment and Plan (1) History of colostomy reversal: Code(s): Z98.890 - Other specified postprocedural states Status: Acute Assessment and Plan: still await return bowel function. Doing well. Stop IVF other than TPN. (2) Protein-calorie malnutrition, severe: Code(s): E43 - Unspecified severe protein-calorie malnutrition Status: Acute Assessment and Plan: continue TPN. Subjective Subjective Date/Time Seen: 03/13/23 14:51 Post Op day: 4 Patient reports: no new complaints, pain is less, flatus, no bowel movement and afebrile Review of Systems Review of Systems: All systems reviewed & are unremarkable except as noted in HPI and below (HPI and those items noted below) Constitutional: Constitutional: Denies chills and Denies fever(s) Cardiovascular: Cardiovascular: Denies chest pain, Denies diaphoresis, Denies dyspnea and Denies paroxysmal nocturnal dyspnea Respiratory: Respiratory: Denies chest congestion, Denies cough and Denies dyspnea Integumentary/Breasts: Skin/Breast: Denies lesions and Denies rash Exam Const: General: comfortable, no acute distress, alert and awake Orientation/consciousness: patient oriented x3 GI: Inspection: distended and incision (healing well) GI Palp: Yes Soft to palpation, Yes Tenderness to palpation present (GI), No Guarding due to palpation present (GI) and No Rebound tenderness present Auscultation: absent bowel sounds Neuro: General: patient oriented x3 and no focal motor deficits Extrem: General: no calf tenderness and no edema Psych: Affect: normal affect Insight: Good insight present (Psych) Judgement: Good judgement present (Psych) Objective Data Vital Signs Vital Signs: Vital Signs - 24 hr 03/12/23 21:35 03/12/23 20:00 03/13/23 05:55 Temperature 36.7 C 36.2 C L Pulse Rate 71 69 Respiratory Rate 14 14 Blood Pressure 137/60 176/59 H Pulse Oximetry 93 99 Oxygen Delivery Room Air 03/13/23 08:30 03/13/23 14:00 Temperature 36.4 C L Pulse Rate 74 Respiratory Rate 20 Blood Pressure 167/85 H Pulse Oximetry 99 Oxygen Delivery Room Air Intake/Output Intake/Output: Intake & Output 03/10/23 03/11/23 03/12/23 03/13/23 23:59 23:59 23:59 23:59 Intake Total 3920 2800 4705 5660 Output Total 4778 575 9048 300 Balance 2270 2550 3505 5360 Meds/Results Medications: Active Medications Generic Name Dose Route Start Last Admin Trade Name Freq PRN Reason Stop Dose Admin Acetaminophen 500 mg 03/09/23 15:41 03/10/23 00:20 Acetaminophen 500 Mg Tablet PO 500 mg Q6H PRN Administration Mild Pain (1-3) or Fever Acetaminophen 1,000 mg 03/09/23 21:00 03/12/23 21:23 Acetaminophen 500 Mg Tablet PO 04/08/23 20:59 1,000 mg HS ELIZABETH Administration Acetaminophen 650 mg 03/10/23 16:23 Acetaminophen 650 Mg Suppository RECTAL Q6H PRN Mild Pain (1-3) or Fever Aspirin 81 mg 03/10/23 08:00 03/10/23 12:55 Aspirin 81 Mg Chewable Tablet PO Not Given DAILY@0800 ELIZABETH Dextrose 12.5 gm 03/11/23 12:15 Dextrose 50% 25 Gm/50 Ml Syringe IV PUSH PRN PRN Hypoglycemia Protocol Diphenhydramine HCl 50 mg 03/09/23 21:00 03/12/23 21:23 Diphenhydramine Hcl Cap 25 Mg Capsule PO 04/08/23 20:59 50 mg HS ELIZABETH Administration Enoxaparin Sodium 40 mg 03/10/23 09:00 03/13/23 08:43 Enoxaparin 40 Mg/0.4 Ml Syringe SUB-Q 40 mg DAILY ELIZABETH Administration Famotidine 20 mg 03/09/23 21:00 03/13/23 08:43 Famotidine 20 Mg/2 Ml Vial IV PUSH 20 mg Q12HR ELIZABETH Administration Glucagon 1 mg 03/11/23 12:15 Glucagon For Inj 1 Mg Vial IM PRN PRN Hypoglycemia Protocol Ibuprofen 800 mg in 200 mls @ 400 mls/hr 03/09/23 18:00 03/13/23 11:32 Caldolor 800 Mg/200 Ml IVPB Infused Q6HR ELIZABETH Infusion Multivitamins 2.5 ml/ 2,005 mls @ 40 mls/hr 03/11/23 14:00 03/13/23 13:20 Multivitamins 2.5 ml/ Amino IV CONT 40 mls/h
[2023-03-13 18:37] LABS: Glucose Point of Care 114 mg/dl (65-105)
[2023-03-13] MEDS: ACETAMINOPHEN 500 MG TABLET 1000 MG PO (20:34)
[2023-03-13] MEDS: diphenhydrAMINE HCl CAP 25 MG CAPSULE 50 MG PO (20:34)
[2023-03-13 21:28] VITALS: BP 157/62; PULSE 67; RESP 14; TEMP 37.3; O2SAT 93
[2023-03-13 23:40] LABS: Glucose Point of Care 119 mg/dl (65-105)
[2023-03-14] MEDS: IBUPROFEN IV 800 MG/200 ML 800 MG/200 ML BAG 400 MG IVPB (05:12)
[2023-03-14] MEDS: CENTRAL LINE FLUSH 10 ML IV PUSH ×3 (05:13→20:33)
[2023-03-14] MEDS: LORazepam INJ (*CRX) 2 MG/ML VIAL 1 MG IV PUSH ×2 (05:13→14:49)
[2023-03-14] MEDS: CENTRAL LINE FLUSH 20 ML IV PUSH (05:13)
[2023-03-14 05:34] VITALS: BP 172/65; PULSE 55; RESP 14; TEMP 36.9; O2SAT 95
[2023-03-14 05:35] LABS: Basophils Percent Auto 0.3 % (0.2-1.2); Eosinophils Absolute Auto 0.2 K/mm3 (0-0.3); Eosinophils Percent Auto 1.8 % (0-4.4); Hemoglobin 9.5 g/dL (12.0-15.0); Immature Granulocyte Absolute 0.06 K/mm3 (0.00-0.031); Immature Granulocyte Percent A 0.6 % (0-0.5); Lymphocytes Absolute Auto 1.03 K/mm3 (0.9-3.2); Lymphocytes Percent Auto 10.8 % (18.3-44.2); Mean Corpuscular HGB Conc 31.7 g/dl (32-36); Mean Corpuscular Hemoglobin 30.1 pg (26-34); Mean Corpuscular Volume 94.9 fl (80-100); Mean Platelet Volume 9.6 fl (7.4-10.4); Monocytes Absolute Auto 1.1 K/mm3 (0.1-0.6); Monocytes Percent Auto 11.5 % (2.6-8.5); Neutrophils Absolute Auto 7.2 K/mm3 (1.3-6.7); Platelet Count Result 337 k/mm3 (150-375); Red Blood Count 3.16 M/mm3 (4.2-5.4); Red Cell Distribution Width 15.1 % (11.5-14.5); White Blood Count 9.6 K/mm3 (4.5-10.0)
[2023-03-14 05:39] LABS: Prothrombin Time 13.7 Seconds (11.1-14.7)
[2023-03-14 05:40] LABS: Alanine Aminotransferase 15 U/L (6-35); Albumin Level 3.1 g/dL (3.5-5.1); Alkaline Phosphatase 47 U/L (38-126); Anion Gap 4 mmol/L (8-16); Aspartate Amino Transferase 19 U/L (14-36); Bilirubin,Total 0.5 mg/dL (0.2-1.3); Blood Urea Nitrogen 11 mg/dL (7-17); Carbon Dioxide 30 mmol/L (22-30); Chloride 106 mmol/L (98-107); Estimated CRCL calculation 90 ml/min; Estimated Glomerular Filt Rate > 60; Glucose 108 mg/dL (65-110); Phosphorus 4.1 mg/dL (2.5-4.5); Potassium 3.5 mmol/L (3.4-5.0); Sodium 140 mmol/L (137-145)
[2023-03-14 05:43] LABS: Glucose Point of Care 115 mg/dl (65-105)
[2023-03-14 05:45] LABS: Transferrin 173 mg/dL (206-381)
[2023-03-14 05:50] LABS: Magnesium 1.9 mg/dL (1.6-2.3)
--- NOTE | 2023-03-14 07:59 | PM.PNGS ---
Progress Note: A&P Assessment and Plan (1) History of colostomy reversal: Code(s): Z98.890 - Other specified postprocedural states Status: Acute Assessment and Plan: Feels better. Bowel sounds are better. Will DC NG tube and try clear liquids sparingly. Increase ambulation. Continue TPN. (2) Protein-calorie malnutrition, severe: Code(s): E43 - Unspecified severe protein-calorie malnutrition Status: Acute Assessment and Plan: Continue TPN. Subjective Subjective Date/Time Seen: 03/14/23 07:59 Post Op day: 5 Patient reports: feels better, voiding w/o difficulty, flatus, no bowel movement and afebrile Review of Systems Review of Systems: All systems reviewed & are unremarkable except as noted in HPI and below (HPI AND THOSE ITEMS NOTED BELOW) Constitutional: Constitutional: Denies chills and Denies fever(s) Cardiovascular: Cardiovascular: Denies chest pain, Denies diaphoresis, Denies dyspnea and Denies paroxysmal nocturnal dyspnea Respiratory: Respiratory: Denies chest congestion, Denies cough and Denies dyspnea Integumentary/Breasts: Skin/Breast: Denies lesions and Denies rash Exam Const: General: comfortable and no acute distress Orientation/consciousness: patient oriented x3 GI: Inspection: distended and incision (HEALING, LOOKS BETTER.) GI Palp: Yes Soft to palpation, Yes Tenderness to palpation present (GI), No Guarding due to palpation present (GI) and No Rebound tenderness present Auscultation: normal bowel sounds Neuro: General: patient oriented x3 and no focal motor deficits Extrem: General: no calf tenderness and no edema Psych: Affect: normal affect Insight: Good insight present (Psych) Judgement: Good judgement present (Psych) Objective Data Vital Signs Vital Signs: Vital Signs - 24 hr 03/13/23 08:30 03/13/23 14:00 03/13/23 20:00 Temperature 36.4 C L Pulse Rate 74 Respiratory Rate 20 Blood Pressure 167/85 H Pulse Oximetry 99 Oxygen Delivery Room Air Room Air 03/13/23 21:28 03/14/23 05:34 Temperature 37.3 C 36.9 C Pulse Rate 67 55 L Respiratory Rate 14 14 Blood Pressure 157/62 H 172/65 H Pulse Oximetry 93 95 Oxygen Delivery Intake/Output Intake/Output: Intake & Output 03/11/23 03/12/23 03/13/23 03/14/23 23:59 23:59 23:59 23:59 Intake Total 2800 4705 6060 450 Output Total 250 1200 1150 500 Balance 2550 3505 4910 -50 Meds/Results Medications: Active Medications Generic Name Dose Route Start Last Admin Trade Name Freq PRN Reason Stop Dose Admin Acetaminophen 500 mg 03/09/23 15:41 03/10/23 00:20 Acetaminophen 500 Mg Tablet PO 500 mg Q6H PRN Administration Mild Pain (1-3) or Fever Acetaminophen 1,000 mg 03/09/23 21:00 03/13/23 20:34 Acetaminophen 500 Mg Tablet PO 04/08/23 20:59 1,000 mg HS ELIZABETH Administration Acetaminophen 650 mg 03/10/23 16:23 Acetaminophen 650 Mg Suppository RECTAL Q6H PRN Mild Pain (1-3) or Fever Aspirin 81 mg 03/10/23 08:00 03/10/23 12:55 Aspirin 81 Mg Chewable Tablet PO Not Given DAILY@0800 ELIZABETH Dextrose 12.5 gm 03/11/23 12:15 Dextrose 50% 25 Gm/50 Ml Syringe IV PUSH PRN PRN Hypoglycemia Protocol Diphenhydramine HCl 50 mg 03/09/23 21:00 03/13/23 20:34 Diphenhydramine Hcl Cap 25 Mg Capsule PO 04/08/23 20:59 50 mg HS ELIZABETH Administration Enoxaparin Sodium 40 mg 03/10/23 09:00 03/13/23 08:43 Enoxaparin 40 Mg/0.4 Ml Syringe SUB-Q 40 mg DAILY ELIZABETH Administration Famotidine 20 mg 03/09/23 21:00 03/13/23 20:35 Famotidine 20 Mg/2 Ml Vial IV PUSH 20 mg Q12HR ELIZABETH Administration Glucagon 1 mg 03/11/23 12:15 Glucagon For Inj 1 Mg Vial IM PRN PRN Hypoglycemia Protocol Multivitamins 2.5 ml/ 2,005 mls @ 60 mls/hr 03/11/23 14:00 03/13/23 13:20 Multivitamins 2.5 ml/ Amino IV CONT 40 mls/hr Acids/Electrolytes/Dextrose .Q24H ELIZABETH Administration Protocol Dextrose
[2023-03-14] MEDS: SERTRALINE HCL 50 MG TABLET 100 MG PO (09:09)
[2023-03-14] MEDS: ENOXAPARIN 40 MG/0.4 ML SYRINGE SUB-Q (09:09)
[2023-03-14] MEDS: MELOXICAM 7.5 MG TABLET PO (09:10)
[2023-03-14] MEDS: FAMOTIDINE 20 MG/2 ML VIAL IV PUSH ×2 (09:10→20:32)
[2023-03-14 11:58] LABS: Triglycerides 166 mg/dL (<150)
[2023-03-14 12:05] LABS: Glucose Point of Care 93 mg/dl (65-105)
[2023-03-14 14:00] VITALS: BP 176/71; PULSE 76; RESP 18; TEMP 36.7; O2SAT 98
[2023-03-14] MEDS: oxyCODONE/ACETAMINOPHEN (*CRX) 5-325 MG TABLET 1 TABLET PO (14:48)
[2023-03-14] MEDS: AMINO ACIDS 5%/D15W/E-LYTES/CA 2,000 ML with MULTIVITAMINS-12 INJ VIAL 1 2.5 ML, MULTIV... 40 ML IV CONT (14:50)
[2023-03-14] MEDS: FAT EMULSIONS IV 20% 250 ML 20.8 ML IVPB (14:52)
[2023-03-14 18:49] LABS: Glucose Point of Care 144 mg/dl (65-105)
[2023-03-14] MEDS: ACETAMINOPHEN 500 MG TABLET 1000 MG PO (20:32)
[2023-03-14] MEDS: diphenhydrAMINE HCl CAP 25 MG CAPSULE 50 MG PO (20:32)
[2023-03-14 20:55] VITALS: BP 153/70; PULSE 71; RESP 26; TEMP 36.2; O2SAT 91
[2023-03-15 00:25] LABS: Glucose Point of Care 117 mg/dl (65-105)
[2023-03-15] MEDS: LORazepam INJ (*CRX) 2 MG/ML VIAL 1 MG IV PUSH ×3 (02:19→22:50)
[2023-03-15] MEDS: oxyCODONE/ACETAMINOPHEN (*CRX) 5-325 MG TABLET 1 TABLET PO ×4 (02:20→22:10)
[2023-03-15 04:53] VITALS: BP 146/88; PULSE 59; RESP 28; TEMP 36.6; O2SAT 94
[2023-03-15 05:00] LABS: Mean Corpuscular HGB Conc 32.1 g/dl (32-36); Mean Corpuscular Hemoglobin 30.1 pg (26-34); Mean Corpuscular Volume 93.6 fl (80-100); Mean Platelet Volume 9.7 fl (7.4-10.4); Platelet Count Result 347 k/mm3 (150-375); Red Blood Count 2.99 M/mm3 (4.2-5.4); Red Cell Distribution Width 14.6 % (11.5-14.5); White Blood Count 10.6 K/mm3 (4.5-10.0)
[2023-03-15 05:15] LABS: Anion Gap 5 mmol/L (8-16); Blood Urea Nitrogen 11 mg/dL (7-17); Carbon Dioxide 32 mmol/L (22-30); Chloride 100 mmol/L (98-107); Estimated CRCL calculation 109 ml/min; Estimated Glomerular Filt Rate > 60; Glucose 114 mg/dL (65-110); Phosphorus 4.3 mg/dL (2.5-4.5); Potassium 3.4 mmol/L (3.4-5.0); Sodium 137 mmol/L (137-145)
[2023-03-15] MEDS: CENTRAL LINE FLUSH 10 ML IV PUSH ×3 (05:16→23:05)
[2023-03-15] MEDS: CENTRAL LINE FLUSH 20 ML IV PUSH (05:16)
[2023-03-15 06:39] LABS: Glucose Point of Care 110 mg/dl (65-105)
--- NOTE | 2023-03-15 07:15 | PM.PNGS ---
Progress Note: A&P Assessment and Plan (1) History of colostomy reversal: Code(s): Z98.890 - Other specified postprocedural states Status: Acute Assessment and Plan: Bowel function returning. Advance to full liquids. Still no bowel movement. Continue TPN today. Continue ambulation. Doing well. (2) History of open sigmoidectomy: Code(s): Z98.890 - Other specified postprocedural states; Z90.49 - Acquired absence of other specified parts of digestive tract Status: Chronic (3) Protein-calorie malnutrition, severe: Code(s): E43 - Unspecified severe protein-calorie malnutrition Status: Acute Subjective Subjective Date/Time Seen: 03/15/23 07:15 Post Op day: #6 Patient reports: no new complaints, feels better, tolerating liquids well, flatus, no bowel movement and afebrile Review of Systems Review of Systems: All systems reviewed & are unremarkable except as noted in HPI and below (HPI) Exam Const: General: comfortable and no acute distress Orientation/consciousness: patient oriented x3 GI: Inspection: distended and incision (Healing well) GI Palp: Yes Soft to palpation, Yes Tenderness to palpation present (GI) (Minimal), No Guarding due to palpation present (GI) and No Rebound tenderness present Auscultation: normal bowel sounds Neuro: General: patient oriented x3 and no focal motor deficits Extrem: General: no calf tenderness and no edema Psych: Affect: normal affect Insight: Good insight present (Psych) Judgement: Good judgement present (Psych) Objective Data Vital Signs Vital Signs: Vital Signs - 24 hr 03/14/23 14:00 03/14/23 20:00 03/14/23 20:55 Temperature 36.7 C 36.2 C L Pulse Rate 76 71 Respiratory Rate 18 26 H Blood Pressure 176/71 H 153/70 H Pulse Oximetry 98 91 Oxygen Delivery Room Air 03/15/23 04:53 Temperature 36.6 C Pulse Rate 59 L Respiratory Rate 28 H Blood Pressure 146/88 H Pulse Oximetry 94 Oxygen Delivery Intake/Output Intake/Output: Intake & Output 03/12/23 03/13/23 03/14/23 03/15/23 23:59 23:59 23:59 23:59 Intake Total 4705 6060 3655 100 Output Total 1200 1150 500 Balance 3505 4910 3155 100 Meds/Results Medications: Active Medications Generic Name Dose Route Start Last Admin Trade Name Freq PRN Reason Stop Dose Admin Acetaminophen 500 mg 03/09/23 15:41 03/10/23 00:20 Acetaminophen 500 Mg Tablet PO 500 mg Q6H PRN Administration Mild Pain (1-3) or Fever Acetaminophen 1,000 mg 03/09/23 21:00 03/14/23 20:32 Acetaminophen 500 Mg Tablet PO 04/08/23 20:59 1,000 mg HS ELIZABETH Administration Acetaminophen 650 mg 03/10/23 16:23 Acetaminophen 650 Mg Suppository RECTAL Q6H PRN Mild Pain (1-3) or Fever Aspirin 81 mg 03/10/23 08:00 03/10/23 12:55 Aspirin 81 Mg Chewable Tablet PO Not Given DAILY@0800 ELIZABETH Dextrose 12.5 gm 03/11/23 12:15 Dextrose 50% 25 Gm/50 Ml Syringe IV PUSH PRN PRN Hypoglycemia Protocol Diphenhydramine HCl 50 mg 03/09/23 21:00 03/14/23 20:32 Diphenhydramine Hcl Cap 25 Mg Capsule PO 04/08/23 20:59 50 mg HS ELIZABETH Administration Enoxaparin Sodium 40 mg 03/10/23 09:00 03/14/23 09:09 Enoxaparin 40 Mg/0.4 Ml Syringe SUB-Q 40 mg DAILY ELIZABETH Administration Famotidine 20 mg 03/09/23 21:00 03/14/23 20:32 Famotidine 20 Mg/2 Ml Vial IV PUSH 20 mg Q12HR ELIZABETH Administration Glucagon 1 mg 03/11/23 12:15 Glucagon For Inj 1 Mg Vial IM PRN PRN Hypoglycemia Protocol Multivitamins 2.5 ml/ 2,005 mls @ 60 mls/hr 03/11/23 14:00 03/14/23 14:50 Multivitamins 2.5 ml/ Amino IV CONT 40 mls/hr Acids/Electrolytes/Dextrose .Q24H ELIZABETH Administration Protocol Dextrose 1,000 mls @ 50 mls/hr 03/11/23 12:15 Dextrose 10% IV CONT .Q20H PRN if PN is interrupted Fat Emulsion Intravenous 250 mls @ 20.833 mls/hr 03/11/23 14:00 03/14/23 14:52 Lipids 20% IVPB 20.8 mls/hr Q2
[2023-03-15] MEDS: FAMOTIDINE 20 MG/2 ML VIAL IV PUSH ×2 (09:09→23:05)
[2023-03-15] MEDS: ENOXAPARIN 40 MG/0.4 ML SYRINGE SUB-Q (09:09)
[2023-03-15] MEDS: SERTRALINE HCL 50 MG TABLET 100 MG PO (09:09)
[2023-03-15] MEDS: MELOXICAM 7.5 MG TABLET PO (09:09)
--- NOTE | 2023-03-15 11:45 | PCNFU ---
Nutrition Follow-Up Complete: Inadequate energy intake related to altered GI function and NPO as evidenced by diet orders and need for TPN for nutrition support. Goal: Meet estimated needs Pt current nutrition is TPN @ 60ml/hr = 1522kcals, 72g protein. pt is also on full liquids, tolerating well at this time. Nutrition recommendation: Advance diet as tolerated Last recorded weight is 79.2 kg. Bowel Motility: No BM recorded at this time Labs Reviewed: Hgb:9.0, HCT:28, Cr:0.4, Glu:110 Meds Noted: lovenox, zofran Skin: WNL Additional Notes: Pt is on last day of TPN, has started liquids and is tolerating well. To continue to advance diet. Agree with diet orders. Monitor orders, tolerance, wt, labs. Follow up in 3 days.
[2023-03-15 11:46] LABS: Glucose Point of Care 122 mg/dl (65-105)
[2023-03-15] MEDS: AMINO ACIDS 5%/D15W/E-LYTES/CA 2,000 ML with MULTIVITAMINS-12 INJ VIAL 1 2.5 ML, MULTIV... 60 ML IV CONT (13:33)
[2023-03-15] MEDS: FAT EMULSIONS IV 20% 250 ML 20.8 ML IVPB (13:33)
[2023-03-15 13:51] VITALS: BP 171/75; PULSE 60; RESP 20; TEMP 36.1; O2SAT 95
[2023-03-15 15:40] VITALS: BP 181/96; PULSE 64; RESP 20; TEMP 36.4; O2SAT 94
[2023-03-15 17:29] LABS: Glucose Point of Care 127 mg/dl (65-105)
[2023-03-15 17:55] VITALS: BP 198/90
[2023-03-15] MEDS: hydrALAZINE HCL 20 MG/ML VIAL 10 MG IV PUSH (18:38)
[2023-03-15] MEDS: ACETAMINOPHEN 500 MG TABLET PO (18:39)
[2023-03-15 19:15] VITALS: BP 182/76
[2023-03-15 22:00] VITALS: BP 179/74; PULSE 72; RESP 16; TEMP 35.7; O2SAT 97
[2023-03-15] MEDS: ACETAMINOPHEN 500 MG TABLET 1000 MG PO (23:05)
[2023-03-15] MEDS: diphenhydrAMINE HCl CAP 25 MG CAPSULE 50 MG PO (23:05)
[2023-03-16] VITALS (7 sets, daily range): BP systolic 158–175; BP diastolic 67–77; PULSE 63–75; RESP 16–20; TEMP 35.6–36.3; O2SAT 94–96
[2023-03-16] MEDS: LORazepam INJ (*CRX) 2 MG/ML VIAL 1 MG IV PUSH (05:15)
[2023-03-16 06:51] LABS: Glucose Point of Care 117 mg/dl (65-105)
[2023-03-16 06:51] LABS: Glucose Point of Care 108 mg/dl (65-105)
[2023-03-16] MEDS: CENTRAL LINE FLUSH 10 ML IV PUSH ×4 (06:55→21:16)
[2023-03-16] MEDS: ENOXAPARIN 40 MG/0.4 ML SYRINGE SUB-Q (08:18)
[2023-03-16] MEDS: FAMOTIDINE 20 MG/2 ML VIAL IV PUSH ×2 (08:18→21:08)
[2023-03-16] MEDS: SERTRALINE HCL 50 MG TABLET 100 MG PO (08:18)
[2023-03-16] MEDS: MELOXICAM 7.5 MG TABLET PO (08:18)
[2023-03-16] MEDS: hydrALAZINE HCL 20 MG/ML VIAL 10 MG IV PUSH (08:28)
[2023-03-16 08:35] LABS: Anion Gap 5 mmol/L (8-16); Blood Urea Nitrogen 11 mg/dL (7-17); Calcium 8.2 mg/dL (8.4-10.2); Carbon Dioxide 32 mmol/L (22-30); Chloride 99 mmol/L (98-107); Estimated CRCL calculation 108 ml/min; Estimated Glomerular Filt Rate > 60; Glucose 92 mg/dL (65-110); Phosphorus 4.5 mg/dL (2.5-4.5); Potassium 3.4 mmol/L (3.4-5.0); Sodium 136 mmol/L (137-145); Triglycerides 126 mg/dL (<150)
[2023-03-16 09:48] LABS: Hematocrit 29.8 % (37.0-47.0); Hemoglobin 9.5 g/dL (12.0-15.0); Mean Corpuscular HGB Conc 31.9 g/dl (32-36); Mean Corpuscular Hemoglobin 29.6 pg (26-34); Mean Corpuscular Volume 92.8 fl (80-100); Mean Platelet Volume 9.7 fl (7.4-10.4); Platelet Count Result 450 k/mm3 (150-375); Red Blood Count 3.21 M/mm3 (4.2-5.4); Red Cell Distribution Width 14.6 % (11.5-14.5); White Blood Count 10.3 K/mm3 (4.5-10.0)
--- NOTE | 2023-03-16 09:59 | PM.PNGS ---
Progress Note: A&P Assessment and Plan (1) History of colostomy reversal: Code(s): Z98.890 - Other specified postprocedural states Status: Acute Assessment and Plan: Still no bowel movement and full liquids are not being tolerated well as patient feels bloated and fills up quickly. No heartburn nausea or emesis. Obstructive series consistent with mild ileus. Will try dulcolax suppository or Fleet enema. (2) Protein-calorie malnutrition, severe: Code(s): E43 - Unspecified severe protein-calorie malnutrition Status: Acute Assessment and Plan: Continue TPN until eating better (3) History of open sigmoidectomy: Code(s): Z98.890 - Other specified postprocedural states; Z90.49 - Acquired absence of other specified parts of digestive tract Status: Chronic Subjective Subjective Date/Time Seen: 03/16/23 09:59 Post Op day: #7 Patient reports: flatus, no bowel movement, afebrile and other ( Getting frustrated. Still feels bloated and can only eat a little bit. No bowel movement again. Getting anxiety or panic attacks) Review of Systems Review of Systems: All systems reviewed & are unremarkable except as noted in HPI and below (HPI AND THOSE ITEMS NOTED BELOW) Constitutional: Constitutional: Denies chills, Denies fever(s) and Reports poor appetite Cardiovascular: Cardiovascular: Denies chest pain, Denies diaphoresis, Denies dyspnea and Denies paroxysmal nocturnal dyspnea Respiratory: Respiratory: Denies chest congestion, Denies cough and Denies dyspnea Gastrointestinal: Gastrointestinal: Reports as per HPI, Reports bloating, Reports early satiety, Denies nausea and Denies vomiting Integumentary/Breasts: Skin/Breast: Denies lesions and Denies rash Exam Const: General: comfortable and no acute distress Orientation/consciousness: patient oriented x3 GI: Inspection: Abdominal wall edema, distended and incision (Healing well) GI Palp: Yes Firmness to palpation present (GI), Yes Tenderness to palpation present (GI) (Minimal tenderness), No Guarding due to palpation present (GI) and No Rebound tenderness present Auscultation: Hypoactive bowel sounds present Neuro: General: patient oriented x3 and no focal motor deficits Extrem: General: no calf tenderness and no edema Psych: Affect: normal affect Insight: Good insight present (Psych) Judgement: Good judgement present (Psych) Objective Data Vital Signs Vital Signs: Vital Signs - 24 hr 03/15/23 13:51 03/15/23 15:40 03/15/23 17:55 Temperature 36.1 C L 36.4 C Pulse Rate 60 64 Respiratory Rate 20 20 Blood Pressure 171/75 H 181/96 H 198/90 H Pulse Oximetry 95 94 Oxygen Delivery 03/15/23 19:15 03/15/23 22:00 03/16/23 00:32 Temperature 35.7 C L 35.9 C L Pulse Rate 72 63 Respiratory Rate 16 20 Blood Pressure 182/76 H 179/74 H 158/69 H Pulse Oximetry 97 94 Oxygen Delivery 03/16/23 06:00 03/16/23 05:02 03/16/23 08:25 Temperature 35.9 C L 35.6 C L Pulse Rate 68 68 75 Respiratory Rate 16 16 Blood Pressure 168/73 H 170/77 H 175/69 H Pulse Oximetry 96 96 Oxygen Delivery 03/16/23 08:00 Temperature Pulse Rate Respiratory Rate Blood Pressure Pulse Oximetry Oxygen Delivery Room Air Intake/Output Intake/Output: Intake & Output 03/13/23 03/14/23 03/15/23 03/16/23 23:59 23:59 23:59 23:59 Intake Total 6060 3655 3113 630 Output Total 0358 872 8247 1825 Balance 4910 9451 1518 -0253 Meds/Results Medications: Active Medications Generic Name Dose Route Start Last Admin Trade Name Freq PRN Reason Stop Dose Admin Acetaminophen 500 mg 03/09/23 15:41 03/15/23 18:39 Acetaminophen 500 Mg Tablet PO 500 mg Q6H PRN Administration Mild Pain (1-3) or Fever Acetaminophen 1,000 mg 03/09/23 21:00 03/15/23 23:05 Acetaminophen 500 Mg Tablet PO 04/08/23 20:59 1,000 mg HS ELIZABETH Administration Alprazolam 0.25 mg 03/16/23 09:57 Alprazolam (*Crx) 0.25 Mg Tabl
[2023-03-16] MEDS: MORPHINE SULFATE (*CRX) 2 MG/ML INJ IV PUSH (10:47)
[2023-03-16 11:30] LABS: Glucose Point of Care 105 mg/dl (65-105)
[2023-03-16] MEDS: BISACODYL 10 MG SUPPOSITORY RECTAL (12:12)
--- NOTE | 2023-03-16 13:21 | PCCCNOTE ---
On 03/16/23, the student, [Toyin Guadalupe], provided care and completed [facility] documentation on this patient. I have reviewed the student's documentation and agree with the findings.
[2023-03-16] MEDS: ACETAMINOPHEN 500 MG TABLET PO (14:12)
[2023-03-16] MEDS: AMINO ACIDS 5%/D15W/E-LYTES/CA 2,000 ML with MULTIVITAMINS-12 INJ VIAL 1 2.5 ML, MULTIV... 60 ML IV CONT (14:12)
[2023-03-16] MEDS: FAT EMULSIONS IV 20% 250 ML 20.8 ML IVPB (14:12)
[2023-03-16] MEDS: ALPRAZolam (*CRX) 0.25 MG TABLET PO ×2 (14:35→18:47)
[2023-03-16 18:23] LABS: Glucose Point of Care 151 mg/dl (65-105)
[2023-03-16] MEDS: diphenhydrAMINE HCl CAP 25 MG CAPSULE 50 MG PO (21:07)
[2023-03-16] MEDS: ACETAMINOPHEN 500 MG TABLET 1000 MG PO (21:07)
[2023-03-17] MEDS: oxyCODONE/ACETAMINOPHEN (*CRX) 5-325 MG TABLET 1 TABLET PO (01:06)
[2023-03-17 01:15] LABS: Glucose Point of Care 107 mg/dl (65-105)
[2023-03-17] MEDS: ALPRAZolam (*CRX) 0.25 MG TABLET PO ×2 (04:45→20:29)
[2023-03-17] MEDS: CENTRAL LINE FLUSH 10 ML IV PUSH ×3 (05:12→20:29)
[2023-03-17 05:20] LABS: Basophils Absolute Auto 0.1 K/mm3 (0.0-0.1); Basophils Percent Auto 0.6 % (0.2-1.2); Eosinophils Absolute Auto 0.5 K/mm3 (0-0.3); Eosinophils Percent Auto 5.5 % (0-4.4); Hematocrit 30.3 % (37.0-47.0); Immature Granulocyte Absolute 0.15 K/mm3 (0.00-0.031); Immature Granulocyte Percent A 1.6 % (0-0.5); Lymphocytes Absolute Auto 1.79 K/mm3 (0.9-3.2); Lymphocytes Percent Auto 19.2 % (18.3-44.2); Mean Corpuscular Hemoglobin 30.8 pg (26-34); Mean Corpuscular Volume 93.2 fl (80-100); Mean Platelet Volume 9.3 fl (7.4-10.4); Monocytes Absolute Auto 1.2 K/mm3 (0.1-0.6); Monocytes Percent Auto 12.7 % (2.6-8.5); Neutrophils Absolute Auto 5.6 K/mm3 (1.3-6.7); Neutrophils Percent Auto 60.4 % (45.5-73.1); Platelet Count Result 498 k/mm3 (150-375); Red Blood Count 3.25 M/mm3 (4.2-5.4); Red Cell Distribution Width 14.6 % (11.5-14.5); White Blood Count 9.3 K/mm3 (4.5-10.0)
[2023-03-17 05:22] VITALS: BP 171/66; PULSE 66; RESP 16; TEMP 36.1; O2SAT 97
[2023-03-17 05:32] LABS: Alanine Aminotransferase 23 U/L (6-35); Albumin Level 3.3 g/dL (3.5-5.1); Alkaline Phosphatase 61 U/L (38-126); Anion Gap 4 mmol/L (8-16); Aspartate Amino Transferase 26 U/L (14-36); Bilirubin,Total 0.4 mg/dL (0.2-1.3); Blood Urea Nitrogen 10 mg/dL (7-17); Calcium 8.3 mg/dL (8.4-10.2); Carbon Dioxide 33 mmol/L (22-30); Chloride 104 mmol/L (98-107); Estimated CRCL calculation 89 ml/min; Estimated Glomerular Filt Rate > 60; Glucose 99 mg/dL (65-110); Magnesium 1.7 mg/dL (1.6-2.3); Phosphorus 4.3 mg/dL (2.5-4.5); Potassium 3.2 mmol/L (3.4-5.0); Sodium 141 mmol/L (137-145)
[2023-03-17 06:24] VITALS: BP 168/66; PULSE 62
[2023-03-17 06:35] LABS: Glucose Point of Care 104 mg/dl (65-105)
--- NOTE | 2023-03-17 07:37 | PM.PNGS ---
Progress Note: A&P Assessment and Plan (1) History of colostomy reversal: Code(s): Z98.890 - Other specified postprocedural states Status: Acute Assessment and Plan: although patient still distended, ileus appears to have resolved. She has good bowel sounds and has had several bowel movements. We will discontinue her wound gallito today and then advance to regular diet. Will discontinue her TPN. A continue ambulation. Recheck labs again tomorrow. Complains of insomnia, will order trazodone p.r.n. for sleep. (2) Protein-calorie malnutrition, severe: Code(s): E43 - Unspecified severe protein-calorie malnutrition Status: Acute Assessment and Plan: Good oral intake yesterday and several bowel movements. Will advance to regular diet and discontinue TPN today. Subjective Subjective Date/Time Seen: 03/17/23 07:37 Post Op day: #8 Patient reports: tolerating liquids well, bowel movement and afebrile Review of Systems Review of Systems: All systems reviewed & are unremarkable except as noted in HPI and below ( HPI and those items noted below) Constitutional: Constitutional: Denies chills and Denies fever(s) Cardiovascular: Cardiovascular: Denies chest pain, Denies diaphoresis, Denies dyspnea and Denies paroxysmal nocturnal dyspnea Respiratory: Respiratory: Denies chest congestion, Denies cough and Denies dyspnea Integumentary/Breasts: Skin/Breast: Denies lesions and Denies rash Exam Const: General: comfortable and no acute distress Orientation/consciousness: patient oriented x3 Resp: Effort & Inspection: normal respiratory effort Auscultation: clear to auscultation bilaterally GI: Inspection: distended and incision ( healing well) GI Palp: Yes Soft to palpation and No Tenderness to palpation present (GI) Auscultation: normoactive bowel sounds Neuro: General: patient oriented x3 and no focal motor deficits Extrem: General: no calf tenderness and no edema Psych: Affect: normal affect Insight: Good insight present (Psych) Judgement: Good judgement present (Psych) Objective Data Vital Signs Vital Signs: Vital Signs - 24 hr 03/16/23 08:25 03/16/23 08:00 03/16/23 10:12 Temperature Pulse Rate 75 Respiratory Rate Blood Pressure 175/69 H 164/68 H Pulse Oximetry Oxygen Delivery Room Air 03/16/23 14:00 03/16/23 20:00 03/16/23 21:24 Temperature 36.3 C L 36.1 C L Pulse Rate 70 69 Respiratory Rate 18 16 Blood Pressure 162/71 H 162/67 H Pulse Oximetry 94 94 Oxygen Delivery Room Air 03/17/23 05:22 03/17/23 06:24 Temperature 36.1 C L Pulse Rate 66 62 Respiratory Rate 16 Blood Pressure 171/66 H 168/66 H Pulse Oximetry 97 Oxygen Delivery Intake/Output Intake/Output: Intake & Output 03/14/23 03/15/23 03/16/23 03/17/23 23:59 23:59 23:59 23:59 Intake Total 3655 3113 3685 Output Total 500 1000 3325 Balance 3155 2113 360 Meds/Results Medications: Active Medications Generic Name Dose Route Start Last Admin Trade Name Freq PRN Reason Stop Dose Admin Acetaminophen 500 mg 03/09/23 15:41 03/16/23 14:12 Acetaminophen 500 Mg Tablet PO 500 mg Q6H PRN Administration Mild Pain (1-3) or Fever Acetaminophen 1,000 mg 03/09/23 21:00 03/16/23 21:07 Acetaminophen 500 Mg Tablet PO 04/08/23 20:59 1,000 mg HS ELIZABETH Administration Alprazolam 0.25 mg 03/16/23 09:57 03/17/23 04:45 Alprazolam (*Crx) 0.25 Mg Tablet PO 0.25 mg BID PRN Administration Anxiety Aspirin 81 mg 03/10/23 08:00 03/10/23 12:55 Aspirin 81 Mg Chewable Tablet PO Not Given DAILY@0800 ELIZABETH Dextrose 12.5 gm 03/11/23 12:15 Dextrose 50% 25 Gm/50 Ml Syringe IV PUSH PRN PRN Hypoglycemia Protocol Diphenhydramine HCl 50 mg 03/09/23 21:00 03/16/23 21:07 Diphenhydramine Hcl Cap 25 Mg Capsule PO 04/08/23 20:59 50 mg HS ELIZABETH Administration Enoxaparin Sodium 40 mg 03/10/23 09:00 03/16/23 08:18
[2023-03-17] MEDS: FAMOTIDINE 20 MG TABLET PO ×2 (08:31→20:29)
[2023-03-17] MEDS: POTASSIUM CHLORIDE 20 MEQ TABLET.ER 40 MEQ PO ×2 (08:32→17:28)
[2023-03-17] MEDS: SERTRALINE HCL 50 MG TABLET 100 MG PO (08:32)
[2023-03-17] MEDS: MELOXICAM 7.5 MG TABLET PO (08:32)
[2023-03-17] MEDS: MAGNESIUM OXIDE 400 MG TABLET PO (08:32)
[2023-03-17] MEDS: ENOXAPARIN 40 MG/0.4 ML SYRINGE SUB-Q (08:32)
[2023-03-17] MEDS: ASPIRIN 81 MG CHEWABLE TABLET PO (08:32)
[2023-03-17 14:00] VITALS: BP 156/76; PULSE 76; RESP 14; TEMP 37; O2SAT 96
[2023-03-17 20:00] VITALS: PULSE 76; RESP 14; O2SAT 96
[2023-03-17] MEDS: ACETAMINOPHEN 500 MG TABLET 1000 MG PO (20:28)
[2023-03-17] MEDS: diphenhydrAMINE HCl CAP 25 MG CAPSULE 50 MG PO (20:29)
[2023-03-17 22:00] VITALS: BP 168/84; PULSE 80; RESP 18; TEMP 35.8; O2SAT 95
[2023-03-17] MEDS: hydrALAZINE HCL 20 MG/ML VIAL 10 MG IV PUSH (23:44)
[2023-03-18] MEDS: LORazepam INJ (*CRX) 2 MG/ML VIAL 1 MG IV PUSH (01:36)
[2023-03-18] MEDS: CENTRAL LINE FLUSH 10 ML IV PUSH (05:22)
[2023-03-18 06:00] VITALS: BP 153/65; PULSE 82; RESP 18; TEMP 35.8; O2SAT 94
[2023-03-18 06:28] LABS: Hematocrit 31.4 % (37.0-47.0); Hemoglobin 10.1 g/dL (12.0-15.0); Mean Corpuscular HGB Conc 32.2 g/dl (32-36); Mean Corpuscular Hemoglobin 30.2 pg (26-34); Mean Platelet Volume 9.2 fl (7.4-10.4); Platelet Count Result 573 k/mm3 (150-375); Red Blood Count 3.34 M/mm3 (4.2-5.4); Red Cell Distribution Width 14.6 % (11.5-14.5); White Blood Count 8.4 K/mm3 (4.5-10.0)
[2023-03-18 06:38] LABS: Anion Gap 4 mmol/L (8-16); Blood Urea Nitrogen 10 mg/dL (7-17); Calcium 8.2 mg/dL (8.4-10.2); Carbon Dioxide 29 mmol/L (22-30); Chloride 106 mmol/L (98-107); Estimated CRCL calculation 78 ml/min; Estimated Glomerular Filt Rate > 60; Glucose 94 mg/dL (65-110); Potassium 3.9 mmol/L (3.4-5.0); Sodium 139 mmol/L (137-145)
--- NOTE | 2023-03-18 07:39 | PM.DS ---
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 and sigmoid resection with Rossi procedure history fecal peritonitis smoker DS: Discharge Diagnosis Discharge Diagnosis (1) History of colostomy reversal: Code(s): Z98.890 - Other specified postprocedural states Status: Acute (2) History of open sigmoidectomy: Code(s): Z98.890 - Other specified postprocedural states; Z90.49 - Acquired absence of other specified parts of digestive tract Status: Chronic (3) Protein-calorie malnutrition, severe: Code(s): E43 - Unspecified severe protein-calorie malnutrition Status: Acute (4) Smoker: Code(s): F17.200 - Nicotine dependence, unspecified, uncomplicated Status: Chronic DS: Summary Hospital Course Hospital Course: patient transferred [facility] in late August of 2022 after having suffered stercoral perforation of her sigmoid colon and fecal peritonitis. She underwent difficult sigmoidectomy with Rsosi procedure 08/31/2022. She was quite ill following the surgery requiring ICU care but eventually was able to be discharged. From there she recovered in appropriate time frame. She has been doing well and her colostomy has been working well. She desires hinduism of intestinal continuity. This was discussed with her in the office a couple of different occasions. She was prepared for surgery and then taken back to the operating room on 03/09/2023. Anticipating a difficult surgery, ureteral stents were placed just prior to surgery in the operating room by Dr. Gibbons. She underwent an exceptionally difficult colostomy closure. 3-1/2 hours of adhesiolysis were required for an operation that took a total of 5 hours and 40 minutes. 2 units of packed cells were administered during the surgery. Stapled colorectal anastomosis with 33 EEA was performed. Splenic flexure takedown was required. Following surgery, she developed a severe ileus requiring nasogastric tube placement. She also had a PICC line placed and was on TPN for malnutrition. It took nearly 7 days for her bowel function to return adequately. Her nasogastric tube was removed on 03/15/2023. She was gradually advanced to full liquid diet by 08/2023. She finally had bowel movements after a Fleet's enema on 03/16/2023. Her bowels were functioning normally and she had excellent bowel sounds although still somewhat distended on 03/17 and 03/18. She was tolerating regular diet and comfortable with minimal analgesics. She is able to be discharged now on postop day 9. , 03/18/2023. Time spent discussing smoking cessation with patient: 3 to 10 minutes Status at Discharge Functional status at discharge: uses cane/walker Overall status at discharge: patient is progressing back to baseline Time Spent with Patient Time attestation: Total time spent providing and/or coordinating discharge services: Time spent: Less than 30 minutes DS: Data Data Completed and Pending Completed studies during hospitalization: Pending at discharge 03/09/23 11:57 Surgical [PTH] Routine Surgical [PTH] Routine Surgical [PTH] Routine Labs on day of discharge: Labs from last 24 hours 03/18/23 06:11 WBC 8.4 RBC 3.34 L Hgb 10.1 L Hct 31.4 L MCV 94.0 MCH 30.2 MCHC 32.2 RDW 14.6 H Plt Count 573 H MPV 9.2 Sodium 139 Potassium 3.9 Chloride 106 Carbon Dioxide 29 Anion Gap 4 L BUN 10 Creatinine 0.50 L Estim Creat Clear Calc 78 Estimated GFR > 60 Glucose 94 Calcium 8.2 L Discharge Plan Discharge Attending physician on discharge: Giuliano Krueger Consulting providers: Feliciano Aguila Discharging Clinician: Giuliano Krueger Anticipated Discharge Date/Time: 03/18/23 13:00 Patient Disposition: Home, Self-Care Activity: may shower, no straining and as tolerated Diet: regular Wound Care
[2023-03-18] MEDS: MAGNESIUM OXIDE 400 MG TABLET PO (08:04)
[2023-03-18] MEDS: SERTRALINE HCL 50 MG TABLET 100 MG PO (08:04)
[2023-03-18] MEDS: MELOXICAM 7.5 MG TABLET PO (08:04)
[2023-03-18] MEDS: FAMOTIDINE 20 MG TABLET PO (08:04)
[2023-03-18] MEDS: POTASSIUM CHLORIDE 20 MEQ TABLET.ER 40 MEQ PO (08:04)
[2023-03-18] MEDS: ASPIRIN 81 MG CHEWABLE TABLET PO (08:04)
[2023-03-18] MEDS: ENOXAPARIN 40 MG/0.4 ML SYRINGE SUB-Q (08:05)
== END 2023-03-18 09:55 | disposition home or self-care (01) | DRG 335 ==
LOC: ANH3MEDSUR 15:43
PROVIDERS: Nurse Practitioner Family; Urology; Admitting Provider Surgery; PCP Physician Assistant; Visit Provider Surgery
PROC: 0DSM0ZZ Reposition Descending Colon, Open Approach (ICD-10-PCS; CPT 44620; principal; 2023-03-09 07:30)
PROC: 0TJB8ZZ Inspection of Bladder, Via Natural or Artificial Opening Endoscopic (ICD-10-PCS; 2023-03-09 07:30)
DX: Z43.3 Encounter for attention to colostomy (principal); E43 Unspecified severe protein-calorie malnutrition; K56.0 Paralytic ileus; E78.5 Hyperlipidemia, unspecified; M19.90 Unspecified osteoarthritis, unspecified site; F41.9 Anxiety disorder, unspecified; F17.210 Nicotine dependence, cigarettes, uncomplicated; Z96.641 Presence of right artificial hip joint; Z79.82 Long term (current) use of aspirin; Z68.26 Body mass index [BMI] 26.0-26.9, adult
CPT/HCPCS: 36415; 36430; 36569; 74018; 74019; 80048; 80053; 82948; 83735; 84100; 84466; 84478; 85025; 85027; 85610; 85730; 88304; 88305; 88307; A9270; C1729; C1751; C1758; C1769; J0360; J0690; J1100; J1170; J1650; J1741; J2060; J2250; J2270; J2405; J2704; J3010; J3480; J7030; J7120; P9016

== ENCOUNTER 2023-08-05 12:47 | Outpatient (CLI) | payer MEDICARE, SELFPAY ==
--- NOTE | ~2023-08-05 | MM_ITS ---
EXAMINATION: MM screening [facility] BI w kaity HISTORY: Screening mammogram TECHNIQUE: Craniocaudal and mediolateral oblique 3-D tomosynthesis images were obtained and synthetic 2-D images were generated. CAD analysis was submitted and interpreted. COMPARISON: 03/07/2019, 09/07/2017 bilateral screening mammogram examination BREAST PARENCHYMAL COMPOSITION: There are scattered areas of fibroglandular density. FINDINGS: There is no evidence of suspicious mass, calcification, or architectural distortion to sugg est malignancy in either breast. There has been no suspicious interval change. IMPRESSION: 1. No mammographic evidence of malignancy. 2. Recommend routine screening mammography in one year. BI-RADS Category 1: Negative Reviewed, dictated and finalized at location A.
== END 2023-08-05 12:48 | disposition home or self-care (01) ==
LOC: CHSIMG 12:49
PROVIDERS: PCP Physician Assistant; Visit Provider Physician Assistant
DX: Z12.31 Encounter for screening mammogram for malignant neoplasm of breast (principal)
CPT/HCPCS: 77063; 77067

== ENCOUNTER 2024-08-09 07:45 | Outpatient (CLI) | payer MEDICARE, SELFPAY ==
--- NOTE | ~2024-08-09 | CT_ITS ---
CT Scan of the Chest without Contrast: Clinical Indication: Lung cancer screening, nicotine dependence Technique: Contiguous sections were acquired throughout the chest without intravenous contrast. Dose reduction technique was used on this scan by utilizing automated exposure control and iterative recon struction technique. The dose-length product (DLP) was 64.85 mGy-cm. Findings: There is no evidence of any significant mediastinal, hilar or axillary lymphadenopathy. Coronary hai ry calcifications are present. There is no evidence of pleural or pericardial effusion. The lungs are clear. No pulmonary nodules or infiltrates are noted. Mild emphysema. Images through the upper abdomen reveal no abnormalities. Impression: Lung RADS 1: Negative. 12 month follow-up CT advised. Reviewed, dictated and finalized at location . Impression: Lung RADS 1: Negative. 12 month follow-up CT advised.
--- NOTE | ~2024-08-09 | MM_ITS ---
EXAMINATION: MM screening [facility] BI w kaity HISTORY: Screening TECHNIQUE: Craniocaudal and mediolateral oblique 3-D tomosynthesis images were obtained and synthetic 2-D images were generated. CAD analysis was submitted and interpreted. COMPARISON: Comparison to multiple prior studies sequentially, with oldest reviewed study dated 11/2016. BREAST PARENCHYMAL COMPOSITION: Not dense: There are scattered areas of fibroglandular density. FINDINGS: There is no evidence of suspicious mass, calcification, or architectural distortion to sugg est malignancy in either breast. There has been no suspicious interval change. IMPRESSION: 1. No mammographic evidence of malignancy. 2. Recommend routine screening mammography in one year. BI-RADS Category 1: Negative Reviewed, dictated and finalized at location B.
--- NOTE | ~2024-08-09 | DEXA_ITS ---
Bone Density Report Name: KATYA SILVA Age: 74 Sex: Female Ethnicity: White Date of : 1950 Indication: postmenopausal; screening for osteoporosis; height loss; prior fracture; Referring Provider: ALEXANDER, ANGELA Kang Study: Bone densitometry was performed. Exam Date: August 09, 2024 Accession number: [id number] Bone Density: Region BMD T-score Z-score Classification AP Spine(L1, L2, L3) 1.028 0.1 2.4 Normal Femoral Neck (Left) 0.702 -1.3 0.7 Osteopenia Total Hip (Left) 0.863 -0.6 1.1 Normal World Health Organization criteria for BMD impression classify patients as: Normal (T-score at or above -1.0), Osteopenia (T-score between -1.0 and -2.5), or Osteoporosis (T-score at or below -2.5). 10-year Fracture Risk: FRAX not reported because: Prior hip or vertebral fracture Treated for osteoporosis Clinical Information Provided by Patient: Have had a previous hip or vertebral fracture Has had a low trauma fracture Smokes Is being treated for osteoporosis Has used the following medications: Vitamin D, Calcium Patient maximum height was 66 Menopause Age: 50 No regular weight bearing exercise Drinks caffeinated beverages Onset of menses at age 15 Number of children 0 Impression: The patient has low bone mass, based on the Left Femoral Neck T-score. The patient has risk factors, including: smoking, previous fracture. Discussion: It is important to ask patients whether they are taking their medications and to encourage continued and appropriate compliance with their osteoporosis therapies to reduce fracture risk. It is also important to review their risk factors and encourage appropriate calcium and vitamin D intakes, exercise, fall prevention and other lifestyle measures. Follow-Up: Consider a repeat BMD and Vertebral Fracture Assessment (VFA) exam in 2 years or sooner if medically necessary, to reassess this patient's status. Reported by: CARI on 08/09/2024 8:29:00 AM. Reviewed, dictated and finalized at location ABrodie JAMISON
== END 2024-08-09 07:46 | disposition home or self-care (01) ==
LOC: CHSIMG 07:52
PROVIDERS: PCP Family Medicine; Visit Provider Family Medicine
DX: Z12.31 Encounter for screening mammogram for malignant neoplasm of breast (principal); Z78.0 Asymptomatic menopausal state; Z12.2 Encounter for screening for malignant neoplasm of respiratory organs; Z87.891 Personal history of nicotine dependence; M85.88 Other specified disorders of bone density and structure, other site
CPT/HCPCS: 71271; 77063; 77067; 77080

== ENCOUNTER 2025-08-30 13:10 | Outpatient (CLI) | payer MEDICARE, SELFPAY ==
--- NOTE | ~2025-08-30 | MM_ITS ---
EXAMINATION: MM screening [facility] BI w kaity HISTORY: Screening TECHNIQUE: Craniocaudal and mediolateral oblique 3-D tomosynthesis images were obtained and synthetic 2-D images were generated. CAD analysis was submitted and interpreted. COMPARISON: Comparison to multiple prior studies sequentially, with oldest reviewed study dated 05/19/2016. BREAST PARENCHYMAL COMPOSITION: Not dense: There are scattered areas of fibroglandular density. FINDINGS: There is no evidence of suspicious mass, calcification, or architectural distortion to suggest malignancy in either breast. There has been no suspicious interval change. IMPRESSION: 1. No mammographic evidence of malignancy. 2. Recommend routine screening mammography in one year. BI-RADS Category 1: Negative Reviewed, dictated and finalized at location O.
== END 2025-08-30 13:11 | disposition home or self-care (01) ==
PROVIDERS: PCP Family Medicine; Visit Provider Family Medicine
DX: Z12.31 Encounter for screening mammogram for malignant neoplasm of breast (principal)
CPT/HCPCS: 77063; 77067